=== PATIENT | male | born 1985 | race Caucasian/White ===

== ENCOUNTER 2022-05-04 21:35 | Emergency (ER) | payer OTHER, MEDICAID, SELFPAY ==
--- NOTE | ~2022-05-04 | CT_ITS ---
EXAMINATION: CT FACIAL BONES WITHOUT CONTRAST CLINICAL INFORMATION: Evaluate for blowout fracture COMPARISON: None TECHNIQUE: Axial imaging with coronal and sagittal reformatted images. This CT examination was performed using dose optimization techniques as appropriate, variously including the following: *Automated exposure control *Adjustment of mA and/or kV according to patient size (this includes techniques or standardized protocols for targeted exams where dose is matched to indication/reason for exam; i.e. extremities or head) *Use of iterative reconstruction technique DLP: 265 mGy-cm FINDINGS: Note is made of sinus disease. No fracture is seen. CT/CT facial bones wo IV con IMPRESSION: No fracture is seen.
[2022-05-04 21:43] VITALS: BP 112/81; PULSE 74; RESP 16; TEMP 37.2; O2SAT 96; BMI 25.7
[2022-05-04 22:35] LABS: MANUAL DIFF FLAG NO
[2022-05-04 22:38] LABS: Basophils Absolute Auto 0.1 X10*3/uL (0.0-0.2); Basophils Percent Auto 0.5 % (0-2); Eosinophils Absolute Auto 0.1 X10*3/uL (0.0-0.4); Eosinophils Percent Auto 0.7 % (0-4); Hematocrit 37.3 % (42.0-52.0); Hemoglobin 12.4 g/dl (14.0-18.0); Imm Gran Abs Auto 0.03 X10*3/uL (0.00-0.03); Imm Gran Pct Auto 0.3 % (0.0-0.4); Lymphocytes Absolute Auto 1.5 X10*3/uL (1.2-4.9); Lymphocytes Percent Auto 14.6 % (20-40); Mean Corpuscular HGB Conc 33.2 g/dl (31.0-36.0); Mean Corpuscular Hemoglobin 29.7 pg (27.0-33.0); Mean Corpuscular Volume 89.4 fL (80.0-98.0); Mean Platelet Volume 9.7 fL (9.4-12.4); Monocytes Absolute Auto 0.6 X10*3/uL (0.1-1.2); Monocytes Percent Auto 6.2 % (2-11); Neutrophils Absolute Auto 7.8 x10*3/uL (2.0-8.3); Neutrophils Percent Auto 77.7 % (45-73); Platelet Count 260 X10*3/uL (160-400); Red Blood Count 4.17 X10*6/uL (4.60-5.80); Red Cell Distribution Width 12.4 % (11.0-16.0); White Blood Count 10.1 X10*3/uL (4.8-10.8)
[2022-05-04 22:44] LABS: COVID-19 Test Negative (Negative); IDNOW Serial# BCCEAD1C
[2022-05-04 22:55] LABS: Alanine Aminotransferase 17 U/L (0-40); Albumin Level 3.8 g/dL (3.5-5.0); Alkaline Phosphatase 60 U/L (39-117); Anion Gap 8 (12-20); Aspartate Amino Transferase 17 U/L (5-37); Bilirubin Total 0.3 mg/dL (0.0-1.0); Blood Urea Nitrogen 15 mg/dL (9-16); Calcium 8.9 mg/dL (8.4-10.2); Carbon Dioxide 34 mmol/L (22-29); Chloride 102 mmol/L (96-108); Creatinine Clr Calc Pharmacy 95.4; Estimated Glomerular Filt Rate > 60; Glucose Random 97 mg/dL (60-115); Potassium 4.1 mmol/L (3.3-5.1); Sodium 140 mmol/L (135-145); Total Protein 5.8 g/dL (6.5-8.0)
[2022-05-04 22:58] LABS: Ethanol < 10 mg/dL
[2022-05-04 23:11] LABS: Amphetamine Screen Urine Not Detected (Not Detect); Barbiturates, Urine Not Detected (Not Detect); Benzodiazepines Screen Urine Not Detected (Not Detect); Cannabinoid Screen Urine Not Detected (Not Detect); Cocaine Screen Urine Not Detected (Not Detect); Fentanyl, urine POSITIVE (Not Detect); Opiate Screen Urine Not Detected (Not Detect); Phencyclidine Screen Urine Not Detected (Not Detect)
[2022-05-04 23:46] VITALS: BP 118/68; PULSE 67; RESP 16; TEMP 37.2; O2SAT 97
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
[2022-05-05] MEDS: LORazepam 1 MG TABLET 2 MG PO (01:39)
[2022-05-05] MEDS: rOPINIRole HCL 0.25 MG TABLET PO ×2 (01:39→20:38)
--- NOTE | 2022-05-05 07:16 | PC.NURSE ---
Patient slept intermittently, no distress observed/reported, VSS, behavior non concerning at this time but unpredictable, patient engaged well with care team, disposition is section 12 inpatient bed search, will continue to monitor.
--- NOTE | 2022-05-05 10:31 | PC.NURSE ---
Addendum entered by Shereen Hussein 05/05/22 14:37: [facility] WAS CALLED, NOT [facility] Original Note: [facility] CALLED RE:PT'S METHADONE DOSE. PHARMACY CALLED X 2 REGARDING MEDS REMAIN UNVERIFIED. PT REQUESTING SOMETHING FOR BOWELS. MD AWARE
[2022-05-05] MEDS: methADONE HCl 20 MG/2 ML ORAL.CONC 40 MG PO (11:40)
[2022-05-05] MEDS: Divalproex Sodium 500 MG TABLET.DR PO ×2 (11:42→20:37)
[2022-05-05] MEDS: Sertraline HCL 50 MG TABLET PO (11:43)
[2022-05-05] MEDS: Levothyroxine Sodium 100 MCG TABLET PO (11:43)
[2022-05-05] MEDS: Ziprasidone 60 MG CAPSULE PO ×2 (11:44→20:41)
--- NOTE | 2022-05-05 14:36 | PC.NURSE ---
MEDS GIVEN LATE S MED REC NOT VERIFIED UNTIL 1100. GIVEN AT 1140
[2022-05-05] MEDS: Venlafaxine HCl ER 75 MG CAP.ER.24H PO (14:38)
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
[2022-05-05] MEDS: LORazepam 0.5 MG TABLET PO (17:58)
[2022-05-05] MEDS: Baclofen 10 MG TABLET PO (17:58)
[2022-05-05] MEDS: Prazosin HCL 1 MG CAPSULE 7 MG PO (20:37)
[2022-05-05] MEDS: traZODone HCL 50 MG TABLET PO (20:38)
[2022-05-05 20:47] VITALS: BP 120/86; PULSE 69; RESP 18; TEMP 36.1; O2SAT 95
--- NOTE | 2022-05-06 06:13 | PC.NURSE ---
Patient slept through the night, no distress observed/reported, behavior non concerning, medication compliant, disposition per care team is section 12 inpatient bed search, VSS, will continue to monitor.
[2022-05-06 06:40] VITALS: BP 102/68; PULSE 68; RESP 16; TEMP 36.9; O2SAT 94
[2022-05-06 08:17] VITALS: BP 104/71; PULSE 66; RESP 16; TEMP 36.7; O2SAT 98
[2022-05-06] MEDS: methADONE HCl 20 MG/2 ML ORAL.CONC 40 MG PO (08:17)
[2022-05-06] MEDS: Levothyroxine Sodium 100 MCG TABLET PO (08:17)
[2022-05-06] MEDS: Sertraline HCL 50 MG TABLET PO (08:17)
[2022-05-06] MEDS: Divalproex Sodium 500 MG TABLET.DR PO ×2 (08:17→21:16)
[2022-05-06] MEDS: LORazepam 0.5 MG TABLET PO (08:17)
[2022-05-06] MEDS: Cholecalciferol (Vitamin D3) 25 MCG TABLET PO (08:17)
[2022-05-06] MEDS: Ziprasidone 60 MG CAPSULE PO ×2 (08:46→21:16)
[2022-05-06] MEDS: Venlafaxine HCl ER 75 MG CAP.ER.24H PO (08:47)
--- NOTE | 2022-05-06 13:06 | PC.NURSE ---
Pt visible in milieu, occasional odd behavior noted, speaking clearly in full sentences. Has spent a good portion of the morning coloring. Meeting with CARE team at this time.
[2022-05-06] MEDS: hydrOXYzine HCL 50 MG TABLET 100 MG PO (14:40)
--- NOTE | 2022-05-06 14:41 | PC.NURSE ---
Pt requesting PRN at this time, hydroxyzine given per mar
--- NOTE | 2022-05-06 15:16 | PC.NURSE ---
Pt seen this date for individual OT tx. Upon entering pts room pt found to seated on bed and rocking. Pt reports feeling upset and hurt as pictures given to staff, as a present , could not be hung up in POD milieu. Pt provided with reassurance and positive reinforcement with positive result. Pt encouraged to continue to practice coloring as a useful and effective coping skill as a positive distraction from intrusive negative thoughts. Pt is in agreement and receptive to sensory item provided.
--- NOTE | 2022-05-06 15:16 | MHC.CARE ---
Care Team exhausted bedsearch.
[2022-05-06] MEDS: Prazosin HCL 1 MG CAPSULE 7 MG PO (21:17)
[2022-05-06] MEDS: rOPINIRole HCL 0.25 MG TABLET PO (21:19)
[2022-05-06] MEDS: traZODone HCL 50 MG TABLET PO (21:22)
[2022-05-06 21:26] VITALS: BP 133/77; PULSE 64; RESP 18; TEMP 36.6; O2SAT 98
[2022-05-07 03:01] VITALS: BP 112/72; PULSE 76; RESP 16; TEMP 36.7; O2SAT 95
--- NOTE | 2022-05-07 06:59 | PC.NURSE ---
patient appears to remain asleep at present respirations are even and unlabored patient appears to be in distress
[2022-05-07 09:39] VITALS: BP 101/64; PULSE 55; RESP 16; TEMP 36.8; O2SAT 97
[2022-05-07] MEDS: Divalproex Sodium 500 MG TABLET.DR PO (09:58)
[2022-05-07] MEDS: Ziprasidone 60 MG CAPSULE PO (09:58)
[2022-05-07] MEDS: Nicotine 21 MG PATCH.TD24 TRANSDERMA (09:58)
[2022-05-07] MEDS: methADONE HCl 20 MG/2 ML ORAL.CONC 40 MG PO (09:59)
[2022-05-07] MEDS: Sertraline HCL 50 MG TABLET PO (09:59)
[2022-05-07] MEDS: Cholecalciferol (Vitamin D3) 25 MCG TABLET PO (09:59)
[2022-05-07] MEDS: Levothyroxine Sodium 100 MCG TABLET PO (09:59)
[2022-05-07] MEDS: Venlafaxine HCl ER 75 MG CAP.ER.24H PO (09:59)
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
[2022-05-07] MEDS: hydrOXYzine HCL 50 MG TABLET 100 MG PO (14:49)
== END 2022-05-07 15:24 | disposition home or self-care (01) ==
PROVIDERS: Emergency Provider Emergency Medicine
DX: R45.851 Suicidal ideations (principal); F41.9 Anxiety disorder, unspecified; F91.8 Other conduct disorders; F19.10 Other psychoactive substance abuse, uncomplicated; F43.10 Post-traumatic stress disorder, unspecified; F60.3 Borderline personality disorder; F60.2 Antisocial personality disorder; Z20.822 Contact with and (suspected) exposure to COVID-19; S00.11XA Contusion of right eyelid and periocular area, initial encounter; X83.8XXA Intentional self-harm by other specified means, initial encounter; Y93.89 Activity, other specified; Y92.238 Other place in hospital as the place of occurrence of the external cause; Y99.9 Unspecified external cause status
CPT/HCPCS: 36415; 70486; 80053; 80307; 82077; 85025; 87635; 99284; 99285; S9485

== ENCOUNTER 2022-12-08 20:28 | Emergency (ER) | payer MEDICAID, SELFPAY ==
--- NOTE | ~2022-12-08 | XR_ITS ---
EXAMINATION: XR ABDOMEN KUB CLINICAL INDICATION: Fecal impaction COMPARISON: None available. TECHNIQUE: AP view of the abdomen. FINDINGS: There is prominent gaseous distention of colon in the central abdomen, suspected to represent transverse colon, with a large amount of stool in this region. Moderate stool is also noted in the descending colon. No significant stool in the rectum. No gaseous dilation of small bowel. No appreciable intra-abdominal free air, though assessment for this is limited with supine positioning. Small calcification in the lower left pelvis is statistically favored to represent a phlebolith. No acute osseous findings are seen. XR/XR KUB IMPRESSION: Large volume of stool in the central abdomen with gaseous distention of the transverse colon. Moderate volume of stool in the descending colon. No significant stool in the rectum.
[2022-12-08 20:34] VITALS: BP 115/71; PULSE 83; RESP 17; TEMP 36.8; O2SAT 95
[2022-12-08 20:59] VITALS: BMI 30.8
--- NOTE | 2022-12-08 21:45 | ED_ITS ---
HPI - Abdominal Pain General Chief Complaint: Abdominal Pain Stated Complaint: constipation x3days,abd pain Time Seen by Provider: 12/08/22 21:09 Source: patient Mode of arrival: ambulatory Limitations: no limitations History of Present Illness HPI narrative: Patient transgender female to male been constipated for last 4 days was given bowel medication at program today without any relief no nausea no vomiting no fever no chills not take any narcotics for pain Related Data Home Medications Medication Instructions Recorded Confirmed albuterol sulfate 90 mcg/actuation 2 puff inhalation Q6H PRN 05/05/22 05/05/22 aerosol inhaler (ProAir HFA) Respiratory Distress baclofen 10 mg tablet 10 mg PO TID PRN Spasms 05/05/22 05/05/22 cholecalciferol (vitamin D3) 25 25 mcg PO DAILY 05/05/22 05/05/22 mcg (1,000 unit) tablet divalproex 500 mg tablet,delayed 1 tab PO BID 05/05/22 05/05/22 release hydroxyzine HCl 50 mg tablet 100 mg PO Q4H PRN Anxiety 05/05/22 05/05/22 levothyroxine 100 mcg tablet 1 tab PO DAILY@0600 05/05/22 05/05/22 lorazepam 0.5 mg tablet 0.5 mg PO Q6H PRN Anxiety 05/05/22 05/05/22 methadone 40 mg PO DAILY 05/05/22 05/05/22 mineral oil-hydrophil petrolat 1 appl topical DAILY PRN Dry Skin 05/05/22 05/05/22 topical ointment (Aquaphor topical ointment) nicotine (polacrilex) 2 mg gum 2 mg buccal Q2H PRN Nicotine 05/05/22 05/05/22 Cravings nicotine 21 mg/24 hr daily 1 patch transdermal DAILY 05/05/22 05/05/22 transdermal patch prazosin 1 mg capsule 7 mg PO BEDTIME 05/05/22 05/05/22 ropinirole 0.25 mg tablet 1 tab PO BEDTIME 05/05/22 05/05/22 sertraline 50 mg tablet 50 mg PO DAILY 05/05/22 05/05/22 trazodone 50 mg tablet 50 mg PO BEDTIME 05/05/22 05/05/22 venlafaxine 37.5 mg 37.5 mg PO DAILY 05/05/22 05/05/22 tablet,extended release 24 hr venlafaxine 75 mg capsule,extended 75 mg PO DAILY 05/05/22 05/05/22 release 24 hr ziprasidone HCl 60 mg capsule 1 cap PO BID 05/05/22 05/05/22 Previous Rx's Medication Instructions Recorded bisacodyl 5 mg tablet,delayed 10 mg PO BEDTIME 2 days #4 tabs 12/08/22 release (Dulcolax (bisacodyl)) polyethylene glycol 3350 17 17 g PO DAILY #510 grams 12/08/22 gram/dose oral powder (Miralax) Allergies Allergy/AdvReac Type Severity Reaction Status Date / Time Penicillins AdvReac Severe Shortness Verified 05/04/22 21:56 of Breath Review of Systems Review of Systems Yes all other systems are reviewed and are negative [facility] Past Medical History Medical History Aggressive behavior Antisocial personality disorder Borderline personality disorder PTSD (post-traumatic stress disorder) Suicidal ideation Social History Social History Alcohol intake: never Smoked in Last 30 Days: No Use of substances other than those prescribed or required for medical reasons: No Advance Directives: No Advance Directives Information Provided: No Physical Exam ED Vital Signs: Vital Signs - 24 hr 12/08/22 20:34 Temperature 98.2 F Pulse Rate 83 Respiratory Rate 17 Blood Pressure 115/71 Pulse Oximetry 95 Oxygen Delivery Method Room Air BMI result Body Mass Index 30.8 Appearance: Alert. Oriented X3. No acute distress. Eyes: PERRLA, No Nystagmus ENT: Pharynx normal. Oral Mucosa moist Neck: Normal inspection. Neck supple. CVS: Normal heart rate and rhythm. Pulses normal. Respiratory: No respiratory distress. Equal air entry bilateral, no wheezing/rales/rhonchi Abdomen: Soft and nontender. Bowel sounds are present, no mass palpable, no CVA tenderness rectal: Empty rectum no stool palpable Skin: Skin warm and dry. Normal skin color. Normal skin turgor. Extremities: No lower extremity edema. No calf tenderness Neuro: Oriented X 3. No motor deficit. Medical Decision Making Medical Decision Making MDM Narrative: KUB showed moderate amount of stool no SBO will give milk of magnesium and Dulcolax Differential Diagnosis Differential Diagnoses: The differential diagnosis associated with the presentation includes Fecal impaction/SBO Medications Administered Discontinued Medications Generic Name Dose Route Start Last Admin Trade Name Freq PRN Reason Stop Dose Admin Bisacodyl 10 mg 12/08/22 21:45 12/08/22 21:58 Bisacodyl 5 Mg Tablet.Dr PO 12/08/22 21:46 10 mg ONCE ONE Administration Magnesium Hydroxide 30 ml 12/08/22 21:45 12/08/22 21:58 Milk Of Magnesia 30 Ml Oral.Susp PO 12/08/22 21:46 30 ml ONCE ONE Administration Discharge Plan Discharge Clinical Impression: Constipation Patient Disposition: Home, Self-Care Instructions: Constipation (ED) Additional Instructions: Take stool softener as prescribed Follow with PCP Prescriptions: New polyethylene glycol 3350 [Miralax] 17 gram/dose powder 17 g PO DAILY Qty: 510 0RF bisacodyl [Dulcolax (bisacodyl)] 5 mg tablet,delayed release (DR/EC) 10 mg PO BEDTIME 2 Days Qty: 4 0RF No Action divalproex 500 mg tablet,delayed release (DR/EC) 1 tab PO BID levothyroxine 100 mcg tablet 1 tab PO DAILY@0600 ropinirole 0.25 mg tablet 1 tab PO BEDTIME albuterol sulfate [ProAir HFA] 90 mcg/actuation HFA aerosol inhaler 2 puff inhalation Q6H PRN (Reason: Respiratory Distress) ziprasidone HCl 60 mg capsule 1 cap PO BID trazodone 50 mg Tablet 50 mg PO BEDTIME prazosin 1 mg Capsule 7 mg PO BEDTIME sertraline 50 mg Tablet 50 mg PO DAILY methadone 40 mg PO DAILY baclofen 10 mg Tablet 10 mg PO TID PRN (Reason: Spasms) cholecalciferol (vitamin D3) 25 mcg (1,000 unit) Tablet 25 mcg PO DAILY hydroxyzine HCl 50 mg Tablet 100 mg PO Q4H PRN (Reason: Anxiety) lorazepam 0.5 mg Tablet 0.5 mg PO Q6H PRN (Reason: Anxiety) nicotine 21 mg/24 hr Patch 24 Hour 1 patch TRANSDERMAL DAILY nicotine (polacrilex) 2 mg Gum 2 mg BUCCAL Q2H PRN (Reason: Nicotine Cravings) Aquaphor Ointment 1 appl TOPICAL DAILY PRN (Reason: Dry Skin) venlafaxine 75 mg Capsule,Extended Release 24hr 75 mg PO DAILY Rx Instructions: DOSE FROM 05/05 TO 05/07 venlafaxine 37.5 mg Tablet Extended Release 24hr 37.5 mg PO DAILY Rx Instructions: DOSE FROM 05/06 TO 05/09 Interventions: ED Discharge Assessment Last Done: 12/08/22 23:31 Discharge Date/Time: 12/08/22 23:32
[2022-12-08] MEDS: bisacodyL 5 MG TABLET.DR 10 MG PO (21:58)
[2022-12-08] MEDS: Milk of Magnesia 30 ML ORAL.SUSP PO (21:58)
== END 2022-12-08 23:32 | disposition home or self-care (01) ==
PROVIDERS: Emergency Provider Internal Medicine
DX: K59.00 Constipation, unspecified (principal); R10.13 Epigastric pain; Z79.899 Other long term (current) drug therapy
CPT/HCPCS: 74018; 99283; 99284

== ENCOUNTER 2022-12-09 21:36 | Emergency (ER) | payer MEDICAID, SELFPAY ==
--- NOTE | ~2022-12-09 | XR_ITS ---
EXAMINATION: XR ABDOMEN KUB CLINICAL INDICATION: Foreign body ingestion. COMPARISON: None available. TECHNIQUE: AP view of the abdomen. FINDINGS: The bowel gas pattern is normal with no evidence of ileus or obstruction. No unusual soft tissue calcifications are noted. The bones are unremarkable. XR/XR KUB IMPRESSION: Nonspecific bowel gas pattern. No radiopaque foreign body seen.
--- NOTE | ~2022-12-09 | XR_ITS ---
EXAMINATION: XR CHEST CLINICAL INFORMATION: Foreign body ingestion. COMPARISON: None available. TECHNIQUE: Frontal view of the chest was obtained. FINDINGS: The cardiomediastinal silhouette is normal. There is no focal lung consolidation or pleural effusion. The bony structures and soft tissues are unremarkable. XR/XR chest 1V IMPRESSION: No active cardiopulmonary disease. No radiopaque foreign body seen.
[2022-12-09 21:41] VITALS: BP 132/86; PULSE 74; O2SAT 99
[2022-12-09 21:55] VITALS: BP 120/67; PULSE 92; RESP 16; TEMP 35.9; O2SAT 97; BMI 30.5
--- NOTE | 2022-12-09 22:26 | ED.ABDPAIN ---
HPI - Abdominal Pain General Chief Complaint: Abdominal Pain Stated Complaint: ABD PAIN DUE TO CONSTIPATION, WANTS ENEMA Time Seen by Provider: 12/09/22 22:18 Source: patient and EMS Mode of arrival: EMS Limitations: no limitations History of Present Illness HPI narrative: 37-year-old transgender male to female who is currently residing in inpatient locked psych unit came in for constipation and no bowel movement for the past 5 days, patient was seen and evaluated yesterday for similar presentation and patient was prescribed Polyethylene glycol, and dulcolax. Patient claimed that the nursing staff at the psych facility did not want to give him his medication patient stated that he claimed that he swallowed something (safety pin) but he did not in order to come to the hospital patient in the emergency department confirmed that he did not swallow anything he just said that to come to the hospital. Related Data Home Medications Medication Instructions Recorded Confirmed albuterol sulfate 90 mcg/actuation 2 puff inhalation Q6H PRN 05/05/22 05/05/22 aerosol inhaler (ProAir HFA) Respiratory Distress baclofen 10 mg tablet 10 mg PO TID PRN Spasms 05/05/22 05/05/22 cholecalciferol (vitamin D3) 25 25 mcg PO DAILY 05/05/22 05/05/22 mcg (1,000 unit) tablet divalproex 500 mg tablet,delayed 1 tab PO BID 05/05/22 05/05/22 release hydroxyzine HCl 50 mg tablet 100 mg PO Q4H PRN Anxiety 05/05/22 05/05/22 levothyroxine 100 mcg tablet 1 tab PO DAILY@0600 05/05/22 05/05/22 lorazepam 0.5 mg tablet 0.5 mg PO Q6H PRN Anxiety 05/05/22 05/05/22 methadone 40 mg PO DAILY 05/05/22 05/05/22 mineral oil-hydrophil petrolat 1 appl topical DAILY PRN Dry Skin 05/05/22 05/05/22 topical ointment (Aquaphor topical ointment) nicotine (polacrilex) 2 mg gum 2 mg buccal Q2H PRN Nicotine 05/05/22 05/05/22 Cravings nicotine 21 mg/24 hr daily 1 patch transdermal DAILY 05/05/22 05/05/22 transdermal patch prazosin 1 mg capsule 7 mg PO BEDTIME 05/05/22 05/05/22 ropinirole 0.25 mg tablet 1 tab PO BEDTIME 05/05/22 05/05/22 sertraline 50 mg tablet 50 mg PO DAILY 05/05/22 05/05/22 trazodone 50 mg tablet 50 mg PO BEDTIME 05/05/22 05/05/22 venlafaxine 37.5 mg 37.5 mg PO DAILY 05/05/22 05/05/22 tablet,extended release 24 hr venlafaxine 75 mg capsule,extended 75 mg PO DAILY 05/05/22 05/05/22 release 24 hr ziprasidone HCl 60 mg capsule 1 cap PO BID 05/05/22 05/05/22 Previous Rx's Medication Instructions Recorded bisacodyl 5 mg tablet,delayed 10 mg PO BEDTIME 2 days #4 tabs 12/08/22 release (Dulcolax (bisacodyl)) polyethylene glycol 3350 17 17 g PO DAILY #510 grams 12/08/22 gram/dose oral powder (Miralax) Allergies Allergy/AdvReac Type Severity Reaction Status Date / Time Penicillins AdvReac Severe Shortness Verified 05/04/22 21:56 of Breath Review of Systems Review of Systems All other systems are reviewed and are negative Constitutional: Reports as per HPI and Reports no additional constitutional complaints Eyes: Reports as per HPI and Reports no additional eye complaints Reports system reviewed and no additional complaints, except as documented Cardiovascular: Reports as per HPI and Reports no additional cardiovascular complaints Respiratory: Reports as per HPI and Reports no additional respiratory complaints Gastrointestinal: Reports as per HPI and Reports no additional gastrointestinal complaints Genitourinary: Reports no additional female genitourinary complaints Musculoskeletal: Reports no additional musculoskeletal complaints Skin/Breast: Reports system reviewed and no additional complaints, except as docu Psychiatric: Reports no additional psychiatric complaints Endocrine: Reports no additional endocrine complaints Hematologic/Lymphatic: Reports no additional hematologic/lymphatic complaints Allergic/Immunologic: Reports no additional allergic/immunologic complaints Reports system reviewed and no additional complaints, except as documented and Reports Abnormal speech present [facility] Past Medical History Medical History Aggressive behavior Antisocial personality disorder Borderline personality disorder PTSD (post-traumatic stress disorder) Suicidal ideation Social History Social History Alcohol intake: never Advance Directives: No Advance Directives Information Provided: No Physical Exam ED Vital Signs: Vital Signs - 24 hr 12/09/22 21:55 12/09/22 23:57 Temperature 96.7 F L 97.9 F Pulse Rate 92 71 Respiratory Rate 16 16 Blood Pressure 120/67 121/55 L Pulse Oximetry 97 95 Oxygen Delivery Method Room Air Room Air BMI result Body Mass Index 30.5 Vital signs have been reviewed as appeared to be correct. Blood pressure normal. Heart rate normal. Respiration rate normal. Temperature normal. Oxygen saturation normal. Appearance: Alert. Oriented X3. No acute distress. Head: Normal external exam. Normocephalic. Atraumatic. No Clements signs noted. No raccoon eyes noted Eyes: PERRLA. EOMI. Conjunctiva and sclera normal. Eyelids normal. ENT: TM's Normal. Pharynx normal. Uvula midline. Moist mucous membranes. No trismus noted. No drooling noted. No muffled voice noted. Neck: Normal inspection. Neck supple. FROM. No adenopathy. Thyroid Normal. No meningeal signs. No neck mass noted. CVS: Normal heart rate and rhythm. Heart sound normal. No murmurs noted. Pulses normal throughout. Respiratory: No respiratory distress. Painless inspiration. Breath sounds normal. No wheezes/rales/rhonchi noted. Chest nontender. No accessory muscle usage noted or decreased air movement noted. Abdomen: Soft and nontender. Bowel sounds normal in all 4 quadrants. No distention noted. No organomegaly noted. No visible injury noted. Back: No CVA tenderness. Full range of motion noted. Skin: Skin warm and dry. Normal skin color. Normal skin turgor. No rashes/lesions/lacerations noted. Extremities: No lower extremity edema. Extremities exhibit normal range of motion. Extremities nontender. Neuro: Oriented X 3. Cranial nerve exam: II-XII are grossly intact No motor deficit. No sensory deficit. Reflexes normal. Course Course Course Narrative: 37-year-old male came in from [facility] for abdominal pain and constipation the patient was evaluated yesterday in the emergency department for similar symptoms, labs revealed elevated LFTs that can be worked up by PCP, patient received rectal enema and milk of magnesia had bowel movement in the emergency department and feels better, patient tolerated p.o. intake with no problem, will arrange for transportation back to the [facility] for further depression management. No evidence of foreign body in the GI track as patient claimed in order to be transported to the hospital. The above plan was discussed with the patient. Medical Decision Making Differential Diagnosis Differential Diagnoses: The differential diagnosis associated with the presentation includes (Constipation, swallowing foreign body, electrolyte abnormality, severe anemia.) Admission/Observation Consideration of admission/observation: Escalation of care including admission/observation considered Lab Data MDM Lab Attestation statement: I reviewed the patient's lab results. 12/09/22 22:48 12/09/22 22:48 Labs: Lab Results 12/09/22 12/09/22 Range/Units 22:48 22:48 WBC 4.9 (4.8-10.8) X10*3/uL RBC 4.16 L (4.60-5.80) X10*6/uL Hgb 12.2 L (14.0-18.0) g/dl Hct 37.1 L (42.0-52.0) % MCV 89.2 (80.0-98.0) fL MCH 29.3 (27.0-33.0) pg MCHC 32.9 (31.0-36.0) g/dl RDW 12.6 (11.0-16.0) % Plt Count 211 (160-400) X10*3/uL MPV 9.1 L (9.4-12.4) fL Immature Gran % (Auto) 0.4 (0.0-0.4) % Neut % (Auto) 55.3 (45-73) % Lymph % (Auto) 27.4 (20-40) % [place] % (Auto) 11.2 H (2-11) % Eos % (Auto) 5.1 H (0-4) % Baso % (Auto) 0.6 (0-2) % Lymph # (Auto) 1.3 (1.2-4.9) X10*3/uL [place] # (Auto) 0.6 (0.1-1.2) X10*3/uL Eos # (Auto) 0.3 (0.0-0.4) X10*3/uL Baso # (Auto) 0.0 (0.0-0.2) X10*3/uL Abs Immat Gran (auto) 0.02 (0.00-0.03) X10*3/uL Absolute Neuts (auto) 2.7 (2.0-8.3) x10*3/uL Absolute Nucleated RBC 0.000 (0.0-0.012) X10*3/uL Nucleated RBC % (auto) 0.0 (0.0-0.2) /100WBC Sodium 141 (135-145) mmol/L Potassium 4.9 (3.3-5.1) mmol/L Chloride 102 (96-108) mmol/L Carbon Dioxide 31 H (22-29) mmol/L Anion Gap 13 (12-20) BUN 18 H (9-16) mg/dL Creatinine 0.90 (0.5-1.4) mg/dL Estim Creat Clear Calc 113.7 Estimated GFR > 60 Random Glucose 113 (60-115) mg/dL Calcium 8.7 (8.4-10.2) mg/dL Total Bilirubin 0.3 (0.0-1.0) mg/dL Direct Bilirubin 0.1 (0.0-0.5) mg/dL AST 99 H (5-37) U/L ALT 95 H (0-40) U/L Alkaline Phosphatase 77 (39-117) U/L Total Protein 6.2 L (6.5-8.0) g/dL Albumin 3.7 (3.5-5.0) g/dL Lipase 38 (8-78) U/L Independent Interpretation I performed an independent interpretation of an: Plain X-Ray (KUB: No foreign body, no obstruction.) Radiology Impression Discussion of test interpretation with radiology: I have reviewed the radiologist's reading. (Nonspecific bowel gas pattern. No radiopaque foreign body seen. ) Medications Administered Discontinued Medications Generic Name Dose Route Start Last Admin Trade Name Freq PRN Reason Stop Dose Admin Bisacodyl 10 mg 12/09/22 22:29 12/10/22 00:07 Bisacodyl 10 Mg Supp.Rect MA 12/09/22 22:30 10 mg ONCE ONE Administration Mineral Oil 133 ml 12/09/22 22:29 12/10/22 00:07 Mineral Oil Enema 133 Ml Enema MA 12/09/22 22:30 133 ml ONCE ONE Administration Discharge Plan Discharge Clinical Impression: Constipation, Elevated LFTs Patient Disposition: Xfer SNF Transfer Details: [facility] back to [facility] Instructions: Constipation (ED) Additional Instructions: Drink plenty of fluids and eat high-fiber diet. Prescriptions: No Action divalproex 500 mg tablet,delayed release (DR/EC) 1 tab PO BID levothyroxine 100 mcg tablet 1 tab PO DAILY@0600 ropinirole 0.25 mg tablet 1 tab PO BEDTIME albuterol sulfate [ProAir HFA] 90 mcg/actuation HFA aerosol inhaler 2 puff inhalation Q6H PRN (Reason: Respiratory Distress) ziprasidone HCl 60 mg capsule 1 cap PO BID trazodone 50 mg Tablet 50 mg PO BEDTIME prazosin 1 mg Capsule 7 mg PO BEDTIME sertraline 50 mg Tablet 50 mg PO DAILY methadone 40 mg PO DAILY baclofen 10 mg Tablet 10 mg PO TID PRN (Reason: Spasms) cholecalciferol (vitamin D3) 25 mcg (1,000 unit) Tablet 25 mcg PO DAILY hydroxyzine HCl 50 mg Tablet 100 mg PO Q4H PRN (Reason: Anxiety) lorazepam 0.5 mg Tablet 0.5 mg PO Q6H PRN (Reason: Anxiety) nicotine 21 mg/24 hr Patch 24 Hour 1 patch TRANSDERMAL DAILY nicotine (polacrilex) 2 mg Gum 2 mg BUCCAL Q2H PRN (Reason: Nicotine Cravings) Aquaphor Ointment 1 appl TOPICAL DAILY PRN (Reason: Dry Skin) venlafaxine 75 mg Capsule,Extended Release 24hr 75 mg PO DAILY Rx Instructions: DOSE FROM 05/05 TO 05/07 venlafaxine 37.5 mg Tablet Extended Release 24hr 37.5 mg PO DAILY Rx Instructions: DOSE FROM 05/06 TO 05/09 polyethylene glycol 3350 [Miralax] 17 gram/dose powder 17 g PO DAILY Qty: 510 0RF bisacodyl [Dulcolax (bisacodyl)] 5 mg tablet,delayed release (DR/EC) 10 mg PO BEDTIME 2 Days Qty: 4 0RF
[2022-12-09 22:54] LABS: MANUAL DIFF FLAG NO
[2022-12-09 22:55] LABS: Basophils Percent Auto 0.6 % (0-2); Eosinophils Absolute Auto 0.3 X10*3/uL (0.0-0.4); Eosinophils Percent Auto 5.1 % (0-4); Hematocrit 37.1 % (42.0-52.0); Hemoglobin 12.2 g/dl (14.0-18.0); Imm Gran Abs Auto 0.02 X10*3/uL (0.00-0.03); Imm Gran Pct Auto 0.4 % (0.0-0.4); Lymphocytes Absolute Auto 1.3 X10*3/uL (1.2-4.9); Lymphocytes Percent Auto 27.4 % (20-40); Mean Corpuscular HGB Conc 32.9 g/dl (31.0-36.0); Mean Corpuscular Hemoglobin 29.3 pg (27.0-33.0); Mean Corpuscular Volume 89.2 fL (80.0-98.0); Mean Platelet Volume 9.1 fL (9.4-12.4); Monocytes Absolute Auto 0.6 X10*3/uL (0.1-1.2); Monocytes Percent Auto 11.2 % (2-11); Neutrophils Absolute Auto 2.7 x10*3/uL (2.0-8.3); Neutrophils Percent Auto 55.3 % (45-73); Platelet Count 211 X10*3/uL (160-400); Red Blood Count 4.16 X10*6/uL (4.60-5.80); Red Cell Distribution Width 12.6 % (11.0-16.0); White Blood Count 4.9 X10*3/uL (4.8-10.8)
[2022-12-09 23:09] LABS: Alanine Aminotransferase 95 U/L (0-40); Albumin Level 3.7 g/dL (3.5-5.0); Alkaline Phosphatase 77 U/L (39-117); Anion Gap 13 (12-20); Aspartate Amino Transferase 99 U/L (5-37); Bilirubin Direct 0.1 mg/dL (0.0-0.5); Bilirubin Total 0.3 mg/dL (0.0-1.0); Blood Urea Nitrogen 18 mg/dL (9-16); Calcium 8.7 mg/dL (8.4-10.2); Carbon Dioxide 31 mmol/L (22-29); Chloride 102 mmol/L (96-108); Creatinine Clr Calc Pharmacy 113.7; Estimated Glomerular Filt Rate > 60; Glucose Random 113 mg/dL (60-115); Lipase 38 U/L (8-78); Potassium 4.9 mmol/L (3.3-5.1); Sodium 141 mmol/L (135-145); Total Protein 6.2 g/dL (6.5-8.0)
[2022-12-09 23:57] VITALS: BP 121/55; PULSE 71; RESP 16; TEMP 36.6; O2SAT 95
[2022-12-10] MEDS: Mineral OiL enema 133 ML ENEMA PR (00:07)
[2022-12-10] MEDS: bisacodyL 10 MG SUPP.RECT PR (00:07)
--- NOTE | 2022-12-10 02:41 | MHC.EDTECH ---
call out to clara at [phone] to book transport back to [facility], estimated eta given was 1 hr due to [facility]bianna being at ground 0
== END 2022-12-10 04:30 | disposition skilled nursing facility (03) ==
PROVIDERS: Emergency Provider Emergency Medicine
DX: K59.00 Constipation, unspecified (principal); R79.89 Other specified abnormal findings of blood chemistry; R10.13 Epigastric pain; R07.89 Other chest pain; Z79.899 Other long term (current) drug therapy
CPT/HCPCS: 36415; 71045; 74018; 80048; 80076; 83690; 85025; 99284

== ENCOUNTER 2022-12-18 01:09 | Emergency (ER) | payer OTHER, MEDICAID, SELFPAY ==
[2022-12-18 01:15] VITALS: BP 116/72; PULSE 93; RESP 16; TEMP 36.6; O2SAT 94; BMI 25.6
--- NOTE | 2022-12-18 01:32 | ED.PSYCH ---
HPI - Psych General Chief Complaint: Psychiatric Symptoms Stated Complaint: SI Time Seen by Provider: 12/18/22 01:16 Source: patient Mode of arrival: EMS Limitations: no limitations History of Present Illness HPI Narrative: Patient comes to the emergency room via ambulance from the [facility] bus stop. Patient was just discharged today, patient is to be released because patient felt that they were not treating him right, specifically it, he did not get water immediately when it was requested. Patient was at the bus station, expressed suicidal ideation, call 911 and osteotome to the emergency room. Patient expressed suicidal ideation, patient has superficial cuts to the left wrist. Related Data Home Medications Medication Instructions Recorded Confirmed albuterol sulfate 90 mcg/actuation 2 puff inhalation Q6H PRN 05/05/22 12/18/22 aerosol inhaler (ProAir HFA) Respiratory Distress nicotine (polacrilex) 2 mg gum 2 mg buccal Q2H PRN Nicotine 05/05/22 12/18/22 Cravings atomoxetine 18 mg capsule 18 mg PO QAM 12/18/22 12/18/22 cholecalciferol (vitamin D3) 25 25 mcg PO DAILY 12/18/22 12/18/22 mcg (1,000 unit) tablet (Vitamin D3) divalproex 250 mg tablet,extended 250 mg PO QAM 12/18/22 12/18/22 release 24 hr (Depakote ER) estradiol 0.1 mg/24 hr semiweekly 1 patch transdermal 2XW 12/18/22 12/18/22 transdermal patch ropinirole 0.25 mg tablet 0.25 mg PO BEDTIME 12/18/22 12/18/22 Allergies Allergy/AdvReac Type Severity Reaction Status Date / Time Penicillins AdvReac Severe Shortness Verified 05/04/22 21:56 of Breath Review of Systems Review of Systems: Constitutional : No Weight loss, No Fever, No Chills, No Night Sweats, No Fatigue, No Malaise ENT/Mouth : No Hearing loss, No Ear Pain, No Nasal Congestion, No Sinus Pain, No Hoarseness, No sore throat, No Rhinorrhea, No Swallowing Difficulty Eyes: No Eye Pain, No Swelling, No Redness, No Foreign Body, No Discharge, No Vision Changes Cardiovascular : No Chest Pain, No SOB, No Dyspnea on Exertion, No Orthopnea, No Edema, No Palpitations Respiratory : No Cough, No Sputum, No Wheezing, No Smoke Exposure, No Dyspnea Gastrointestinal : No Nausea, No Vomiting, No Diarrhea, No Constipation, No abdominal Pain, No Hematochezia, No Melena Genitourinary : no irregular bleeding, No Dysuria, No Urinary Frequency, No Hematuria, No Urinary Incontinence, No Urgency, No Flank Pain, No Urinary Flow Changes, No Hesitancy Musculoskeletal : No joint pain, No Myalgias, No Joint Swelling Skin : No Skin Lesions, No rash Neuro : No Weakness, No Numbness, No Paresthesias, No Loss of Consciousness, No Dizziness, No Headache Psych : Complaining of suicidal ideation, homicidal ideation Heme/Lymph: No Bruising, No Bleeding,No Lymphadenopathy Endocrine : No Polyuria, No Polydipsia, No Temperature Intolerance PMFSH Past Medical History Medical History Aggressive behavior Antisocial personality disorder Borderline personality disorder PTSD (post-traumatic stress disorder) Suicidal ideation Social History Social History Alcohol intake: never Advance Directives: No Advance Directives Information Provided: No Healthcare Proxy: No Guardian: No Physical Exam Vital Signs: Vital Signs: Last Vital Signs Temp 97.8 F 12/18/22 01:15 Pulse 93 12/18/22 01:15 Resp 16 12/18/22 01:15 BP 116/72 12/18/22 01:15 Pulse Ox 94 12/18/22 01:15 O2 Del Method Room Air 12/18/22 01:15 BMI result Body Mass Index 25.6 Const: Other: Appearance: Alert. Oriented X3. No acute distress. Eyes: Pupils equal, round and reactive to light. ENT: Pharynx normal. Neck: Normal inspection. Neck supple. No lymph nodes noted. No crepitus CVS: Normal heart rate and rhythm. Pulses normal. Normal S1 and S2 Respiratory: No respiratory distress. Breath sounds normal. No Wheezing. No rales Abdomen: Soft and nontender. No rigidity. No distention. Skin: Skin warm and dry. Normal skin color. Normal skin turgor. Superficial lacerations to the left wrist Extremities: No lower extremity edema. No Lacerations. No Rash Neuro: Oriented X 3. No motor deficit. No sensory deficit. Moving all extremities. No slurred speech. CN 2 through 12 grossly intact Psych: calm, cooperative, normal affect Course Course Course Narrative: -all of patient's labs pending -patient is here voluntarily -care team consult pending -physician observation started at 01:35 Medical Decision Making Medical Decision Making [facility] Narrative: -04:00, care, evaluated the patient, they will evaluate the patient in the morning. Patient did not want to participate in the assessment at this time Differential Diagnosis Differential Diagnoses: The differential diagnosis associated with the presentation includes (Anxiety, depression, substance abuse) Admission/Observation Consideration of admission/observation: Escalation of care including admission/observation considered (Patient will remain under observation until evaluated by the care team) Lab Data 12/18/22 01:30 12/18/22 01:30 Labs: Lab Results 12/18/22 12/18/22 12/18/22 Range/Units 01:30 01:30 01:30 WBC 7.7 (4.8-10.8) X10*3/uL RBC 4.85 (4.60-5.80) X10*6/uL Hgb 14.4 (14.0-18.0) g/dl Hct 43.5 (42.0-52.0) % MCV 89.7 (80.0-98.0) fL MCH 29.7 (27.0-33.0) pg MCHC 33.1 (31.0-36.0) g/dl RDW 12.7 (11.0-16.0) % Plt Count 228 (160-400) X10*3/uL MPV 9.6 (9.4-12.4) fL Immature Gran % (Auto) 0.4 (0.0-0.4) % Neut % (Auto) 72.8 (45-73) % Lymph % (Auto) 14.5 L (20-40) % [place] % (Auto) 9.2 (2-11) % Eos % (Auto) 2.5 (0-4) % Baso % (Auto) 0.6 (0-2) % Lymph # (Auto) 1.1 L (1.2-4.9) X10*3/uL [place] # (Auto) 0.7 (0.1-1.2) X10*3/uL Eos # (Auto) 0.2 (0.0-0.4) X10*3/uL Baso # (Auto) 0.1 (0.0-0.2) X10*3/uL Abs Immat Gran (auto) 0.03 (0.00-0.03) X10*3/uL Absolute Neuts (auto) 5.6 (2.0-8.3) x10*3/uL Absolute Nucleated RBC 0.000 (0.0-0.012) X10*3/uL Nucleated RBC % (auto) 0.0 (0.0-0.2) /100WBC Sodium 140 (135-145) mmol/L Potassium 4.4 (3.3-5.1) mmol/L Chloride 106 (96-108) mmol/L Carbon Dioxide 26 (22-29) mmol/L Anion Gap 12 (12-20) BUN 23 H (9-16) mg/dL Creatinine 0.90 (0.5-1.4) mg/dL Estim Creat Clear Calc 99.6 Estimated GFR > 60 Random Glucose 115 (60-115) mg/dL Calcium 9.6 D (8.4-10.2) mg/dL Total Bilirubin 0.5 (0.0-1.0) mg/dL AST 94 H (5-37) U/L ALT 123 H (0-40) U/L Alkaline Phosphatase 77 (39-117) U/L Total Protein 6.9 (6.5-8.0) g/dL Albumin 4.3 (3.5-5.0) g/dL Urine Color Urine Appearance Urine pH (5.0-9.0) Ur Specific [place] (1.005-1.025) Urine Protein (Neg-Trace) mg/dL Urine Glucose (UA) (Negative) mg/dL Urine Ketones (Negative) mg/dL Urine Blood (Negative) Urine Nitrite (Negative) Ur Leukocyte Esterase (Negative) Salicylates < 5.0 L (15-30) mg/dL Urine Opiates Screen (Not Detect) Urine Fentanyl Screen (Not Detect) Acetaminophen < 17 (<30) mcg/mL Ur Barbiturates Screen (Not Detect) Ur Phencyclidine Scrn (Not Detect) Ur Amphetamines Screen (Not Detect) U Benzodiazepines Scrn (Not Detect) Urine Cocaine Screen (Not Detect) U Marijuana (THC) Screen (Not Detect) Ethyl Alcohol < 10 mg/dL 12/18/22 12/18/22 Range/Units 01:30 01:30 WBC (4.8-10.8) X10*3/uL RBC (4.60-5.80) X10*6/uL Hgb (14.0-18.0) g/dl Hct (42.0-52.0) % MCV (80.0-98.0) fL MCH (27.0-33.0) pg MCHC (31.0-36.0) g/dl RDW (11.0-16.0) % Plt Count (160-400) X10*3/uL MPV (9.4-12.4) fL Immature Gran % (Auto) (0.0-0.4) % Neut % (Auto) (45-73) % Lymph % (Auto) (20-40) % [place] % (Auto) (2-11) % Eos % (Auto) (0-4) % Baso % (Auto) (0-2) % Lymph # (Auto) (1.2-4.9) X10*3/uL [place] # (Auto) (0.1-1.2) X10*3/uL Eos # (Auto) (0.0-0.4) X10*3/uL Baso # (Auto) (0.0-0.2) X10*3/uL Abs Immat Gran (auto) (0.00-0.03) X10*3/uL Absolute Neuts (auto) (2.0-8.3) x10*3/uL Absolute Nucleated RBC (0.0-0.012) X10*3/uL Nucleated RBC % (auto) (0.0-0.2) /100WBC Sodium (135-145) mmol/L Potassium (3.3-5.1) mmol/L Chloride (96-108) mmol/L Carbon Dioxide (22-29) mmol/L Anion Gap (12-20) BUN (9-16) mg/dL Creatinine (0.5-1.4) mg/dL Estim Creat Clear Calc Estimated GFR Random Glucose (60-115) mg/dL Calcium (8.4-10.2) mg/dL Total Bilirubin (0.0-1.0) mg/dL AST (5-37) U/L ALT (0-40) U/L Alkaline Phosphatase (39-117) U/L Total Protein (6.5-8.0) g/dL Albumin (3.5-5.0) g/dL Urine Color Yellow Urine Appearance Clear Urine pH 7.0 (5.0-9.0) Ur Specific [place] 1.020 (1.005-1.025) Urine Protein Negative (Neg-Trace) mg/dL Urine Glucose (UA) Negative (Negative) mg/dL Urine Ketones Negative (Negative) mg/dL Urine Blood Negative (Negative) Urine Nitrite Negative (Negative) Ur Leukocyte Esterase Negative (Negative) Salicylates (15-30) mg/dL Urine Opiates Screen Not Detected (Not Detect) Urine Fentanyl Screen POSITIVE H (Not Detect) Acetaminophen (<30) mcg/mL Ur Barbiturates Screen Not Detected (Not Detect) Ur Phencyclidine Scrn Not Detected (Not Detect) Ur Amphetamines Screen Not Detected (Not Detect) U Benzodiazepines Scrn Not Detected (Not Detect) Urine Cocaine Screen Not Detected (Not Detect) U Marijuana (THC) Screen POSITIVE H (Not Detect) Ethyl Alcohol mg/dL Discharge Plan Discharge Clinical Impression: Suicidal ideation Patient Disposition: Still a Patient Prescriptions: No Action albuterol sulfate [ProAir HFA] 90 mcg/actuation HFA aerosol inhaler 2 puff inhalation Q6H PRN (Reason: Respiratory Distress) nicotine (polacrilex) 2 mg Gum 2 mg BUCCAL Q2H PRN (Reason: Nicotine Cravings) ropinirole 0.25 mg tablet 0.25 mg PO BEDTIME divalproex [Depakote ER] 250 mg Tablet Extended Release 24 Hr 250 mg PO QAM cholecalciferol (vitamin D3) [Vitamin D3] 25 mcg (1,000 unit) Tablet 25 mcg PO DAILY estradiol 0.1 mg/24 hr Patch Semiweekly 1 patch TRANSDERMAL 2XW Rx Instructions: apply 1 patch for 3 days alternating with 1 patch for 4 days each week for 3 wks per 4-wk cycle atomoxetine 18 mg Capsule 18 mg PO QAM
[2022-12-18 01:36] LABS: MANUAL DIFF FLAG NO
--- NOTE | 2022-12-18 01:37 | MHC.EDTECH ---
Addendum entered by Tanna Dodd 12/18/22 01:45: medications placed in bag 3 of 7. Original Note: pt has SEVEN total bags of belongings. All are labeled in closet.
[2022-12-18 01:39] LABS: Basophils Absolute Auto 0.1 X10*3/uL (0.0-0.2); Basophils Percent Auto 0.6 % (0-2); Eosinophils Absolute Auto 0.2 X10*3/uL (0.0-0.4); Eosinophils Percent Auto 2.5 % (0-4); Hematocrit 43.5 % (42.0-52.0); Hemoglobin 14.4 g/dl (14.0-18.0); Imm Gran Abs Auto 0.03 X10*3/uL (0.00-0.03); Imm Gran Pct Auto 0.4 % (0.0-0.4); Lymphocytes Absolute Auto 1.1 X10*3/uL (1.2-4.9); Lymphocytes Percent Auto 14.5 % (20-40); Mean Corpuscular HGB Conc 33.1 g/dl (31.0-36.0); Mean Corpuscular Hemoglobin 29.7 pg (27.0-33.0); Mean Corpuscular Volume 89.7 fL (80.0-98.0); Mean Platelet Volume 9.6 fL (9.4-12.4); Monocytes Absolute Auto 0.7 X10*3/uL (0.1-1.2); Monocytes Percent Auto 9.2 % (2-11); Neutrophils Absolute Auto 5.6 x10*3/uL (2.0-8.3); Neutrophils Percent Auto 72.8 % (45-73); Platelet Count 228 X10*3/uL (160-400); Red Blood Count 4.85 X10*6/uL (4.60-5.80); Red Cell Distribution Width 12.7 % (11.0-16.0); White Blood Count 7.7 X10*3/uL (4.8-10.8)
[2022-12-18 01:40] LABS: Appearance Urine Clear; Color Urine Yellow; Glucose Urine UA Negative (Negative); Leukocyte Esterase Urine Negative (Negative); Nitrite Urine Negative (Negative); Urine Blood Negative (Negative); Urine Ketones Negative (Negative); Urine Protein Negative (Neg-Trace)
[2022-12-18 01:50] LABS: Amphetamine Screen Urine Not Detected (Not Detect); Barbiturates, Urine Not Detected (Not Detect); Benzodiazepines Screen Urine Not Detected (Not Detect); Cannabinoid Screen Urine POSITIVE (Not Detect); Cocaine Screen Urine Not Detected (Not Detect); Fentanyl, urine POSITIVE (Not Detect); Opiate Screen Urine Not Detected (Not Detect); Phencyclidine Screen Urine Not Detected (Not Detect)
[2022-12-18 02:20] LABS: Acetaminophen LAB < 17 mcg/mL (<30); Alanine Aminotransferase 123 U/L (0-40); Albumin Level 4.3 g/dL (3.5-5.0); Alkaline Phosphatase 77 U/L (39-117); Anion Gap 12 (12-20); Aspartate Amino Transferase 94 U/L (5-37); Bilirubin Total 0.5 mg/dL (0.0-1.0); Blood Urea Nitrogen 23 mg/dL (9-16); Calcium 9.6 mg/dL (8.4-10.2); Carbon Dioxide 26 mmol/L (22-29); Chloride 106 mmol/L (96-108); Creatinine Clr Calc Pharmacy 99.6; Estimated Glomerular Filt Rate > 60; Ethanol < 10 mg/dL; Glucose Random 115 mg/dL (60-115); Potassium 4.4 mmol/L (3.3-5.1); Salicylate < 5.0 mg/dL (15-30); Sodium 140 mmol/L (135-145); Total Protein 6.9 g/dL (6.5-8.0)
--- NOTE | 2022-12-18 07:13 | PC.NURSE ---
Patient slept through the night, no distress observed/reported, behavior non concerning, med rec completed/pending provider's approval, care consult ordered/pending evaluation, will continue to monitor.
--- NOTE | 2022-12-18 10:22 | PHA.MEDREC ---
Pharmacy Consult ? Medication Reconciliation Pharmacy has completed the medication reconciliation. Patient had a list on their phone. [facility] has a list of medications they sent to [facility]. I used a combination of both lists to determine what patient is on. Of Note: patients sertraline, levothyroxine, ziprasidone and trazodone have not been picked up since 09/19, all of which were a 30 day supply, however patient did claim to be on them. Patient also stated they are on suboxone, however, [facility] and [facility] show last filled 08/19 for 30 films of suboxone 8mg. This is more than 90 days out of range, will not include unless provider requests.
[2022-12-18 11:01] LABS: Valproate 53.7 mcg/mL (50.0-100.0)
--- NOTE | 2022-12-18 11:55 | MHC.RECOVRN ---
This engineering writer met with patient, patient requesting MAT. Pt presented to ED for thoughts of self harm, self injurious behavior. Pt was in pod room, sitting on bed, easy to engage. Pt reports first use of heroin 2 years ago. Pt reports had been in recovery for 5 months in 2022, stable on BUP under the care of Danial. Pt reports felt stable on 8mg BUp film in the a.m, 4mg BUP film in the p.m. Pt reports estimated 2 months ago, recurrence, daily use heroin, smoking, 1-1.5 bundles daily. Pt reports recurrence lasted for several weeks. Pt reports had been getting films up until a few days ago when in care at [facility]. Pt requesting start back on BUP here at [facility], wishes to continue with Danial when back in the community. Pt reports last fentanyl use 1 month ago, reviewed UDS positive for fentanyl and possibility for false positive, pt adamant no fentanyl use in 4 weeks. Reviewed risks of precipitated withdrawal, pt verbalized understanding. Pt currently reports bodyaches. Pt does report increased cravings, reports prior to arrival had contacted peers to use heroin. ED Provider aware of findings and patients request for BUP dose. CM aware.
[2022-12-18] MEDS: Levothyroxine Sodium 100 MCG TABLET PO (12:05)
[2022-12-18] MEDS: Sertraline HCL 100 MG TABLET PO (12:05)
[2022-12-18] MEDS: Cholecalciferol (Vitamin D3) 25 MCG TABLET PO (12:05)
[2022-12-18] MEDS: Divalproex Sodium ER 250 MG TAB.ER.24H PO (12:06)
[2022-12-18] MEDS: Ziprasidone 60 MG CAPSULE PO (12:06)
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
== END 2022-12-18 13:32 | disposition home or self-care (01) ==
PROVIDERS: Emergency Provider Emergency Medicine
DX: R45.851 Suicidal ideations (principal); F43.10 Post-traumatic stress disorder, unspecified; F60.3 Borderline personality disorder; Z79.899 Other long term (current) drug therapy
CPT/HCPCS: 36415; 80053; 80143; 80164; 80179; 80307; 81003; 85025; 99284; S9485

== ENCOUNTER → 2022-12-18 03:39 | Outpatient (BNV) | payer OTHER, SELFPAY | PROVIDERS: Emergency Provider Emergency Medicine; Visit Provider Social Worker | DX: F60.3 Borderline personality disorder (principal); F43.10 Post-traumatic stress disorder, unspecified | CPT/HCPCS: 99284 ==

== ENCOUNTER 2023-06-14 16:28 | Emergency (ER) | payer MEDICAID, SELFPAY ==
--- NOTE | 2023-06-14 16:37 | ED.GENADULT ---
HPI - General Adult General Stated complaint: OD, NARCAN 20MG BY BYSTANDER PER EMS Time Seen by Provider: 06/14/23 16:40 Source: patient, EMS and RN notes reviewed Mode of arrival: EMS Limitations: no limitations History of Present Illness HPI narrative: 38-year-old male presents for evaluation of an opiate overdose. Patient reports he used 1 bag of heroin He reports that he ?accidentally overdosed. ? Per EMS the patient received 20 mg of Narcan Immediately on arrival to the ER, the patient is not cooperative with nursing staff and requested leave against medical advice The patient states he has no complaints. He denies any intent to overdose and states this was completely accidental as he was trying to get high He still wishes to leave against medical advice Related Data Home Medications Medication Instructions Recorded Confirmed albuterol sulfate 90 mcg/actuation 2 puff inhalation Q6H PRN 05/05/22 12/18/22 aerosol inhaler (ProAir HFA) Respiratory Distress nicotine (polacrilex) 2 mg gum 2 mg buccal Q2H PRN Nicotine 05/05/22 12/18/22 Cravings atomoxetine 18 mg capsule 18 mg PO QAM 12/18/22 12/18/22 betamethasone dipropionate 0.05 % 1 appl topical BID 12/18/22 12/18/22 topical cream calcipotriene 0.005 % topical cream 1 appl topical BID 12/18/22 12/18/22 cholecalciferol (vitamin D3) 25 25 mcg PO DAILY 12/18/22 12/18/22 mcg (1,000 unit) tablet (Vitamin D3) divalproex 250 mg tablet,extended 250 mg PO QAM 12/18/22 12/18/22 release 24 hr (Depakote ER) estradiol 0.1 mg/24 hr semiweekly 1 patch transdermal 2XW 12/18/22 12/18/22 transdermal patch fluticasone propionate 50 1 spray intranasal DAILY 12/18/22 12/18/22 mcg/actuation nasal spray,suspension levothyroxine 100 mcg tablet 100 mcg PO DAILY 12/18/22 12/18/22 nicotine 7 mg/24 hr daily 1 patch transdermal Q24H 12/18/22 12/18/22 transdermal patch olanzapine 5 mg tablet 5 mg PO BID PRN Agitation 12/18/22 12/18/22 prazosin 2 mg capsule 2 mg PO BEDTIME 12/18/22 12/18/22 prazosin 5 mg capsule 5 mg PO BEDTIME 12/18/22 12/18/22 ropinirole 0.25 mg tablet 0.25 mg PO BEDTIME 12/18/22 12/18/22 sertraline 100 mg tablet 100 mg PO DAILY 12/18/22 12/18/22 trazodone 50 mg tablet 50 mg PO BEDTIME 12/18/22 12/18/22 ziprasidone HCl 60 mg capsule 60 mg PO BID 12/18/22 12/18/22 Allergies Allergy/AdvReac Type Severity Reaction Status Date / Time Penicillins AdvReac Severe Shortness Verified 06/14/23 16:41 of Breath Review of Systems Constitutional: Constitutional: Denies chills and Denies fever(s) Eyes: Eyes: Denies blurry vision Cardiovascular: Cardiovascular: Denies chest pain and Denies dyspnea Respiratory: Respiratory: Denies cough and Denies dyspnea Gastrointestinal: Gastrointestinal: Denies abdominal pain Integumentary/Breasts: Skin/Breast: Denies rash PMFSH Past Medical History Medical History Aggressive behavior Antisocial personality disorder Borderline personality disorder PTSD (post-traumatic stress disorder) Suicidal ideation Social History Social History Alcohol intake: never Physical Exam ED Const General: healthy appearing, comfortable, no acute distress, alert and awake Nutritional Appearance: well nourished Orientation/consciousness: patient oriented x3 HENMT Head: Yes normocephalic and Yes atraumatic Resp Effort & Inspection: normal respiratory effort, able to speak in complete sentences and not labored Skin General skin exam: elasticity normal Neuro General: patient oriented x3 Cranial nerves: Yes Bilaterally intact EOM present Cognition (Neuro): normal cognition Extrem Other: Moving all extremities well without any obvious deformities Medical Decision Making Medical Decision Making MDM Narrative: 38-year-old male presents for evaluation opioid overdose. He immediately requested leaving against medical advice. During my evaluation the patient is awake, oriented x3. He is cooperative with my questioning but continues to state that he wishes to leave against medical advice. I explained the severe risks of leaving immediately upon arriving after received a significant amount of Narcan to revive him. The patient states that ?I will be fine. I advised him that he could potentially go into an overdose state again and requested that he not be alone. He states that his brother is here the will be able to keep an eye on him. The patient will leave against medical advice but will be given take-home Narcan prior to leaving Differential Diagnosis Differential Diagnoses: The differential diagnosis associated with the presentation includes Opiate overdose Narcotic abuse Syncope Accidental overdose Discharge Plan Discharge Clinical Impression: Opiate overdose Patient Disposition: Left Against Medical Advice Instructions: Narcotic Safety (ED) Additional Instructions: You are leaving against medical advice. Typically after an overdose we will watch you for about 2 hours to make sure that you do not go back into an overdose state You received 20 mg of Narcan to revive you It is possible that if you leave without waiting for appropriate discharge you could overdose again leading to disability and You acknowledge that you understand these risks and still wished to leave against medical advice Prescriptions: No Action albuterol sulfate [ProAir HFA] 90 mcg/actuation HFA aerosol inhaler 2 puff inhalation Q6H PRN (Reason: Respiratory Distress) nicotine (polacrilex) 2 mg Gum 2 mg BUCCAL Q2H PRN (Reason: Nicotine Cravings) ropinirole 0.25 mg tablet 0.25 mg PO BEDTIME divalproex [Depakote ER] 250 mg Tablet Extended Release 24 Hr 250 mg PO QAM cholecalciferol (vitamin D3) [Vitamin D3] 25 mcg (1,000 unit) Tablet 25 mcg PO DAILY estradiol 0.1 mg/24 hr Patch Semiweekly 1 patch TRANSDERMAL 2XW Rx Instructions: CHANGE EVERY 3 AND A HALF DAYS atomoxetine 18 mg Capsule 18 mg PO QAM trazodone 50 mg Tablet 50 mg PO BEDTIME sertraline 100 mg Tablet 100 mg PO DAILY olanzapine 5 mg Tablet 5 mg PO BID PRN (Reason: Agitation) levothyroxine 100 mcg Tablet 100 mcg PO DAILY prazosin 5 mg Capsule 5 mg PO BEDTIME Rx Instructions: 2 MG WITH THE 5 MG TO MAKE 7 MG AT BEDTIME calcipotriene 0.005 % Cream 1 appl TOPICAL BID Rx Instructions: rub in gently and completely betamethasone dipropionate 0.05 % Cream 1 appl TOPICAL BID ziprasidone HCl 60 mg Capsule 60 mg PO BID Rx Instructions: give with food (meal/snack) fluticasone propionate [Flonase] 50 mcg/actuation [place],Suspension 1 spray INTRANASAL DAILY Rx Instructions: administer into each nostril prazosin 2 mg Capsule 2 mg PO BEDTIME nicotine 7 mg/24 hr Patch 24 Hour 1 patch TRANSDERMAL Q24H Stand Alone Forms: Against Medical Advice
[2023-06-14 16:41] VITALS: BP 119/75; BP 142/94; PULSE 79; PULSE 80; RESP 20; TEMP 36.9; O2SAT 94; O2SAT 95; BMI 25.0
[2023-06-14] MEDS: Naloxone HCl Nasal TAKE HOME 4 MG SPRAY 8 MG NOSTRILALT (16:45)
--- NOTE | 2023-06-14 16:47 | PC.NURSE ---
pt requesting to leave AMA, provider notified, at bedside, AMA paperwork signed by pt. ambulated out of ED w a steady gait.
== END 2023-06-14 18:12 | disposition left against medical advice (07) ==
LOC: HO.ED 16:55
PROVIDERS: Emergency Provider Emergency Medicine
DX: T40.604A Poisoning by unspecified narcotics, undetermined, initial encounter (principal); Y92.9 Unspecified place or not applicable
CPT/HCPCS: 99282; 99283

== ENCOUNTER 2023-07-04 03:06 | Emergency (ER) | payer MEDICAID, SELFPAY ==
[2023-07-04 03:12] VITALS: BP 111/71; PULSE 82; RESP 16; TEMP 36.6; O2SAT 96; BMI 27.0
--- NOTE | 2023-07-04 03:21 | ECG_ITS ---
Test Reason : OVERDOSE Blood Pressure : / mmHG Vent. Rate : 064 BPM Atrial Rate : 064 BPM P-R Int : 146 ms QRS Dur : 088 ms QT Int : 440 ms P-R-T Axes : 055 035 021 degrees QTc Int : 453 ms Normal sinus rhythm Nonspecific T wave abnormality Abnormal ECG No previous ECGs available Referred By: Kina Salguero Electronically Signed By:VERONIKA ORDOÑEZ MD
--- NOTE | 2023-07-04 03:27 | PC.NURSE ---
security called for slubber frame changer. sitter present.
--- NOTE | 2023-07-04 03:29 | ED.PSYCH ---
HPI - Psych General Chief Complaint: Psychiatric Symptoms Stated Complaint: took pills, attempted suicide Time Seen by Provider: 07/04/23 03:21 Source: patient Mode of arrival: ambulatory Limitations: other (uncooperative) History of Present Illness HPI Narrative: 38 yo patient PMH of borderline, antisocial, PTSD here with c/o depression and SI attempt with medication ingestion 30 to 40 min prior to arrival of seroquel 100mg unknown amount. Patient is not very forthcoming and not very pleasant during the interview, easily agitated. MD complaint: suicidal ideation and feels depressed Onset (ago): week(s) Duration: getting worse History of same: Yes Relieving factors: none Exacerbating factors: other Context: significant life stressor Associated psychiatric symptoms: depression and suicidal ideation Associated symptoms: denies other symptoms If self harm: admits thoughts of self harm, has plan and has acted on plan Related Data Home Medications Medication Instructions Recorded Confirmed albuterol sulfate 90 mcg/actuation 2 puff inhalation Q6H PRN 05/05/22 12/18/22 aerosol inhaler (ProAir HFA) Respiratory Distress nicotine (polacrilex) 2 mg gum 2 mg buccal Q2H PRN Nicotine 05/05/22 12/18/22 Cravings atomoxetine 18 mg capsule 18 mg PO QAM 12/18/22 12/18/22 betamethasone dipropionate 0.05 % 1 appl topical BID 12/18/22 12/18/22 topical cream calcipotriene 0.005 % topical cream 1 appl topical BID 12/18/22 12/18/22 cholecalciferol (vitamin D3) 25 25 mcg PO DAILY 12/18/22 12/18/22 mcg (1,000 unit) tablet (Vitamin D3) divalproex 250 mg tablet,extended 250 mg PO QAM 12/18/22 12/18/22 release 24 hr (Depakote ER) estradiol 0.1 mg/24 hr semiweekly 1 patch transdermal 2XW 12/18/22 12/18/22 transdermal patch fluticasone propionate 50 1 spray intranasal DAILY 12/18/22 12/18/22 mcg/actuation nasal spray,suspension levothyroxine 100 mcg tablet 100 mcg PO DAILY 12/18/22 12/18/22 nicotine 7 mg/24 hr daily 1 patch transdermal Q24H 12/18/22 12/18/22 transdermal patch olanzapine 5 mg tablet 5 mg PO BID PRN Agitation 12/18/22 12/18/22 prazosin 2 mg capsule 2 mg PO BEDTIME 12/18/22 12/18/22 prazosin 5 mg capsule 5 mg PO BEDTIME 12/18/22 12/18/22 ropinirole 0.25 mg tablet 0.25 mg PO BEDTIME 12/18/22 12/18/22 sertraline 100 mg tablet 100 mg PO DAILY 12/18/22 12/18/22 trazodone 50 mg tablet 50 mg PO BEDTIME 12/18/22 12/18/22 ziprasidone HCl 60 mg capsule 60 mg PO BID 12/18/22 12/18/22 Allergies Allergy/AdvReac Type Severity Reaction Status Date / Time Penicillins AdvReac Severe Shortness Verified 07/04/23 03:11 of Breath Review of Systems Review of Systems: ROS unable to be obtained due to patient being uncooperative [facility] Past Medical History Attestation statement: The following information was validated with the patient. Source: old records reviewed Medical History Antisocial personality disorder Borderline personality disorder PTSD (post-traumatic stress disorder) Aggressive behavior Suicidal ideation Social History Social History (Updated 07/04/23 @ 03:30 by Kina Salguero DO) Alcohol intake: never Patient Tobacco Use Status: Tobacco use Unknown Advance Directives: No Advance Directives Information Provided: No Physical Exam Vital Signs: Vital Signs: Last Vital Signs Temp 98.2 F 07/04/23 03:57 Pulse 58 07/04/23 03:57 Resp 18 07/04/23 05:58 BP 103/64 07/04/23 03:57 Pulse Ox 99 07/04/23 03:57 O2 Del Method Room Air 07/04/23 03:57 BMI result Body Mass Index 27.0 Appearance: Alert. Oriented X3. No acute distress. Poor eye contact, seems on edge, will not fully answer questions, agitated Eyes: Pupils equal, round and reactive to light. ENT: Pharynx normal. Neck: Normal inspection. Neck supple. CVS: Normal heart rate and rhythm. Pulses normal. Respiratory: No respiratory distress. Breath sounds normal. Abdomen: Soft and nontender. Skin: Skin warm and dry. Normal skin color. Normal skin turgor. Extremities: No lower extremity edema. No calf ttp Neuro: Oriented X 3. No motor deficit. No sensory deficit. CN2-12 intact Course Course Course Narrative: patient refusing all labs and further workup Medications Administered Discontinued Medications Generic Name Dose Route Start Last Admin Trade Name Kenji PRN Reason Stop Dose Admin Acetaminophen 650 mg 07/04/23 05:25 07/04/23 06:35 Acetaminophen 325 Mg Tablet PO 07/04/23 05:26 Not Given ONCE ONE Charcoal 50 gm 07/04/23 03:20 07/04/23 05:03 Activated Charcoal 50 Gm/240 Ml Oral.Susp PO 07/04/23 03:21 50 gm ONCE ONE Administration Magnesium Oxide 400 mg 07/04/23 05:25 07/04/23 06:35 Magnesium Oxide 400 Mg Tablet PO 07/04/23 05:26 Not Given ONCE ONE Potassium Chloride 40 meq 07/04/23 05:25 07/04/23 06:35 Potassium Chloride Packet 20 Meq Packet PO 07/04/23 05:26 Not Given ONCE ONE Medical Decision Making Medical Decision Making MDM Narrative: 38 yo patient PMH of borderline, antisocial, PTSD here with c/o SI attempt but will not divulge how much seroquel they actually took. The patient is agitated and not helpful. S 12 signed Differential Diagnosis Differential Diagnoses: The differential diagnosis associated with the presentation includes borderline, substance abuse, depression Admission/Observation Consideration of admission/observation: Escalation of care including admission/observation considered observe until seen by CARE team physician observation started at 345am. Consult Healthcare Provider Management of the patient was discussed with: Behavioral Health Provider Lab Data MDM Lab Attestation statement: I reviewed the patient's lab results. 07/04/23 03:47 07/04/23 03:47 Labs: Lab Results 07/04/23 Range/Units 03:47 WBC 7.3 (4.8-10.8) X10*3/uL RBC 4.27 L (4.60-5.80) X10*6/uL Hgb 12.7 L (14.0-18.0) g/dl Hct 37.2 L (42.0-52.0) % MCV 87.1 (80.0-98.0) fL MCH 29.7 (27.0-33.0) pg MCHC 34.1 (31.0-36.0) g/dl RDW 13.1 (11.0-16.0) % Plt Count 300 D (160-400) X10*3/uL MPV 9.4 (9.4-12.4) fL Immature Gran % (Auto) 0.3 (0.0-0.4) % Neut % (Auto) 64.2 (45-73) % Lymph % (Auto) 26.5 (20-40) % [place] % (Auto) 6.5 (2-11) % Eos % (Auto) 2.2 (0-4) % Baso % (Auto) 0.3 (0-2) % Lymph # (Auto) 1.9 (1.2-4.9) X10*3/uL [place] # (Auto) 0.5 (0.1-1.2) X10*3/uL Eos # (Auto) 0.2 (0.0-0.4) X10*3/uL Baso # (Auto) 0.0 (0.0-0.2) X10*3/uL Abs Immat Gran (auto) 0.02 (0.00-0.03) X10*3/uL Absolute Neuts (auto) 4.7 (2.0-8.3) x10*3/uL Absolute Nucleated RBC 0.000 (0.0-0.012) X10*3/uL Nucleated RBC % (auto) 0.0 (0.0-0.2) /100WBC Sodium 143 (135-145) mmol/L Potassium 3.5 (3.3-5.1) mmol/L Chloride 109 H (96-108) mmol/L Carbon Dioxide 24 (22-29) mmol/L Anion Gap 14 (12-20) BUN 17 H (9-16) mg/dL Creatinine 0.82 (0.5-1.4) mg/dL Estim Creat Clear Calc 108.3 Estimated GFR > 60 Random Glucose 167 H (60-115) mg/dL Calcium 8.4 D (8.4-10.2) mg/dL Magnesium 1.8 (1.6-2.6) mg/dL Total Bilirubin 0.6 (0.0-1.0) mg/dL Direct Bilirubin 0.3 (0.0-0.5) mg/dL AST 44 H (5-37) U/L ALT 57 H (0-40) U/L Alkaline Phosphatase 87 (39-117) U/L Total Protein 6.4 L (6.5-8.0) g/dL Albumin 4.1 (3.5-5.0) g/dL Lipase 16 (8-78) U/L Salicylates < 5.0 L (15-30) mg/dL Acetaminophen < 3 (<30) mcg/mL Ethyl Alcohol < 10 mg/dL Influenza Type A (PCR) NEGATIVE (Negative) Influenza Type B (PCR) NEGATIVE (Negative) RSV RNA Qual (PCR) NEGATIVE (Negative) SARS-CoV-2 RNA (RT-PCR) NEGATIVE (Negative) Independent Interpretation I performed an independent interpretation of an: EKG Interpretation: Rate: 64 Rhythm: NSR [place]: normal Normal P waves. Normal CHANDA. Normal QRS complex. ST T wave : normal no MELI qTC: 453 prior studies: no acute ischemia The study has been interpreted contemporaneously by me. EKG #2 Rate: 48 Rhythm: sinus bradycardia [place]: normal Normal P waves. Normal CHANDA. Normal QRS complex. ST T wave : nonspecific ST T wave changes in anterior leads no MELI qTC: 402 prior studies: no acute ischemia The study has been interpreted contemporaneously by me. . External Record Review External record reviewed: Inpatient record Social Determinants Patient?s care significantly limited by Social Determinants of Health including: Problems related to primary support group Discharge Plan Discharge Clinical Impression: Suicidal ideation Patient Disposition: Still a Patient Prescriptions: No Action albuterol sulfate [ProAir HFA] 90 mcg/actuation HFA aerosol inhaler 2 puff inhalation Q6H PRN (Reason: Respiratory Distress) nicotine (polacrilex) 2 mg Gum 2 mg BUCCAL Q2H PRN (Reason: Nicotine Cravings) ropinirole 0.25 mg tablet 0.25 mg PO BEDTIME divalproex [Depakote ER] 250 mg Tablet Extended Release 24 Hr 250 mg PO QAM cholecalciferol (vitamin D3) [Vitamin D3] 25 mcg (1,000 unit) Tablet 25 mcg PO DAILY estradiol 0.1 mg/24 hr Patch Semiweekly 1 patch TRANSDERMAL 2XW Rx Instructions: CHANGE EVERY 3 AND A HALF DAYS atomoxetine 18 mg Capsule 18 mg PO QAM trazodone 50 mg Tablet 50 mg PO BEDTIME sertraline 100 mg Tablet 100 mg PO DAILY olanzapine 5 mg Tablet 5 mg PO BID PRN (Reason: Agitation) levothyroxine 100 mcg Tablet 100 mcg PO DAILY prazosin 5 mg Capsule 5 mg PO BEDTIME Rx Instructions: 2 MG WITH THE 5 MG TO MAKE 7 MG AT BEDTIME calcipotriene 0.005 % Cream 1 appl TOPICAL BID Rx Instructions: rub in gently and completely betamethasone dipropionate 0.05 % Cream 1 appl TOPICAL BID ziprasidone HCl 60 mg Capsule 60 mg PO BID Rx Instructions: give with food (meal/snack) fluticasone propionate [Flonase] 50 mcg/actuation [place],Suspension 1 spray INTRANASAL DAILY Rx Instructions: administer into each nostril prazosin 2 mg Capsule 2 mg PO BEDTIME nicotine 7 mg/24 hr Patch 24 Hour 1 patch TRANSDERMAL Q24H
--- NOTE | 2023-07-04 03:30 | PC.NURSE ---
Pt brought back to room 22 via wheelchair due to unsteady gait. She identified that she perfers she/her pronouns and prefers to go by the name Isaac. Once back to room 22 she was able to independently get herself into bed. RN spoke with the charge gang weigher about this patient, provided a patient observer with documentation sheet and provided a brief report, and then asked assistance of another tech to assist with patient global director air and climate change into proper attire.
[2023-07-04 03:53] LABS: MANUAL DIFF FLAG NO
[2023-07-04 03:57] VITALS: BP 103/64; PULSE 58; RESP 19; TEMP 36.8; O2SAT 99
[2023-07-04 04:00] LABS: Basophils Percent Auto 0.3 % (0-2); Eosinophils Absolute Auto 0.2 X10*3/uL (0.0-0.4); Eosinophils Percent Auto 2.2 % (0-4); Hematocrit 37.2 % (42.0-52.0); Hemoglobin 12.7 g/dl (14.0-18.0); Imm Gran Abs Auto 0.02 X10*3/uL (0.00-0.03); Imm Gran Pct Auto 0.3 % (0.0-0.4); Lymphocytes Absolute Auto 1.9 X10*3/uL (1.2-4.9); Lymphocytes Percent Auto 26.5 % (20-40); Mean Corpuscular HGB Conc 34.1 g/dl (31.0-36.0); Mean Corpuscular Hemoglobin 29.7 pg (27.0-33.0); Mean Corpuscular Volume 87.1 fL (80.0-98.0); Mean Platelet Volume 9.4 fL (9.4-12.4); Monocytes Absolute Auto 0.5 X10*3/uL (0.1-1.2); Monocytes Percent Auto 6.5 % (2-11); Neutrophils Absolute Auto 4.7 x10*3/uL (2.0-8.3); Neutrophils Percent Auto 64.2 % (45-73); Platelet Count 300 X10*3/uL (160-400); Red Blood Count 4.27 X10*6/uL (4.60-5.80); Red Cell Distribution Width 13.1 % (11.0-16.0); White Blood Count 7.3 X10*3/uL (4.8-10.8)
[2023-07-04 04:09] LABS: Ethanol < 10 mg/dL
[2023-07-04 04:10] LABS: Alanine Aminotransferase 57 U/L (0-40); Albumin Level 4.1 g/dL (3.5-5.0); Alkaline Phosphatase 87 U/L (39-117); Anion Gap 14 (12-20); Aspartate Amino Transferase 44 U/L (5-37); Bilirubin Direct 0.3 mg/dL (0.0-0.5); Bilirubin Total 0.6 mg/dL (0.0-1.0); Blood Urea Nitrogen 17 mg/dL (9-16); Calcium 8.4 mg/dL (8.4-10.2); Carbon Dioxide 24 mmol/L (22-29); Chloride 109 mmol/L (96-108); Creatinine Clr Calc Pharmacy 108.3; Estimated Glomerular Filt Rate > 60; Glucose Random 167 mg/dL (60-115); Lipase 16 U/L (8-78); Magnesium 1.8 mg/dL (1.6-2.6); Potassium 3.5 mmol/L (3.3-5.1); Sodium 143 mmol/L (135-145); Total Protein 6.4 g/dL (6.5-8.0)
[2023-07-04 04:23] LABS: Acetaminophen LAB < 3 mcg/mL (<30); Salicylate < 5.0 mg/dL (15-30)
[2023-07-04 04:38] LABS: Influenza A PCR NEGATIVE (Negative); Influenza B PCR NEGATIVE (Negative); Resp Syncy Virus RNA Qual PCR NEGATIVE (Negative); SARS COV2 PCR INHOUSE NEGATIVE (Negative)
--- NOTE | 2023-07-04 05:00 | PC.NURSE ---
T/w spoke with Steph at poison control. Steph recommended the following plan- Po potassium and mag (steph wanted potassium at 4 and mag at 2) Repeat EKG now, Repeat labs now- LFTs, Tylenol and salicylates. Steph wants pt to be monitored for the next 6 hours to watch for [employer] depression, hypotension, tachycardia, QT prolongation, agitation, Seizures or Torsades. Dr. Pro aware of plan.
[2023-07-04] MEDS: Activated charcoaL 50 GM/240 ML ORAL.SUSP PO (05:03)
--- NOTE | 2023-07-04 05:05 | PC.NURSE ---
pt drank the charcol in one gulp. pt stated he doesnt want to be saved. sitter present pt in green gown. pt was refusing the medication at first and was difficult at first, with teaching pt did drink it.
--- NOTE | 2023-07-04 05:25 | ECG_ITS ---
Test Reason : QTC Blood Pressure : / mmHG Vent. Rate : 048 BPM Atrial Rate : 048 BPM P-R Int : 144 ms QRS Dur : 082 ms QT Int : 450 ms P-R-T Axes : 040 035 021 degrees QTc Int : 402 ms Sinus bradycardia with sinus arrhythmia Nonspecific T wave abnormality Abnormal ECG When compared with ECG of 04-JUL-2023 04:01, QT has shortened Referred By: Kina Salguero Electronically Signed By:VERONIKA ORDOÑEZ MD
--- NOTE | 2023-07-04 05:39 | MHC.EDTECH ---
PATIENT REFUSED EKG MD AND RN NOTIFY PLAN OF CARE IS ONGOING
[2023-07-04 05:58] VITALS: RESP 18
--- NOTE | 2023-07-04 06:22 | MHC.EDTECH ---
SECOND ATTEMPT PATIENT REFUSED EKG, LABS AND VITAL SIGNS RN WAS NOTIFY PLAN OF CARE IS ONGOING
--- NOTE | 2023-07-04 06:39 | PC.NURSE ---
Pt refusing all meds, labs and repreat EKG. Education given on risk factors with overdose and poision control plan.
--- NOTE | 2023-07-04 07:16 | PC.NURSE ---
Report taken from Ally RN assumed care of pt at this time. Pt A&Ox3 skin pwd respirations even unlabored.This RN and MD Salguero to bedside to discuss importance of repeat labs and EKG, pt now agreeable to interventions. States I don't care do whatever I told them that before When pt notified breakfast will be coming shortly pt states I don't care I'd rather starve myself Sinus hany on monitor, other VSS. Pt observer at bedside for safety. Awaiting medical clearance for Care Team aide, aware of plan of care.
[2023-07-04 07:22] VITALS: BP 106/56; PULSE 57; RESP 20; O2SAT 98
[2023-07-04 07:45] LABS: Alanine Aminotransferase 52 U/L (0-40); Albumin Level 3.7 g/dL (3.5-5.0); Alkaline Phosphatase 86 U/L (39-117); Aspartate Amino Transferase 40 U/L (5-37); Bilirubin Direct 0.2 mg/dL (0.0-0.5); Bilirubin Total 0.4 mg/dL (0.0-1.0); Salicylate < 5.0 mg/dL (15-30); Total Protein 5.9 g/dL (6.5-8.0)
--- NOTE | 2023-07-04 09:57 | PC.NURSE ---
Pt medically cleared, awaiting Care Team eval. Resting on stretcher eyes closed skin pwd respirations even unlabored. No change in physical assessment. Pt observer remains at bedside for safety. Safety maintained.
--- NOTE | 2023-07-04 12:30 | PC.NURSE ---
Pt moved to pod, report given to Lorena LORA, pt exits my care at this time.
--- NOTE | 2023-07-04 15:55 | PC.NURSE ---
This RN attempted to meet with patient multiple times. Pt dismissive of this RN, unwilling to engage in conversation, patient refusing to give urine sample stating I don't care if I anyways, just let me go home so I can re-attempt . This RN attempted to re-direct patient verbally however, patient requested this RN to leave room. This RN respected that later OBDULIO Marsh attempted to request a urine sample from patient, patient once again declined. Patient declined signing CV
--- NOTE | 2023-07-04 17:06 | PC.NURSE ---
Pt ambulated to bathroom, this RN attempted to request a urine sample from patient, pt briskly walked away stating no . This RN attempted to engage in conversation with patient on her way back from the bathroom, patient ignored this RN and walked back to room
--- NOTE | 2023-07-04 19:11 | PC.NURSE ---
This RN assumed pt care @ 1900. Pt resting quietly in bed. Plan of care ongoing.
--- NOTE | 2023-07-04 19:58 | PC.NURSE ---
Pt ambulated to the restroom.
--- NOTE | 2023-07-04 20:41 | MHC.EDTECH ---
t/w attempted to speak to pt and obtain urine sample, pt did not respond or listen, unable to obtain urine sample at this time. rn made aware.
--- NOTE | 2023-07-04 22:05 | PC.NURSE ---
Tech attempted to get vital and pt refused. Plan of care ongoing.
--- NOTE | 2023-07-05 05:39 | MHC.EDTECH ---
t/w attempted several times throughout the night to collect ua and obtain vitals. pt refusing to give ua along with refusing all VS. rn made aware.
[2023-07-05 06:30] VITALS: RESP 16
--- NOTE | 2023-07-05 08:16 | PC.NURSE ---
patient appears to be asleep in BH6, respirations equal and unlabored, skin dry and intact
--- NOTE | 2023-07-05 09:06 | PC.NURSE ---
patient offered morning medications, refused to take medications
[2023-07-05] MEDS: busPIRone HCl 10 MG TABLET PO (10:12)
[2023-07-05] MEDS: guanFACINE HCl ER 1 MG TAB.ER.24H 3 MG PO (10:12)
[2023-07-05] MEDS: QUEtiapine Fumarate 50 MG TABLET PO (10:12)
[2023-07-05] MEDS: OXcarbazepine 300 MG TABLET PO (10:13)
[2023-07-05] MEDS: Loratadine 10 MG TABLET PO (10:13)
[2023-07-05] MEDS: Spironolactone 25 MG TABLET PO (10:17)
[2023-07-05] MEDS: Baclofen 10 MG TABLET 5 MG PO (10:17)
--- NOTE | 2023-07-05 10:25 | PC.NURSE ---
patient began to hit head on wall in bedroom, staff and security intervention to explain to patient that they can not exhibit these behaviors, patient started to then begin hitting head again on wall, yelling that he now wanted the medications he previously refused. patient medicated per MAR, now laying in bed, rocking back and forth. patient states they are hearing voices, would not elaborate what the voices are telling them.
[2023-07-05] MEDS: estradioL 0.5 MG TABLET 2 MG PO (11:09)
[2023-07-05 12:30] VITALS: BP 120/78; PULSE 91; RESP 18; TEMP 36.4; O2SAT 99
== END 2023-07-05 12:33 | disposition home or self-care (01) ==
PROVIDERS: Emergency Provider Emergency Medicine
DX: R45.851 Suicidal ideations (principal); F32.A Depression, unspecified; F43.10 Post-traumatic stress disorder, unspecified; Z11.52 Encounter for screening for COVID-19; Z20.828 Contact with and (suspected) exposure to other viral communicable diseases
CPT/HCPCS: 0241U; 36415; 80048; 80076; 80143; 80179; 80307; 83690; 83735; 85025; 93005; 99285; S9485

== ENCOUNTER → 2023-07-04 03:21 | Outpatient (BNV) | payer MEDICAID, SELFPAY | PROVIDERS: Emergency Provider Emergency Medicine; Visit Provider Internal Medicine Cardiovascular Disease | DX: R94.31 Abnormal electrocardiogram [ECG] [EKG] (principal) | CPT/HCPCS: 93010 ==

== ENCOUNTER 2023-09-14 10:29 | Emergency (ER) | payer MEDICAID, SELFPAY ==
[2023-09-14 11:09] VITALS: BP 117/72; PULSE 72; RESP 16; TEMP 36.8; O2SAT 95; BMI 28.5
--- NOTE | 2023-09-14 11:11 | ED.GENADULT ---
HPI - General Adult General Chief complaint: Skin/Abscess/Foreign Body Stated complaint: Infection L arm Time Seen by Provider: 09/14/23 15:28 Source: patient and RN notes reviewed Mode of arrival: ambulatory Limitations: no limitations History of Present Illness ED Provider: Rosalina Rayo PA-C HPI narrative: This is a 38-year-old male assigned at patient, with a past medical history of MRSA, antisocial personality disorder, borderline personality disorder and PTSD, who presents emergency department with complaints of left arm redness swelling x2 days. Patient states they noticed 2 areas of ingrown hairs to their left forearm after shaving and attempted to pick at these regions. They have noticed increased redness and swelling. No fevers, chills, body aches. History of IV drug abuse however has not used in over 4 months. They deny any other complaints or concerns at this time. MD complaint: Left arm redness Onset (ago): day(s) Location: left Radiation: non-radiation Severity: mild Relieving factors: none Exacerbating factors: none Associated symptoms: denies other symptoms Treatments prior to arrival: none Related Data Home Medications ?Medication ?Instructions ?Recorded ?Confirmed albuterol sulfate 90 mcg/actuation 2 puff inhalation Q6H PRN 05/05/22 07/04/23 aerosol inhaler (ProAir HFA) Respiratory Distress levothyroxine 100 mcg tablet 100 mcg PO DAILY 12/18/22 07/04/23 nicotine 7 mg/24 hr daily 1 patch transdermal Q24H 12/18/22 07/04/23 transdermal patch baclofen 5 mg tablet 5 mg PO TID 07/04/23 07/04/23 buspirone 10 mg tablet 10 mg PO TID 07/04/23 07/04/23 guanfacine 3 mg tablet,extended 3 mg PO BEDTIME 07/04/23 07/04/23 release 24 hr hydroxyzine pamoate 50 mg capsule 50 mg PO Q6H PRN anxiety 07/04/23 07/04/23 loratadine 10 mg tablet 10 mg PO DAILY 07/04/23 07/04/23 oxcarbazepine 300 mg tablet 300 mg PO BID 07/04/23 07/04/23 pantoprazole 40 mg tablet,delayed 40 mg PO BID 07/04/23 07/04/23 release quetiapine 50 mg tablet 50 mg PO BEDTIME 07/04/23 07/04/23 sennosides 8.6 mg tablet (senna) 8.6 mg PO BEDTIME 07/04/23 07/04/23 spironolactone 25 mg tablet 25 mg PO DAILY 07/04/23 07/04/23 tacrolimus 0.03 % topical ointment topical BID PRN Dry Skin 07/04/23 07/04/23 trazodone 150 mg tablet 150 mg PO BEDTIME 07/04/23 07/04/23 estradiol 2 mg tablet 2 mg PO DAILY 07/05/23 07/05/23 Previous Rx's ?Medication ?Instructions ?Recorded cephalexin 500 mg capsule 500 mg PO QID 7 days #28 caps 09/14/23 doxycycline hyclate 100 mg tablet 100 mg PO BID 7 days #14 tabs 09/14/23 Allergies Allergy/AdvReac Type Severity Reaction Status Date / Time Penicillins AdvReac Severe Shortness Verified 09/14/23 11:11 of Breath Review of Systems Review of Systems: Yes all other systems are reviewed and are negative [facility] Past Medical History Medical History Antisocial personality disorder Borderline personality disorder PTSD (post-traumatic stress disorder) Aggressive behavior Suicidal ideation Social History Social History (Updated 07/04/23 @ 03:30 by Kina Salguero DO) Unable to assess alcohol history related to: Refusing to respond Alcohol intake: never Patient Tobacco Use Status: Tobacco use Unknown Advance Directives: No Advance Directives Information Provided: No Physical Exam ED Vital Signs: Vital Signs - 24 hr 09/14/23 11:09 09/14/23 15:25 Temperature 98.2 F 98.5 F Pulse Rate 72 74 Respiratory Rate 16 18 Blood Pressure 117/72 118/74 Pulse Oximetry 95 97 Oxygen Delivery Method Room Air Room Air BMI result Body Mass Index 28.5 Skin Other: Left arm posterior aspect there is a 1 mm punctate lesion with induration and warmth, mild surrounding erythema noted. There is a lesion just superior to this with slight erythema noted. No drainage. No fluctuance. Course Course Course Narrative: RME- 38 year old male to female patient presents for evaluation of left arm cellulitis/abscess for the last few days. Plan for labs Medical Decision Making Medical Decision Making MDM Narrative: This is a 38-year-old patient who presents to the emergency department with complaints of left arm redness, and swelling x2 days. They had tried to remove a ingrown hair and noticed increased warmth and swelling. On arrival, vital signs within normal limits. There afebrile nontoxic-appearing. Area with mild tenderness and induration however no fluctuance or drainage. Will treat as cellulitis and start of an abscess. Advised patient that we are covering with double coverage with doxycycline and Keflex. Encouraged warm compresses 5-6 times per day. Advised that they may need to return for incision and drainage however we will not be able to do this at this time as it is not ready. They understand and agree with plan. Given strict return precautions. Area of erythema was outlined with skin marker. Labs reassuring. Patient stable for discharge. Differential Diagnosis Differential Diagnoses: The differential diagnosis associated with the presentation includes Cellulitis, abscess, insect bite, cyst, folliculitis, ingrown hair Admission/Observation Consideration of admission/observation: Escalation of care including admission/observation considered Lab Data MDM Lab Attestation statement: I reviewed the patient's lab results. No leukocytosis, normocytic anemia noted with a H&H of 13.8/40.9, chemistry nondiagnostic. Serology pending 09/14/23 12:16 09/14/23 12:16 Labs: Lab Results 09/14/23 Range/Units 12:16 WBC 9.7 (4.8-10.8) X10*3/uL RBC 4.61 (4.60-5.80) X10*6/uL Hgb 13.8 L (14.0-18.0) g/dl Hct 40.9 L (42.0-52.0) % MCV 88.7 (80.0-98.0) fL MCH 29.9 (27.0-33.0) pg MCHC 33.7 (31.0-36.0) g/dl RDW 12.5 (11.0-16.0) % Plt Count 240 (160-400) X10*3/uL MPV 9.9 (9.4-12.4) fL Immature Gran % (Auto) 0.4 (0.0-0.4) % Neut % (Auto) 83.3 H (45-73) % Lymph % (Auto) 10.5 L (20-40) % [place] % (Auto) 4.9 (2-11) % Eos % (Auto) 0.6 (0-4) % Baso % (Auto) 0.3 (0-2) % Lymph # (Auto) 1.0 L (1.2-4.9) X10*3/uL [place] # (Auto) 0.5 (0.1-1.2) X10*3/uL Eos # (Auto) 0.1 (0.0-0.4) X10*3/uL Baso # (Auto) 0.0 (0.0-0.2) X10*3/uL Abs Immat Gran (auto) 0.04 H (0.00-0.03) X10*3/uL Absolute Neuts (auto) 8.1 (2.0-8.3) x10*3/uL Absolute Nucleated RBC 0.000 (0.0-0.012) X10*3/uL Nucleated RBC % (auto) 0.0 (0.0-0.2) /100WBC Sodium 141 (135-145) mmol/L Potassium 4.1 (3.3-5.1) mmol/L Chloride 103 (96-108) mmol/L Carbon Dioxide 28 (22-29) mmol/L Anion Gap 14 (12-20) BUN 18 H (9-16) mg/dL Creatinine 0.96 (0.5-1.4) mg/dL Estim Creat Clear Calc 105.7 Estimated GFR > 60 Random Glucose 103 (60-115) mg/dL Lactic Acid 0.8 (0.5-2.0) mmol/L Calcium 9.6 D (8.4-10.2) mg/dL Prescription Management I considered prescription management with: Antibiotic Discharge Plan Discharge Clinical Impression: Cellulitis Patient Disposition: Home, Self-Care Instructions: Cellulitis (ED), Warm Compress or Soak (ED) Additional Instructions: Your seen in the emergency department for wound infection. You have an abscess on your arm. I am placing you on antibiotics, please take both antibiotics as prescribed. Warm compresses 6 times per day. Continue taking ibuprofen and or Tylenol as needed for pain and fevers. I outlined the region of redness, if this extends beyond this outlined region, please return for re-evaluation. If any new or worsening symptoms occur including but not limited to worsening redness, swelling, fevers, chills, please return for re-evaluation. Prescriptions: New cephalexin 500 mg capsule 500 mg PO QID 7 Days Qty: 28 0RF doxycycline hyclate 100 mg tablet 100 mg PO BID 7 Days Qty: 14 0RF No Action albuterol sulfate [ProAir HFA] 90 mcg/actuation HFA aerosol inhaler 2 puff inhalation Q6H PRN (Reason: Respiratory Distress) sennosides [senna] 8.6 mg tablet 8.6 mg PO BEDTIME hydroxyzine pamoate 50 mg capsule 50 mg PO Q6H PRN (Reason: anxiety) oxcarbazepine 300 mg tablet 300 mg PO BID spironolactone 25 mg tablet 25 mg PO DAILY pantoprazole 40 mg tablet,delayed release (DR/EC) 40 mg PO BID trazodone 150 mg tablet 150 mg PO BEDTIME buspirone 10 mg tablet 10 mg PO TID tacrolimus 0.03 % ointment topical BID PRN (Reason: Dry Skin) loratadine 10 mg tablet 10 mg PO DAILY quetiapine 50 mg tablet 50 mg PO BEDTIME guanfacine 3 mg tablet extended release 24 hr 3 mg PO BEDTIME baclofen 5 mg tablet 5 mg PO TID estradiol 2 mg tablet 2 mg PO DAILY levothyroxine 100 mcg Tablet 100 mcg PO DAILY nicotine 7 mg/24 hr Patch 24 Hour 1 patch TRANSDERMAL Q24H Print Language: Turkish
--- OUTSIDE RECORDS SUMMARY | 2023-09-14 12:22 | XMS_ITS | Continuity of Care Document ---
Author Organization [facility] ter Address [address] [place] [address]- Care Team Providers Care Data Operations Director Name Role Phone Not on Staff, PCP Primary Care Physician Unavail able Encounter [facility] Date(s): 09/17/22 - 09/18/[address] [address]- Encounter Diagnosis Suicidal ideation(Final) - 09/17/22 Discharge Disposition: A-D/C Home Attending Physician: Suri Walker MD Admitting Physician: Suri Walker MD Referring Physician: Not on Staff, Referring MD Allergies, Adverse Reactions, Alerts Substance Reaction Severity Status penicillin Active Immunizations Given and Recorded Vaccine Date Status Refusal Reason SARS-CoV-2 (COVID-19) mRNA-1273 vaccine 09/04/21 R ecorded hepatitis B adult vaccine 07/24/21 Recorded hepatitis B adult vaccine 03/09/20 Recorded SARS-CoV-2 (COVID-19) Ad26 vaccine 10/02/20 Record ed influenza virus vaccine, inactivated 03/09/20 Pierre rded influenza virus vaccine, inactivated 02/04/20 Pierre rded influenza virus vaccine, inactivated 04/19/19 Pierre rded influenza virus vaccine, inactivated 05/07/16 Pierre rded influenza virus vaccine, inactivated 12/15/14 Pierre rded tetanus-diphtheria toxoids (Td) 01/02/19 Recorded tetanus/diphtheria/pertussis, acel(Tdap) 02/27/15 Recorded Medications albuterol CFC free 90 mcg/inh inhalation aerosol 2, puffs, Inhalation, 4 times a day, PRN, # 75 Gm, Refills 0, Tot. Refills 0, Maintenance, 06/11/2309:30:00 EST, Aerosol, Route to Pharmacy Electronically, NCPDP_[id number], [facility]-, 165, cm, 12/25/21 4:34:00 EDT, Height,... Start Date: 06/11/22 Status: Ordered atomoxetine 18 mg oral capsule 1 capsule = 18 mg, By Mouth, Daily in AM, # 30 capsule, 0 Refills, Maintenance, 08/24/22 10:35:00 EDT, Capsule, Partial fill upon patient request if the prescription is for a schedule II opioid drug. Start Date: 08/24/22 Status: Ordered baclofen 10 mg oral tablet 10 mg, 1, tablet, By Mouth, 3 times a day, PRN, # 90 tablet, Refills 0, Tot. Refills 0, Maintenance, Spasm, 06/11/22 10:26:00 EST, Route to Pharmacy Electronically, [facility]-, Partial fill upon patient request if the prescrip... Start Date: 06/11/22 Status: Ordered Depakote 250 mg oral enteric coated tablet See Instructions, 250 mg daily in the morning and 1000 mg daily qHS, # 30 tablet, 5 Refills, Maintenance, 06/11/22 10:27:00 EST, [facility]-, Partial fill upon patient requestif the prescription is for a schedule II opioid yossi... Start Date: 06/11/22 Status: Ordered estradiol 2 mg oral tablet 1 tablet = 2 mg, By Mouth, Daily, # 30 tablet, 0 Refills, Maintenance, 08/24/22 10:37:00 EDT, Tablet, Partial fill upon patient request if the prescription is for a schedule II opioid drug. Start Date: 08/24/22 Status: Ordered hydrOXYzine pamoate 100 mg oral capsule 1 capsule = 100 mg, By Mouth, Every 6 hours, PRN as needed for anxiety, 0 Refills, Maintenance, 08/24/22 10:34:00 EDT, Partial fill upon patient request if the prescription is for a schedule II opioid drug. Start Date: 08/24/22 Status: Ordered levothyroxine 0.1 mg oral tablet 1 tablet = 0.1 mg, By Mouth, Daily, # 30 tablet, 0 Refills, Maintenance, 06/11/22 10:26:00 EST, Tablet, [facility], Partial fill upon patient request if the prescription is for a schedule II opioid drug., 165, cm, 12/25/21 4:3... Start Date: 06/11/22 Status: Ordered olanzapine 5 mg oral tablet 5 mg, 1, tablet, By Mouth, Every 6 hours, PRN, # 10 tablet, Refills 0, Tot. Refills 0, Maintenance,Agitation, 06/11/22 10:26:00 EST, Route to Pharmacy Electronically, [facility], Partial fill upon patient request if the presc... Start Date: 06/11/22 Status: Ordered prazosin 5 mg oral capsule TAKE ONE CAPSULE BY MOUTH EVERY NIGHT AT BEDTIME Start Date: 11/24/21 Status: Ordered ProAir HFA 90 mcg/inh inhalation aerosol with adapter INHALE 2 PUFFS BY MOUTH INTO THE lungs EVERY 6 HOURS Start Date: 11/24/21 Status: Ordered rOPINIRole 0.25 mg oral tablet 1 tablet = 0.25 mg, By Mouth, Daily at bedtime, # 30 tablet, 0 Refills, Maintenance, 06/11/22 10:25:00 EST, Tablet, [facility], Partial fill upon patient request if the prescription is for a schedule II opioid drug., 165, cm,... Start Date: 06/11/22 Status: Ordered sertraline 50 mg oral tablet 2 tablet = 100 mg, By Mouth, Daily, # 60 tablet, 0 Refills, Maintenance, 06/11/22 10:25:00 EST, Tablet, [facility], Partial fill upon patient request if the prescription is for a schedule II opioid drug., 165, cm, 12/25/21 4:3... Start Date: 06/11/22 Status: Ordered Suboxone 4 mg-1 mg sublingual film 1 film, Sublingual, Daily, dissolve under the tongue, 0 Refills, Maintenance, 08/24/22 10:35:00 EDT, Film, Partial fill upon patient request if the prescription is for a schedule II opioid drug. Start Date: 08/24/22 Status: Ordered traZODone 50 mg oral tablet 100 mg, 2, tablet, By Mouth, Daily at bedtime, PRN, # 10 tablet, Refills 0, Tot. Refills 0, Maintenance, Insomnia, 06/11/22 10:25:00 EST, Route to Pharmacy Electronically, [facility], Partial fill upon patient request if the p... Start Date: 06/11/22 Status: Ordered ziprasidone 60 mg oral capsule 1 capsule = 60 mg, By Mouth, 2 times a day, # 60 capsule, 0 Refills, Maintenance, 06/11/22 10:25:00EST, Capsule, [facility]-, Partial fill upon patient request if the prescription is for a schedule II opioid drug., 165, cm, 09... Start Date: 06/11/22 Status: Ordered Problem List Condition Confirmation Course Effective Dates Status Health St atus Informant COVID-19 1 Confirmed 11/28/21 Active 1Problem added by Discern Expert Vital Signs Most recent to oldest [Reference Range]: 1 Oxygen Saturation [94-100 %] 100 % (09/17/22 10:48 PM) Pulse Rate [55-90 bpm] 62 bpm (09/17/22 10:48 PM) Blood Pressure [90-138/55-84 mm Hg] 143/ 82mm Hg *H* (09/17/22 10:48 PM) Respiratory Rate [16-30 br/min] 16 br/mi n (09/17/22 10:48 PM) Temperature [96.8-100.4 DegF] 98.9 DegF (09/17/22 10:48 PM) Mode of Delivery (Oxygen) Room air (09/17/22 10:48 PM) Blood pressure sites Arm, left (09/17/22 10:48 PM) Temperature Route Oral (09/17/22 10:48 PM) Social History Social History Type Response Tobacco Use: 4 or less cigar ettes(less than 1/4 pack)/day in last 30 days. Sex Note * Denise GUAJARDO, Suri Seo: PERFORM Event Display: Patient Education Leaflets Authored Date: [id number] Recognizing Suicide Warning Signs in Yourself ?? [address] Recognizing Suicide Warning Signs in Yourself People who are thinking about suicide may not know they are depressed. Certain thoughts, feelings, and actions can be signals that let you know you may need help. The best thing you can do is watch for signs that you may be at risk. Then, ask for help. You can talk with your regular healthcare provider or get help from a mental health provider. Depression Depression is a treatable illness, just like diabetes or heart disease. And like those illnesses, depression is not something that you can just snap out of. To feel better, treatment is needed before depression gets to a point that it can endanger your life. To know if depression is causing you to feel like ending your life, ask yourself: ??? Do I feel worthless, guilty, helpless, or hopeless? Have I been feeling sad, down, or blue on most days? Have I lost interest in my work or people I used to enjoy? Do I have trouble sleeping or do I sleep too much? Do I eat more or lessthan normal? Do I feel tired, weak, and low on energy? Do I feel restless and unable to sitstill? Do I have trouble thinking or making choices? Do I cry more than normal? Do I feel life isn't worth living? ?? Warning signs for suicide Call your healthcare provider or get help right away if you have any of the warning signs below. You can also call a mental health clinic or the suicide prevention lifeline for help and support. Warning signs for suicide include: ??? Thinking often about taking your life ??? Planning how you may attempt it ??? Talking or writing about suicide ??? Feeling that is the only solution to your problems ??? Feeling a pressing need to make out your will or arrange your ??? Giving away things you own ??? Taking part in risky behaviors, such as having sex with someone you don't know, or drinking and driving ??? Buying a lethal weapon, such as a gun, or hoarding medicines that could be used in an overdose ?? Call or text 988 If you are in immediate risk of harming yourself or others, call 988. When you call or text 988, you will be connected to trained crisis counselors. An online chat option is also available. Lifeline is free and available 11/11. ?? To learn more For more information about depression and suicide prevention: ??? National Suicide Prevention Lifeline at www.suicidepreventionlifeline.org or 401-171-LIGW (383-416-6586) ??? National [place] on Mental Illness at www.adele.org or 482-409-3611 ??? Mental Health [place] at www.nmha.org or 511-505-5510 ??? National [place] of Mental Health at www.nimh.nih.gov or 341-103-1767 ?? Last Reviewed Date: 2021 ?? The [employer]. All rights reserved. This information is not intended as a substitute for professional medical care. Always follow your healthcare professional's instructions. ?? Patient Care team information Care Team Personnel Name: Nargis Carlos Position: [facility] RN Member Role: Primary Care Nurse Name: Geri Holder RN Position: [facility] RN Member Role: Primary Care Nurse Name: Not on Staff, PCP Position: [facility] Physician (General Medicine) Member Role: PCP Name: Meeta Kaminski RN Position: [facility] RN Member Role: Primary Care Nurse Name: *[facility], ED Attending Position: [facility] ED Attendings Patient Name: Trev Garcia RN Position: [facility] ED RN W/OE and Tasks Member Role: Patient Care Provider Name: Denise GUAJARDO, Suri Seo Position: [facility] ED Medicine MD Member Role: Admitting Physician Address: Address: [address] [place] [address] [place] [address]- Name: Pratibha Banda Position: [facility] ED TA [facility] Member Role: Foreign Student Adviser Care Team Related Persons Name: JASPAL CONSTANTINO Name: MATT ARMIJO Address: [place] [address]
--- OUTSIDE RECORDS SUMMARY | 2023-09-14 12:22 | XMS_ITS | Continuity of Care Document ---
Author Organization [facility] Address Unknown Care Team Providers Care Ruby Engineer Name Role Phone Not on Staff, PCP Primary Care Physician Unavail able [place] [facility] [place]21 [facility] Allergies, Adverse Reactions, Alerts Substance Reaction Severity Status penicillin Active Medications Depakote 500 mg oral enteric coated tablet 1 tablet = 500 mg, By Mouth, 2 times a day, # 30 tablet, 0 Refills, Maintenance, 03/27/21 20:09:00 EST, EC Tablet, [facility]/pharmacy #[id number], Partial fill upon patient request if the prescription is for a schedule II opioid drug. Start Date: 03/27/21 Status: Ordered
--- OUTSIDE RECORDS SUMMARY | 2023-09-14 12:22 | XMS_ITS | Continuity of Care Document ---
Author Organization [facility] ter Address [address] [place] [address]- Care Team Providers Care Office Aide Name Role Phone Not on Staff, PCP Primary Care Physician Unavail able Encounter [facility] Date(s): 03/25/23 - 03/27/[address] [address]- Discharge Disposition: A-D/C Home Attending Physician: Almas Flores MD Admitting Physician: Almas Flores MD Referring Physician: Not on Staff, Referring MD Allergies, Adverse Reactions, Alerts Substance Reaction Severity Status penicillin Active Immunizations Given and Recorded Vaccine Date Status Refusal Reason [id number] bivalent booster vax 11/15/22 Recorded hepatitis B adult vaccine 09/18/22 Recorded hepatitis B adult vaccine 12/07/21 Recorded hepatitis B adult vaccine 07/24/21 Recorded hepatitis B adult vaccine 03/09/20 Recorded SARS-CoV-2 (COVID-19) mRNA-1273 vaccine 09/04/21 R ecorded SARS-CoV-2 (COVID-19) Ad26 vaccine 10/02/20 Record ed influenza virus vaccine, inactivated 03/09/20 Pierre rded influenza virus vaccine, inactivated 02/04/20 Pierre rded influenza virus vaccine, inactivated 04/19/19 Pierre rded influenza virus vaccine, inactivated 05/07/16 Pierre rded influenza virus vaccine, inactivated 12/15/14 Pierre rded tetanus-diphtheria toxoids (Td) 01/02/19 Recorded tetanus/diphtheria/pertussis, acel(Tdap) 02/27/15 Recorded Medications Abilify 2 mg oral tablet 2 mg, By Mouth, Daily, # 30 tablet, Refills 1, Tot. Refills 1, Maintenance, 01/17/23 15:02:00 EDT, Route to Pharmacy Electronically, [facility], Partial fill upon patient request if theprescription is for a schedule II opioid drug., 165... Start Date: 01/17/23 Stop Date: 03/18/23 Status: Ordered albuterol CFC free 90 mcg/inh inhalation aerosol 2, puffs, Inhalation, 4 times a day, PRN, # 75 Gm, Refills 0, Tot. Refills 0, Maintenance, 06/11/2309:30:00 EST, Aerosol, [id number] 165, cm, 12/25/21 4:34:00 EDT, Height,... Start Date: 06/11/22 Status: Ordered baclofen 10 mg oral tablet 10 mg, Tablet, By Mouth, 3 times a day, PRN for Spasm, Routine, 03/25/23 15:32:00 EST Start Date: 03/25/23 Stop Date: 03/28/23 Status: Discontinued baclofen 10 mg oral tablet 10 mg, 1, tablet, By Mouth, 3 times a day, PRN, # 90 tablet, Refills 0, Tot. Refills 0, Maintenance, Spasm, 06/11/22 10:26:00 EST, Route to Pharmacy Electronically, [facility]-, Partial fill upon patient request if the prescrip... Start Date: 06/11/22 Status: Ordered clindamycin 150 mg oral capsule 2 capsule = 300 mg, By Mouth, Every 8 hours, for 5 days, # 30 capsule, 0 Refills, Acute 04/01/23 14:04:00 EST, 03/27/23 14:04:00 EST, Capsule, [facility], Partial fill upon patient request if the prescription is for a schedule II opioid... Start Date: 03/27/23 Stop Date: 04/01/23 Status: Ordered divalproex sodium 500 mg oral enteric coated tablet See Instructions, 1,000 mg By Mouth Daily at bedtime 30 days, # 60 tablet, 0 Refills, Maintenance, 01/17/23 15:00:00 EDT, Tablet, [facility], Partial fill upon patient request if the prescription is for a schedule II opioid drug., 165, c... Start Date: 01/17/23 Status: Ordered estradiol 2 mg oral tablet [...] 0.1 mg oral tablet 1 tablet = 100 mcg, By Mouth, Daily, # 30 tablet, 0 Refills, Maintenance, 11/26/22 8:29:00 EDT, Tablet, Partial fill upon patient request if the prescription is for a schedule II opioid drug. Start Date: 11/26/22 Status: Ordered prazosin 1 mg oral capsule 2 mg, By Mouth, Daily at bedtime, hold for bp systolic less than90, # 60 capsule, Refills 0, Tot. Refills 0, Maintenance, 01/17/23 15:01:00 EDT, Route to Pharmacy Electronically, [facility], Partial fill upon patient request if the pres... Start Date: 01/17/23 Stop Date: 02/16/23 Status: Ordered prazosin 1 mg oral capsule 2 mg, Capsule, By Mouth, 03/26/23 21:00:00 EST Start Date: 03/26/23 Stop Date: 03/26/23 Status: Completed prazosin 5 mg oral capsule TAKE ONE [...] 0 Refills, Maintenance, 06/11/22 10:25:00 EST, Tablet, [facility]-, Partial fill upon patient request if the prescription is for a schedule II opioid drug., 165, cm,... Start Date: 06/11/22 Status: Ordered sertraline 50 mg oral tablet 2 tablet = 100 mg, By Mouth, Daily, # 60 tablet, 0 Refills, Maintenance, 06/11/22 10:25:00 EST, Tablet, [facility]-, Partial fill upon patient request if the prescription is for a schedule II opioid drug., 165, cm, 12/25/21 4:3... Start Date: 06/11/22 Status: Ordered traZODone 50 mg oral tablet 100 mg, 2, tablet, By Mouth, Daily at bedtime, PRN, # 10 tablet, Refills 0, Tot. Refills 0, Maintenance, Insomnia, 06/11/22 10:25:00 EST, Route to Pharmacy Electronically, [facility]-, Partial fill upon patient request if the p... Start Date: 06/11/22 Status: Ordered Problem List Condition Confirmation Course Effective Dates Status Health St atus Informant COVID-19 1 Confirmed 11/28/21 Active 1Problem added by Discern Expert Results Radiology Reports * Exam Date Time Procedure Performing Provider Status 03/26/23 7:[address] Maxilloface W/ Contrast Col carla Roper; Auth (Verified) Notes: (CT Maxilloface W/ Contrast) Reason For Exam: Dental Abscess RESULT: CT Maxilloface W/ Contrast CT Maxillofacial W/ Contrast INDICATION: Right-sided tooth pain. Right-sided facial swelling. There is fracture of the right upper lateral incisor on physical exam. 0 underlying infection. TECHNIQUE: Maxillofacial CT was performed with intravenous contrast. 100 cc of Omnipaque 300 was administered intravenously. Reformats were performed in 3 planes. Automatic tube modulation and/or iterative dose reconstruction were used optimize scan parameters. CTDIvol Head: 25.80 mGy, DLP Head: 573 mGy*cm. COMPARISON: No prior examination. FINDINGS: Skull base: No fracture. No focal bony lesion. Mastoid air cells and middle ear cavities clear. Mandible: No fracture. Temporomandibular joints are normal. Other facial bones: No fracture. Upper dentition: There is dental caries involving several teeth. The right lateral incisor is broken as noted on physical exam. There is a small amount of lucency about the root of the lateral incisor on both sides, representing periapical abscess with no adjacent soft tissue abscess. Lower dentition: Dental caries involves multiple disease. The most posterior tooth left mandible is broken. It is probably the second bicuspid. There is lucency about its root indicating periapical abscess without adjacent soft tissue abscess. Paranasal sinuses: Moderate mucosal thickening of the frontal clinical thickening in the maxillary sinuses, right greater than left. Orbital soft tissues: Normal. Sinuses. Ethmoid and sphenoid sinuses clear. Moderate mucosal Lymph nodes: Mild enlargement of right jugulodigastric node. Otherwise no adenopathy. Internal jugular veins: Patent. Superficial soft tissues: The menisci inflammatory change in the superficial fat right base, including areas of lip, cheek, regions. No gastric or localized fluid collection. Deep Soft tissues: No abscess. IMPRESSION: 1. Dental caries involving multiple teeth. 2. Right upper lateral incisor is broken. There is also absence of the crown of the left lower second bicuspid. 3. Periapical lucencies suggesting periapical abscess present adjacent to root of lateral and is upper in size around both sides and the broken left lower second bicuspid. 4. No soft tissue abscess. 5. Superficial soft tissue swelling of the face the right side without underlying soft tissue abscess. WSN: [id number] Ordering Physician: Erlinda Marques Dictated By: Leonardo Joseph MD Dictated Date/Time: 03/26/23 10:42 a Reviewed By: Leonardo Joseph MD Signed By: Leonardo Joseph MD Signed Date/Time: 03/26/23 10:42 am Transcribed By: HARPER Transcribed Date/Time: 03/26/23 10:21 am Vital Signs Most recent to oldest [Reference Range]: 1 2 3 Height 165 cm (03/27/23 8:57 AM) 165 cm (03/26/23 9:12 AM) 165 cm (03/26/23 6:43 AM) Weight 73.6 kg (03/27/23 8:57 AM) 73.6 kg (03/26/23 9:12 AM) 73.6 kg (03/26/23 6:43 AM) Oxygen Saturation [94-100 %] 100 % (03/27/23 8:57 AM) 100 % (03/26/23 11:32 PM) 100 % (03/26/23 5:41 PM) Pulse Rate [55-90 bpm] 56 bpm (03/27/23 8:57 AM) 64 bpm (03/26/23 11:32 PM) 60 bpm (03/26/23 5:41 PM) Body Mass Index [18.5-24.99 kg/m2] 27.03 kg/m2 *H* (03/27/23 8:57 AM) 27.03 kg/m2 *H* (03/26/23 9:12 AM) 27.03 kg/m2 *H* (03/26/23 6:43 AM) Blood Pressure [90-138/55-84 mm Hg] 117/63mm Hg (03/27/23 8:57 AM) 124/65mm Hg (03/26/23 11:32 PM) 124/65mm Hg (03/26/23 5:41 PM) Respiratory Rate [16-30 br/min] 16 br/min (03/27/23 8:57 AM) 16 br/min (03/26/23 11:32 PM) 16 br/min (03/26/23 5:41 PM) Temperature [96.8-100.4 DegF] 99.4 DegF (03/27/23 8:57 AM) 98.0 DegF (03/26/23 11:32 PM) 97.6 DegF (03/26/23 5:41 PM) Mode of Delivery (Oxygen) Room air (03/27/23 8:57 AM) Room air (03/26/23 11:32 PM) Room air (03/26/23 5:41 PM) Blood pressure sites Arm, right (03/27/23 8:57 AM) Arm, right (03/26/23 11:32 PM) Arm, right (03/26/23 5:41 PM) Temperature Route Oral (03/27/23 8:57 AM) Oral (03/26/23 11:32 PM) Oral (03/26/23 5:41 PM) Dry Weight 73.6 kg (03/27/23 8:57 AM) 73.6 kg (03/26/23 9:12 AM) 73.6 kg (03/26/23 6:43 AM) Weight Obtained Via Patient/family state d (03/25/23 11:37 AM) Dry Weight Obtained Via Patient/family s tated (03/25/23 11:37 AM) Social History Social History Type Response Tobacco Use: 4 or less cigar ettes(less than 1/4 pack)/day in last 30 days. Sex Note * Almas Flores MD: PERFORM Event Display: Patient Education Leaflets Authored Date: Depression Relapse ?? 262 Depression Relapse ?? You should contact your physician if you experience any of the following: thoughts of suicide, thoughts of hurting yourself or someone else, feelings of hopelessness or despair, disturbances in unusual sleep patterns, change in appetite, thoughts of suicide, difficulty concentrating. ?? You should contact your physician if you experience any of the following: isolating or withdrawing from friends and/or family, losing interest in unusual activities, loss of energy, unmanageable anxiety. ?? * Almas Flores MD: PERFORM Event Display: Patient Education Leaflets Authored Date: [facility] - If You Need A Dentist ?? 33 If You Need a Dentist ?? For additional clinics and resources, see:? https://freeclinicdirectory.org ?? Additional information:? [facility]-Dentistry for ALL ?[facility] 9:00-5:00? ext [phone] ? [address] Jed Salmon, [place]? [address] [facility], [place]? [phone] [facility] [place]? [address], [place]? [phone] [facility]? [address] [place]? [phone] [facility]? [address], [place]? [phone] [facility]? [address] [place]? [phone] [facility]? [address], [place]? [phone] [facility]? [address],[place]? [phone] [facility]? [address], [place]? [phone] [facility]? [address], [place]? [phone] ? [address]? [facility] [place]? [address], [place], [place]?[phone] [facility]? [address] [facility], [place], [place]?[phone] ? Patient Care team information Care Team Personnel Name: Nargis Carlos Position: [facility] RN Member Role: Primary Care Nurse Name: Geri Holder RN Position: [facility] RN Member Role: Primary Care Nurse Name: Not on Staff, PCP Position: [facility] Physician (General Medicine) Member Role: PCP Name: Meeta Kaminski RN Position: [facility] RN Member Role: Primary Care Nurse Name: *[facility], ED Attending Position: [facility] ED Attendings Patient Name: Almas Flores MD Position: [facility] ED Medicine MD Member Role: ED Attending Physician Address: Address: [address] [place] [id number]- Name: Jesi Jama RN Position: [facility] ED RN W/OE and Tasks Member Role: Patient Care Provider Name: Fanta Lopes Position: [facility] ED TA [facility] Member Role: Drafter Castings Care Team Related Persons Name: JASPAL CONSTANTINO Name: ZOFIAMATT Address: [place] [address]
--- OUTSIDE RECORDS SUMMARY | 2023-09-14 12:22 | XMS_ITS | Continuity of Care Document ---
Author Organization [facility] Address Unknown Care Team Providers Care Water Use Inspector Name Role Phone Not on Staff, PCP Primary Care Physician Unavail able Encounter [facility] Date(s): 07/10/21 - 08/09/21 [facility] Allergies, Adverse Reactions, Alerts Substance Reaction Severity Status penicillin Active Medications Depakote 500 mg oral enteric coated tablet 1 tablet = 500 mg, By Mouth, 2 times a day, # 30 tablet, 0 Refills, Maintenance, 03/27/21 20:09:00 EST, EC Tablet, [id number], Partial fill upon patient request if the prescription is for a schedule II opioid drug. Start Date: 03/27/21 Status: Ordered
--- OUTSIDE RECORDS SUMMARY | 2023-09-14 12:22 | XMS_ITS | Continuity of Care Document ---
Author Organization [facility] ter Address [address] [place] [address]- Care Team Providers Care Reception Interviewer Name Role Phone Not on Staff, PCP Primary Care Physician Unavail able [place] [facility] Date(s): 02/05/23 - 02/06/[address] [address]- Discharge Disposition: A-D/C Walkout Attending Physician: Not on Staff, Attending MD Admitting Physician: Not on Staff, Admitting MD Referring Physician: Not on Staff, Referring MD Allergies, Adverse Reactions, Alerts Substance Reaction Severity Status penicillin Active Immunizations Given and Recorded Vaccine Date Status Refusal Reason [id number] bivalent booster vax 11/15/22 Recorded hepatitis B [...] 01/17/23 15:02:00 EDT, Route to Pharmacy Electronically, [facility], Partial fill upon patient request if theprescription is for a schedule II opioid drug., 165... Start Date: 01/17/23 Stop Date: 03/18/23 Status: Ordered albuterol CFC free 90 mcg/inh inhalation aerosol 2, puffs, Inhalation, 4 times a day, PRN, # 75 Gm, Refills 0, Tot. Refills 0, Maintenance, 06/11/2309:30:00 EST, Aerosol, Route to Pharmacy Electronically, [id number], [facility]-, 165, cm, 12/25/21 4:34:00 EDT, Height,... Start Date: 06/11/22 Status: Ordered baclofen 10 mg oral tablet 10 mg, 1, tablet, By Mouth, 3 times a day, PRN, # 90 tablet, Refills 0, Tot. Refills 0, Maintenance, Spasm, 06/11/22 10:26:00 EST, Route to Pharmacy Electronically, [facility]-, Partial fill upon patient request if the prescrip... Start Date: 06/11/22 Status: Ordered divalproex sodium 500 mg oral enteric coated tablet See Instructions, 1,000 mg By Mouth Daily at bedtime 30 days, # 60 tablet, 0 Refills, Maintenance, 01/17/23 15:00:00 EDT, Tablet, [facility], Partial fill upon patient request if [...] 01/17/23 15:01:00 EDT, Route to Pharmacy Electronically, [facility], Partial fill upon patient request if the pres... Start Date: 01/17/23 Stop Date: 02/16/23 Status: Ordered prazosin 5 mg oral capsule [...] 0 Refills, Maintenance, 06/11/22 10:25:00 EST, Tablet, [facility]-, Partial fill upon patient request if the prescription is for a schedule II opioid drug., 165, cm,... Start Date: 06/11/22 Status: Ordered sertraline 50 mg oral tablet 2 tablet = 100 mg, By Mouth, Daily, # 60 tablet, 0 Refills, Maintenance, 06/11/22 10:25:00 EST, Tablet, [facility]-, Partial fill upon patient request if the prescription is for a schedule II opioid drug., 165, cm, 12/25/21 4:3... Start Date: 06/11/22 Status: Ordered traZODone 50 mg oral tablet 100 mg, 2, tablet, By Mouth, Daily at bedtime, PRN, # 10 tablet, Refills 0, Tot. Refills 0, Maintenance, Insomnia, 06/11/22 10:25:00 EST, Route to Pharmacy Electronically, [facility]-, Partial fill upon patient request if the p... Start Date: 06/11/22 Status: Ordered Problem List Condition Confirmation Course Effective Dates Status Health romelia Informant COVID-19 1 Confirmed 11/28/21 Active 1Problem added by Discern Expert Vital Signs Most recent to oldest [Reference Range]: 1 2 3 Height 165 cm (02/05/23 10:08 PM) Oxygen Saturation [94-100 %] 100 % (02/06/23 2:08 AM) 98 % (02/05/23 10:08 PM) 97 % (02/05/23 9:59 PM) Pulse Rate [55-90 bpm] 62 bpm (02/06/23 2:08 AM) 66 bpm (02/05/23 10:08 PM) 86 bpm (02/05/23 9:59 PM) Blood Pressure [90-138/55-84 mm Hg] 125/81mm Hg (02/06/23 2:08 AM) 130/83mm Hg (02/05/23 10:08 PM) Respiratory Rate [16-30 br/min] 18 br/min (02/05/23 10:08 PM) Temperature [96.8-100.4 DegF] 97.9 DegF (02/06/23 2:08 AM) 98.6 DegF (02/05/23 10:08 PM) Mode of Delivery (Oxygen) Room air (02/06/23 2:08 AM) Room air (02/05/23 10:08 PM) Blood pressure sites Arm, left (02/06/23 2:08 AM) Arm, left (02/05/23 10:08 PM) Temperature Route Oral (02/06/23 2:08 AM) Oral (02/05/23 10:08 PM) Dry Weight 74 kg (02/05/23 10:08 PM) Dry Weight Obtained Via Patient/family s tated (02/05/23 10:08 PM) Social History Social History Type Response Tobacco Use: 4 or less cigar ettes(less than 1/4 pack)/day in last 30 days. Sex Patient Care team information Care Team Personnel Name: Nargis Carlos Position: S RN Member Role: Primary Care Nurse Name: Geri Holder RN Position: S RN Member Role: Primary Care Nurse Name: Not on Staff, PCP Position: S Physician (General Medicine) Member Role: PCP Name: Meeta Kaminski RN Position: S RN Member Role: Primary Care Nurse Care Team Related Persons Name: JASPAL CONSTANTINO Name: MATT ARMIJO Address: [place] [address]
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
--- OUTSIDE RECORDS SUMMARY | 2023-09-14 12:22 | XMS_ITS | Continuity of Care Document ---
Author Organization [facility] Address [address] [place] [address]- Care Team Providers Care Cylinder Honer Name Role Phone Not on Staff, PCP Primary Care Physician Unavail able Encounter [facility] Date(s): 12/25/21 - 12/25/[address] [address]- Discharge Disposition: A-D/C Home Attending Physician: Artemio GUAJARDO, Guillermina Mittal Admitting Physician: Guillermina Ulloa MD Referring Physician: Not on Staff, Referring [...] Maintenance, 03/27/21 20:09:00 EST, EC Tablet, [id number], Partial fill upon patient request if the [...] capsule, 0 Refills, Maintenance, 11/28/2219:58:00 EDT, Capsule, [facility], Partial fill upon patient request if the prescription is for a schedule II opioid drug., 16... Start Date: 11/27/21 Status: Ordered Problem List Condition Effective Dates Status Health Status Inform ant COVID-19(Confirmed) 1 11/28/21 Active 1Problem added by Discern Expert Vital Signs Most recent to oldest [Reference Range]: 1 2 3 Height 165 cm (12/25/21 4:34 AM) Weight 77.3 kg (12/25/21 4:34 AM) Oxygen Saturation [94-100 %] 99 % (12/25/21 4:57 PM) 97 % (12/25/21 3:11 PM) 99 % (12/25/21 10:08 AM) Pulse Rate [55-90 bpm] 78 bpm (12/25/21 4:57 PM) 70 bpm (12/25/21 3:11 PM) 72 bpm (12/25/21 10:08 AM) Blood Pressure [90-138/55-84 mm Hg] 105/84mm Hg (12/25/21 4:57 PM) 115/78mm Hg (12/25/21 3:11 PM) 123/78mm Hg (12/25/21 10:08 AM) Respiratory Rate [16-30 br/min] 18 br/min (12/25/21 4:57 PM) 18 br/min (12/25/21 3:11 PM) 16 br/min (12/25/21 4:34 AM) Temperature [96.8-100.4 DegF] 98.4 DegF (12/25/21 3:11 PM) 98.4 DegF (12/25/21 10:08 AM) 97.9 DegF (12/25/21 4:34 AM) Mode of Delivery (Oxygen) Room air (12/25/21 4:57 PM) Nasal cannula (12/25/21 3:11 PM) Room air (12/25/21 10:08 AM) Blood pressure sites Arm, right (12/25/21 4:57 PM) Arm, right (12/25/21 3:11 PM) Arm, right (12/25/21 10:08 AM) Temperature Route Oral (12/25/21 3:11 PM) Oral (12/25/21 10:08 AM) Oral (12/25/21 4:34 AM) Dry Weight 77.3 kg (12/25/21 4:34 AM) Weight Obtained Via Patient/family stated (12/25/21 4:34 AM) Dry Weight Obtained Via Patient/family stated (12/25/21 4:34 AM) Social History Social History Type Response Tobacco Use: 4 or less cigar ettes(less than 1/4 pack)/day in last 30 days. Sex Care Team Personnel Name: Not on Staff, PCP
--- OUTSIDE RECORDS SUMMARY | 2023-09-14 12:22 | XMS_ITS | Continuity of Care Document ---
Author Organization [facility] ter Address [address] [place] [address]- Care Team Providers Care Classification Officer Name Role Phone Not on Staff, PCP Primary Care Physician Unavail able Encounter [facility] Date(s): 07/25/22 - 07/26/[address] [address]- Encounter Diagnosis Anxiety(Final) - 07/25/22 Depression(Final) - 07/25/22 Homeless(Final) - 07/25/22 Discharge Disposition: A-D/C Home Attending Physician: Artemio [...] 06/11/2309:30:00 EST, Aerosol, Route to Pharmacy Electronically, NCPDP_[id number], [facility]-, 165, cm, 12/25/21 4:34:00 EDT, Height,... Start Date: 06/11/22 Status: Ordered baclofen 10 mg oral tablet 10 mg, 1, tablet, By Mouth, 3 times a day, PRN, # 90 tablet, Refills 0, Tot. Refills 0, Maintenance, Spasm, 06/11/22 10:26:00 EST, Route to Pharmacy Electronically, [facility], Partial fill upon patient request if the prescrip... Start Date: 06/11/22 Status: Ordered Depakote 250 mg oral enteric coated tablet See Instructions, 250 mg daily in the morning and 1000 mg daily qHS, # 30 tablet, 5 Refills, Maintenance, 06/11/22 10:27:00 EST, [facility], Partial fill upon patient requestif the prescription is for a schedule II opioid yossi... Start Date: 06/11/22 Status: Ordered Depakote 500 mg oral enteric coated tablet 1 tablet = 500 mg, By Mouth, 2 times a day, # 30 tablet, 0 Refills, Maintenance, 03/27/21 20:09:00 EST, EC Tablet, [id number], Partial fill upon patient request if the prescription is for a schedule II opioid drug. Start Date: 03/27/21 Status: Ordered levothyroxine 0.1 mg oral tablet 1 tablet = 0.1 mg, By Mouth, Daily, # 30 tablet, 0 Refills, Maintenance, 06/11/22 10:26:00 EST, Tablet, [facility], Partial fill upon patient request if the prescription is for a schedule II opioid drug., 165, cm, 12/25/21 4:3... Start Date: 06/11/22 Status: Ordered levothyroxine 0.1 mg oral tablet TAKE ONE TABLET BY MOUTH EVERY DAY Start Date: 11/24/21 Status: Ordered olanzapine 5 mg oral tablet 5 mg, 1, tablet, By Mouth, Every 6 hours, PRN, # 10 tablet, Refills 0, Tot. Refills 0, Maintenance,Agitation, 06/11/22 10:26:00 EST, Route to Pharmacy Electronically, [facility], Partial fill upon patient request if the presc... Start Date: 06/11/22 Status: Ordered prazosin 5 mg oral capsule 7 mg, Capsule, By Mouth, ROS, 07/25/22 21:32:00 EDT Start Date: 07/25/22 Stop Date: 07/25/22 Status: Completed prazosin 5 mg oral capsule [...] 0 Refills, Maintenance, 06/11/22 10:25:00 EST, Tablet, [facility], Partial fill upon patient request if the prescription is for a schedule II opioid drug., 165, cm,... Start Date: 06/11/22 Status: Ordered rOPINIRole 0.25 mg oral tablet TAKE ONE TABLET BY MOUTH EVERY NIGHT AT BEDTIME Start Date: 11/24/21 Status: Ordered sertraline 50 mg oral tablet 2 tablet = 100 mg, By Mouth, Daily, # 60 tablet, 0 Refills, Maintenance, 06/11/22 10:25:00 EST, Tablet, [facility], Partial fill upon patient request if the prescription is for a schedule II opioid drug., 165, cm, 12/25/21 4:3... Start Date: 06/11/22 Status: Ordered traZODone 50 mg oral tablet 100 mg, 2, tablet, By Mouth, Daily at bedtime, PRN, # 10 tablet, Refills 0, Tot. Refills 0, Maintenance, Insomnia, 06/11/22 10:25:00 EST, Route to Pharmacy Electronically, [facility], Partial fill upon patient request if the p... Start Date: 06/11/22 Status: Ordered traZODone 50 [...] capsule, 0 Refills, Maintenance, 11/28/2219:58:00 EDT, Capsule, [facility]-, Partial fill upon patient request if the prescription is for a schedule II opioid drug., 16... Start Date: 11/27/21 Status: Ordered ziprasidone 60 mg oral capsule 1 capsule = 60 mg, By Mouth, 2 times a day, # 60 capsule, 0 Refills, Maintenance, 06/11/22 10:25:00EST, Capsule, [facility]-, Partial fill upon patient request if the prescription is for a schedule II opioid drug., 165, cm, 09... Start Date: 06/11/22 Status: Ordered Problem List Condition Confirmation Course Effective Dates Status Health St [facility]us Informant COVID-19 1 Confirmed 11/28/21 Active 1Problem added by Discern Expert Vital Signs Most recent to oldest [Reference Range]: 1 2 3 Oxygen Saturation [94-100 %] 99 % (07/26/22 8:59 AM) 99 % (07/25/22 11:00 PM) 99 % (07/25/22 8:41 PM) Pulse Rate [55-90 bpm] 70 bpm (07/26/22 8:59 AM) 86 bpm (07/25/22 11:00 PM) 85 bpm (07/25/22 8:41 PM) Blood Pressure [90-138/55-84 mm Hg] 113/60mm Hg (07/26/22 8:59 AM) 130/76mm Hg (07/25/22 11:00 PM) 118/72mm Hg (07/25/22 9:46 PM) Respiratory Rate [16-30 br/min] 18 br/min (07/26/22 8:59 AM) 20 br/min (07/25/22 11:00 PM) 19 br/min (07/25/22 8:41 PM) Temperature [96.8-100.4 DegF] 97.4 DegF (07/26/22 8:59 AM) 98.7 DegF (07/25/22 11:00 PM) 98.5 DegF (07/25/22 8:41 PM) Mode of Delivery (Oxygen) Room air (07/26/22 8:59 AM) Room air (07/25/22 11:00 PM) Room air (07/25/22 8:41 PM) Blood pressure sites Arm, right (07/25/22 11:00 PM) Arm, right (07/25/22 8:41 PM) Arm, right (07/25/22 4:30 PM) Temperature Route Oral (07/26/22 8:59 AM) Oral (07/25/22 11:00 PM) Oral (07/25/22 8:41 PM) Social History Social History Type Response Tobacco Use: 4 or less cigar ettes(less than 1/4 pack)/day in last 30 days. Sex Note * Evangeilst GUAJARDO, Selina Squires: PERFORM, SIGN, VERIFY Event Display: Patient Education Handout Authored Date: Patient Care team information Care Team Personnel Name: Not on Staff, PCP Position: [facility] Physician (General Medicine) Member Role: PCP Name: *[facility], ED Attending Position: [facility] ED Attendings Patient Name: Martin RN, Klaudia Seo Position: [facility] ED RN W/OE and Tasks Member Role: Patient Care Provider Name: Artemio GUAJARDO, Guillermina Mittal Position: [facility] ED Medicine MD Member Role: Admitting Physician Address: Address: [address] [place] [address] [place] [address]- Care Team Related Persons Name: JASPAL CONSTANTINO Name: MATT ARMIJO Address: [place] [address]
--- OUTSIDE RECORDS SUMMARY | 2023-09-14 12:22 | XMS_ITS | Continuity of Care Document ---
Author Organization [facility] ter Address [address] [place] [address]- Care Team Providers Care Actuary Clerk Name Role Phone Not on Staff, PCP Primary Care Physician Unavail able Encounter [facility] Date(s): 11/24/21 - 11/28/[address] [address]- Encounter Diagnosis COVID-19(Final) - 11/24/21 Suicidal ideation(Final) - 11/25/21 Discharge Disposition: A-D/C Home Attending Physician: [place] [...] Maintenance, 03/27/21 20:09:00 EST, EC Tablet, [id number], Partial fill upon patient request if the prescription is for a schedule II opioid drug. Start Date: 03/27/21 Status: Ordered levothyroxine 0.1 mg oral tablet TAKE ONE TABLET BY MOUTH EVERY DAY Start Date: 11/24/21 Status: Ordered prazosin 1 mg oral capsule 6 mg, Capsule, By Mouth, 11/27/21 21:00:00 EDT Start Date: 11/27/21 Stop Date: 11/27/21 Status: Completed prazosin 5 mg oral capsule [...] capsule, 0 Refills, Maintenance, 11/28/2219:58:00 EDT, Capsule, [facility], Partial fill upon patient request if the prescription is for a schedule II opioid drug., 16... Start Date: 11/27/21 Status: Ordered Problem List Condition Effective Dates Status Health Status Inform ant COVID-19(Confirmed) 1 11/28/21 Active 1Problem added by Discern Expert Vital Signs Most recent to oldest [Reference Range]: 1 2 3 Height 165 cm (11/27/21 2:10 PM) 165 cm (11/27/21 6:05 AM) 165 cm (11/25/21 5:19 AM) Weight 78.2 kg (11/27/21 2:10 PM) 78.2 kg (11/27/21 6:05 AM) 78.2 kg (11/25/21 5:19 AM) Oxygen Saturation [94-100 %] 100 % (11/28/21 8:57 AM) 98 % (11/27/21 9:44 PM) 100 % (11/27/21 2:10 PM) Pulse Rate [55-90 bpm] 64 bpm (11/28/21 8:57 AM) 78 bpm (11/27/21 9:44 PM) 75 bpm (11/27/21 2:10 PM) Body Mass Index [18.5-24.99] 28.72 *H* (11/27/21 2:10 PM) 28.72 *H* (11/27/21 6:05 AM) 28.72 *H* (11/25/21 5:19 AM) Blood Pressure [90-138/55-84 mm Hg] 141/81mm Hg *H* (11/28/21 8:57 AM) 118/68mm Hg (11/27/21 9:44 PM) 118/71mm Hg (11/27/21 2:10 PM) Respiratory Rate [16-30 br/min] 20 br/min (11/28/21 8:57 AM) 20 br/min (11/27/21 9:44 PM) 18 br/min (11/27/21 2:10 PM) Temperature [96.8-100.4 DegF] 98.1 DegF (11/28/21 8:57 AM) 97.1 DegF (11/27/21 2:10 PM) 98.5 DegF (11/26/21 9:33 PM) Mode of Delivery (Oxygen) Room air (11/28/21 8:57 AM) Room air (11/27/21 9:44 PM) Room air (11/27/21 2:10 PM) Blood pressure sites Arm, right (11/27/21 2:10 PM) Arm, right (11/26/21 9:33 PM) Arm, right (11/26/21 6:02 AM) Temperature Route Oral (11/28/21 8:57 AM) Oral (11/27/21 2:10 PM) Oral (11/26/21 9:33 PM) Dry Weight 78.2 kg (11/27/21 2:10 PM) 78.2 kg (11/27/21 6:05 AM) 78.2 kg (11/25/21 5:19 AM)
--- OUTSIDE RECORDS SUMMARY | 2023-09-14 12:22 | XMS_ITS | Continuity of Care Document ---
Author Organization [facility] ter Address [address] [place] [address]- Care Team Providers Care Systems Technician Name Role Phone Not on Staff, PCP Primary Care Physician Unavail able [place] [facility] [place] - 03/20/[address] [address]- Encounter Diagnosis Abdominal pain(Final) - 03/20/23 Discharge Disposition: A-D/C Home Attending Physician: Leia Walsh MD Admitting Physician: Leia Walsh MD Referring Physician: Not on Staff, Referring MD Allergies, Adverse Reactions, Alerts Substance Reaction Severity Status penicillin Active Immunizations Given and Recorded Vaccine Date Status Refusal Reason [id number] bivalent booster vax 11/15/22 Recorded hepatitis B [...] 01/17/23 15:02:00 EDT, Route to Pharmacy Electronically, [facility], Partial fill upon patient request if theprescription is for a schedule II opioid drug., 165... Start Date: 01/17/23 Stop Date: 03/18/23 Status: Ordered albuterol CFC free 90 mcg/inh inhalation aerosol 2, puffs, Inhalation, 4 times a day, PRN, # 75 Gm, Refills 0, Tot. Refills 0, Maintenance, 06/11/2309:30:00 EST, Aerosol, Route to Pharmacy Electronically, [id number], [facility] 165, cm, 12/25/21 4:34:00 EDT, Height,... Start Date: 06/11/22 Status: Ordered baclofen 10 mg oral tablet 10 mg, 1, tablet, By Mouth, 3 times a day, PRN, # 90 tablet, Refills 0, Tot. Refills 0, Maintenance, Spasm, 06/11/22 10:26:00 EST, Route to Pharmacy Electronically, [facility] Partial fill upon patient request if the prescrip... Start Date: 06/11/22 Status: Ordered divalproex sodium 500 mg oral enteric coated tablet See Instructions, 1,000 mg By Mouth Daily at bedtime 30 days, # 60 tablet, 0 Refills, Maintenance, 01/17/23 15:00:00 EDT, Tablet, [facility], Partial fill upon patient request [...] 01/17/23 15:01:00 EDT, Route to Pharmacy Electronically, [facility], Partial fill upon patient request [...] 0 Refills, Maintenance, 06/11/22 10:25:00 EST, Tablet, [facility] Partial fill upon patient request if the prescription is for a schedule II opioid drug., 165, cm,... Start Date: 06/11/22 Status: Ordered sertraline 50 mg oral tablet 2 tablet = 100 mg, By Mouth, Daily, # 60 tablet, 0 Refills, Maintenance, 06/11/22 10:25:00 EST, Tablet, [facility] Partial fill upon patient request if the prescription is for a schedule II opioid drug., 165, cm, 12/25/21 4:3... Start Date: 06/11/22 Status: Ordered traZODone 50 mg oral tablet 100 mg, 2, tablet, By Mouth, Daily at bedtime, PRN, # 10 tablet, Refills 0, Tot. Refills 0, Maintenance, Insomnia, 06/11/22 10:25:00 EST, Route to Pharmacy Electronically, [facility] Partial fill upon patient request if the p... Start Date: 06/11/22 Status: Ordered Problem List Condition Confirmation Course Effective Dates Status Health [facility] Informant COVID-19 1 Confirmed 11/28/21 Active 1Problem added by Discern Expert Results Radiology Reports * Exam Date Time Procedure Performing Provider Status 03/19/23 11:19 PM US Pelvic Doppler Comp Ami Woodard y; Auth (Verified) Notes: (US Pelvic Doppler Comp) Reason For Exam: Scrotal Pain;Other: RESULT: US Pelvic Doppler Comp US Scrotum and Contents, US Pelvic Doppler Comp Hx of Present Illness: pt with RUQ abd pain. recent diagnosis of hep c. not on treatement.; Reason:Other:; Scrotal Pain; Clinical Question(s): Torsion COMPARISON: None TECHNIQUE: High-resolution sonography with grayscale, color and spectral Doppler analysis. FINDINGS: RIGHT: Right testicle size: 3.8 x 1.6 x 2.4 cm (7.5 cc). Normal right testicle size, contour and echotexture without focal lesions. Normal arterial and venous waveforms. The epididymis is unremarkable. No significant hydrocele or varicocele. LEFT: Left testicle size: 3.6 x 1.8 x 2.5 cm (8.3 cc). Normal left testicle size, contour and echotexture without focal lesions. Normal arterial and venous waveforms. The epididymis is unremarkable. No significant hydrocele or varicocele. IMPRESSION: No evidence for torsion. Normal scrotal ultrasound. I have personally reviewed the images and I agree with this report. WSN: [id number] Ordering Physician: Fabio Cordero Dictated By: Alex Smith MD Dictated Date/Time: 03/19/23 11:28 p Reviewed By: Gordy Khoury MD Signed By: Gordy Khoury MD Signed Date/Time: 03/19/23 11:33 pm Transcribed By: HARPER Transcribed Date/Time: 03/19/23 11:23 pm * Exam Date Time Procedure Performing Provider Status 03/19/23 11:19 PM US Scrotum and Contents Kiarra Woodard ey; Auth (Verified) Notes: (US Scrotum and Contents) Reason For Exam: Scrotal Pain;Other: RESULT: US Scrotum and Contents US Scrotum and Contents, US Pelvic Doppler Comp Hx of Present Illness: pt with RUQ abd pain. recent diagnosis of hep c. not on treatement.; Reason:Other:; Scrotal Pain; Clinical Question(s): Torsion COMPARISON: None TECHNIQUE: High-resolution sonography with grayscale, color and spectral Doppler analysis. FINDINGS: RIGHT: Right testicle size: 3.8 x 1.6 x 2.4 cm (7.5 cc). Normal right testicle size, contour and echotexture without focal lesions. Normal arterial and venous waveforms. The epididymis is unremarkable. No significant hydrocele or varicocele. LEFT: Left testicle size: 3.6 x 1.8 x 2.5 cm (8.3 cc). Normal left testicle size, contour and echotexture without focal lesions. Normal arterial and venous waveforms. The epididymis is unremarkable. No significant hydrocele or varicocele. IMPRESSION: No evidence for torsion. Normal scrotal ultrasound. I have personally reviewed the images and I agree with this report. WSN: [id number] Ordering Physician: Fabio Cordero Dictated By: Alex Smith MD Dictated Date/Time: 03/19/23 11:28 p Reviewed By: Gordy Khoury MD Signed By: Gordy Khoury MD Signed Date/Time: 03/19/23 11:33 pm Transcribed By: HARPER Transcribed Date/Time: 03/19/23 11:23 pm * Exam Date Time Procedure Performing Provider Status 03/19/23 11:19 PM US RUQ Abram Woodard; Baltazar (V erified) Notes: (US RUQ) Reason For Exam: Abdominal Pain;Other: RESULT: US RUQ US RUQ Hx of Present Illness: pt with RUQ abd pain. recent diagnosis of hep c. not on treatement.; Reason:Other:; Abdominal Pain; Clinical Question(s): Cholecystitis COMPARISON: 01/16/2023 FINDINGS: Liver: Diffusely echogenic parenchyma. No suspicious lesion. Smooth hepatic contour. Empty Gallbladder: No gallstones. Normal wall thickness. No pericholecystic fluid. Negative Mullen sign. Biliary Tree: No intrahepatic or extrahepatic bile duct dilation is identified. Common duct measures: 0.5 cm. Pancreas: No abnormality in the visualized portions of the pancreas. Right kidney: 11.5 cm in length. Normal parenchymal echotexture and thickness. No hydronephrosis, stone or mass. IMPRESSION: No abnormalities are identified. WSN: [id number] Ordering Physician: Fabio Cordero Dictated By: Gordy Khoury MD Dictated Date/Time: 03/19/23 11:22 p Reviewed By: Gordy Khoury MD Signed By: Gordy Khoury MD Signed Date/Time: 03/19/23 11:22 pm Transcribed By: HARPER Transcribed Date/Time: 03/19/23 11:21 pm Vital Signs Most recent to oldest [Reference Range]: 1 2 3 Height 165 cm (03/19/23 4:09 PM) Oxygen Saturation [94-100 %] 96 % (03/20/23 12:20 AM) 96 % (03/19/23 10:32 PM) 100 % (03/19/23 4:09 PM) Pulse Rate [55-90 bpm] 83 bpm (03/20/23 12:20 AM) 82 bpm (03/19/23 10:32 PM) 83 bpm (03/19/23 4:09 PM) Blood Pressure [90-138/55-84 mm Hg] 120/85mm Hg (03/20/23 12:20 AM) 121/85mm Hg (03/19/23 10:32 PM) 124/78mm Hg (03/19/23 4:09 PM) Respiratory Rate [16-30 br/min] 18 br/min (03/20/23 12:20 AM) 18 br/min (03/19/23 10:32 PM) 18 br/min (03/19/23 4:09 PM) Temperature [96.8-100.4 DegF] 99 DegF (03/19/23 10:32 PM) 97.6 DegF (03/19/23 4:09 PM) Mode of Delivery (Oxygen) Room air (03/20/23 12:20 AM) Room air (03/19/23 10:32 PM) Room air (03/19/23 4:09 PM) Blood pressure sites Arm, left (03/20/23 12:20 AM) Arm, left (03/19/23 10:32 PM) Arm, left (03/19/23 4:09 PM) Temperature Route Oral (03/19/23 10:32 PM) Oral (03/19/23 4:09 PM) Dry Weight 75 kg (03/19/23 4:09 PM) Dry Weight Obtained Via Patient/family s tated (03/19/23 4:09 PM) Social History Social History Type Response Tobacco Use: 4 or less cigar ettes(less than 1/4 pack)/day in last 30 days. Sex Note * Fabio Cordero DO W: PERFORM Event Display: Patient Education Leaflets Authored Date: [facility] [place] need a Doctor or Clinic ?? 34 If You Need a Doctor or Clinic ?? Call [facility] PCP Assignment Line to help you find a doctor:?? [phone] ?? Clinics in [place], [place] For a full list of clinics:? [email or web address] ?? [facility]? [address] [phone] [facility]?[address]?[phone] [place] [address]?[address][phone] [facility]?[address][phone] [facility]?[address] [phone] [facility]?[address][phone] [facility]?[address][phone] [facility]?[address] [phone] [facility]? [address][phone] [facility]?[address][phone] [facility]?[address][phone] [facility]?[address][phone] [facility]?[address][phone] [facility]? [address][phone] [facility]?[address][phone] ? * Fabio Cordero DO: PERFORM Event Display: Patient Education Leaflets Authored Date: [facility] [place] Substance [place] Resources ?? 151 If you need Substance Abuse Resources: ?? [facility] [phone] ?? [facility] [phone] ?? [facility] [phone] ?? [facility] [phone] ?? [facility] [phone] ?? [facility] [place] [phone] ?? [facility] [phone] ?? [facility] [phone] ?? [facility] [place] [phone] ?? [facility] [phone] ?? [facility] [phone] ?? [facility] [phone] ?? [facility] [phone] ?? [facility] [phone] ?? [facility] [phone] ?? [facility] (13-17 yo) [place] [phone] ?? [facility]Ad[facility] [place] [phone] ? Partial Hospitalization ??? Outpatient therapy for adults and families with substance abuse problems [address] [place] [address] ? Support Services ? [facility] - Outpatient therapy /support for recovery / transitional housing & shelters? [facility] [phone] ? [facility] - women's AA group/street outreach program/health access assistance? [address] [place] [address] ? [facility] - AA program to maintain sobriety/ [facility]-support for families of alcoholics/Alate[facility]-support for children of same [phone] ? [facility] - recovery support services/sober social Opportunities [address] [place] [address] ? * Fabio Cordero DO: PERFORM Event Display: Patient Education Leaflets Authored Date: [id number] Hepatitis C Virus ?? [id number] Hepatitis C Virus You have been diagnosed with hepatitis C, also called HCV. Hepatitis is an inflammation of the liver. In your case, it's from an infection with the hepatitis C virus. Causes The most common causes of hepatitis are viruses. Alcohol and drug abuse, chemical toxins, and immune system problems can also cause hepatitis. So can diabetes, obesity, and the metabolic syndrome. When a virus causes hepatitis, it's called viral hepatitis. The hepatitis viruses A, B, and C commonly cause viral hepatitis. Other viral infections can also cause hepatitis, such as the viruses thatcause mononucleosis and chickenpox. What all the liver (hepatic) viruses have in common is that once they are spread to you, they infect the liver and then cause inflammation (hepatitis). The different viruses are spread in different ways. But many of them can affect your health over a long time. Possible complications include cirrhosis, liver cancer, and liver failure. Hepatitis A does not cause long-term (chronic) liver disease. HCV is commonly spread through injection of contaminated body fluids or blood products, transfusions, or IV (intravenous) drug use. It can also be spread through tattoos or piercing with nonsterile tools, or certain medical procedures. The risk of getting hepatitis C from someone you are close to and from sexual contact is very low. There is currently no vaccine for HCV. Staying away from the common causes is the best way to stay away from infection. ?? Symptoms Many people with hepatitis B and C have no symptoms or only mild ones when they are first infected.Often this is also the case for many years later. But HCV can damage your liver. And it can become long-term in some people. Symptoms in the early stages can include: ??? Tiredness, fatigue, or weakness ??? Low-grade fever ??? Loss of appetite ??? Upset stomach, diarrhea, nausea, or vomiting ??? Belly (abdominal) pain ??? Dark yellow-colored urine ??? Light-colored or pale stool (osullivan or ella color) ??? Yellow color of the skin or eyes (jaundice) ??? Joint pain These symptoms can be caused by many different conditions. Because these symptoms are not specific to HCV, many people are not diagnosed for a long time. HCV can become chronic in more than 50% of people who are infected. Chronic HCV infection means that you carry the virus and can spread the disease to others. Most people with chronic infection (about 70%) will develop some degree of chronic liver disease. For many, this may cause no symptoms or long-term effects. But over time there is a 20% chance of having healthy liver tissue replaced by scar tissue (cirrhosis). Heavy alcohol drinkers and people with chronic hepatitis B infection are at greatest risk for long-term problems. So are people whose livers are also inflamed from fatty liver disease (a condition called nonalcoholic steatohepatitis or [place]). Anyone who has hepatitis C needs to be checked by their healthcare provider at least once a year oras advised. This is to be sure the liver inflammation is not getting worse. There is currently no vaccine for hepatitis C. But there is an effective treatment. You can discuss this treatment with your healthcare provider. Most people can be treated successfully with a medicine taken by mouth. Hepatitis C is now considered curable in most people who complete the treatment. ?? Home care ??? A diet low in saturated fats and high in fruits and vegetables is best for you and your liver. Have small, frequent meals if you experience nausea. ??? If you are having symptoms of hepatitis, you may fatigue easily. Get lots of rest. Don't exert yourself too much. ??? Acetaminophen and nonsteroidal anti-inflammatory drugs (NSAIDs), such as ibuprofen and naproxen, can be toxic to the liver in high doses with prolonged use, or if there is existing liver damage. o If you have hepatitis, don't take these medicines until you talk about them with your healthcare provider. o If you have only mild or no liver damage from chronic hepatitis, you may take acetaminophen in low doses (2 grams per 24 hours) if approved by your healthcare provider. Don't take anti-inflammatory medicines. Never take acetaminophen with alcohol since this increases the risk of liver damage. ??? Alcohol stresses the liver. People with hepatitis shouldn't drink alcohol. It can make the disease worse. ?? Preventing the spread of hepatitis ??? HCV is most often spread by blood contact. Never share needles, syringes, tattoo equipment, or snorting straws. ??? Don't try to donate blood, organs, tissues, or semen. ??? Don't share razors or toothbrushes, although it's very rare to pass along hepatitis C this way. ??? If you need medical or dental care, tell the staff that you have hepatitis. ??? If you're or plan to be , tell your healthcare provider. There is a small chance that hepatitis C can be passed along to the unborn baby. HCV isn't passed in breastmilk. ??? The risk of spreading the virus through sex is low, especially if you only have sex with 1 partner. Standard safer-sex practices, including using latex condoms, are advised if you have sex with more than 1 partner. There is no need to change your sexual practices if you are in a long-term relationship with 1 partner. ??? The risk of household spread is low. There is no need to stay away from close contact or notshare meals or utensils. ??? HCV does not involve any restrictions on work. ?? Follow-up care Follow up with your healthcare provider, or as advised. Ask about hepatitis A and B vaccines. You are at greater risk of getting these types of the disease, and they could cause more damage to your liver. Your sexual partner should contact their healthcare provider and have a test to see if they have been infected with HCV. If X-rays, a CT scan, an MRI, or an ultrasound was done, they will be reviewed by a specialist. Youwill be given the results, especially if they affect your treatment. ?? Call 911 Call 911 if any of the following occur: ??? Trouble breathing or swallowing, wheezing ??? Confusion??? Extreme drowsiness or trouble waking up ??? Fainting or loss of consciousness ??? Fast heart rate ??? Vomiting blood or significant rectal bleeding (red blood or black, tarry stool) ?? When to get medical advice Call your healthcare provider right away if any of the following occur: ??? Frequent vomiting ??? Weight loss from poor appetite ??? Increase in belly pain or swelling ??? Increasing drowsiness or confusion ??? Weakness or dizziness ??? New or increasing yellow color of skin or eyes (jaundice) ??? Bleeding from the gums or nose, or easy bruising ?? Last Reviewed Date: 2022 ?? 7722-4124 The [employer]. All rights reserved. This information is not intended as a substitute for professional medical care. Always follow your healthcare professional's instructions. ?? Patient Care team information Care Team Personnel Name: Nargis Carlos Position: [facility] RN Member Role: Primary Care Nurse Name: Geri Holder RN Position: S RN Member Role: Primary Care Nurse Name: Not on Staff, PCP Position: [facility] Physician (General Medicine) Member Role: PCP Name: Meeta Kaminski RN Position: [facility] RN Member Role: Primary Care Nurse Name: Mary Lou Calhoun RN Position: [facility] ED RN W/OE and Tasks Member Role: Patient Care Provider Name: Leia Walsh MD Position: [facility] ED Medicine MD Member Role: ED Attending Physician Address: Address: [address] [place] [address] Name: Fabio Cordero DO Position: [facility] Resident Member Role: ED Resident Address: Address: [address] [place] [address] Name: Edy Laboy Position: [facility] ED TA [facility] Care Team Related Persons Name: JASPAL CONSTANTINO Name: MATT ARMIJO Address: [place] [address]
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
--- OUTSIDE RECORDS SUMMARY | 2023-09-14 12:22 | XMS_ITS | Continuity of Care Document ---
Author Organization [facility] ter Address [address] [place] [address]- Care Team Providers Care Shingle Sawyer Name Role Phone Not on Staff, PCP Primary Care Physician Unavail able Encounter [facility] Date(s): 01/12/23 - 01/17/[address] [address]- Encounter Diagnosis Elevated LFTs(Final) - 01/15/23 Discharge Disposition: A-D/C Home Attending Physician: Jordon GUAJARDO, Ion Admitting Physician: Eze GUAJARDO, Noor Referring Physician: Not on Staff, Referring MD Allergies, Adverse Reactions, Alerts Substance Reaction Severity Status penicillin Active Immunizations Given and Recorded Vaccine Date Status Refusal Reason [id number] bivalent booster vax 11/15/22 Recorded hepatitis B [...] 01/17/23 15:02:00 EDT, Route to Pharmacy Electronically, [facility], Partial fill upon patient request if theprescription is for a schedule II opioid drug., 165... Start Date: 01/17/23 Stop Date: 03/18/23 Status: Ordered albuterol CFC free 90 mcg/inh inhalation aerosol 2, puffs, Inhalation, 4 times a day, PRN, # 75 Gm, Refills 0, Tot. Refills 0, Maintenance, 06/11/2309:30:00 EST, Aerosol, [id number] 165, cm, 12/25/21 4:34:00 EDT, Height,... Start Date: 06/11/22 Status: Ordered baclofen 10 mg oral tablet 10 mg, 1, tablet, By Mouth, 3 times a day, PRN, # 90 tablet, Refills 0, Tot. Refills 0, Maintenance, Spasm, 06/11/22 10:26:00 EST, Route to Pharmacy Electronically, [facility]-, Partial fill upon patient request if the prescrip... Start Date: 06/11/22 Status: Ordered divalproex sodium 500 mg oral enteric coated tablet See Instructions, 1,000 mg By Mouth Daily at bedtime 30 days, # 60 tablet, 0 Refills, Maintenance, 01/17/23 15:00:00 EDT, Tablet, [facility], Partial fill upon patient request if [...] opioid drug. Start Date: 11/26/22 Status: Ordered Methadone Tablet 20 mg, Tablet, By Mouth, Once, STAT, 01/17/23 14:58:00 EDT, Stop date 01/17/23 14:58:00 EDT Start Date: 01/17/23 Stop Date: 01/17/23 Status: Completed Nicotine 2 mg gum = 2 mg, Chew, Every hour, PRN Other, for 2 week(s), Nicotine Cravings, # 160 each, 0 Refills, Acute01/31/23 15:03:00 EDT, 01/17/23 15:03:00 EDT, Gum, [facility], Partial fill upon patient request if the prescription is for a schedule II... Start Date: 01/17/23 Stop Date: 01/31/23 Status: Ordered prazosin 1 mg oral capsule 2 mg, By Mouth, Daily at bedtime, hold for bp systolic less than90, # 60 capsule, Refills 0, Tot. Refills 0, Maintenance, 01/17/23 15:01:00 EDT, Route to Pharmacy Electronically, [facility], Partial fill upon patient request if the pres... Start Date: 01/17/23 Stop Date: 02/16/23 Status: Ordered prazosin 5 mg oral capsule TAKE ONE CAPSULE BY MOUTH EVERY NIGHT AT BEDTIME Start Date: 11/24/21 Status: Ordered prazosin 5 mg oral capsule 5 mg, Capsule, By Mouth, Take with prazosin 2 mg for a total of 7 mg, Hold for: SBP<90, DBP<60, 01/16/23 21:00:00 EDT Start Date: 01/16/23 Stop Date: 01/16/23 Status: Completed ProAir HFA 90 mcg/inh inhalation aerosol with adapter INHALE 2 PUFFS BY MOUTH INTO THE lungs EVERY 6 HOURS Start Date: 11/24/21 Status: Ordered rOPINIRole 0.25 mg oral tablet 1 tablet = 0.25 mg, By Mouth, Daily at bedtime, # 30 tablet, 0 Refills, Maintenance, 06/11/22 10:25:00 EST, Tablet, [facility]-, Partial fill upon patient request if the prescription is for a schedule II opioid drug., 165, cm,... Start Date: 06/11/22 Status: Ordered sertraline 50 mg oral tablet 2 tablet = 100 mg, By Mouth, Daily, # 60 tablet, 0 Refills, Maintenance, 06/11/22 10:25:00 EST, Tablet, [facility], Partial fill upon patient request if the prescription is for a schedule II opioid drug., 165, cm, 12/25/21 4:3... Start Date: 06/11/22 Status: Ordered traZODone 50 mg oral tablet 100 mg, 2, tablet, By Mouth, Daily at bedtime, PRN, # 10 tablet, Refills 0, Tot. Refills 0, Maintenance, Insomnia, 06/11/22 10:25:00 EST, Route to Pharmacy Electronically, [facility], Partial fill upon patient request if the p... Start Date: 06/11/22 Status: Ordered Problem List Condition Confirmation Course Effective Dates Status Health [facility] Informant COVID-19 1 Confirmed 11/28/21 Active 1Problem added by Discern Expert Results Radiology Reports * Exam Date Time Procedure Performing Provider Status 01/16/23 11:16 AM US RUQ Jackie Garnica; Auth (Verified) Notes: (US RUQ) Reason For Exam: transaminitis;Other: RESULT: US RUQ US Abdominal Doppler Comp, US RUQ Reason: Other:; transaminitis; Clinical Question(s): Thrombosis; look at portal hepatic veins, splenic vein and hepatic artery to show patency and waveform TECHNIQUE: Color flow and duplex Doppler analysis of abdominal vasculature. Right upper quadrant ultrasound also performed. COMPARISON: None FINDINGS: Vascular Findings: Arteries: Hepatic arteries: Arterial waveforms in the visualized hepatic arteries are normal. Hepatic artery angle-corrected velocity: 67.2 cm/sec. Hepatic artery resistive index: 0.6 (Normal range: 0.55-0.7). Veins: Portal veins: The main, right and left portal veins are patent with appropriate hepatopetal direction of flow. Portal vein angle-corrected velocity: 34.2 cm/sec (Normal range: 16-40 cm/sec). Hepatic veins: The right, middle and left hepatic veins are patent with appropriate hepatofugal flow and phasic form. Inferior vena cava: IVC is patent with appropriate direction of flow. Splenic vein: Splenic vein is patent with appropriate hepatopetal direction of flow. Spleen length: 14.5 cm. Additional Findings: Liver: Normal in size and echotexture. No focal lesion. Smooth hepatic contour. Gallbladder: No gallstones. Normal wall thickness. No pericholecystic fluid. Negative Mullen sign. Biliary Tree: No intrahepatic or extrahepatic bile duct dilation is identified. Common duct: 0.4 cm. Pancreas: No abnormality in the visualized portions of the pancreas. Right kidney: Normal parenchymal echotexture and thickness. No hydronephrosis, stone or mass. IMPRESSION: Normal liver with patent hepatic and portosplenic veins. Mild splenomegaly measuring 14.5 cm. WSN: [id number] Ordering Physician: Joseph Ortiz Dictated By: Freddie Huerta MD Dictated Date/Time: 01/16/23 1:05 pm Reviewed By: Freddie Huerta MD Signed By: Freddie Huerta MD Signed Date/Time: 01/16/23 1:05 pm Transcribed By: HARPER Transcribed Date/Time: 01/16/23 1:01 pm * Exam Date Time Procedure Performing Provider Status 01/16/23 11:16 AM US Abdominal Doppler Comp Jackie Garnica; Auth (Verified) Notes: (US Abdominal Doppler Comp) Reason For Exam: transaminitis;Other: RESULT: US Abdominal Doppler Comp US Abdominal Doppler Comp, US RUQ Reason: Other:; transaminitis; Clinical Question(s): Thrombosis; look at portal hepatic veins, splenic vein and hepatic artery to show patency and waveform TECHNIQUE: Color flow and duplex Doppler analysis of abdominal vasculature. Right upper quadrant ultrasound also performed. COMPARISON: None FINDINGS: Vascular Findings: Arteries: Hepatic arteries: Arterial waveforms in the visualized hepatic arteries are normal. Hepatic artery angle-corrected velocity: 67.2 cm/sec. Hepatic artery resistive index: 0.6 (Normal range: 0.55-0.7). Veins: Portal veins: The main, right and left portal veins are patent with appropriate hepatopetal direction of flow. Portal vein angle-corrected velocity: 34.2 cm/sec (Normal range: 16-40 cm/sec). Hepatic veins: The right, middle and left hepatic veins are patent with appropriate hepatofugal flow and phasic form. Inferior vena cava: IVC is patent with appropriate direction of flow. Splenic vein: Splenic vein is patent with appropriate hepatopetal direction of flow. Spleen length: 14.5 cm. Additional Findings: Liver: Normal in size and echotexture. No focal lesion. Smooth hepatic contour. Gallbladder: No gallstones. Normal wall thickness. No pericholecystic fluid. Negative Mullen sign. Biliary Tree: No intrahepatic or extrahepatic bile duct dilation is identified. Common duct: 0.4 cm. Pancreas: No abnormality in the visualized portions of the pancreas. Right kidney: Normal parenchymal echotexture and thickness. No hydronephrosis, stone or mass. IMPRESSION: Normal liver with patent hepatic and portosplenic veins. Mild splenomegaly measuring 14.5 cm. WSN: [id number] Ordering Physician: Joseph Ortiz Dictated By: Freddie Huerta MD Dictated Date/Time: 01/16/23 1:05 pm Reviewed By: Freddie Huerta MD Signed By: Freddie Huerta MD Signed Date/Time: 01/16/23 1:05 pm Transcribed By: HARPER Transcribed Date/Time: 01/16/23 1:01 pm Vital Signs Most recent to oldest [Reference Range]: 1 2 3 Height 165 cm (01/17/23 7:51 AM) 165 cm (01/16/23 4:31 PM) 165 cm (01/16/23 7:27 AM) Weight 73.75 kg (01/15/23 9:22 PM) 73.75 kg (01/15/23 9:19 PM) 74 kg (01/15/23 10:40 AM) Oxygen Saturation [94-100 %] 99 % (01/17/23 7:51 AM) 96 % (01/16/23 11:00 PM) 96 % (01/16/23 8:00 PM) Pulse Rate [55-90 bpm] 65 bpm (01/17/23 7:51 AM) 81 bpm (01/16/23 11:00 PM) 91 bpm *H* (01/16/23 8:00 PM) Body Mass Index [18.5-24.99 kg/m2] 27.09 kg/m2 *H* (01/15/23 9:22 PM) 27.09 kg/m2 *H* (01/15/23 9:19 PM) 27.18 kg/m2 *H* (01/15/23 10:40 AM) Blood Pressure [90-138/55-84 mm Hg] 118/69mm Hg (01/17/23 7:51 AM) 138/81mm Hg (01/16/23 11:00 PM) 134/92mm Hg (01/16/23 10:32 PM) Respiratory Rate [16-30 br/min] 20 br/min (01/17/23 3:11 PM) 18 br/min (01/17/23 7:51 AM) 18 br/min (01/16/23 11:00 PM) Temperature [96.8-100.4 DegF] 97.8 DegF (01/17/23 7:51 AM) 98 DegF (01/16/23 11:00 PM) 98.2 DegF (01/16/23 8:00 PM) Mode of Delivery (Oxygen) Room air (01/17/23 7:51 AM) Room air (01/16/23 11:00 PM) Room air (01/16/23 8:00 PM) Blood pressure sites Arm, right (01/17/23 7:51 AM) Arm, right (01/16/23 11:00 PM) Arm, right (01/16/23 8:00 PM) Temperature Route Oral (01/17/23 7:51 AM) Oral (01/16/23 11:00 PM) Oral (01/16/23 8:00 PM) Dry Weight 73.75 kg (01/15/23 9:19 PM) 74 kg (01/15/23 10:40 AM) 74 kg (01/13/23 5:57 AM) Weight Obtained Via Standing scale (01/15/23 9:22 PM) Social History Social History Type Response Tobacco Use: 4 or less cigar ettes(less than 1/4 pack)/day in last 30 days. Sex Admission evaluation note * Diana GUAJARDO, Joseph: PERFORM Event Display: Admission Note Authored Date: [id number] Patient: ??ARMIN MURRY ? Age:??37 Years?Sex:??Male?:??1985?? Chief Complaint/Reason for Consultation Pt BIBA to ED from [facility]. pt recently kicked out of hotel. pt reports depression, agitation, anxiety. Hx heroine use. Many needles noted in belongings. Endorses passive SI History of Present Illness 37-year-old transgender female (likes to be called yoel Rasmussen she/her) with a past medical history of asthma,??psoriasis, bipolar, depression, anxiety, hypothyroidism, PTSD, seizure disorder, history of prior IV drug use and cocaine use was brought to the ED after reporting SI/HI when she wasevicted from a hotel room.?? Patient was initially qualified for inpatient psychiatric admission but ??later on was found to have elevated LFT??and??was requested for medicine admission.?? During my evaluation??patient??denied any abdominal pain, chest pain, fever or chills. ??Admitted little nauseafor last couple of days but denied any vomiting. ??His appetite is good actually he is very hungry.??Only took new medication??biotin??as??recommended??for 4 days and??started Abilify about 2 weeks ago.?? Otherwise??patient has been taking Depakote for about 4 years. ??Denied any??new herbal supplement. ??Denied??any new food intake.?? Denied any history of family??liver disease.?? Takes IV drug??and takes street drug.?? His fianc??e got positive for HIV about 2 months ago.?? After that he uses his own needle and clean needle.?? Takes cocaine??and??cannabis??and IV fentanyl.?? Denied any GI bleeding or??any rash.?? Has chronic psoriatic rash Review of Systems A full review of systems was completed and is otherwise negative except as mentioned in history of present illness. Objective Vital Signs?? Temperature: 98 DegF (01/15/23 21:22:00) Temperature Route: Oral (01/15/23 21:22:00) Pulse Rate: 75 bpm (01/15/23 21:22:00) Respiratory Rate: 20 br/min (01/15/23 21:22:00) Systolic Blood Pressure: 108 mm Hg (01/15/23 21:22:00) Diastolic Blood Pressure: 63 mm Hg (01/15/23 21:22:00) Blood pressure sites: Arm, left (01/15/23 21:22:00) Mean Arterial Pressure: 78 mm Hg (01/15/23 21:22:00) Pulse Pressure: 45 mm Hg (01/15/23 21:22:00) Oxygen Saturation: 99 % (01/15/23 21:22:00) Mode of Delivery (Oxygen): Room air (01/15/23 21:22:00) Early Warning Score: 0 (01/15/23:23:21) ? Physical Exam General:??alert, awake and orientedx3, no acute distress noted Psych:??Normal mood, cooperative Head:??Normocephalic, atraumatic neck:??supple, no JVD, no neck swelling, Eye:??PERRLA, EOMI, no pallor/icterus noted, vision grossly intact ENT:??No ear discharge/redness, no nasal discharge, moist oral mucosa Cardiovascular:??normal S1S2, no Murmur/Rub/Gallop noted Respiratory:??Clear to auscultation bilaterally Gastrointestinal:??Soft, mild RUQ tenderness but mullen's sign negative., nontender nondistended, no hepatosplenomegaly, ??tympanic on percussion, Bowel sound normoactive FISH STRAIGHTENER:?CN2-12 grossly intact, no FND noted, Extremities:??no pedal edema noted, peripheral pulse 2+ b/l Assessment/Plan ??37-year-old transgender female (likes to be called Grady neelamoun she/her) with a past medical history of asthma,??psoriasis, bipolar, depression, anxiety, hypothyroidism, PTSD, seizure disorder,history of prior IV drug use and cocaine use was brought to the ED after reporting SI/HI when she was evicted from a hotel room.?? Patient was initially qualified for inpatient psychiatric admission but??later on was found to have elevated LFT??and??was requested for medicine admission.?? During myevaluation??patient??denied any abdominal pain, chest pain, fever or chills. ??Admitted little nausea for last couple of days but denied any vomiting. ??His appetite is good actually he is very hungry. ??Only took new medication??biotin??as??recommended??for 4 days and??started Abilify about 2 weeks ago.?? Otherwise??patient has been taking Depakote for about 4 years. ??Denied any??new herbal supplement. ??Denied??any new food intake.?? Denied any history of family??liver disease.?? Takes IV drug??and takes street drug.?? His fianc??e got positive for HIV about 2 months ago.?? After that he uses his own needle and clean needle.?? Takes cocaine??and??cannabis??and IV fentanyl.?? Denied any GI bleeding or??any rash.?? Has chronic psoriatic rash ? Transaminitis Hepatitis AST and ALT??respectively??1300 Alk phos not significantly elevated, bilirubin 0.6 INR 1.3, albumin 3.8 Toxicology screen only positive for cannabinoid and fentanyl Hepatitis serology positive for antihepatitis A IgG, ordered further hepatitis panel GI recommended ultrasound right upper quadrant with ultrasound Doppler to rule out any thrombosis and cholestasis as patient takes steroid Ordered HIV as per patient's permission as per GI: Defer plan for??Aripiprazole and Depakote to psych team- (these drugs are not very??likely to cause LFT elevation however are??metabolized by??the liver??and we will defer resumption of these to the psych team based on clinical need and LFT levels. Source: [facility]??) Monitor LFT??daily along with PT/INR Avoid hepatotoxic meds ?? Psychiatric disorder As per psychiatric team??who is holding Abilify and Depakote??for now Continue trazodone sertraline??Zyprexa prazosin denied SI/HI, psychiatry team also didn't mention any constant comprehensive advisor need in chart ?? Asthma continue??Ventolin as needed Hypothyroidism continue??levothyroxine ?? dvt ppx: ambulatory code status: full, confirmed with patient on admission medication reconciliation : confirmed with patient on admission ?? (This document has been dictated using [employer] website dictation software. Please do not hesitate to contact the author for clarification of any unintentional errors should it be needed.) Histories Allergies Allergies ?(Active and Proposed Allergies Only) penicillin? (Severity: Unknown severity, Onset: Unknown) ? Past Medical History/Problem List Active Problems??(1) COVID-19 ? Past Surgical History No surgery history documented. ? Social History Alcohol Details:??Use: Never. Substance Abuse Details:??Type: Marijuana. Tobacco Details:??Use: 4 or less cigarettes(less than 1/4 pack)/day in last 30 days. Electronic Cigarette/Vaping Details:??Electronic Cigarette Use: Never. ? Family History Denied any liver issues with his family but grandmother used to drink alcohol??heavily ? Travel History Travel Outside [facility]: No ?? Medications Home Medications Albuterol (ProAir HFA 90 mcg/inh inhalation aerosol with adapter)?INHALE 2 PUFFS BY MOUTH INTO THE lungs EVERY 6 HOURS Albuterol (albuterol CFC free 90 mcg/inh inhalation aerosol)?2?puff(s)?Inhalation?4 times a day?as needed?for wheezing Atomoxetine (atomoxetine 18 mg oral capsule)?1?capsule?18?Milligram?By Mouth?Daily in AM Baclofen (baclofen 10 mg oral tablet)?10?Milligram?1?tablet?By Mouth?3 times a day?as needed?Spasm Buprenorphine-Naloxone (Suboxone 4 mg-1 mg sublingual film)?1?Film?Sublingual?Daily?dissolve under the tongue Divalproex Sodium (Depakote 250 mg oral enteric coated tablet)?See Instructions?250 mg daily in the morning and 1000 mg daily qHS Estradiol (estradiol 2 mg oral tablet)?1?tab(s)?2?Milligram?By Mouth?Daily HydrOXYzine (hydrOXYzine pamoate 100 mg oral capsule)?1?capsule?100?Milligram?By Mouth?Every 6 hours?as needed?as needed for anxiety Levothyroxine (levothyroxine 0.1 mg oral tablet)?1?tab(s)?100?Microgram?By Mouth?Daily Olanzapine (olanzapine 5 mg oral tablet)?5?Milligram?1?tablet?By Mouth?Every 6 hours?as needed?Agitation Prazosin (prazosin 5 mg oral capsule)?TAKE ONE CAPSULE BY MOUTH EVERY NIGHT AT BEDTIME Ropinirole (rOPINIRole 0.25 mg oral tablet)?1?tab(s)?0.25?Milligram?By Mouth?Daily at bedtime Sertraline (sertraline 50 mg oral tablet)?2?tab(s)?100?Milligram?By Mouth?Daily Trazodone (traZODone 50 mg oral tablet)?100?Milligram?2?tablet?By Mouth?Daily at bedtime?as needed?Insomnia Ziprasidone (ziprasidone 60 mg oral capsule)?1?capsule?60?Milligram?By Mouth?2 times a day ? Hospital Progress note * Ion Ruvalcaba MD: PERFORM, SIGN, VERIFY Event Display: Progress Note Hospital Authored Date: [id number] Patient: ARMIN MURRY Age: 37 years Sex: Male : 1985 Associated Diagnoses: None Author: Ion Ruvalcaba MD To who it may concern Armin murry admitted at [facility] and discharged with last dose of methadone 20 mg was given at 3.30 pm 01/17/[address]Hema Ruvalcaba [facility] [phone] * Stacy So RN: PERFORM, SIGN, VERIFY, SIGN, MODIFY Event Display: Progress Note Hospital Authored Date: [id number] Patient: ARMIN MURRY Age: 37 years Sex: Male : 1985 Associated Diagnoses: None Author: Stacy So RN Findings Problem Related to Knowledge Deficit : Knowledge Deficit/new 01/17/2023 9:00 EDT Knowledge Deficit related to: Disease process Goals & Outcomes, Knowledge Deficit Pt/caregiver describes med purpose, side effects, how to debra, Pt/caregiver states/demonstrates self care, Pt/caregiver will state understanding of plan/goals of care, Pt/caregiver will state understanding of treatments, Pt/caregiver will verbalize understanding of the D/C plan Interventions, Knowledge Deficit Collaborate with other disciplines for continuity of care, Encourage questions, concerns, and opportunity for self care, Teach Pt/caregiver in disease, injury process, Teach Pt/caregiver medications Goals/Interventions,Knowledge deficit Yes Knowledge Deficit, Problem Start 01/17/2023 9:18 Reviewed Plan with, Knowledge Deficit Patient Patient Progression, Knowledge Deficit Pt progressing according to plan . Alteration in Psychosocial : Alteration in Psychosocial Function/new 01/17/2023 9:00 EDT Alteration in Psychosocial Related to Anxiety Goals & Outcomes, Psychosocial Psychosocial support will be provided to Pt/S.O. as needed, Pt will identify stressors leading up to event, Pt will state importance of adhering to medication regime Interventions, Psychosocial Assess psychosocial needs, Evaluate resources & support system available to pt, Offer support; discuss coping strategies, Provide a calm, supportive environment, Provide information about illness and recovery, Assess for anxiety Goals/Interventions, Psychosocial Yes Psychosocial, Problem Start 01/17/2023 9:15 Reviewed Plan with, Psychosocial Patient Patient Progression, Psychosocial Pt progressing according to plan . Evaluation A+Ox3, VSS, lung sounds clear on RA, respirations even and steady. Pt states absence of pain. Pt tolerating diet, +BS all four quadrants, last BM 9/28 . pt OOB independently. Pt verbalizes no furtherneeds at this time, call nick within reach, fall precautions taken. . * Judah LORA, Stacy: PERFORM Event Display: Progress Note Hospital Authored Date: discharge instructions printed and reviewed with pt. no peripheral IV to be removed. * Jordon GUAJARDO, Ion: PERFORM Event Display: Progress Note Hospital Authored Date: Patient: ??ARMIN MURRY ? Age:??37 Years?Sex:??Male?:??1985?? Subjective patient seen and examined appreciate psych?? recs will?? order Depakote and Abilify will?? get?? ekg Review of Systems A full review of systems was completed and is otherwise negative except as mentioned in history of present illness. Objective Vital Signs?? Temperature: 97.5 DegF (01/16/23 07:27:00) Temperature Route: Oral (01/16/23 07:27:00) Pulse Rate: 66 bpm (01/16/23 07:27:00) Respiratory Rate: 18 br/min (01/16/23 07:27:00) Systolic Blood Pressure: 115 mm Hg (01/16/23 07:27:00) Diastolic Blood Pressure: 67 mm Hg (01/16/23 07:27:00) Blood pressure sites: Arm, left (01/16/23 07:27:00) Mean Arterial Pressure: 83 mm Hg (01/16/23 07:27:00) Pulse Pressure: 48 mm Hg (01/16/23 07:27:00) Oxygen Saturation: 98 % (01/16/23 07:27:00) Mode of Delivery (Oxygen): Room air (01/16/23 07:27:00) Early Warning Score: 2 (01/16/23 07:28:05) ? Intake/Output? No Data Available ? Physical Exam ?? General Appearance: The patient is a _ and in NAD. Cardiovascular: RRR S1 and S2 heard with no M/R/G. No JVD. Respiratory: ??Breath sounds clear to auscultation bilaterally. No wheezing. Good air movement throughout both lungs. GI: Soft. Nontender and nondistended. Normal bowel sounds present throughout abdomen.?? MS: ??No edema or erythema in the lower extremities. No wounds seen on the feet. Peripheral sensation intact.?? Neuro: ??No slurred speech. ??Patient seen moving their upper and lower extremities independently. Psych: Alert and oriented x3. anxious _ Home Medications Albuterol (ProAir HFA 90 mcg/inh inhalation aerosol with adapter)?INHALE 2 PUFFS BY MOUTH INTO THE lungs EVERY 6 HOURS Albuterol (albuterol CFC free 90 mcg/inh inhalation aerosol)?2?puff(s)?Inhalation?4 times a day?as needed?for wheezing Atomoxetine (atomoxetine 18 mg oral capsule)?1?capsule?18?Milligram?By Mouth?Daily in AM Baclofen (baclofen 10 mg oral tablet)?10?Milligram?1?tablet?By Mouth?3 times a day?as needed?Spasm Buprenorphine-Naloxone (Suboxone 4 mg-1 mg sublingual film)?1?Film?Sublingual?Daily?dissolve under the tongue Divalproex Sodium (Depakote 250 mg oral enteric coated tablet)?See Instructions?250 mg daily in the morning and 1000 mg daily qHS Estradiol (estradiol 2 mg oral tablet)?1?tab(s)?2?Milligram?By Mouth?Daily HydrOXYzine (hydrOXYzine pamoate 100 mg oral capsule)?1?capsule?100?Milligram?By Mouth?Every 6 hours?as needed?as needed for anxiety Levothyroxine (levothyroxine 0.1 mg oral tablet)?1?tab(s)?100?Microgram?By Mouth?Daily Olanzapine (olanzapine 5 mg oral tablet)?5?Milligram?1?tablet?By Mouth?Every 6 hours?as needed?Agitation Prazosin (prazosin 5 mg oral capsule)?TAKE ONE CAPSULE BY MOUTH EVERY NIGHT AT BEDTIME Ropinirole (rOPINIRole 0.25 mg oral tablet)?1?tab(s)?0.25?Milligram?By Mouth?Daily at bedtime Sertraline (sertraline 50 mg oral tablet)?2?tab(s)?100?Milligram?By Mouth?Daily Trazodone (traZODone 50 mg oral tablet)?100?Milligram?2?tablet?By Mouth?Daily at bedtime?as needed?Insomnia Ziprasidone (ziprasidone 60 mg oral capsule)?1?capsule?60?Milligram?By Mouth?2 times a day ? Inpatient Medications Medications (28) Active SCHEDULED: (11) Aripiprazole 2 mg Tablet (Abilify 2 mg oral tablet) ??2 mg, By Mouth, Daily Divalproex 500 mg Tablet (Depakote Tablet) ??1,000 mg, By Mouth, Daily at bedtime Estradiol ??0.1 mg ??Patch (Estradiol 0.1 mg Patch) ??0.1 mg, Topically, Every 72 hours Levothyroxine 100 mcg Tablet (levothyroxine 0.1 mg oral tablet) ??100 mcg, By Mouth, Daily NaCl 0.9% Flush 3ml (NaCL 0.9% Flush) ??3 mL, IV Push, Every 8 hours Prazosin 1 mg Capsule (prazosin 1 mg oral capsule) ??2 mg, By Mouth, Daily at bedtime Prazosin 5 mg Capsule (prazosin 5 mg oral capsule) ??5 mg, By Mouth, Daily at bedtime Remove Patch (Remove ??Patch) ??1 each, Topically, Every 72 hours Ropinirole 0.25 mg Tablet (rOPINIRole 0.25 mg oral tablet) ??0.25 mg, By Mouth, Daily at bedtime Sertraline 50 mg Tablet (Zoloft 50 mg oral tablet) ??100 mg, By Mouth, Daily Trazodone 50 mg Tablet (traZODone 50 mg oral tablet) ??50 mg, By Mouth, Daily at bedtime CONTINUOUS: (0) PRN: (17) Acetaminophen 325 mg Tablet (Acetaminophen Tablet) ??650 mg, By Mouth, Every 8 hours Al hydroxide/Mg hydroxide/simethicone 200 mg-200 mg-20 mg/5 mL Susp UD (Maalox Plus Liquid) ??30 mL, By Mouth, Every 8 hours Albuterol 90mcg/Inhalation Inhaler HFA (albuterol CFC free 90 mcg/inh inhalation aerosol) ??180 mcg2 puffs, Inhalation, 4 times a day Baclofen 10 mg Tablet (baclofen 10 mg oral tablet) ??10 mg, By Mouth, 3 times a day Dextromethorphan-Guaifenesin 20 mg-200 mg/10 mL Liqu UD (Robitussin DM Liquid) ??10 mL, By Mouth, Every 4 hours diphenhydrAMINE 25 mg Tablet (Benadryl Tablet) ??50 mg, By Mouth, Every 6 hours Docusate Sodium 100 mg Capsule (Docusate Sodium Capsule) ??100 mg 1 capsule, By Mouth, 2 times a day HydrOXYzine Pamoate 25mg Capsule (Vistaril Capsule) ??50 mg, By Mouth, Every 6 hours Ibuprofen 400 mg Tablet (Ibuprofen Tablet) ??400 mg, By Mouth, Every 8 hours Lorazepam 1 mg Tablet (LORazepam Tablet) ??1 mg, By Mouth, Every 8 hours Melatonin 3 mg Tablet (Melatonin Tablet) ??9 mg, By Mouth, Daily at bedtime NaCl 0.9% Flush 3ml (NaCL 0.9% Flush) ??3 mL, IV Push, Every 8 hours Nicotine 2 mg Gum (Nicotine Gum) ??2 mg, Chew, Every hour Olanzapine 5 mg Tablet (olanzapine 5 mg oral tablet) ??5 mg, By Mouth, Every 6 hours Polyethylene Glycol 17 Gm Powder (MiraLax Powder) ??17 Gm 1 pack/packet, By Mouth, Daily Senna Tablet ??8.6 mg 1 tablet, By Mouth, 2 times a day Simethicone 80 mg Chewable Tablet (Simethicone Tablet) ??80 mg, Chew, 3 times a day ? Results Recent Labs BLOOD COUNT & DIFF WBC 9.1 k/mm3 ()?? 01/16/2023 01:17 RBC 5.08 m/mm3 ()?? 01/16/2023 01:17 Hgb 14.5 Gm/dL ()?? 01/16/2023 01:17 Hct 45.4 % ()?? 01/16/2023 01:17 MCV 89.4 femtoliters ()?? 01/16/2023 01:17 MCH 28.5 pg ()?? 01/16/2023 01:17 MCHC 31.9 g/dL (Low)?? 01/16/2023 01:17 Platelet Count 252 k/mm3 ()?? 01/16/2023 01:17 RDW-SD 42.7 femtoliters ()?? 01/16/2023 01:17 MPV 10.4 femtoliters ()?? 01/16/2023 01:17 Nucleated RBC (Automated) 0.0 #/100 WBC'S ()?? 01/16/2023 01:17 Abs. NRBC 0.0 k/mm3 ()?? 01/16/2023 01:17 ?? CHEM GENERAL Sodium 137 mmol/L ()?? 01/16/2023 01:17 Potassium 4.9 mmol/L ()?? 01/16/2023 01:17 Chloride 99 mmol/L ()?? 01/16/2023 01:17 Bicarbonate Level 28 mmol/L ()?? 01/16/2023 01:17 Anion Gap 10 ()?? 01/16/2023 01:17 Glucose Level 109 mg/dL (High)?? 01/16/2023 01:17 Hemoglobin A1C (Monitoring) 5.1 % ()?? 01/16/2023 01:17 BUN 27 mg/dL (High)?? 01/16/2023 01:17 Creatinine-Blood 1.2 mg/dL ()?? 01/16/2023 01:17 Estimated GFR Creatinine 83 ML/MIN/1.73 M2 ()?? 01/16/2023 01:17 Calcium 8.9 mg/dL ()?? 01/16/2023 01:17 Protein, Total 5.9 Gm/dL (Low)?? 01/16/2023 01:17 Albumin 4.2 Gm/dL ()?? 01/16/2023 01:17 AG Ratio 2.5 ()?? 01/16/2023 01:17 Alkaline Phosphatase 173 units/L (High)?? 01/16/2023 01:17 AST (SGOT) 819 units/L (High)?? 01/16/2023 01:17 ALT (SGPT) 1041 units/L (High)?? 01/16/2023 01:17 Bilirubin, Total 0.8 mg/dL ()?? 01/16/2023 01:17 Bilirubin, Direct 0.5 mg/dL (High)?? 01/16/2023 01:17 Bilirubin, Indirect 0.3 mg/dL ()?? 01/16/2023 01:17 ?? COAG INR 1.3 (High)?? 01/16/2023 01:17 Protime (PT) 13.7 seconds (High)?? 01/16/2023 01:17 ?? LIPID STUDIES Cholesterol 174 mg/dL ()?? 01/16/2023 01:17 Triglycerides 75 mg/dL ()?? 01/16/2023 01:17 HDL Cholesterol 47 mg/dL ()?? 01/16/2023 01:17 LDL Cholesterol 112 mg/dL ()?? 01/16/2023 01:17 Non HDL Cholesterol 127 mg/dL ()?? 01/16/2023 01:17 ?? SEROLOGY INF DISEASE Anti Hepatitis A IgM NEGATIVE (N)?? 01/15/2023 07:52 Hepatitis B Surface Antigen NEGATIVE (N)?? 01/15/2023 07:52 Hepatitis B Core Ab, Total NEGATIVE (N)?? 01/15/2023 07:52 HIV 4th Generation Ab-Ag Result NEGATIVE (N)?? 01/16/2023 01:17 Anti-HBS Quant .37 mIU/mL ()?? 01/15/2023 07:52 Anti-HAV IgG POSITIVE ()?? 01/15/2023 07:52 ?? TOXICOLOGY/TDM Acetaminophen Level <5 mg/L (Low)?? 01/15/2023 07:52 ?? URINE OTHER Est Creatinine Clearance 74.63 mL/min ()?? 01/16/2023 02:56 ? Assessment/Plan ??37-year-old transgender female (likes to be called yoel Rasmussen she/her) with a past medical history of asthma,??psoriasis, bipolar, depression, anxiety, hypothyroidism, PTSD, seizure disorder,history of prior IV drug use and cocaine use was brought to the ED after reporting SI/HI when she was evicted from a hotel room.?? Patient was initially qualified for inpatient psychiatric admission but??later on was found to have elevated LFT??and??was requested for medicine admission.?? During myevaluation??patient??denied any abdominal pain, chest pain, fever or chills. ??Admitted little nausea for last couple of days but denied any vomiting. ??His appetite is good actually he is very hungry. ??Only took new medication??biotin??as??recommended??for 4 days and??started Abilify about 2 weeks ago.?? Otherwise??patient has been taking Depakote for about 4 years. ??Denied any??new herbal supplement. ??Denied??any new food intake.?? Denied any history of family??liver disease.?? Takes IV drug??and takes street drug.?? His fianc??e got positive for HIV about 2 months ago.?? After that he uses his own needle and clean needle.?? Takes cocaine??and??cannabis??and IV fentanyl.?? Denied any GI bleeding or??any rash.?? Has chronic psoriatic rash ? Transaminitis Hepatitis AST and ALT??respectively??1300 Alk phos not significantly elevated, bilirubin 0.6 INR 1.3, albumin 3.8 Toxicology screen only positive for cannabinoid and fentanyl Hepatitis serology positive for antihepatitis A IgG, ordered further hepatitis panel GI recommended ultrasound right upper quadrant with ultrasound Doppler - no thrombosis Monitor LFT??daily along with PT/INR Avoid hepatotoxic meds ?? Psychiatric disorder restarted Abilify and Depakote?? Continue trazodone sertraline??Zyprexa prazosin denied SI/HI appreciate GI?? RECS ?? Asthma continue??Ventolin as needed Hypothyroidism continue??levothyroxine ?? dvt ppx: ambulatory code status: full, ?? OMN :?? follow with final?? recs from psych? Consult note * Tish Robertson: PERFORM Event Display: Consultation Note Authored Date: Patient: ??ARMIN MURRY ? Age:??37 Years?Sex:??Male?:??1985?? Reason for Consultation Addiction Med Consult - fentanyl use Requested by??Dr Ruvalcaba History of Present Illness Armin Murry (Isaac, she/her, they/them) is a 37 yo transgender female with a PMHx of asthma, psoriasis, bipolar/depression/anxiety/PTSD, hypothyroidism, substance use. She was admitted 01/16 after presenting s/p eviction from a hotel room. IVDU with cocaine and fentanyl. Did report some SI and wasevaluated by psychiatry here, cleared and does not require inpatient psychiatric stay. LFTs here??elevated, last results with both AST/ALT over 500. Tox screen positive for marijuana and fentanyl. ?? Met with pt this afternoon. She endorses use of cocaine and heroin/fentanyl once a month or so. She will usually buy a bundle of heroin, and use it over the course of a few days until its gone. After that point she will go a few weeks without it. Does use IV, and will sometimes use fentanyl testing strips so she is aware of what is in the substance she is using. Pt has had overdoses before, but has not gone to the hospital for care afterwards. Began use of heroin around 20yo, began misusing tramadol pills prior to this. Pt has been on many of the options for OUD MAT in the past, including suboxone, methadone, and naltrexone. Ideally she would like to resume on suboxone, but after discussion about how her current liver issues could impact this, she is agreeable to do methadone for now. Pt reporting that her fiance is coming home from a hospital stay x2 mos soon, which she is excited about. They are planning to stay at a senior care after d/c from the hospital, which she says is close to [facility]. She has received methadone from [facility] in the past and would be fine with returning there. She is already connected with a therapist through [facility] in [place], and they meet once a week. Wasn't interested in any other referrals currently. Pt does also use marijuana on a daily basis, which she acknowledges is likely 'a crutch' for her - when she is sober, she starts to think of and recall things that aren't so pleasant for her to have to work through, so she uses that to try to avoid it. She knows this is not a good coping mechanism and will continue to work on it. She also reports some history of gabapentin misuse - was prescribed it but wasn't taking it appropriately. She has not used this in a few months now. She otherwise does not endorse any use of ETOH, benzos, other stimulants such as meth or PCP. Review of Systems Reporting anxiety Physical Exam Vitals & Measurements T:??97.8?F?? TMIN:??97.8?F?? TMAX:??98.4?F?? HR:??65??(Peripheral)?? RR:??18?? BP:??118/69?? SpO2:??99%?? General:??well developed, well nourished,??appears to be stated age.??Breathing is??even and unlabored.??In no acute distress,??no diaphoresis. Mental Status Exam: Appearance:??disheveled?? Attitude:??cooperative? Eye contact:??avoidant Motor activity:??calm, no aberrant movements? Mood:??euthymic? Affect:??congruent? Speech:??fluent, unimpaired? Judgment:??appears intact? Insight:??appears intact? Thought process:??linear? Reliability:??likely reliable source? Fund of knowledge:??intact Assessment/Plan Opioid use disorder (F11.90):??. Pt using 1 bundle of heroin of the course of a few days on a monthly basis. Has been on multiple MAT options in the past. Currently LFTs are elevated and unfortunately limit pts options, methadone would likely be the safest for now. Pt agreeable to start. ?? Would obtain an EKG to ensure QTc is <500ms. If this looks OK, can st pt on 20mg of methadone today (starting lower due to impaired hepatic function currently). Patient will need a last dose letter on discharge. This is typically a free text note printed with date of discharge and methadone dose received here. ?? *Pt can go to [facility] at [address] [place] [address] tomorrow morning between 7AM and NOON as a walk in for methadone dosing. [facility] accepts walk-ins for this, including on weekends. She reportedly has been established there before anyways, so not a totally new pt. *Pt will need to bring a last dose letter, d/c summary from [facility], and photo ID or hospital wristband. ?? Cocaine use disorder (F14.10):??. Patient counseled on risks of cocaine use, including seizures, psychosis, vascular complications such as heart attack and stroke. Also discussed risk of contamination in the cocaine supply with othersubstances such as fentanyl or heroin, which can lead to overdose. At this time, there are no viable medication options specific to cocaine use disorder. Other options may include motivational interviewing, cognitive behavioral therapy, as well as contingency management plans. ?? Substance use disorder (F19.90):??. Counseled pt against misuse of gabapentin. If she obtains this from the street, she is at risk for??ingesting counterfeit pills, which can mean ingesting unknown chemicals or other substances. This can lead to overdose, seizures, coma, etc.??Even with gabapentin from a pharmacy, misuse can lead to dizziness, somnolence, N/V. Withdrawal can lead to seizures, agitation, disorientation. ?? Tetrahydrocannabinol (THC) use disorder, moderate, dependence (F12.20):??. For harm reduction, advised patient to purchase from a dispensary to eliminate risk of potential for lacing/contamination.??Also discussed that use of edibles is preferable??to smoking,??as this prevents damage to the lungs. Discussed possibility that heavy use can prevent sobriety from other substances, and can ultimately lead to worsening of depression/anxiety. Pt receptive.? Sent update via??[employer] to Dr Ruvalcaba Addiction??Service will sign off at this time as pt is to d/c. Thank you for allowing us to participate in the care of this patient. Please contact me with any questions or concerns. Problem List/Past Medical History Ongoing COVID-19 Medications Inpatient Abilify 2 mg oral tablet, 2 mg, By Mouth, Daily Acetaminophen Tablet, 650 mg, By Mouth, Every 8 hours, PRN albuterol CFC free 90 mcg/inh inhalation aerosol, 180 mcg= 2 puffs, Inhalation, 4 times a day, PRN baclofen 10 mg oral tablet, 10 mg, By Mouth, 3 times a day, PRN Benadryl Tablet, 50 mg, By Mouth, Every 6 hours, PRN Depakote Tablet, 1000 mg, By Mouth, Daily at bedtime Docusate Sodium Capsule, 100 mg= 1 capsule, By Mouth, 2 times a day, PRN Estradiol 0.1 mg Patch, 0.1 mg, Topically, Every 72 hours Ibuprofen Tablet, 400 mg, By Mouth, Every 8 hours, PRN levothyroxine 0.1 mg oral tablet, 100 mcg, By Mouth, Daily LORazepam Tablet, 1 mg, By Mouth, Every 8 hours, PRN Maalox Plus Liquid, 30 mL, By Mouth, Every 8 hours, PRN Melatonin Tablet, 9 mg, By Mouth, Daily at bedtime, PRN MiraLax Powder, 17 Gm= 1 pack/packet, By Mouth, Daily, PRN NaCL 0.9% Flush, 3 mL, IV Push, Every 8 hours NaCL 0.9% Flush, 3 mL, IV Push, Every 8 hours, PRN Nicotine Gum, 2 mg, Chew, Every hour, PRN olanzapine 5 mg oral tablet, 5 mg, By Mouth, Every 6 hours, PRN prazosin 1 mg oral capsule, 2 mg, By Mouth, Daily at bedtime prazosin 5 mg oral capsule, 5 mg, By Mouth, Daily at bedtime Remove Patch, 1 each, Topically, Every 72 hours Robitussin DM Liquid, 10 mL, By Mouth, Every 4 hours, PRN rOPINIRole 0.25 mg oral tablet, 0.25 mg, By Mouth, Daily at bedtime Senna Tablet, 8.6 mg= 1 tablet, By Mouth, 2 times a day, PRN Simethicone Tablet, 80 mg, Chew, 3 times a day, PRN traZODone 50 mg oral tablet, 50 mg, By Mouth, Daily at bedtime Vistaril Capsule, 50 mg, By Mouth, Every 6 hours, PRN Zoloft 50 mg oral tablet, 100 mg, By Mouth, Daily Home albuterol CFC free 90 mcg/inh inhalation [...] 100 mcg= 1 tablet, By Mouth, Daily olanzapine 5 [...] last 30 days. Immunizations Vaccine Date Status influenza virus vaccine, inactivated - Not Given Comments : Patient Refuses [id number] bivalent booster vax 11/15/2022 Recorded hepatitis B adult vaccine 09/18/2022 Recorded hepatitis B adult vaccine 12/07/2021 Recorded SARS-CoV-2 (COVID-19) mRNA-1273 vaccine 09/04/2021 Recorded hepatitis [...] influenza virus vaccine, inactivated 12/15/2014 Recorded * Christophe GUAJARDO, Shiv H: PERFORM, MODIFY Event Display: Consultation Note Authored Date: [id number] Patient: ??ARMIN MURRY ? Age:??37 Years?Sex:??Male?:??1985?? Referrring Provider Edi Costa DO Chief Complaint Pt BIBA to ED from [place]. pt recently kicked out of hotel. pt reports depression, agitation, anxiety. Hx heroine use. Many needles noted in belongings. Endorses passive SI History of Present Illness ?? 37-year-old transgender female with a past medical history of asthma, bipolar, depression, anxiety,hypothyroidism, PTSD, seizure disorder, history of prior IV drug use and cocaine use was brought tothe ED after reporting SI/HI when she was evicted from a hotel room.?? GI was consulted for LFT elevation. ?? Patient was recently evicted from a hotel room when she expressed some SI/HI was brought to the ED.?? Patient was evaluated by crisis team and was cleared for inpatient psychiatric hospitalizationpatient made some concerning comments about hurting herself and possibly causing harm to others while in the ED.?? She also broke her eyeglasses and cut her wrists superficially.?? Patient was found to be uncooperative, with flat affect unable to provide many details.?? Her blood test showed an unremarkable CBC however her LFTs were found to be elevated.?? She had normal LFTs on 11/01 however on 01/13 her AST/ALT was 941/858.?? Today her LFTs are significantly elevated with AST/ALT of 1387/1314.?? Her alkaline phosphatase was 164.?? With a total bilirubin of 1.1.?? Patient had a U tox which waspositive for cannabinoid and fentanyl.?? Her U tox from November was positive for cannabinoid and cocaine and opiates.?? Histamine for level was negative.?? Patient has negative for hep B surface antigen, hep B core antibody and hep A IgG was positive.?? GI was consulted for LFT elevation.?? Patient's aripiprazole and Depakote were held for now.?? Patient was not very cooperative with my evaluationhowever was able to answer some questions.?? She reported that she recently started using biotin almost 4 days ago.?? She tells me that she has not used cocaine for the last 7 months and that she hasnot used IV drugs.?? Patient denies alcohol use, smoking for the last 3 months.?? Patient denies any family history of liver disease.?? She tells me she does not want to get treated.?? She states that we should not fix what is not broken.?? She denies any abdominal discomfort, nausea, vomiting, GI b leeding. ?? Review of Systems Full review of systems completed and was negative except as mentioned above in HPI Physical Exam Vitals & Measurements T:??98.5?F?? HR:??110??(Peripheral)?? BP:??108/60?? SpO2:??100%?? WT:??74??kg?? Constitutional: Alert, in no distress. Mental Status: Oriented to person, place and time. Respiratory: Clear to auscultation. No wheezing, rales or rhonchi. Cardiovascular: S1 S2 regular. No murmurs, rubs or gallops. Gastrointestinal: Abdomen soft, non-tender, non-distended. Normal bowel sounds. No pulsatile mass. No hepatosplenomegaly. Genitourinary: No costovertebral angle tenderness. Neurologic: Cranial nerves II-XII grossly intact. No focal neurological deficits. Moves all extremities spontaneously. Skin: No rashes or lesions. No petechiae or purpura.??No jaundice Musculoskeletal: No cyanosis or clubbing. No gross deformities. Normal range of motion. Psychiatric: Appropriate mood and affect Assessment/Plan ?? LFT elevation ?? 37-year-old transgender female with a past medical history of asthma, bipolar, depression, anxiety,hypothyroidism, PTSD, seizure disorder, history of prior IV drug use and cocaine use was brought tothe ED after reporting SI/HI when she was evicted from a hotel room.?? Patient medically stable.?? LFTs were found to be elevated for which GI was consulted.?? Patient has significantly elevated AST a nd ALT in what seems to be a hepatocellular pattern with normal bilirubin.?? Patient has a history of IV drug use, cocaine use, smokes marijuana.?? Recent U tox results positive for cannabinoid, cocaine, opiates, fentanyl.?? Patient on multiple psych medications.?? Differential with her is very broad at this time and includes drug-induced liver injury, cocaine use, viral hepatitis.?? Of note hepatitis A IgG does not mean an active hepatitis C infection but rather a prior infection. Will hold off on further work up at this time. ?? Plan: Please order hepatitis A IgM, hepatitis B surface antibody Please obtain ultrasound RUQ with Doppler to rule out thrombosis in setting of estradiol use Continue trending LFTs including bilirubin Please reach out to GI with any concerning results.?? We will also continue to follow along peripherally. Defer plan for??Aripiprazole and Depakote to psych team- (these drugs are not very??likely to causeLFT elevation however are??metabolized by??the liver??and we will defer resumption of these to the psych team based on clinical need and LFT levels. Source: [facility]??) ? Thank you for referring this patient to the Division of Gastroenterology, [facility].?Please feel free to reach out with any questions or concerns. ?? The patient's case and management was discussed with Dr. Cassandra Saeed MD Gastroenterology Fellow PGY4?? Division of Gastroenterology, [facility] - [facility] [email or web address] (The above document was created using [employer] website voice recognition software. As such, pastry chef errors may occur. Please contact the provider for additional questions and if clarification is needed.)?? Problem List/Past Medical History Ongoing COVID-19 Medications Inpatient Acetaminophen Tablet, 650 mg, By Mouth, Every 8 hours, PRN Benadryl Tablet, 50 mg, By Mouth, Every 6 hours, PRN Docusate Sodium Capsule, 100 mg= 1 capsule, By Mouth, 2 times a day, PRN Estradiol 0.1 mg Patch, 0.1 mg, Topically, Every 72 hours Ibuprofen Tablet, 400 mg, By Mouth, Every 8 hours, PRN LORazepam Tablet, 1 mg, By Mouth, Every 8 hours, PRN Maalox Plus Liquid, 30 mL, By Mouth, Every 8 hours, PRN Melatonin Tablet, 9 mg, By Mouth, Daily at bedtime, PRN MiraLax Powder, 17 Gm= 1 pack/packet, By Mouth, Daily, PRN NaCL 0.9% Flush, 3 mL, IV Push, Every 8 hours NaCL 0.9% Flush, 3 mL, IV Push, Every 8 hours, PRN Nicotine Gum, 2 mg, Chew, Every hour, PRN olanzapine 5 mg oral tablet, 5 mg, By Mouth, Every 6 hours, PRN prazosin 1 mg oral capsule, 2 mg, By Mouth, Daily at bedtime prazosin 5 mg oral capsule, 5 mg, By Mouth, Daily at bedtime Remove Patch, 1 each, Topically, Every 72 hours Robitussin DM Liquid, 10 mL, By Mouth, Every 4 hours, PRN rOPINIRole 0.25 mg oral tablet, 0.25 mg, By Mouth, Daily at bedtime Senna Tablet, 8.6 mg= 1 tablet, By Mouth, 2 times a day, PRN Simethicone Tablet, 80 mg, Chew, 3 times a day, PRN traZODone 50 mg oral tablet, 50 mg, By Mouth, Daily at bedtime Vistaril Capsule, 50 mg, By Mouth, Every 6 hours, PRN Zoloft 50 mg oral tablet, 100 mg, By Mouth, Daily Home albuterol CFC free 90 mcg/inh inhalation [...] than 1/4 pack)/day in last 30 days. * Cassandra GUAJARDO, Daniella: PERFORM Event Display: Consultation Note Authored Date: [id number] ?I saw and evaluated the patient. Discussed with the fellow and agree with the findings and plan as documented in the fellow's note.? * Sindy Perkins NP: MODIFY, PERFORM Event Display: Consultation Note Authored Date: Patient: ??ARMIN MURRY ? Age:??37 Years?Sex:??Male?:??1985?? Chief Complaint Pt BIBA to ED from [facility]. pt recently kicked out of hotel. pt reports depression, agitation, anxiety. Hx heroine use. Many needles noted in belongings. Endorses passive SI Reason for Consultation: Medication evaluation ?? Referring Physician: Linh Mane, DO ?? Source of information:?? Per patient,??[facility] records, crisis evaluations ?? Identifying information: Armin Murry (she/her) is a 37-year-old transgender female with past medical history significant for??asthma, depression, hypothyroidism, PTSD, seizures??who initially presented to [facility] via EMS after reporting SI/HI when she was evicted from her hotel room. History of Present Illness Grady??is known to the [facility] psychiatry service from prior consultations, most recently on 11/26/22. She has been seen six times by crisis in 2022. Per ED??documentation,?? 37 years old Male with aPMH of Asthma, Bipolar, Depression/Anxiety, Hypothyroidism, Post Traumatic Stress Disorder, Psychiatric disorders, Seizures presenting with behavioral concern. ??Patient was kicked out of the hotel that he was saying. ??States that he was tired of the way he is being treated. ??He called EMS. ??Denies any SI, HI. ??Has an outpatient therapist. ??States that on going into stable housing, in a few weeks. ??Admits to previous IV drug use. ??Denies wanting Suboxone or methadone here. ??Denies withdrawal symptoms. ?? Initial vital signs in the ED were??notable for??heart rate 120 and blood pressure 145/75.??Labs were reviewed and notable for low RBCs/Hgb. BMP unremarkable. TSH normal. No ethanoldetected. Urine toxicology positive for cannabis.??COVID-19??negative by PCR.??Most recent ECG (08/26/22) recorded QTc(Bazett) of 419. ?? Grady??was subsequently medically cleared and referred to the crisis team for evaluation and assistance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 07:51:00) Pulse Pressure: 49 mm Hg (01/17/23 07:51:00) Oxygen Saturation: 99 % (01/17/23 07:51:00) Mode of Delivery (Oxygen): Room air (01/17/23 07:51:00) Early Warning Score: 2 (01/17/23 09:44:21) ? . Physical Exam ? General Appearance: The patient is a _ and in NAD. Cardiovascular: RRR S1 and S2 heard with no M/R/G. No JVD. Respiratory: ??Breath sounds clear to auscultation bilaterally. No wheezing. Good air movement throughout both lungs. GI: Soft. Nontender and nondistended. Normal bowel sounds present throughout abdomen.?? MS: ??No edema or erythema in the lower extremities. No wounds seen on the feet. Peripheral sensation intact.?? Neuro: ??No slurred speech. ??Patient seen moving their upper and lower extremities independently. Psych: Alert and oriented x3. Appropriate and pleasant. _. .?? Consultants addiction medicine Patient Instructions *Pt can go to [facility] at [address] [place] [address] tomorrow morning between 7AM and NOON as a walk in for methadone dosing. [facility] accepts walk-ins for this, including on weekends. She reportedly has been established there before anyways, so not a totally new pt. *Pt will need to bring a last dose letter, d/c summary from [facility], and photo ID or hospital wristband. ?? need to follow up with repeat?? lfts with pcp Post Discharge Care *Pt can go to [facility] at [address] [place] [address] tomorrow morning between 7AM and NOON as a walk in for methadone dosing. [facility] accepts walk-ins for this, including on weekends. She reportedly has been established there before anyways, so not a totally new pt. *Pt will need to bring a last dose letter, d/c summary from [facility], and photo ID or hospital wristband. ?? need to follow up with repeat?? lfts with pcp Home Health Face to Face ^HomeHealthFTF Results Discharge Labs BLOOD COUNT & DIFF WBC 6.1 k/mm3 ()?? 01/17/2023 04:07 RBC 4.69 m/mm3 (Low)?? 01/17/2023 04:07 Hgb 13.6 Gm/dL (Low)?? 01/17/2023 04:07 Hct 42.9 % ()?? 01/17/2023 04:07 MCV 91.5 femtoliters ()?? 01/17/2023 04:07 MCH 29.0 pg ()?? 01/17/2023 04:07 MCHC 31.7 g/dL (Low)?? 01/17/2023 04:07 Platelet Count 222 k/mm3 ()?? 01/17/2023 04:07 RDW-SD 44.3 femtoliters ()?? 01/17/2023 04:07 MPV 10.5 femtoliters ()?? 01/17/2023 04:07 Nucleated RBC (Automated) 0.0 #/100 WBC'S ()?? 01/17/2023 04:07 Abs. NRBC 0.0 k/mm3 ()?? 01/17/2023 04:07 Abs. Neut 3.0 k/mm3 ()?? 01/17/2023 04:07 Abs. Lymph 2.0 k/mm3 ()?? 01/17/2023 04:07 Abs. [place] 0.9 k/mm3 ()?? 01/17/2023 04:07 Abs. Eo 0.2 k/mm3 ()?? 01/17/2023 04:07 Abs. Baso 0.0 k/mm3 ()?? 01/17/2023 04:07 Neut % 49.1 % ()?? 01/17/2023 04:07 Lymph % 32.3 % ()?? 01/17/2023 04:07 [place] % 14.4 % (High)?? 01/17/2023 04:07 Eos % 3.4 % ()?? 01/17/2023 04:07 Baso % 0.3 % ()?? 01/17/2023 04:07 Imm Gran 0.5 % ()?? 01/17/2023 04:07 Abs. Imm Gran 0.0 k/mm3 ()?? 01/17/2023 04:07 ?? CHEM GENERAL Sodium 139 mmol/L ()?? 01/17/2023 04:07 Potassium 4.5 mmol/L ()?? 01/17/2023 04:07 Chloride 99 mmol/L ()?? 01/17/2023 04:07 Bicarbonate Level 31 mmol/L (High)?? 01/17/2023 04:07 Anion Gap 9 ()?? 01/17/2023 04:07 Glucose Level 124 mg/dL (High)?? 01/17/2023 04:07 Hemoglobin A1C (Monitoring) 5.1 % ()?? 01/16/2023 01:17 BUN 24 mg/dL (High)?? 01/17/2023 04:07 Creatinine-Blood 1.1 mg/dL ()?? 01/17/2023 04:07 Estimated GFR Creatinine 92 ML/MIN/1.73 M2 ()?? 01/17/2023 04:07 Calcium 8.3 mg/dL (Low)?? 01/17/2023 04:07 Protein, Total 5.6 Gm/dL (Low)?? 01/17/2023 04:07 Albumin 3.9 Gm/dL ()?? 01/17/2023 04:07 AG Ratio 2.3 ()?? 01/17/2023 04:07 Alkaline Phosphatase 166 units/L (High)?? 01/17/2023 04:07 AST (SGOT) 672 units/L (High)?? 01/17/2023 04:07 ALT (SGPT) 838 units/L (High)?? 01/17/2023 04:07 Bilirubin, Total 1.2 mg/dL ()?? 01/17/2023 04:07 Bilirubin, Direct 0.8 mg/dL (High)?? 01/17/2023 04:07 Bilirubin, Indirect 0.4 mg/dL ()?? 01/17/2023 04:07 ?? COAG INR 1.3 (High)?? 01/17/2023 04:07 Protime (PT) 13.0 seconds (High)?? 01/17/2023 04:07 ?? ENDOCRINE/TUMOR MARKER TSH 1.81 uIU/mL ()?? 01/13/2023 14:29 ? HEME OTHER Hold Blue Top SPECIMEN DISCARDED AFTER 4 HOURS. ()?? 01/13/2023 14:29 ? LIPID STUDIES Cholesterol 174 mg/dL ()?? 01/16/2023 01:17 Triglycerides 75 mg/dL ()?? 01/16/2023 01:17 HDL Cholesterol 47 mg/dL ()?? 01/16/2023 01:17 LDL Cholesterol 112 mg/dL ()?? 01/16/2023 01:17 Non HDL Cholesterol 127 mg/dL ()?? 01/16/2023 01:17 ? MISC. CHEMISTRY Hold Green Top SPECIMEN DISCARDED AFTER 1 WEEK ()?? 01/13/2023 14:29 ? SEROLOGY INF DISEASE Anti Hepatitis A IgM NEGATIVE (N)?? 01/15/2023 07:52 Hepatitis B Surface Antigen NEGATIVE (N)?? 01/15/2023 07:52 Hepatitis B Core Ab, Total NEGATIVE (N)?? 01/15/2023 07:52 Hepatitis B e Ab NEGATIVE ()?? 01/15/2023 21:08 HIV 4th Generation Ab-Ag Result NEGATIVE (N)?? 01/16/2023 01:17 Anti-HBS Quant .37 mIU/mL ()?? 01/15/2023 07:52 Anti-HAV IgG POSITIVE ()?? 01/15/2023 07:52 ? TOXICOLOGY/TDM Ethanol, Serum or Plasma NONE DETECTED mg/dL ()?? 01/13/2023 14:29 Valproic Level 68.9 mg/L ()?? 01/13/2023 14:29 Barbiturate Screen, Urine NONE DETECTED ()?? 01/13/2023 15:16 Cannabinoid Screen, Urine POSITIVE (Abnormal)?? 01/13/2023 15:16 Cocaine Metabolite Screen, Urine NONE DETECTED ()?? 01/13/2023 15:16 Methadone Screen, Urine NONE DETECTED ()?? 01/13/2023 15:16 Benzodiazepine Screen, Urine NONE DETECTED ()?? 01/13/2023 15:16 Amphetamine Screen, Urine NONE DETECTED ()?? 01/13/2023 15:16 Opiate Screen, Urine NONE DETECTED ()?? 01/13/2023 15:16 Acetaminophen Level <5 mg/L (Low)?? 01/15/2023 07:52 Buprenorphine Screen with Reflex, Urine NONE DETECTED ()?? 01/13/2023 15:16 Fentanyl Screen, Urine Result POSITIVE (Abnormal)?? 01/13/2023 15:16 ?? URINE OTHER Est Creatinine Clearance 81.41 mL/min ()?? 01/17/2023 06:40 ? VIROLOGY COVID-19 by RT-PCR NEGATIVE ()?? 01/13/2023 14:42 ? Microbiology ?? COVID-19 (Novel Coronavirus), Rapid PCR?? Completed?? Source: Nasal Body Site: Nose Collected Dt/Tm: 01/13/2023 09:29 Last Updated Dt/Tm: 01/13/2023 15:41 ? 35_ minutes spent on discharge * Stacy So RN: PERFORM Event Display: Patient Education/Instruction Authored Date: [id number] Inpatient Adult Discharge Instructions [address] [address] Name: ARMIN MURRY : 1985 Visit: 01/12/2023 17:23:00 Current Date: 01/17/2023 15:18 Account: [id number] Inpatient Adult Discharge Instructions We would like to thank you for allowing us to assist you with your healthcare needs. The following includes patient education materials and information regarding your injury/illness. Our entire staffstrives to provide an excellent experience for our patients and their families. PLEASE ENSURE YOU FOLLOW-UP PER THE INSTRUCTIONS BELOW! ?? YOUR OPINION IS IMPORTANT TO US! Please complete the survey you may receive by mail or email. Your feedback will be used to make improvements to the healthcare experiences of our patients and their families. Surveys are administered by [employer] ?? If further treatment with your primary care physician or another doctor is recommended, it is important for you to keep the appointment. Call your primary care physician or return to the Emergency Department immediately if your condition worsens, fails to improve, or new symptoms develop. If you need to find a doctor, you can call [facility] [employer] for a referral at [phone] or toll free at [phone] or log in to [email or web address].. ?? [facility], in keeping with [facility] guidance, no longer requires face masks for staff, patientsor visitors in most situations. Similiar to time spent indoors at other locations, there is the chance that you were exposed to repiratory viruses during your time with us (such as flu or COVID-19). If you develop symptoms concerning for a viral respiratory infection, please seek testing (and treatment if indicated) from your medical provider or home test kit. ?? You can view and manage your care through the patient portal or by using a health care jalil of your choosing. [employer] is a website that allows you to securely view your medical information including your hospital discharge summary, office visit summaries, medications and follow-up visits. You can also request appointments, renew medications, and request access to your medical information using a health care jalil of your choosing, or just ask a question. You can enroll at [email or web address] or register during your next office visit. You have been discharged from [facility], Patient Care Unit: W3. If you have any questions regarding these instructions after you leave, please call us and we will be happy to assist you. [facility] Your Care Team Attending Physician Jordon GUAJARDO, Ion Consulting Providers Nanette GUAJARDO, Korina Trujillo MD, Daniella Discharging Providers Jordon GUAJARDO, Ion Reason for Admission Pt BIBA to ED from [facility]. pt recently kicked out of hotel. pt reports depression, agitation, anxiety. Hx heroine use. Many needles noted in belongings. Endorses passive SI Your Diagnosis Elevated LFTs Opioid use disorder Cocaine use disorder Tetrahydrocannabinol (THC) use disorder, moderate, dependence Substance use disorder Tests Performed Below is a partial list of the tests performed during your hospitalization. You may have had other tests and procedures not included in this list. Please discuss all test results with your provider. Acetaminophen Level ALBUMIN ALT Amphetamine Urine Screen ANTI HEP. A IGM Anti-HAV IgG Anti-HBS Quant AST Barbiturate Urine Screen Basic Metabolic Panel Benzodiazepine Urine Screen Bilirubin Total + Direct BUPRENORPHINE SCREEN W/CONFIRMATION,URINE Cannabinoid Urine Screen CBC CBC w/ Differential Cocaine Urine Screen Comprehensive Metabolic Panel COVID-19 (Novel Coronavirus), Rapid PCR Ethanol Level FENTANYL SCREEN, URINE Hemoglobin A1C (Monitoring) Hepatitis B Core Ab Hepatitis B Surface Antigen Hepatitis Be Ab HIV Ab-Ag 4th Generation HOLD BLUE TUBE HOLD GREEN TUBE INR LFT's Lipid Panel METHADONE SCREEN, URINE Opiate Screen Urine PT (INR) TOTAL PROTEIN TSH with T4 Reflex (Adults Only) VALPROIC US Abdominal Doppler Comp US RUQ Primary Care Provider Not on Staff, PCP Advance Directive Health Care Proxy on File No Patient refuses to discuss Discharge Vitals Temperature: 97.8 DegF Height: 165 cm Pulse Rate: 65 bpm Weight: 73.75 kg Respiratory Rate: 20 br/min Body Mass Index:??27.09 kg/m2??High Systolic Blood Pressure: 118 mm Hg Body surface area: 1.84 Diastolic Blood Pressure: 69 mm Hg ?? Oxygen Saturation: 99 % ?? Studies Pending All tests and labs ordered during this hospital stay have been completed unless listed below. Please discuss all pending results with your provider listed above in these instructions. ?? Add On Lab Order Anti Liver Kidney Ab Antimitochondrial Ab Hepatitis A Ab IgM Hepatitis Be Ab (HEP.B E AB) Hepatitis C Ab Hepatitis E IgM Smooth Muscle Ab Screen What to do next Instructions From Your Doctor Discharge Orders Discharge Medications ARMIN MURRY :1985 Visit Date:01/12/2023 Medications: Please continue your medications until treatment is completed or stopped by your provider. Medications not listed below should be discontinued. Discuss any questions related to medications with your provider. What How Much When Instructions Next Dose New Aripiprazole (Abilify 2 mg oral tablet) 2 Milligram Oral Daily Duration: 30 Days Refills: 1 Pickup at [place] [address] tomorrow 9am New Nicotine (Nicotine 2 mg gum) 2 Milligram Chew Every hour as needed for Other Duration: 2 week(s) Nicotine Cravings ?? Pickup at [place] [address] not given, take as prescribed Changed Divalproex Sodium (divalproex sodium 500 mg oral enteric coated tablet) See instructions 1,000 mg By Mouth Daily at bedtime 30 days ?? Pickup at [place] [address] tonight 9pm Changed Levothyroxine (levothyroxine 0.1 mg oral tablet) 1 tab(s) Oral Daily tomorrow morning??before eating Changed Prazosin (prazosin 1 mg oral capsule) 2 Milligram Oral Daily at Bedtime Duration: 30 Days hold for bp ??systolic less than90 ?? Pickup at [place] [address] tonight 9pm Changed Prazosin (prazosin 5 mg oral capsule) TAKE ONE CAPSULE BY MOUTH EVERY NIGHT AT BEDTIME ?? tonight 9pm Unchanged Albuterol (albuterol CFC free 90 mcg/ inh inhalation aerosol) 2 puff(s) Inhalation 4 times a day as needed for for wheezing not given, take as prescribed Unchanged Albuterol (ProAir HFA 90 mcg/ inh inhalation aerosol with adapter) INHALE 2 PUFFS BY MOUTH INTO THE lungs EVERY 6 HOURS ?? not give, take as prescribed Unchanged Baclofen (baclofen 10 mg oral tablet) 1 tab(s) Oral 3 times a day as needed for Spasm not given, take as prescribed Unchanged Estradiol (estradiol 2 mg oral tablet) 1 tab(s) Oral Daily tomorrow 8am Unchanged HydrOXYzine (hydrOXYzine pamoate 100 mg oral capsule) 1 capsule Oral Every 6 hours as needed for as needed for anxiety as prescribed Unchanged Ropinirole (rOPINIRole 0.25 mg oral tablet) 1 tab(s) Oral Daily at Bedtime tonight 9pm Unchanged Sertraline (sertraline 50 mg oral tablet) 2 tab(s) Oral Daily tomorrow 9am Unchanged Trazodone (traZODone 50 mg oral tablet) 2 tab(s) Oral Daily at Bedtime as needed for Insomnia tonight 9pm [facility]acy Information [facility]: [address], [place] [id number] [phone] ?? What How Much When Comments Stop Taking Atomoxetine (atomoxetine 18 mg oral capsule) 1 capsule Oral Daily in the morning Stop Taking Buprenorphine-Naloxone (Suboxone 4 mg-1 mg sublingual film) 1 Film Sublingual Daily dissolve under the tongue ?? Stop Taking Olanzapine (olanzapine 5 mg oral tablet) 1 tab(s) Oral Every 6 hours as needed for Agitation Stop Taking Ziprasidone (ziprasidone 60 mg oral capsule) 1 capsule Oral Twice a day Test Results Below is a partial list of the most recent Laboratory test results done prior to this discharge. You may have had other tests and procedures not included in this list. Please discuss all test resultswith your provider. Est Creatinine Clearance - 81.41 mL/min (01/17/2023) Acetaminophen Level (01/15/2023) ? ?Acetaminophen Level - <5 mg/L ALBUMIN (01/13/2023) ???Albumin - 3.8 Gm/dL ALT (01/13/2023) ???ALT (SGPT) - 858 units/L Amphetamine Urine Screen (01/13/2023) ???Amphetamine Screen, Urine - NONE DETECTED ANTI HEP. A IGM (01/15/2023) ???Anti Hepatitis A IgM - NEGATIVE Anti-HAV IgG (01/15/2023) ???Anti-HAV IgG - POSITIVE Anti-HBS Quant (01/15/2023) ???Anti-HBS Quant - 0.37 mIU/mL AST (01/13/2023) ???AST (SGOT) - 941 units/L Barbiturate Urine Screen (01/13/2023) ???Barbiturate Screen, Urine - NONE DETECTED Basic Metabolic Panel (01/13/2023) ???Sodium - 140 mmol/L???Potassium - 5.0 mmol/L???Chloride - 103 mmol/L???Bicarbonate Level - 28 mmol/L???Anion Gap - 9???Glucose Level - 96 mg/dL???BUN - 13 mg/dL???Creatinine-Blood - 1.0 mg/dL???Estimated GFR Creatinine - 101 ML/MIN/1.73 M2???Calcium - 9.1 mg/dL Benzodiazepine Urine Screen (01/13/2023) ???Benzodiazepine Screen, Urine - NONE DETECTED Bilirubin Total + Direct (01/17/2023) ???Bilirubin, Total - 1.2 mg/dL???Bilirubin, Direct - 0.8 mg/dL???Bilirubin, Indirect - 0.4 mg/dL BUPRENORPHINE SCREEN W/CONFIRMATION,URINE (01/13/2023) ???Buprenorphine Screen with Reflex, Urine - NONE DETECTED Cannabinoid Urine Screen (01/13/2023) ???Cannabinoid Screen, Urine - POSITIVE CBC (01/16/2023) ???WBC - 9.1 k/mm3???RBC - 5.08 m/mm3???Hgb - 14.5 Gm/dL???Hct - 45.4 %???MCV - 89.4 femtoliters???MCH - 28.5 pg???MCHC - 31.9 g/dL???Platelet Count - 252 k/mm3???RDW-SD - 42.7 femtoliters???MPV - 10.4 femtoliters???Nucleated RBC (Automated) - 0.0 #/100 WBC'S???Abs. NRBC - 0.0 k/mm3 CBC w/ Differential (01/17/2023) ???WBC - 6.1 k/mm3???RBC - 4.69 m/mm3???Hgb - 13.6 Gm/dL???Hct - 42.9 %???MCV - 91.5 femtoliters???MCH - 29.0 pg???MCHC - 31.7 g/dL???Platelet Count - 222 k/mm3???RDW-SD - 44.3 femtoliters???MPV - 10.5 femtoliters???Nucleated RBC (Automated) - 0.0 #/100 WBC'S???Abs. NRBC - 0.0 k/mm3???Abs. Neut - 3.0 k/mm3???Abs. Lymph - 2.0 k/mm3???Abs. [place] - 0.9 k/mm3???Abs. Eo - 0.2 k/mm3???Abs. Baso - 0.0 k/mm3???Neut % - 49.1 %???Lymph % - 32.3 %???[place]port % - 14.4 %???Eos % - 3.4 %???Baso % - 0.3 %???Imm Gran - 0.5 %???Abs. Imm Gran - 0.0 k/mm3 Cocaine Urine Screen (01/13/2023) ???Cocaine Metabolite Screen, Urine - NONE DETECTED Comprehensive Metabolic Panel (01/17/2023) ???Sodium - 139 mmol/L???Potassium - 4.5 mmol/L???Chloride - 99 mmol/L???Bicarbonate Level - 31 mmol/L???Anion Gap - 9???Glucose Level - 124 mg/dL???BUN - 24 mg/dL???Creatinine-Blood - 1.1 mg/dL???Estimated GFR Creatinine - 92 ML/MIN/1.73 M2???Calcium - 8.3 mg/dL???Protein, Total - 5.6 Gm/dL???Albumin - 3.9 Gm/dL???AG Ratio - 2.3???Alkaline Phosphatase - 166 units/L???AST (SGOT) - 672 units/L???ALT (SGPT) - 838 units/L???Bilirubin, Total - 1.2 mg/dL COVID-19 (Novel Coronavirus), Rapid PCR (01/13/2023) ???COVID-19 by RT-PCR - NEGATIVE Ethanol Level (01/13/2023) ???Ethanol, Serum or Plasma - NONE DETECTED FENTANYL SCREEN, URINE (01/13/2023) ???Fentanyl Screen, Urine Result - POSITIVE Hemoglobin A1C (Monitoring) (01/16/2023) ???Hemoglobin A1C (Monitoring) - 5.1 % Hepatitis B Core Ab (01/15/2023) ???Hepatitis B Core Ab, Total - NEGATIVE Hepatitis B Surface Antigen (01/15/2023) ???Hepatitis B Surface Antigen - NEGATIVE Hepatitis Be Ab (01/15/2023) ???Hepatitis B e Ab - NEGATIVE HIV Ab-Ag 4th Generation (01/16/2023) ???HIV 4th Generation Ab-Ag Result - NEGATIVE HOLD BLUE TUBE (01/13/2023) ???Hold Blue Top - SPECIMEN DISCARDED AFTER 4 HOURS. HOLD GREEN TUBE (01/13/2023) ???Hold Green Top - SPECIMEN DISCARDED AFTER 1 WEEK INR (01/17/2023) ???INR - 1.3???Protime (PT) - 13.0 seconds LFT's (01/15/2023) ???Protein, Total - 6.2 Gm/dL???Albumin - 4.2 Gm/dL???Alkaline Phosphatase - 164 units/L???AST (SGOT) - 1387 units/L???ALT (SGPT) - 1314 units/L???Bilirubin, Total - 1.1 mg/dL???Bilirubin, Direct - 0.6 mg/dL???Bilirubin, Indirect - 0.5 mg/dL Lipid Panel (01/16/2023) ???Cholesterol - 174 mg/dL???Triglycerides - 75 mg/dL???HDL Cholesterol - 47 mg/dL???LDL Cholesterol - 112 mg/dL???Non HDL Cholesterol - 127 mg/dL METHADONE SCREEN, URINE (01/13/2023) ???Methadone Screen, Urine - NONE DETECTED Opiate Screen Urine (01/13/2023) ???Opiate Screen, Urine - NONE DETECTED PT (INR) (01/16/2023) ???INR - 1.3???Protime (PT) - 13.7 seconds TOTAL PROTEIN (01/13/2023) ???Protein, Total - 5.6 Gm/dL TSH with T4 Reflex (Adults Only) (01/13/2023) ???TSH - 1.81 uIU/mL VALPROIC (01/13/2023) ???Valproic Level - 68.9 mg/L Immunizations This Visit Not Given Vaccine Commentsinfluenza virus vaccine, inactivated Patient Refuses Allergies (NKA means No Known Allergies) penicillin Problems Active Problems??(1) COVID-19?? Education Materials Below is the list of Educational Leaflet Providered with your Discharge Instructions. Valuables and Belongings I fully understand and agree that [facility] accepts no responsibility for all my personal property including clothing, toilet articles, radios, jewelry, dentures, hearing aids, rings, money, or any other property that is in my possession or is brought to me after admission. I understand certain valuables may be placed in a hospital safe for a short period of time. I understand that the hospital is not liable for loss or damage due to accident, fire, or other natural occurrence while said property is in the safe. I accept full responsibility for any personal property that I keep with me, and will not hold the hospital responsible in case of loss or disappearance. I acknowledge that i have been encouraged to send valuables and belongings home. ?? Review of Valuable and Belonging List: With patient, With witness Date for Pt to Sign Valuables/Belongings: 01/16/23 10:19:00 ?? Other Discharge Information ? Pulmonary Rehab Status?? Pulmonary Rehab Discharge Status?? Respiratory Rate: 20 br/min ? Common Emergency Awareness Tips IS IT A STROKE? Act FAST and Check for these signs: FACE Does the face look uneven? ARM Does one arm drift down? SPEECH Does their speech sound strange? TIME Call at any sign of stroke ?? Heart Attack Signs Chest discomfort: Most heart attacks involve discomfort in the center of the chest and lasts more than a few minutes, or goes away and comes back. It can feel like uncomfortable pressure, squeezing, fullness or pain. Discomfort in upper body: Symptoms can include pain or discomfort in one or both arms, back, neck, jaw or stomach. Shortness of breath: With or without discomfort. Other signs: Breaking out in a cold sweat, nausea, or lightheaded. Remember, MINUTES DO MATTER. If you experience any of these heart attack warning signs, call to get immediate medical attention! ?? Smoking can increase your chances of developing chronic health problems and can cause harmful effects to other family members in your house. If you smoke, you are strongly encouraged to quit. Please call [facility] [employer] at [phone] or [phone] or log in to [email or web address] for referrals to smoking cessation programs. ?? 462 Suicide & Crisis Lifeline is available 11/11 if you or someone you know needs to find a reason to keep living. By calling 835 you'll be connected to a skilled, trained counselor at a crisis center in your area. INPATIENT DISCHARGE INSTRUCTIONS SIGNATURE PAGE ARMIN MURRY Location:[facility] Registration Date and Time:01/12/2023 17:23 EDT Primary Care Physician: Not on Staff, PCP Attending Physician: Jordon GUAJARDO, [facility], I ARMIN MURRY, have received the above patient education materials/instructions and have verbalized understanding. If ambulance or transport services are being used I further acknowledge being given a choice of service. ?? If you need to contact me, please call me at this number: . Patient/Carpenter Mate Name: Patient/Carpenter Mate Signature: Relationship to Patient: Witness Name/Signature: Date: * Stacy So RN: PERFORM Event Display: Patient Education Leaflets Authored Date: [id number] Methadone Oral Tablet ?? [id number] Methadone Oral Tablet Brands: [employer] Uses This medicine is used for the following purposes: ??? drug addiction ??? pain ?? Instructions You may take with food to prevent stomach upset. Store at room temperature away from heat, light, and moisture. Do not keep in the bathroom. Please ask your doctor, nurse, or pharmacist how to discard unused medicines safely. To reduce constipation, eat high fiber foods, drink plenty of water and exercise. Tell your doctor if you have severe or persistent sweating, diarrhea or vomiting. These can increase your risk of a serious side effect. If you forget to take a dose on time, take it as soon as you remember. If it is almost time for thenext dose, do not take the missed dose. Return to your normal schedule. Do not take 2 doses at one time. Drug interactions can change how medicines work or increase risk for side effects. Tell your healthcare providers about all medicines taken. Include prescription and hdyw-yik-qziacey medicines, vitamins, and herbal medicines. Speak with your doctor or pharmacist before starting or stopping any medicine. Tell your doctor if symptoms do not get better or if they get worse. ?? Cautions This medicine has an opioid. Opioids help many people but may cause addiction, especially if used for a long time. The addiction risk is higher if you have a substance use disorder (overuse of or addiction to drugs or alcohol). Ask your doctor about the benefits and risks. Ask your doctor or pharmacist if you should have naloxone on hand to treat opioid overdose. Teach your family or household members about the signs of an opioid overdose and how to treat it. If you stop this medicine suddenly after using it for a long time, you may have withdrawal. Your doctor may slowly lower your dose before stopping it. Tell your doctor right away if you have symptoms, such as unusual sweating, watering eyes, runny nose, chills, diarrhea, yawning, muscle aches, restlessness, anxiety, trouble sleeping, or thoughts of suicide. Tell your doctor and pharmacist if you ever had an allergic reaction to a medicine. Do not use the medication any more than instructed. If possible, avoid using with alcohol, marijuana, or other medicines that can cause dizziness or drowsiness. These include allergy/cold products, muscle relaxers, sleep aids, and pain relievers. Your ability to stay alert or to react quickly may be impaired by this medicine. Do not drive or operate machinery until you know how this medicine will affect you. This medicine passes into breast milk. Ask your doctor before . This medicine can hurt a new baby in the womb. If you become while on this medicine, tell your doctor immediately. Your doctor may switch you to a different medicine. This medicine should be used with caution in patients with breathing difficulties. Call your doctor right away if you notice slow or shallow breathing. Do not share this medicine with anyone who has not been prescribed this medicine. Some patients have serious side effects from this medicine. Ask your pharmacist to show you the information from the Food and Drug Administration (FDA) and discuss it with you. ?? Side Effects The following is a list of some common side effects from this medicine. Please speak with your doctor about what you should do if you experience these or other side effects. ??? decreased appetite ??? constipation ??? dizziness or drowsiness ??? dry mouth ??? lightheadedness ??? nausea and vomiting ??? sweating Call your doctor or get medical help right away if you notice any of these more serious side effects: ??? decreased awareness or responsiveness ??? breathing interruption during sleep ??? shallow, irregular breathing ??? changes in memory, mood, or thinking ??? confusion ??? fainting ??? hallucinations (unusual thoughts, seeing or hearing things that are not real) ??? fast or irregular heart beats ??? seizures ??? severe stomach or bowel pain ??? unusual or unexplained tiredness or weakness ??? difficulty or discomfort urinating ??? weight loss A few people may have an allergic reaction to this medicine. Symptoms can include difficulty breathing, skin rash, itching, swelling, or severe dizziness. If you notice any of these symptoms, seek medical help quickly. ?? Extra Please speak with your doctor, nurse, or pharmacist if you have any questions about this medicine. ?? [email or web address] IMPORTANT NOTE: This document tells you briefly how to take your medicine, but it does not tell youall there is to know about it. Your doctor or pharmacist may give you other documents about your medicine. Please talk to them if you have any questions. Always follow their advice. There is a more complete description of this medicine available in [place]. Scan this code on your smartphone or tablet or use the web address below. You can also ask your pharmacist for a printout. If you have any questions, please ask your pharmacist. The display and use of this drug information is subject to Terms of Use. Copyright(c) 2022 [employer]. ?? The [employer]. All rights reserved. This information is not intended as a substitute for professional medical care. Always follow your healthcare professional's instructions. ?? Patient Care team information Care Team Personnel Name: Nargis Carlos Position: [facility] RN Member Role: Primary Care Nurse Name: Geri Holder RN Position: [facility] RN Member Role: Primary Care Nurse Name: Not on Staff, PCP Position: [facility] Physician (General Medicine) Member Role: PCP Name: Meeta Kaminski RN Position: [facility] RN Member Role: Primary Care Nurse Name: *Jailene, ED Attending Position: [facility] ED Attendings Patient Name: *ANABELLE, Inpt Attending Position: [facility] ED Medicine Name: Deedee Loomis Position: [facility] ED RN W/OE and Tasks Member Role: Patient Care Provider Care Team Related Persons Name: JASPAL CONSTANTINO Name: MATT ARMIJO Address: [place] [address]
--- OUTSIDE RECORDS SUMMARY | 2023-09-14 12:22 | XMS_ITS | Continuity of Care Document ---
Author Organization [facility] Address [address] [place] [id number]- Care Team Providers Care Student Records Coordinator Name Role Phone Not on Staff, PCP Primary Care Physician Unavail able Encounter [facility] Date(s): 05/08/22 - 05/17/[address] [address]- Encounter Diagnosis Suicidal risk(Final) - 05/08/22 Suicidal intent(Final) - 05/08/22 Asthma(Final) - 05/08/22 Hypothyroid(Final) - 05/08/22 Depression(Final) - 05/08/22 Homeless(Final) - 05/08/22 Discharge Disposition: Transfer to Psych Facility Attending Physician: Estephania Lee MD Admitting Physician: Estephania Lee MD Referring Physician: Not on Staff, Referring [...] Refills, Maintenance, 03/27/21 20:09:00 EST, EC Tablet, [facility]/pharmacy #[id number], Partial fill upon patient request if the prescription is for a schedule II opioid drug. Start Date: 03/27/21 Status: Ordered levothyroxine 0.1 mg oral tablet TAKE ONE TABLET BY MOUTH EVERY DAY Start Date: 11/24/21 Status: Ordered Methadone Tablet 40 mg, Tablet, By Mouth, 05/17/22 7:00:00 EST Start Date: 05/17/22 Stop Date: 05/17/22 Status: Completed Minipress 1 mg oral capsule 6 mg, Capsule, By Mouth, 05/16/22 21:00:00 EST Start Date: 05/16/22 Stop Date: 05/16/22 Status: Completed prazosin 5 mg oral capsule [...] capsule, 0 Refills, Maintenance, 11/28/2219:58:00 EDT, Capsule, [facility], Partial fill upon patient request if the prescription is for a schedule II opioid drug., 16... Start Date: 11/27/21 Status: Ordered Problem List Condition Confirmation Course Effective Dates Status Health [facility] Informant COVID-19 1 Confirmed 11/28/21 Active 1Problem added by Discern Expert Vital Signs Most recent to oldest [Reference Range]: 1 2 3 Oxygen Saturation [94-100 %] 95 % (05/17/22 6:40 AM) 99 % (05/16/22 10:17 PM) 98 % (05/16/22 6:16 AM) Pulse Rate [55-90 bpm] 60 bpm (05/17/22 6:40 AM) 73 bpm (05/16/22 10:17 PM) 57 bpm (05/16/22 6:16 AM) Blood Pressure [90-138/55-84 mm Hg] 107/62mm Hg (05/17/22 6:40 AM) 116/61mm Hg (05/16/22 10:17 PM) 116/61mm Hg (05/16/22 8:59 PM) Respiratory Rate [16-30 br/min] 18 br/min (05/17/22 6:54 AM) 18 br/min (05/17/22 6:40 AM) 18 br/min (05/16/22 10:17 PM) Temperature [96.8-100.4 DegF] 99.0 DegF (05/17/22 6:40 AM) 97.9 DegF (05/16/22 10:17 PM) 97.5 DegF (05/16/22 6:16 AM) Mode of Delivery (Oxygen) Room air (05/17/22 6:40 AM) Room air (05/16/22 10:17 PM) Room air (05/16/22 6:16 AM) Blood pressure sites Arm, right (05/17/22 6:40 AM) Arm, right (05/16/22 10:17 PM) Arm, left (05/16/22 6:16 AM) Temperature Route Oral (05/17/22 6:40 AM) Oral (05/16/22 10:17 PM) Oral (05/16/22 6:16 AM) Social History Social History Type Response Tobacco Use: 4 or less cigar ettes(less than 1/4 pack)/day in last 30 days. Sex EKG study * Event Display: ECG 12-Lead Authored Date: Please click on pdf link to open report * Event Display: ECG 12-Lead Authored Date: Ventricular Rate: 50 BPM Atrial Rate: 50 BPM P-R Interval: 152 ms QRS Duration: 84 ms Q-T Interval: 456 ms QTC Calculation(Bazett): 415 ms P [place]: 43 degrees R [place]: 55 degrees T [place]: 13 degrees Sinus bradycardia Otherwise normal ECG No previous ECGs available Confirmed by OLGA GUTIERREZ ([id number]) on 05/16/2022 8:34:27 AM [place]: OLGA GUTIERREZ [facility] Progress note * Prior Gerald YATES S: MODIFY, PERFORM, MODIFY, MODIFY, MODIFY, MODIFY, MODIFY, MODIFY, MODIFY, MODIFY Event Display: Progress Note Hospital Authored Date: [id number] Patient: ??ARMIN TRAN ? Age:??37 Years?Sex:??Male?:??1985?? Subjective Chief complaint:? do I have to pretend I'm good so you'll let me go? I wanna know, 'why am I still here?' ?? Patient seen, chart reviewed, and discussed with treatment team.? Interval History: No acute overnight events. Per RN lo05/16/22 13:22 Florencio asked to speak with Janessa , the [employer] worker, but was told she left for the day - Florencio became angry yelling at this science writer and demanding to talk to HR - I see how it is you give me food and meds and expect me to jus be quiet ?? 05/16/22 15:15 patient is awake in their room - affge ct is angry and patient appears to want to argue during every interaction with staff? Patient clarifies they do not wish to be discharged,??instead had meant to express frustration with??length of stay??awaiting placement for [facility]. Relieved to learn of plan for transfer to [facility] tomorrow 05/17/22 @8AM. Reports partial improvement in sleep quality with prazosin dose decrease from 5 mg to 6 mg QHS and melatonin decreased from 9 mg??to 3 mg. Persistently feels??frequently emotionally dysregulated during the day. Advocates for further med optimization for mood stabilization.??Shares??fear that their personal effects have been misplaced, specifically a blue bag, a black backpack,??UGG boots, and a large white mesh laundry bag [employer] [place]. States they will refuse??transfer tomorrow if??they cannot be reassured that these have not been misplaced. Endorses??persistent depressed mood with suicidal ideation.??Patient complains of??constipation and itchy rashes??on both arms,??asks this science writer to relay request for evaluation to ED medical provider. Denies any adverse effects on current medication regimen. Reports good appetite and eating meals regularly.?Sleep partially improved, remains frequently interrupted, partial improvement in intensity of night terrors. Reporting no daytime sedation, or fatigue. ??ADLs??appear attentive without incident.??Able to make needs known.??Patient denies any additional??symptoms concerning for anxiety, depression, delgado, psychosis or PTSD. Patient denies any homicidal ideation. ?? Review of Systems Pertinent positives as listed above in HPI.??Otherwise, remainder of review of systems negative. Objective ? Vital Signs?? Temperature: 97.5 DegF (05/16/22 06:16:00) Temperature Route: Oral (05/16/22 06:16:00) Pulse Rate: 57 bpm (05/16/22 06:16:00) Respiratory Rate: 16 br/min (05/16/22 07:55:00) Systolic Blood Pressure: 97 mm Hg (05/16/22 06:16:00) Diastolic Blood Pressure: 55 mm Hg (05/16/22 06:16:00) Blood pressure sites: Arm, left (05/16/22 06:16:00) Mean Arterial Pressure: 69 mm Hg (05/16/22 06:16:00) Pulse Pressure: 42 mm Hg (05/16/22 06:16:00) Oxygen Saturation: 98 % (05/16/22 06:16:00) Mode of Delivery (Oxygen): Room air (05/16/22 06:16:00) ? Physical Exam Mental Status Exam Appearance: Casual, disheveled, lying in bed under covers Eye contact: Limited Attitude: Cooperative Motor Activity: Restless Mood: Depressed Affect: Congruent, restricted Speech: Nonspontaneous, normal rate, low tone and??normal prosody Perception: No reported AVH;??no internal preoccupation or responding to internal stimuli Orientation: Intact to person, place, situation Memory: Grossly intact Thought Process: Coherent, goal-directed Thought Content:??Themes??of hopelessness and??helplessness. Now focused on fear??of losing??personal effects. Reliability: Limited historian Insight: Limited Judgment: Limited Impulse control: Limited Suicidality/Self-destructive Behavior: Ongoing suicidal ideation with plan. Homicidality/Violence: None Muscle strength/tone: Antigravity. No rigidity noted. Moving all four extremities spontaneously. Ambulating without gait disturbance. _ Inpatient Medications Medications (28) Active SCHEDULED: (11) Divalproex Sodium (Depakote Tablet) ??750 mg, By Mouth, 2 times a day Haloperidol Lactate 5 mg/mL Inj (1 mL) (Haloperidol LACTATE Inj) ??5 mg 1 mL, Intramuscular, Once Levothyroxine 100 mcg Tablet (levothyroxine 0.1 mg oral tablet) ??100 mcg, By Mouth, Daily Methadone 10 mg Tablet (Methadone Tablet) ??40 mg, By Mouth, Daily Prazosin 1 mg Capsule (Minipress 1 mg oral capsule) ??6 mg, By Mouth, Daily at bedtime Psyllium Powder (Metamucil Powder) ??5.85 Gm 1 pack/packet, By Mouth, Daily at bedtime Ropinirole 0.25 mg Tablet (rOPINIRole 0.25 mg oral tablet) ??0.25 mg, By Mouth, Daily at bedtime Sertraline 25 mg Tablet (sertraline 25 mg oral tablet) ??75 mg, By Mouth, Daily Trazodone 50 mg Tablet (traZODone 50 mg oral tablet) ??100 mg, By Mouth, Daily at bedtime Venlafaxine 150 mg XR Capsule (venlafaxine 150 mg oral capsule, extended release) ??150 mg, By Mouth, Daily Ziprasidone 60 mg Capsule (ziprasidone 60 mg oral capsule) ??60 mg, By Mouth, 2 times a day with meals CONTINUOUS: (0) PRN: (17) Acetaminophen 325 mg Tablet (Acetaminophen Tablet) ??650 mg, By Mouth, Every 8 hours Al hydroxide/Mg hydroxide/simethicone 200 mg-200 mg-20 mg/5 mL Susp UD (Maalox Plus Liquid) ??30 mL, By Mouth, Every 8 hours Albuterol 90mcg/Inhalation Inhaler HFA (albuterol CFC free 90 mcg/inh inhalation aerosol) ??180 mcg2 puffs, By Mouth, Every 4 hours Baclofen 10 mg Tablet (baclofen 10 mg oral tablet) ??10 mg, By Mouth, 3 times a day Dicyclomine 10 mg Capsule (dicyclomine 10 mg oral capsule) ??10 mg 1 capsule, By Mouth, 4 times a day diphenhydrAMINE 25 mg Tablet (Benadryl Tablet) ??50 mg, By Mouth, Every 6 hours Haloperidol 5 mg Tablet (haloperidol 5 mg oral tablet) ??5 mg, By Mouth, Every 6 hours HydrOXYzine Pamoate 25mg Capsule (Vistaril Capsule) ??50 mg, By Mouth, Every 6 hours Ibuprofen 400 mg Tablet (Ibuprofen Tablet) ??400 mg, By Mouth, Every 8 hours Loperamide 2 mg Capsule (loperamide 2 mg oral capsule) ??2 mg, By Mouth, Every 3 hours Lorazepam 1 mg Tablet (LORazepam Tablet) ??1 mg, By Mouth, Every 8 hours Lorazepam 2 mg Inj Syringe (Ativan Inj) ??2 mg, Intramuscular, Once Lorazepam 2 mg Inj Syringe (LORazepam Inj) ??2 mg, Intramuscular, Once Lorazepam 2 mg Tablet (Ativan 2 mg oral tablet) ??2 mg, By Mouth, Every 6 hours Melatonin 3 mg Tablet (Melatonin Tablet) ??3 mg, By Mouth, Daily at bedtime nalOXONE ??400mcg/mL Inj (nalOXONE Inj) ??0.2 mg 0.5 mL, IV Push, Every 5 minutes Nicotine 2 mg Gum (Nicotine Gum) ??2 mg, Chew, Every hour ? Results Recent Labs TOXICOLOGY/TDM Valproic Level 41.7 mg/L (Low)?? 05/16/2022 02:07 ? [id number] Ventricular Rate: 50 ??BPM Atrial Rate: 50 ??BPM P-R Interval: 152 ??ms QRS Duration: 84 ??ms Q-T Interval: 456 ??ms QTC Calculation(Bazett): 415 ??ms P [place]: 43 ??degrees R [place]: 55 ??degrees T [place]: 13 ??degrees Sinus bradycardia Otherwise normal ECG No previous ECGs available Confirmed by BRIDGET, OLGA ([id number]) on 05/16/2022 8:34:27 AM [1] Assessment/Plan Assessment:? 05/09/22: In brief, this is a 37-year-old transgendered patient (they/them pronouns) with past medical history of hypothyroidism, asthma, cannabis and opioid??use disorder on methadone maintenance as well as past psychiatric history significant for depression, suicidality, and multiple inpatient psyc hiatric hospitalizations for treatment of the same, previously connected with [facility] services, who initially presented to [facility] on a section 12 signed by BAETRICE from??the [facility] on 05/09/22 for evaluation of worsening depression and suicidality with a plan for toxic ingestion of home medications. ??Of note, the patient had been seen at [facility] followed by [facility] for??similar concerns, most recently discharged??from [facility] ED on 05/07/22. At this point in time, the patient has been medically cleared and referred to Crisis Services??for evaluationand assistance with disposition for potential inpatient psychiatric hospitalization given ongoing suicidality. The emergency psychiatry service was consulted for assistance with medication management.?? Initial psychiatric evaluation was quite limited secondary to??patient struggling??with??opioid withdrawal symptoms and advocating for??methadone. ??Last dose letter was found in the patient's belongings from [facility] indicating??40 mg??daily, last received on 05/07/22 at 0959. ??Florencio did continue to endorse worsening depression, suicidal ideation with plans for toxic ingestion with this science writer. ??He advocated for reinitiation of home psychotropic medications??as noted in above HPI.?? In the interim,??as we await to receive records from??[facility], it seems reasonable to continue the Zoloft,??Effexor, Geodon, Depakote and prazosin. Explained to the patient thedifferential diagnoses, treatment options, risks of untreated illness, and??risks/benefits??of treatment. See below for additional details??on treatment recommendations. ?? 05/15/22:??Psychiatric re-evaluation notable for persistent active suicidal ideation with plan and patient's concern for possible under-dosing of??prazosin for night terrors, i.e. 5 mg PO QHS as opposed to 6 mg they say had been prescribed previously. Night terrors creeping up toward previous baseline of x5 nights weekly. Paradoxical response to melatonin is also worth considering. Patient raises concerns for appetite/weight changes on current dual SSRI/SNRI regimen, understands that this and other concerns about psychotropic regimen are best deferred to next/longitudinal level of care.??Please see below??for recommendations??(new/modified in bold). ?? 05/16/22: Partial improvement in sleep maintenance and diminished night terror intensity with prazosin titration to 6 mg PO QHS and melatonin decrease to 3 mg PO QHS PRN. Persistent affective instability during the day. Patient advocating for??further optimization of mood stabilizing regimen. Givensubtherapeutic valproate serum level, seems??reasonable to titrate.??Anticipating transfer to [facility] for [facility] tomorrow, E pod clinical and disposition team confirmed??presence of all??personal effects and reassured patient thereof, established plan for last dose methadone letter to be signed by EDprovider tomorrow 7AM. See bold/strikethrough below for new/modified recommendations. ?? Diagnoses: Depressive disorder unspecified Suicidal ideation Agitation Opioid use disorder, severe, on methadone maintenance Cannabis use, rule out cannabis use disorder Hypothyroidism Unsheltered homelessness Cluster B characterological defenses by history, rule out personality disorder Night terrors Constipation Rash ? Recommendations: -Disposition as per Crisis Services, albeit currently a bed search for inpatient psychiatric hospitalization. -Potential barriers to placement: History of agitation -Continue constant shove up. Patient may NOT leave [facility] without psychiatry clearance. -Continue methadone 40 mg PO daily. Last dose prior to [facility] ED presentation??was confirmed??from 05/07/2022 at 0959 from [facility]. Last-dose methadone letter for transfer to [facility] needed tomorrow at 7AM. -Continue??venlafaxine ER 150 mg PO daily -Continue sertraline 75 mg PO daily. Reinitiated 05/09/22??by patient request and??in prior corroboration with??[facility]??records, with further optimization as indicated??for anxiety/depression. -Continue ziprasidone 60 mg PO BID with meals. -Continue trazodone 100 mg PO QHS. Would??hold at current dose and avoid increasing to minimize recurrence of gender-dysphorically distressing erections. -Increase divalproex DR from 500 mg PO twice daily to 750 mg PO BID for mood stabilization and persistent sleep disturbance. Serum level 41.7 as of 05/16/22 at 02:07 was obtained??3 hrs 13 min after patient received??500 mg on 05/15/22 at 20:54.??Targeting targeting therapeutic??range 50-125 with further optimization if indication for impulsivity/agitation/mood stabilization. New total daily dose of 1500 mg approximates weight-based dosing at 20 mg/kg/day (1546 mg).??Repeat serum trough level, platelets, and liver function within 2-3 days. -Continue hydroxyzine 50 PO Q6H PRN anxiety, adding indication for itching to match patient-reported customary regimen. -Continue 6??mg PO daily at bedtime for nightmares. Increase from 5mg??according??to patient's preference and confidence that??6 mg PO QHS is the correct/previous dose,??to be held for SBP<90, DBP<60. -Continue melatonin from 9 mg to 3-6 mg PO QHS PRN insomnia. Decreased??targeting minimum effectivedose and in case of paradoxical sleep disturbance (worsening night terrors). - Discontinued 05/10/22 -Can utilize haloperidol 5 mg, lorazepam 2 mg, and diphenhydramine 50 mg PO/IM Q6H PRN agitation/psychosis.??The preference is for PO medications, but if the patient refuses the oral medications and there is sufficient acute safety concern, can judiciously utilize IM equivalents for severe agitation.?? -Would note that these medications are only being utilized in the ER while the patient awaits placement. Long-term need for these medications will need to be assessed by the patient's future treatingpsychiatrist. -ECG 05/16/22 showins reassuring QTc 415. -Please evaluate patient for??complaints of constipation and itchy rashes on??bilateral upper extremities. ?? Case discussed with supervising psychiatrist Dr. Beckman Recommendations cortexted to .??Alfreda Villeda and Dr. Almas Aden ?? Gerald Betancourt PASheryl (he/him) Emergency Psychiatry Services Division of Consultation-Liaison Psychiatry Department of Psychiatry [facility] [1]??12 Lead ECG; Olga Gutierrez MD 05/16/2022 02:13 EST * Harvey Beckman DO: PERFORM Event Display: Progress Note Hospital Authored Date: [id number] Supervising Physician: Chart reviewed and discussed the case and its management??with??Gerald Betancourt PA-C as documented. ??I agree with the assessment and plan as documented above based upon his evaluation.? Patient was transferred to [facility] this morning on 05/17/22 for further psychiatric stabilization. ?? Ranjeet Rosenberg.Judson.?? Sweatband Shaper, Emergency Psychiatry Services Division of Consultation-Liaison Psychiatry Department of Psychiatry [facility]? * Gerald Walden: MODIFY, MODIFY, MODIFY, MODIFY, MODIFY, MODIFY, MODIFY, MODIFY, MODIFY, MODIFY, MODIFY, MODIFY, PERFORM, MODIFY Event Display: Progress Note Hospital Authored Date: [id number] Patient: ??ARMIN TRAN ? Age:??37 Years?Sex:??Male?:??1985?? Subjective Chief complaint:? night terrors...my meds are all fucked up ?? Patient seen, chart reviewed, and discussed with treatment team.? Interval History:??Crisis follow-up notes 05/15/22 reveal??recent episode of psychomotor agitation??requiring de-escalation by?? clinician to??obviate need for involuntary chemical restraint, as well as??ongoing suicidal??ideation with plan for toxic ingestion, conditional on??non-receipt??of higher level of psychiatric care. Last documented receipt of IM chemical restraint??was 05/10/22 for agitation and aggression??toward RN.??Consulting ED psychiatrist Dr. Beckman discontinued clonidine 0.1 mg PO BID PRN opiate withdrawal symptoms on 05/10/22. Most recent voluntary (PO)??receipt of chemical??restraint for agitation??with haloperidol 5 mg, diphenhydramine 50 mg, and lorazepam 2 mg PO for agitation was??on 05/11/22, with multiple interim receipts of lorazepam??2 mg??and hydroxyzine 50 mg??formixed indications of anxiety and agitation. ?? On??follow-up interview, patient (Isaac, they/them)??is alert and oriented to all spheres.??Sharesfeelings of frustration??by not receiving??their medications??as they thought they should, specifically noting that they had been using prazosin??5 mg??+ 1 mg??pills (TDD 6 mg)??PO QHS??for night terrors before this presentation, whereas they are currently receiving only??5 mg PO QHS in the ED. Patient??finds the frequency of his night terrors??rising toward their previous baseline of 5 nights / weekly.??Currently also receiving melatonin 9 mg PO QHS PRN insomnia but they give to me every night even though I don't ask for it, denies having used it previously.??Patient clarifies he??normallytakes hydroxyzine for itching as opposed to anxiety, and that the only??anxiolytic PRN he uses regularly is lorazepam.??Shares concern about increased appetite and recurrent weight gain as he had experienced during a previous quetiapine trial, worrying that sertraline might cause similar symptoms. Notes??during??recent hospitalization at [facility] that?? Dr. Tong Dent had planned cross-taper from escitalopram to sertraline, currently receiving both as??would be consistent therewith. Also??states Dr. Tong Dent had??discussed prospect of further??increasing prazosin dose for night terrors. On doses of trazodone higher than current dose of 100 mg PO QHS??patient experienced gender- dysphorically distressing erections. ?? Reports good appetite and eating meals regularly. ??Sleeping well overnight, reporting no sleep disturbances, daytime sedation, or fatigue. ??ADLs??appear attentive without incident. ??Able to make needs known.??Patient denies any additional??symptoms concerning for anxiety, depression, delgado, psychosis or PTSD. Patient denies any suicidal ideation, homicidal ideation or desires for self-injurious behaviors.?? Review of Systems Pertinent positives as listed above in HPI.??Otherwise, remainder of review of systems negative. Objective ? Vital Signs?? Temperature: 98.2 DegF (05/15/22 14:34:00) Temperature Route: Oral (05/15/22 14:34:00) Pulse Rate: 70 bpm (05/15/22 14:34:00) Respiratory Rate: 18 br/min (05/15/22 14:34:00) Systolic Blood Pressure: 110 mm Hg (05/15/22 14:34:00) Diastolic Blood Pressure: 61 mm Hg (05/15/22 14:34:00) Blood pressure sites: Arm, right (05/15/22 14:34:00) Mean Arterial Pressure: 77 mm Hg (05/15/22 14:34:00) Pulse Pressure: 49 mm Hg (05/15/22 14:34:00) Oxygen Saturation: 97 % (05/15/22 14:34:00) Mode of Delivery (Oxygen): Room air (05/15/22 14:34:00) ? Physical Exam Mental Status Exam Appearance: Casual, disheveled, seated in bed under covers Eye contact: Limited Attitude: Guarded, irritable Motor Activity: Restless Mood: Depressed Affect: Congruent, restricted Speech: Nonspontaneous, normal rate, low tone and??normal prosody Perception: No reported AVH;??no internal preoccupation or responding to internal stimuli Orientation: Intact to person, place, situation Memory: Grossly intact Thought Process: Coherent, goal-directed Thought Content: Themes of hopelessness and??helplessness. Now focused on psychotropic medications. Reliability: Limited historian Insight: Limited Judgment: Limited Impulse control: Limited Suicidality/Self-destructive Behavior: Ongoing suicidal ideation with plan. Homicidality/Violence: None Muscle strength/tone: Antigravity. No rigidity noted. Moving all four extremities spontaneously. Not observed ambulating.?? _ ?? Inpatient Medications Medications (28) Active SCHEDULED: (11) Divalproex 500 mg Tablet (Depakote Tablet) ??500 mg, By Mouth, 2 times a day Haloperidol Lactate 5 mg/mL Inj (1 mL) (Haloperidol LACTATE Inj) ??5 mg 1 mL, Intramuscular, Once Levothyroxine 100 mcg Tablet (levothyroxine 0.1 mg oral tablet) ??100 mcg, By Mouth, Daily Methadone 10 mg Tablet (Methadone Tablet) ??40 mg, By Mouth, Daily Prazosin 1 mg Capsule (Minipress 1 mg oral capsule) ??6 mg, By Mouth, Daily at bedtime Psyllium Powder (Metamucil Powder) ??5.85 Gm 1 pack/packet, By Mouth, Daily at bedtime Ropinirole 0.25 mg Tablet (rOPINIRole 0.25 mg oral tablet) ??0.25 mg, By Mouth, Daily at bedtime Sertraline 25 mg Tablet (sertraline 25 mg oral tablet) ??75 mg, By Mouth, Daily Trazodone 50 mg Tablet (traZODone 50 mg oral tablet) ??100 mg, By Mouth, Daily at bedtime Venlafaxine 150 mg XR Capsule (venlafaxine 150 mg oral capsule, extended release) ??150 mg, By Mouth, Daily Ziprasidone 60 mg Capsule (ziprasidone 60 mg oral capsule) ??60 mg, By Mouth, 2 times a day with meals CONTINUOUS: (0) PRN: (17) Acetaminophen 325 mg Tablet (Acetaminophen Tablet) ??650 mg, By Mouth, Every 8 hours Al hydroxide/Mg hydroxide/simethicone 200 mg-200 mg-20 mg/5 mL Susp UD (Maalox Plus Liquid) ??30 mL, By Mouth, Every 8 hours Albuterol 90mcg/Inhalation Inhaler HFA (albuterol CFC free 90 mcg/inh inhalation aerosol) ??180 mcg2 puffs, By Mouth, Every 4 hours Baclofen 10 mg Tablet (baclofen 10 mg oral tablet) ??10 mg, By Mouth, 3 times a day Dicyclomine 10 mg Capsule (dicyclomine 10 mg oral capsule) ??10 mg 1 capsule, By Mouth, 4 times a day diphenhydrAMINE 25 mg Tablet (Benadryl Tablet) ??50 mg, By Mouth, Every 6 hours Haloperidol 5 mg Tablet (haloperidol 5 mg oral tablet) ??5 mg, By Mouth, Every 6 hours HydrOXYzine Pamoate 25mg Capsule (Vistaril Capsule) ??50 mg, By Mouth, Every 6 hours Ibuprofen 400 mg Tablet (Ibuprofen Tablet) ??400 mg, By Mouth, Every 8 hours Loperamide 2 mg Capsule (loperamide 2 mg oral capsule) ??2 mg, By Mouth, Every 3 hours Lorazepam 1 mg Tablet (LORazepam Tablet) ??1 mg, By Mouth, Every 8 hours Lorazepam 2 mg Inj Syringe (Ativan Inj) ??2 mg, Intramuscular, Once Lorazepam 2 mg Inj Syringe (LORazepam Inj) ??2 mg, Intramuscular, Once Lorazepam 2 mg Tablet (Ativan 2 mg oral tablet) ??2 mg, By Mouth, Every 6 hours Melatonin 3 mg Tablet (Melatonin Tablet) ??3 mg, By Mouth, Daily at bedtime nalOXONE ??400mcg/mL Inj (nalOXONE Inj) ??0.2 mg 0.5 mL, IV Push, Every 5 minutes Nicotine 2 mg Gum (Nicotine Gum) ??2 mg, Chew, Every hour ? Results Recent Labs VIROLOGY COVID-19 by RT-PCR NEGATIVE ()?? 05/14/2022 16:13 ? Test Name Test Result Date/TimeAST (SGOT) 22 units/L 05/08/2022 16:40 EST ALT (SGPT) 12 units/L 05/08/2022 16:40 EST Valproic Level 49.5 mg/L (Low) 05/08/2022 16:40 EST Assessment/Plan Assessment:? 05/09/22: In brief, this is a 37-year-old transgendered patient (they/them pronouns) with past medical history of hypothyroidism, asthma, cannabis and opioid??use disorder on methadone maintenance as well as past psychiatric history significant for depression, suicidality, and multiple inpatient psyc hiatric hospitalizations for treatment of the same, previously connected with [facility] services, who initially presented to [facility] on a section 12 signed by Marquis from??the [facility] on 05/09/22 for evaluation of worsening depression and suicidality with a plan for toxic ingestion of home medications. ??Of note, the patient had been seen at [facility] followed by [facility] for??similar concerns, most recently discharged??from [facility] on 05/07/22. At this point in time, the patient has been medically cleared and referred to Crisis Services??for evaluationand assistance with disposition for potential inpatient psychiatric hospitalization given ongoing suicidality. The emergency psychiatry service was consulted for assistance with medication management.?? Initial psychiatric evaluation was quite limited secondary to??patient struggling??with??opioid withdrawal symptoms and advocating for??methadone. ??Last dose letter was found in the patient's belongings from [facility] indicating??40 mg??daily, last received on 05/07/22 at 0959. ??Florencio did continue to endorse worsening depression, suicidal ideation with plans for toxic ingestion with this science writer. ??He advocated for reinitiation of home psychotropic medications??as noted in above HPI.?? In the interim,??as we await to receive records from??[facility], it seems reasonable to continue the Zoloft,??Effexor, Geodon, Depakote and prazosin. Explained to the patient thedifferential diagnoses, treatment options, risks of untreated illness, and??risks/benefits??of treatment. See below for additional details??on treatment recommendations. ?? 05/15/22:??Psychiatric re-evaluation notable for persistent active suicidal ideation with plan and patient's concern for possible under-dosing of??prazosin for night terrors, i.e. 5 mg PO QHS as opposed to 6 mg they say had been prescribed previously. Night terrors creeping up toward previous baseline of x5 nights weekly. Paradoxical response to melatonin is also worth considering. Patient raises concerns for appetite/weight changes on current dual SSRI/SNRI regimen, understands that this and other concerns about psychotropic regimen are best deferred to next/longitudinal level of care.??Please see below??for recommendations??(new/modified in bold). ? Diagnoses: Depressive disorder unspecified Suicidal ideation Agitation Opioid use disorder, severe, on methadone maintenance Cannabis use, rule out cannabis use disorder Hypothyroidism Unsheltered homelessness Cluster B characterological defenses by history, rule out personality disorder Night terrors ? Recommendations: -Disposition as per Crisis Services, albeit currently a bed search for inpatient psychiatric hospitalization. -Potential barriers to placement: History of agitation -Continue constant shove up. Patient may NOT leave AMA without psychiatry clearance. -Continue methadone 40 mg PO daily. Last dose prior to [facility] presentation??was confirmed??from 05/07/2022 at 0959 from [facility]. Can also utilize Clonidine/Bentyl/Imodium PRN opioid withdrawal. -Continue??venlafaxine ER 150 mg PO daily -Continue sertraline 75 mg PO daily. Reinitiated 05/09/22??by patient request and??in prior corroboration with??[facility]??records, with further optimization as indicated??for anxiety/depression. -Continue ziprasidone 60 mg PO BID with meals. -Continue trazodone 100 mg PO QHS. Would??hold at current dose and avoid increasing to minimize recurrence of gender-dysphorically distressing erections. -Continue divalproex DR 500 mg PO twice daily. Serum level 49.5 as of 05/08/22 16:40 (unknown interval since most recent dose). Repeat valproic serum level, ideally??trough, targeting therapeutic??range 50-125 with further optimization if indication for impulsivity/agitation/mood stabilization. -Continue hydroxyzine 50 PO Q6H PRN anxiety, adding indication for itching to match patient-reported customary regimen. -Increase prazosin from 5 to 6??mg PO daily at bedtime for nightmares,??according??to patient's preference and confidence that??6 mg PO QHS is the correct/previous dose,??to be held for SBP<90, DBP<60. -Decrease melatonin from 9 mg to 3-6 mg PO QHS PRN insomnia targeting minimum effective dose and incase of paradoxical sleep disturbance (worsening night terrors). -Discontinued 05/10/22 -Can utilize haloperidol 5 mg, lorazepam 2 mg, and diphenhydramine 50 mg PO/IM Q6H PRN agitation/psychosis.??The preference is for PO medications, but if the patient refuses the oral medications and there is sufficient acute safety concern, can judiciously utilize IM equivalents for severe agitation.?? -Would note that these medications are only being utilized in the ER while the patient awaits placement. Long-term need for these medications will need to be assessed by the patient's future treatingpsychiatrist. -Reviewed previous add-on lab orders: for AST, ALT within normal limits, valproic serum subtherapeutic (see above). -Follow up ECG ordered for baseline QT/QTc as the patient is on multiple potential QT-prolonging agents. ?? Case discussed with supervising psychiatrist Dr. Beckman Recommendations cortexted to Dr. Stacy Armijo ?? Gerald Betancourt PA-C (he/him) Emergency Psychiatry Services Division of Consultation-Liaison Psychiatry Department of Psychiatry [facility] * Harvey Beckman DO: PERFORM Event Display: Progress Note Hospital Authored Date: [id number] Supervising Physician: Chart reviewed and discussed the case and its management??with??Gerald Betancourt PA-C as documented. ??I agree with the assessment and plan as documented above based upon his evaluation.? Harvey Beckman, D.O.?? [employer], Emergency Psychiatry Services Division of Consultation-Liaison Psychiatry Department of Psychiatry [facility]? Patient Care team information Care Team Personnel Name: Not on Staff, PCP Position: [facility] Physician (General Medicine) Member Role: PCP Name: *[facility], ED Attending Position: [facility] ED Attendings Patient Name: Keiko GUAJARDO, Almas Gifford Position: [facility] ED Medicine MD Member Role: ED Attending Physician Address: Address: [address] [place] [address]- Name: Clare Tavarez RN Position: [facility] ED RN W/OE and Tasks Member Role: Patient Care Provider Name: Artemio GUAJARDO, Guillermina Mittal Position: [facility] ED Medicine MD Member Role: ED Attending Physician Address: Address: [address] [place] [address]- Care Team Related Persons Name: JASPAL CONSTANTINO Name: MATT ARMIJO Address: [place] [address]
--- OUTSIDE RECORDS SUMMARY | 2023-09-14 12:22 | XMS_ITS | Continuity of Care Document ---
Author Organization [facility] ter Address [address] [place] [address]- Care Team Providers Care Office Services Clerk Name Role Phone Not on Staff, PCP Primary Care Physician Unavail able Encounter [facility] [place](s): 04/07/23 - 04/09/[address] [address]- Discharge Disposition: A-D/C Home Attending Physician: Gabino Phoenix DO Admitting Physician: Gabino Phoenix DO Referring Physician: Not on Staff, Referring MD Allergies, Adverse Reactions, Alerts Substance Reaction Severity Status penicillin Active Immunizations Given and Recorded Vaccine Date Status Refusal Reason [id number] bivalent booster vax 11/15/22 Recorded hepatitis B [...] 01/17/23 15:02:00 EDT, Route to Pharmacy Electronically, [facility], Partial fill upon patient request if theprescription is for a schedule II opioid drug., 165... Start Date: 01/17/23 Stop Date: 03/18/23 Status: Ordered albuterol CFC free 90 mcg/inh inhalation aerosol 2, puffs, Inhalation, 4 times a day, PRN, # 75 Gm, Refills 0, Tot. Refills 0, Maintenance, 06/11/2309:30:00 EST, Aerosol, Route to Pharmacy Electronically, [id number], [facility]-, 165, cm, 12/25/21 4:34:00 EDT, Height,... Start Date: 06/11/22 Status: Ordered baclofen 10 mg oral tablet 10 mg, 1, tablet, By Mouth, 3 times a day, PRN, # 90 tablet, Refills 0, Tot. Refills 0, Maintenance, Spasm, 06/11/22 10:26:00 EST, Route to Pharmacy Electronically, [facility]-, Partial fill upon patient request if the prescrip... Start Date: 06/11/22 Status: Ordered divalproex sodium 500 mg oral enteric coated tablet See Instructions, 1,000 mg By Mouth Daily at bedtime 30 days, # 60 tablet, 0 Refills, Maintenance, 01/17/23 15:00:00 EDT, Tablet, [facility], Partial fill upon patient request [...] 01/17/23 15:01:00 EDT, Route to Pharmacy Electronically, [facility], Partial fill upon patient request [...] 0 Refills, Maintenance, 06/11/22 10:25:00 EST, Tablet, [facility], Partial fill upon patient request if the prescription is for a schedule II opioid drug., 165, cm,... Start Date: 06/11/22 Status: Ordered sertraline 50 mg oral tablet 2 tablet = 100 mg, By Mouth, Daily, # 60 tablet, 0 Refills, Maintenance, 06/11/22 10:25:00 EST, Tablet, [facility], Partial fill upon patient request if the prescription is for a schedule II opioid drug., 165, cm, 12/25/21 4:3... Start Date: 06/11/22 Status: Ordered traZODone 50 mg oral tablet 100 mg, 2, tablet, By Mouth, Daily at bedtime, PRN, # 10 tablet, Refills 0, Tot. Refills 0, Maintenance, Insomnia, 06/11/22 10:25:00 EST, Route to Pharmacy Electronically, [facility], Partial fill upon patient request if the p... Start Date: 06/11/22 Status: Ordered Problem List Condition Confirmation Course Effective Dates Status Health [facility] Informant COVID-19 1 Confirmed 11/28/21 Active 1Problem added by Discern Expert Vital Signs Most recent to oldest [Reference Range]: 1 2 3 Height 165 cm (04/09/23 9:01 AM) 165 cm (04/09/23 6:00 AM) 165 cm (04/08/23 5:47 AM) Weight 74 kg (04/09/23 9:01 AM) 74 kg (04/09/23 6:00 AM) 74 kg (04/08/23 5:47 AM) Oxygen Saturation [94-100 %] 100 % (04/09/23 9:01 AM) 100 % (04/09/23 6:00 AM) 98 % (04/08/23 1:40 PM) Pulse Rate [55-90 bpm] 103 bpm *H* (04/09/23 9:01 AM) 85 bpm (04/09/23 6:00 AM) 88 bpm (04/08/23 1:40 PM) Body Mass Index [18.5-24.99 kg/m2] 27.18 kg/m2 *H* (04/09/23 9:01 AM) 27.18 kg/m2 *H* (04/09/23 6:00 AM) 27.18 kg/m2 *H* (04/08/23 5:47 AM) Blood Pressure [90-138/55-84 mm Hg] 130/97mm Hg (04/09/23 9:01 AM) 127/88mm Hg (04/09/23 6:00 AM) 118/66mm Hg (04/08/23 1:40 PM) Respiratory Rate [16-30 br/min] 18 br/min (04/09/23 9:01 AM) 18 br/min (04/09/23 6:00 AM) 18 br/min (04/09/23 4:52 AM) Temperature [96.8-100.4 DegF] 97.5 DegF (04/09/23 9:01 AM) 98.4 DegF (04/08/23 9:45 AM) 98.0 DegF (04/07/23 5:35 PM) Mode of Delivery (Oxygen) Room air (04/09/23 9:01 AM) Room air (04/09/23 6:00 AM) Room air (04/08/23 1:40 PM) Blood pressure sites Arm, left (04/09/23 9:01 AM) Arm, right (04/09/23 6:00 AM) Arm, right (04/08/23 1:40 PM) Temperature Route Oral (04/09/23 9:01 AM) Oral (04/08/23 9:45 AM) Oral (04/07/23 5:35 PM) Dry Weight 74 kg (04/09/23 9:01 AM) 74 kg (04/09/23 6:00 AM) 74 kg (04/08/23 5:47 AM) Social History Social History Type Response Tobacco Use: 4 or less cigar ettes(less than 1/4 pack)/day in last 30 days. Sex Consult note * Harvey Beckman DO: PERFORM, MODIFY Event Display: Consultation Note Authored Date: [id number] Patient: ??ARMIN TRAN ? Age:??38 Years?Sex:??Male?:??1985? Extensive chart review was performed, and case discussed with treatment team.? In brief, this is a??37-year-old transgender male to female patient with past psychiatric history significant for unspecified depressive disorder, posttraumatic stress disorder, cluster B personalitydisorder, gender dysphoria, suicidality, and multiple prior inpatient psychiatric hospitalizations for treatment of the same as well as medical history notable for hypothyroidism, seizure disorder, asthma, psoriasis, and polysubstance misuse (cocaine use disorder, THC use disorder, IVDU), who initially presented to [facility] on 04/07/2023 for evaluation of worsening depression, suicidal ideation with plans to jump off a bridge.?? Initial vital signs were hemodynamically stable.?? Labs demonstrated no leukocytosis, normocytic anemia with hemoglobin of 12.8, no electrolyte derangements, mild prerenal dehydration with BUN 23, but creatinine 1.1.?? Elevated TSH 19.00, but free T4 was within normal limits.?? Serum ethanol is not detected.?? Depakote level was subtherapeutic at 20.9.?? Urine toxicology was positive for cannabinoids and cocaine, but otherwise negative for barbiturates, benzodiazepines, vitamins, and opiates.?? Virology testing was positive for RSV, but otherwise negative for influenza A, B, and COVID???19.??At this point in time, the patient has been medically cleared and referred to [facility] for evaluation and assistance with disposition for potential inpatient psychiatric hospitalization. The initial crisis evaluation had in fact been concerned for depression, multiple neurovegetative symptoms, and suicidality concerning for major depressive disorder, recurrent episode, of moderate severity.?? An adjustment disorder versus substance-withdrawal depressive mood disorder is potentially also on the differential, albeit less likely. The emergency psychiatry service was subsequently consulted for evaluation of medication management. Based on chart review and in discussion with the crisis team, there is concern for medication nonadherence overthe last several weeks and this seems to be corroborated by the subtherapeutic Depakote levels on lab testing today.?? In the interim, it seems reasonable to initiate Depakote ER 500 mg PO daily at bedtime with additional titration as clinically indicated for mood stabilization??as well as home prazosin??2 mg PO??daily at bedtime.?? In addition, will also start Vistaril 50 mg PO Q6H PRN anxiety and Trazodone 50 mg PO daily at bedtime PRN insomnia. Can also utilize Zyprexa 5 mg and Benadryl 50 mg PO/IM Q6H PRN agitation/psychosis. The preference is for PO medications, but if the patient refuses the oral medications and there is sufficient acute safety concern, can judiciously utilize IM equivalents for severe agitation. No additional changes were made to scheduled psychotropic medications at this time. Would note that these medications are only being utilized in the ER and/or medical floors while the patient awaits placement. Long-term need for these medications will need to be assessed by the patient's future treating psychiatrist. Disposition is ultimately deferred to [facility] services.?Would note that??RSV positive infection is going to be a potential barrier to placement??moving forward??if symptomatic. ?Vitals:?? 04/07/2023 07:55?Height ?165 cm 04/07/2023 07:55?Weight ?74 kg ? 04/07/2023 07:55?Dry Weight ?74 kg ? 04/07/2023 07:55?Body Mass Index ?27.18 kg/m2 ? 04/07/2023 07:55?Body surface area ?1.84 ? 04/07/2023 07:55?BSA Rocco ?1.81 ? 04/07/2023 07:55?Temperature ?97.4 DegF 04/07/2023 07:55?Temperature route: ?Oral ? 04/07/2023 07:55?Pulse Rate ?54 bpm ? 04/07/2023 07:55?Respiratory Rate ?16 br/min ? 04/07/2023 07:55?Systolic Blood Pressure ?114 mm Hg ? 04/07/2023 07:55?Diastolic Blood Pressure ?81 mm Hg ? 04/07/2023 07:55?Blood pressure sites ?Arm, left ? 04/07/2023 07:55?Mean Arterial Pressure ?92 mm Hg ? 04/07/2023 07:55?Pulse Pressure ?33 mm Hg ? 04/07/2023 07:55?Oxygen Saturation ?100 % ? 04/07/2023 07:55?Mode of delivery (oxygen) ?Room air ?Active Problems??(1) COVID-19 ?Medications (10) Active SCHEDULED: (3) Divalproex Sodium 500mg ER Tablet (Depakote ER Tablet) ??500 mg, By Mouth, Daily at bedtime Levothyroxine 100 mcg Tablet (levothyroxine 0.1 mg oral tablet) ??100 mcg, By Mouth, Daily Prazosin 1 mg Capsule (prazosin 1 mg oral capsule) ??2 mg, By Mouth, Daily at bedtime CONTINUOUS: (0) PRN: (7) Acetaminophen 325 mg Tablet (Acetaminophen Tablet) ??650 mg, By Mouth, Every 8 hours diphenhydrAMINE 25 mg Tablet (Benadryl Tablet) ??50 mg, By Mouth, Every 6 hours HydrOXYzine Pamoate 25mg Capsule (Vistaril Capsule) ??50 mg, By Mouth, Every 6 hours Lorazepam 1 mg Tablet (LORazepam Tablet) ??1 mg, By Mouth, Every 8 hours Melatonin 3 mg Tablet (Melatonin Tablet) ??9 mg, By Mouth, Daily at bedtime Olanzapine 5 mg Tablet (olanzapine 5 mg oral tablet) ??5 mg, By Mouth, Every 6 hours Trazodone 50 mg Tablet (traZODone 50 mg oral tablet) ??50 mg, By Mouth, Daily at bedtime? Hematology Event Name?? Event Result?? Date/Time?? WBC 8 k/mm3 04/07/23 02:22:00 RBC 4.14 m/mm3??Low 04/07/23 02:22:00 Hgb 12.8 Gm/dL??Low 04/07/23 02:22:00 Hct 37.9 %??Low 04/07/23 02:22:00 MCV 91.5 femtoliters 04/07/23 02:22:00 MCH 30.9 pg 04/07/23 02:22:00 MCHC 33.8 g/dL 04/07/23 02:22:00 Platelet Count 283 k/mm3 04/07/23 02:22:00 RDW-SD 45.4 femtoliters 04/07/23 02:22:00 MPV 9.5 femtoliters 04/07/23 02:22:00 Nucleated RBC (Automated) 0 #/100 WBC'S 04/07/23 02:22:00 Abs. NRBC 0 k/mm3 04/07/23 02:22:00 Abs. Neut 4.2 k/mm3 04/07/23 02:22:00 Abs. Lymph 2.7 k/mm3 04/07/23 02:22:00 Abs. [place] 0.7 k/mm3 04/07/23 02:22:00 Abs. Eo 0.4 k/mm3 04/07/23 02:22:00 Abs. Baso 0.1 k/mm3 04/07/23 02:22:00 Neut % 53 % 04/07/23 02:22:00 Lymph % 33.6 % 04/07/23 02:22:00 [place] % 8.2 % 04/07/23 02:22:00 Eos % 4.4 % 04/07/23 02:22:00 Baso % 0.6 % 04/07/23 02:22:00 Imm Gran 0.2 % 04/07/23 02:22:00 Abs. Imm Gran 0 k/mm3 04/07/23 02:22:00 ? Chemistry Event Name?? Event Result?? Date/Time?? Sodium 141 mmol/L 04/07/23 02:22:00 Potassium 4.1 mmol/L 04/07/23 02:22:00 Chloride 105 mmol/L 04/07/23 02:22:00 Bicarbonate Level 27 mmol/L 04/07/23 02:22:00 Anion Gap 9 04/07/23 02:22:00 Glucose Level 119 mg/dL??High 04/07/23 02:22:00 BUN 23 mg/dL??High 04/07/23 02:22:00 Creatinine-Blood 1.1 mg/dL 04/07/23 02:22:00 Estimated GFR Creatinine 93 ML/MIN/1.73 M2 04/07/23 02:22:00 Calcium 8.9 mg/dL 04/07/23 02:22:00 Protein, Total 6.2 Gm/dL 04/07/23 02:22:00 Albumin 4.2 Gm/dL 04/07/23 02:22:00 AST (SGOT) 80 units/L??High 04/07/23 02:22:00 ALT (SGPT) 132 units/L??High 04/07/23 02:22:00 TSH 19 uIU/mL??High 04/07/23 02:22:00 Free T4 0.8 ng/dL 04/07/23 02:22:00 Ethanol, Serum or Plasma NONE DETECTED 04/07/23 02:22:00 Valproic Level 20.9 mg/L??Low 04/07/23 02:22:00 Barbiturate Screen, Urine NONE DETECTED 04/07/23 02:27:00 Cannabinoid Screen, Urine POSITIVE Abnormal 04/07/23 02:27:00 Cocaine Metabolite Screen, Urine POSITIVE Abnormal 04/07/23 02:27:00 Benzodiazepine Screen, Urine NONE DETECTED 04/07/23 02:27:00 Amphetamine Screen, Urine NONE DETECTED 04/07/23 02:27:00 Opiate Screen, Urine NONE DETECTED 04/07/23 02:27:00 ? Microbiology Event Name?? Event Result?? Date/Time?? Influenza A PCR NEGATIVE 04/07/23 02:27:00 Influenza B PCR NEGATIVE 04/07/23 02:27:00 RSV PCR POSITIVE Abnormal 04/07/23 02:27:00 COVID-19 PCR Specimen Source NASAL 04/07/23 02:27:00 COVID-19 PCR Result NEGATIVE 04/07/23 02:27:00 ? Urine Stuudies Event Name?? Event Result?? Date/Time?? Est Creatinine Clearance 80.64 mL/min 04/07/23 03:08:48 ?ECG 12-Lead ?? 13:18:13 Please click on pdf link to open report ?? Signed By: Semaj Price MD ?? ECG 12-Lead ?? 13:18:13 Ventricular Rate: 86 BPM Atrial Rate: 86 BPM P-R Interval: 140 ms QRS Duration: 84 ms Q-T Interval: 376 ms QTC Calculation(Bazett): 449 ms P [place]: 44 degrees R [place]: 30 degrees T [place]: 25 degrees Normal sinus rhythm Normal ECG When compared with ECG of 26-AUG-2022 11:12, Vent. rate has increased BY 39 BPM Confirmed by SEMAJ PRICE ([id number]) on 01/19/2023 1:28:30 PM ?? Lehr: SEMAJ PRICE ?? Signed By: Semaj Price MD? Assessment:?? Depressive disorder unspecified Rule out MDD/R/S Suicidal ideation Traumatic stress disorder by history Cluster B personality disorder by history Gender dysphoria by history Nonadherence to medications Cocaine use disorder??by history Cannabis use disorder by history RSV??infection ? 25 minutes time spent on this consult included review of the patient's medical records, lab and/or imaging studies, medication profiles, writing chart notes, communicating with healthcare professionals, with 15 minutes of the service devoted to medical consultative discussion with the treating/requesting provider, Dr. Semaj Cardona and crisis team. ?? Harvey Beckman D.O.?? Body Trimmer Upholsterer, Emergency Psychiatry Services Division of Consultation-Liaison Psychiatry Department of Psychiatry [facility]?? Note * Gabino Phoenix DO: PERFORM, SIGN, VERIFY Event Display: Patient Education Handout Authored Date: * Gabino Phoenix DO: PERFORM Event Display: Patient Education Leaflets Authored Date: [id number] Depression ?? [id number] Depression Depression is a very common mental health problem. It's not just a state of being unhappy or sad. It's a true disease. The cause seems to be linked to a change in chemicals that send signals in the brain. These things increase a person???s risk of depression: ??? A family history of depression, alcoholism, or suicide ??? Chronic illness ??? Chronic pain ???Migraine headaches ??? High emotional stress Depression may be easier to see in others. You may have a hard time seeing it in yourself. It can show in many physical and emotional ways. These include: ??? Loss of appetite ??? Overeating ??? Not being able to sleep ??? Sleeping too much ??? A lot of tiredness not linked to physical activity ??? Restlessness or irritability ??? Slowness of movement or speech ??? Feeling sad or withdrawn ??? Loss of interest in things you once enjoyed ??? Trouble??concentrating, remembering,??or making decisions ??? Thoughts of harming or killing yourself, or thoughts that life is not worth living ??? Low self-esteem The treatment for depression may include both medicine and psychotherapy. Antidepressants can ease symptoms. They can also make it easier for you to do daily tasks. Therapy can offer emotional support. It can also help you understand things that may be causing the depression. Home care ??? Ongoing care and support help people manage this disease. Find a healthcare provider and therapist who meet your needs. Get help when you feel like you may be getting ill. ??? Be kind to yourself. Make it a point to do things that you enjoy. This may be gardening, walking in nature, or going to a movie. Reward yourself for small successes. ??? Take care of your body. Eat a balanced diet. Eat foods low in saturated fat. Eat a lot of fruits and vegetables. Exercise at least 3 times a week for 30 minutes. Even mild to moderate exercise like brisk walking can make you feel better. ??? Take medicine as prescribed. Don't stop your medicine or change the dose unless you talk with your healthcare provider. ??? Once you start medicine, expect your symptoms to get better slowly. Depression will lift over time. It doesn't get better right away. Ask your healthcare provider how long it will take for a medicine to start working. ??? Don't share your medicine. Don???t use someone else's medicine. ??? Tell your healthcare providers all the medicines you take. This includes prescription and xigz-ccy-teovgcj medicines. It includes vitamins and herbal supplements. Some supplements caninteract with medicines. They can cause dangerous side effects. Ask your pharmacist about medicine interactions when you have questions. ??? Don't make major decisions until you feel better. This incl udes things such as a job change, a divorce, or a marriage. ??? Don't drink alcohol. It can make depression worse. ??? Talk with your family and??trusted friends??about your feelings and thoughts.??Ask them to help you notice behavior changes early. You can then get help and, if needed, your medicine can be changed. ??? Talk with your healthcare provider if you are not getting better. They may change your medicine or have you try another treatment. ?? Follow-up care Follow up with your healthcare provider as advised. ?? Crisis care Call 988 if you have thoughts of harming yourself or others. When you call or text [phone], you will beconnected to trained crisis counselors. An online chat option is also available. [employer] is free and available 11/11. 988 counselors will work with 911 to help you get the care you need. Call 911 if you: ??? Have trouble breathing ??? Are??very confused ??? Feel very drowsy or have??trouble awakening ??? Faint ??? Have new chest pain that becomes more severe, lasts longer, or spreadsinto your shoulder, arm, neck, jaw, or back ?? When to get medical care Call your healthcare provider right away if any of these happen: ??? Your symptoms get worse ??? You have extreme depression, fear, anxiety, or anger toward yourself or others ??? You feel out of control ??? You feel that you may try to harm yourself or another ??? You hear voices other people don't hear ??? You see things other people don't see ??? You don't sleep or eat for 3 days in a row ??? Friends or family express concern over your behavior and ask you to get help ?? Last Reviewed Date: 2021 ?? 5856-7909 [employer]. All rights reserved. This information is not intended as a substitute for professional medical care. Always follow your healthcare professional's instructions. ?? * Gabino Phoenix DO: PERFORM Event Display: Patient Education Leaflets Authored Date: [id number] Viral Syndrome (Adult) ?? [id number] Viral Syndrome (Adult) A viral illness may cause many symptoms such as fever. Other symptoms depend on the part of the body that the virus affects. If it settles in your nose, throat, and lungs, it may cause cough, sore throat, congestion, runny nose, headache, earache and other ear symptoms, or shortness of breath. If it settles in your stomach and intestinal tract, it may cause nausea, vomiting, cramping, and diarrhea. Sometimes it causes generalized symptoms like aching all over, feeling tired, loss of energy, or loss of appetite. A viral illness often lasts anywhere from a few days to a few weeks. But sometimes it lasts longer.In some cases, a more serious infection can look like a viral syndrome in the first few days of theillness. You may need another exam and additional tests to know the difference. Watch for the warning signs listed below for when to get medical advice. Home care Follow these guidelines for taking care of yourself at home: ??? If symptoms are severe, rest at home for the first 2 to 3 days. ??? Stay away from cigarette smoke - both your smoke and the smoke from others. ??? You may use ejhu-dcd-rfddwpu??acetaminophen or ibuprofen for fever, muscle aching, and headache, unless another medicine was prescribed for this. Antibiotics aren't used to treat viral infections. If you have chronic liver or kidney disease or ever had a stomach ulcer or gastrointestinal bleeding, talk with your healthcare provider before using these medicines. No one who is younger than 18 and ill with a fever should take aspirin. It may cause severe disease or . ??? Your appetite may be poor, so a light diet is fine. Prevent dehydration by drinking 8 to 12, 8-ounce glassesof fluids each day. This may include water; orange juice; lemonade; apple, grape, and cranberry juice; clear fruit drinks; electrolyte replacement and sports drinks; and decaffeinated teas and coffee. If you've been diagnosed with a kidney disease, ask your healthcare provider how much and what types of fluids you should drink to prevent dehydration. If you have kidney disease, drinking too much fluid can cause it build up in your body and be dangerous to your health. ??? Albh-acs-jueobiu remedies won't shorten the length of the illness. But they may be helpful for symptoms such as cough, sore throat, nasal and sinus congestion, or diarrhea. Don't use decongestants if you have high blood pressure. ?? Follow-up care Follow up with your healthcare provider if you don't get better over the next week. ?? Call 911 Call 911 if any of these occur: ??? Convulsion ??? Feeling weak, dizzy, or like you are going to faint ??? Chest pain, or more than mild shortness of breath ?? When to get medical advice Call your healthcare provider right away if any of these occur: ??? Cough with lots of colored sputum (mucus) or blood in your sputum ??? Chest pain, shortness of breath, wheezing, or trouble breathing ??? Severe headache; face, neck, or ear pain ??? Severe, constant pain in the lower right side ofyour belly (abdominal) ??? Continued vomiting (can???t keep liquids down) ??? Frequent diarrhea (more than 5 times a day), or blood (red or black color) or mucus in diarrhea ??? Feeling weak, dizzy, or like you are going to faint ??? Extreme thirst ??? Fever of 100.4??F (38??C) or higher, or as directed by your provider ?? Last Reviewed Date: 2021 ?? [id number] [employer]. All rights reserved. This information is not intended as a substitute for professional medical care. Always follow your healthcare professional's instructions. ?? Patient Care team information Care Team Personnel Name: Nargis Carlos Position: [facility] RN Member Role: Primary Care Nurse Name: Geri Holder RN Position: [facility] RN Member Role: Primary Care Nurse Name: Not on Staff, PCP Position: [facility] Physician (General Medicine) Member Role: PCP Name: Meeta Kaminski RN Position: [facility] RN Member Role: Primary Care Nurse Name: *[facility], ED Attending Position: [facility] ED Attendings Patient Name: Gabino Phoenix DO Position: [facility] ED Medicine MD Member Role: Admitting Physician Address: Address: [address] [place] [address]- Name: Lynn Posey RN Position: [facility] ED RN W/OE and Tasks Member Role: Patient Care Provider Name: Deedee Lopez Position: [facility] ED [facility] Care Team Related Persons Name: CONSTANTINO TAYGabbi Name: ZOFIA, MATT Address: [place] [address]
--- OUTSIDE RECORDS SUMMARY | 2023-09-14 12:22 | XMS_ITS | Continuity of Care Document ---
Author Organization [facility] ter Address [address] [place] [id number]- Care Team Providers Care Whistle Punk Name Role Phone Not on Staff, PCP Primary Care Physician Unavail able Encounter [facility] [place] Date(s): 08/22/23 - 08/25/[address] [address]- Discharge Disposition: Transfer to [facility] Facility Attending Physician: Semaj Cardona MD Admitting Physician: Semaj Cardona MD Referring Physician: Not on Staff, Referring MD Allergies, Adverse Reactions, Alerts Substance Reaction Severity Status penicillin Active Immunizations Given and Recorded Vaccine Date Status Refusal Reason tetanus/diphtheria/pertussis, acel(Tdap) 08/22/23 Given tetanus/diphtheria/pertussis, acel(Tdap) 02/27/15 Recorded influenza virus vaccine, inactivated 04/23/23 Give n influenza virus vaccine, inactivated 03/09/20 Pierre rded influenza virus vaccine, inactivated 02/04/20 Pierre rded influenza virus vaccine, inactivated 04/19/19 Pierre rded influenza virus vaccine, inactivated 05/07/16 Pierre rded influenza virus vaccine, inactivated 12/15/14 Pierre rded [id number] bivalent booster vax 11/15/22 Recorded hepatitis B adult vaccine 09/18/22 Recorded hepatitis B adult vaccine 12/07/21 Recorded hepatitis B adult vaccine 07/24/21 Recorded hepatitis B adult vaccine 03/09/20 Recorded SARS-CoV-2 (COVID-19) mRNA-1273 vaccine 09/04/21 R ecorded SARS-CoV-2 (COVID-19) Ad26 vaccine 10/02/20 Record ed tetanus-diphtheria toxoids (Td) 01/02/19 Recorded Medications albuterol CFC free 90 mcg/inh inhalation aerosol 180 mcg, 2, puffs, Inhalation, Every 4 hours, PRN, # 8 Gm, Refills 0, Tot. Refills 0, Maintenance, 06/04/23 10:32:00 EST, Inhaler, Route to Pharmacy Electronically, [id number], [facility], 163, cm, 06/04/23 8:23:... Start Date: 06/04/23 Status: Ordered baclofen 10 mg oral tablet 5 mg, Tablet, By Mouth, 08/24/23 21:00:00 EDT Start Date: 08/24/23 Stop Date: 08/24/23 Status: Completed baclofen 10 mg oral tablet 5 mg, Tablet, By Mouth, 08/25/23 9:00:00 EDT Start Date: 08/25/23 Stop Date: 08/25/23 Status: Completed baclofen 5 mg oral tablet 1 tablet = 5 mg, By Mouth, 3 times a day, # 90 tablet, 0 Refills, Maintenance, 06/04/23 10:32:00 EST, Tablet, [facility], Partial fill upon patient request if the prescription is fora schedule II opioid drug., 163, cm, 06/04/23 8:23:00 E... Start Date: 06/04/23 Status: Ordered buprenorphine-naloxone 4 mg-1 mg sublingual film 1 film, Sublingual, Daily, # 6 film, 0 Refills, Maintenance, 06/04/23 10:32:00 EST, Film, [facility], Partial fill upon patient request if the prescription is for a schedule II opioid drug., 1 film Sublingual Daily, 163, cm, 06/04/23 8:23... Start Date: 06/04/23 Status: Ordered busPIRone 10 mg oral tablet 10 mg, 1, tablet, By Mouth, 3 times a day, # 90 tablet, Refills 0, Tot. Refills 0, Maintenance, 06/04/23 10:32:00 EST, Route to Pharmacy Electronically, [facility], Partial fill uponpatient request if the prescription is for a schedule I... Start Date: 06/04/23 Status: Ordered estradiol 2 mg oral tablet 1 tablet = 2 mg, By Mouth, Daily, # 30 tablet, 0 Refills, Maintenance, 06/04/23 10:32:00 EST, Tablet, [facility], Partial fill upon patient request if the prescription is for a schedule II opioid drug., 163, cm, 06/04/23 8:23:00 EST, Heig... Start Date: 06/04/23 Status: Ordered guanFACINE 3 mg oral tablet, extended release 1 tablet = 3 mg, By Mouth, Daily at bedtime, # 30 tablet, 0 Refills, Maintenance, 06/04/23 10:32:00EST, ER Tablet, [facility], Partial fill upon patient request if the prescription is for a schedule II opioid drug., 163, cm, 06/04/23 8:2... Start Date: 06/04/23 Status: Ordered hydrOXYzine pamoate 50 mg oral capsule 1 capsule = 50 mg, By Mouth, Every 6 hours, PRN Anxiety, # 60 capsule, 0 Refills, Maintenance, 06/04/23 10:32:00 EST, Capsule, [facility], Partial fill upon patient request if the prescription is for a schedule II opioid drug., 163, cm, 0... Start Date: 06/04/23 Status: Ordered levothyroxine 0.1 mg oral tablet 1 tablet = 100 mcg, By Mouth, Daily, # 30 tablet, 0 Refills, Maintenance, 06/04/23 10:32:00 EST, Tablet, [facility], Partial fill upon patient request if the prescription is for a schedule II opioid drug., 163, cm, 06/04/23 8:23:00 EST, H... Start Date: 06/04/23 Status: Ordered loratadine 10 mg oral tablet 10 mg, 1, tablet, By Mouth, Daily, # 30 tablet, Refills 0, Tot. Refills 0, Maintenance, 06/04/23 10:32:00 EST, Route to Pharmacy Electronically, [facility], Partial fill upon patientrequest if the prescription is for a schedule II opioid... Start Date: 06/04/23 Status: Ordered melatonin 3 mg oral tablet = 3 mg, By Mouth, Daily at supper, 0 Refills, Maintenance, 06/02/23 15:51:00 EST, Tablet, Partial fill upon patient request if the prescription is for a schedule II opioid drug. Start Date: 06/02/23 Status: Ordered Metamucil Powder 1 pack/packet = 5.85 Gm, By Mouth, Daily, 0 Refills, Maintenance, 06/02/23 15:53:00 EST, Powder, Partial fill upon patient request if the prescription is for a schedule II opioid drug. Start Date: 06/02/23 Status: Ordered MiraLax Powder 1 pack/packet = 17 Gm, By Mouth, Daily, 0 Refills, Maintenance, 06/02/23 15:53:00 EST, Powder, Partial fill upon patient request if the prescription is for a schedule II opioid drug. Start Date: 06/02/23 Status: Ordered Multivit/Iron/Minerals Chew Tablet 1 tablet, Chew, Daily, 0 Refills, Maintenance, 06/02/23 15:52:00 EST, Chew Tablet, Partial fill upon patient request if the prescription is for a schedule II opioid drug. Start Date: 06/02/23 Status: Ordered Nicoderm C-Q Clear 7 mg/24 hr transdermal film, extended release 1 patch, Topically, Daily, apply to skin remove at bedtime, # 30 patch, 0 Refills, Maintenance, 06/04/23 10:32:00 EST, Patch, [facility], Partial fill upon patient request if the prescription is for a schedule II opioid drug., 163, cm, 0... Start Date: 06/04/23 Status: Ordered OXcarbazepine 300 mg oral tablet 300 mg, 1, tablet, By Mouth, 2 times a day, # 60 tablet, Refills 0, Tot. Refills 0, Maintenance, 06/04/23 10:32:00 EST, Route to Pharmacy Electronically, [facility], Partial fill upon patient request if the prescription is for a schedule... Start Date: 06/04/23 Status: Ordered pantoprazole 40 mg oral delayed release tablet 1 tablet = 40 mg, By Mouth, 2 times a day, # 60 tablet, 0 Refills, Maintenance, 06/04/23 10:32:00 EST, EC Tablet, 163, cm, 06/04/23 8:23:00 EST, Height, 73, kg, 04/22/23 16:17:00 EST, Dry Weight Start Date: 06/04/23 Status: Ordered QUEtiapine 50 mg oral tablet 1 tablet = 50 mg, By Mouth, Daily at bedtime, # 30 tablet, 0 Refills, Maintenance, 06/04/23 10:32:00 EST, Tablet, [facility], Partial fill upon patient request if the prescription isfor a schedule II opioid drug., 163, cm, 06/04/23 8:23:... Start Date: 06/04/23 Status: Ordered Senna 8.6 mg oral tablet 8.6 mg, 1, tablet, By Mouth, Daily at bedtime, # 30 tablet, Refills 0, Tot. Refills 0, Maintenance,06/04/23 10:32:00 EST, Route to Pharmacy Electronically, [facility] Tablet, Partial fill upon patient request if the prescription is for a... Start Date: 06/04/23 Status: Ordered spironolactone 25 mg oral tablet 25 mg, 1, tablet, By Mouth, Daily, # 30 tablet, Refills 0, Tot. Refills 0, Maintenance, 06/04/23 10:32:00 EST, Route to Pharmacy Electronically, [facility], Partial fill upon patientrequest if the prescription is for a schedule II opioid... Start Date: 06/04/23 Status: Ordered traZODone 150 mg oral tablet 1 tablet = 150 mg, By Mouth, Daily at bedtime, # 30 tablet, 0 Refills, Maintenance, 06/04/23 10:32:00 EST, Tablet, [facility], Partial fill upon patient request if the prescription is for a schedule II opioid drug., 163, cm, 06/04/23 8:23... Start Date: 06/04/23 Status: Ordered Problem List Condition Confirmation Course Effective Dates Status H ealth Status Informant Anemia Confirmed Active Bradycardia Confirmed Active Chronic constipation Confirmed Active Hep C w/o coma, chronic Confirmed Active COVID-19 1 Confirmed 11/28/21 Active Environmental allergies Confirmed Active Hypothyroidism Confirmed Active Seizure disorder Confirmed Active 1Problem added by Discern Expert Results Radiology Reports * Exam Date Time Procedure Performing Provider Status 08/24/23 12:16 PM Pelvis 1 or 2 Views Kati Dodson; Baltzaar (Verified) Notes: (Pelvis 1 or 2 Views) Reason For Exam: Foreign Body RESULT: Pelvis 1 or 2 Views Pelvis 1 or 2 Views Hx of Present Illness: Ambulatory to triage desk stating I'm suicidal , cut left wrist w a pair ofscissors.; Reason: Foreign Body; Clinical Question(s): Foreign Body COMPARISON: Plain film of the pelvis from yesterday FINDINGS: There is no fracture or dislocation. Normal hips and sacroiliac joints. Normal soft tissues. No radiopaque foreign body. IMPRESSION: No acute finding. WSN: [id number] Ordering Physician: Leilani Shaw Dictated By: Alexandra Worthington MD Dictated Date/Time: 08/24/23 12:30 p Reviewed By: Alexandra Worthington MD Signed By: Alexandra Worthington MD Signed Date/Time: 08/24/23 12:30 pm Transcribed By: HARPER Transcribed Date/Time: 08/24/23 12:28 pm * Exam Date Time Procedure Performing Provider Status 08/23/23 12:31 AM Pelvis 1 or 2 Views Lachelle Rodríguez; Baltazar (Verified) Notes: (Pelvis 1 or 2 Views) Reason For Exam: Foreign Body RESULT: Pelvis 1 or 2 Views Pelvis 1 or 2 Views Hx of Present Illness: Ambulatory to triage desk stating I'm suicidal , cut left wrist w a pair ofscissors.; Reason: Foreign Body; Clinical Question(s): Foreign Body COMPARISON: 08/06/2023 FINDINGS: There is no fracture or dislocation. Normal hips and sacroiliac joints. Normal soft tissues. There is a curvilinear thin metallic object in the penile urethra. IMPRESSION: Penile urethra foreign body. Correlation with physical exam is advised. An actionable message (Kimble) has been communicated via the [employer] system on 08/23/2023 6:26 AM, Message ID [id number]. WSN: [id number] Ordering Physician: Bro May Dictated By: Sameera Irving MD Dictated Date/Time: 08/23/23 6:26 am Reviewed By: Sameera Irving MD Signed By: Sameera Irving MD Signed Date/Time: 08/23/23 6:26 am Transcribed By: HARPER Transcribed Date/Time: 08/23/23 6:24 am Vital Signs Most recent to oldest [Reference Range]: 1 2 3 Height 170 cm (08/25/23 12:29 PM) 170 cm (08/22/23 6:13 PM) Weight 74 kg (08/25/23 12:29 PM) 74 kg (08/22/23 6:13 PM) Oxygen Saturation [94-100 %] 100 % (08/25/23 4:54 AM) 100 % (08/23/23 5:45 AM) 100 % (08/22/23 6:13 PM) Pulse Rate [55-90 bpm] 76 bpm (08/25/23 4:54 AM) 75 bpm (08/23/23 5:45 AM) 78 bpm (08/22/23 6:13 PM) Body Mass Index [18.5-24.99 kg/m2] 25.61 kg/m2 *H* (08/22/23 6:13 PM) Blood Pressure [90-138/55-84 mm Hg] 110/72mm Hg (08/25/23 4:54 AM) 120/68mm Hg (08/23/23 5:45 AM) 115/67mm Hg (08/22/23 6:13 PM) Respiratory Rate [16-30 br/min] 16 br/min (08/25/23 9:25 AM) 16 br/min (08/25/23 4:54 AM) 14 br/min *L* (08/24/23 9:26 PM) Temperature [96.8-100.4 DegF] 98.4 DegF (08/25/23 4:54 AM) 96.6 DegF *L* (08/22/23 6:13 PM) Mode of Delivery (Oxygen) Room air (08/25/23 4:54 AM) Room air (08/24/23 2:34 PM) Room air (08/24/23 12:40 PM) Blood pressure sites Arm, right (08/23/23 5:45 AM) Arm, right (08/22/23 6:13 PM) Temperature Route Oral (08/25/23 4:54 AM) Axillary (08/22/23 6:13 PM) Dry Weight 74 kg (08/25/23 12:29 PM) 74 kg (08/22/23 6:13 PM) Weight Obtained Via Patient/family state d (08/22/23 6:13 PM) Dry Weight Obtained Via Patient/family s tated (08/22/23 6:13 PM) Social History Social History Type Response Tobacco Use: 4 or less cigar ettes(less than 1/4 pack)/day in last 30 days. Interested in cessation: Yes. Yes, Other: patch + gum. Sex Male Patient Care team information Care Team Personnel Name: Kade Rdz RN Position: [facility] RN Member Role: Primary Care Nurse Name: Nargis Carlos Position: [facility] RN Member Role: Primary Care Nurse Name: Fouzia Pimentel RN Position: [facility] RN Member Role: Primary Care Nurse Name: Geri Holder RN Position: [facility] RN Member Role: Primary Care Nurse Name: Geon Pelletier RN Position: [facility] RN Member Role: Primary Care Nurse Name: Ally Avery RN Position: [facility] RN Member Role: Primary Care Nurse Name: Linh Cintron RN Position: [facility] RN Member Role: Primary Care Nurse Name: Courtney Luz RN Position: [facility] RN Rissav Member Role: Primary Care Nurse Name: Kelley Monson Position: [facility] RN Member Role: Primary Care Nurse Name: Not on Staff, PCP Position: [facility] Physician (General Medicine) Member Role: PCP Name: Meeta Kaminski RN Position: [facility] RN Member Role: Primary Care Nurse Name: Latha Cisneros RN Position: [facility] RN Member Role: Primary Care Nurse Name: Armin Rosales RN Position: [facility] RN Member Role: Primary Care Nurse Name: Fritz Gonzalez RN Position: [facility] RN Member Role: Primary Care Nurse Name: Kim Cabrera RN Position: [facility] RN Member Role: Primary Care Nurse Care Team Related Persons Name: NOTAVARES, NOONE Name: CHRIS ARMIJO Address: [address] [address]
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
--- OUTSIDE RECORDS SUMMARY | 2023-09-14 12:22 | XMS_ITS | Continuity of Care Document ---
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 Delivery (Oxygen): Room air (08/23/22:24:00) Early Warning Score: 8 (08/23/22 22:25:28) ? Physical Exam General:??Sweating, seems tired HEENT:??Moist mucus membranes Respiratory:??Clear to auscultation bilaterally Cardiovascular:??Normal rate, regular rhythm, no murmurs Abdomen:??Soft, non tender Musculoskeletal:??No LE edema Neurologic:??Alert Skin:??Warm and dry Psych: Seems depressed Assessment/Plan Armin (goes by Isaac) is a??37-year-old transgender female (goes by she/her) with a past medical history of hypothyroidism, asthma, cannabis and opiate use disorder as well as a psychiatrist history significant for depression, suicidality, and multiple inpatient??psychiatric hospitalizations who isadmitted for??left hand cellulitis and possible intoxication/SI. ?? Left Hand Cellulitis Concern for Sepsis Has needle freedman on left arm. Hand is also painful and swollen. Sensation intact, but ROM limited due to pain. Concerning for sepsis given leukocytosis and hypotension requiring IVF. Given history of drug abuse and positive Utox, Will need to cover for MRSA. Plan: - Vancomycin - Trend lactate - Follow up blood cultures obtained in the ED - IVF ?? Suicidal Ideation Depression History of suicidality and multiple psychiatric hospitalizations ED report patient endorsing SI, but she denied when I saw her. Plan: - Continue depakote 250 in the morning and 1000 at night, prazosin 5 mg daily at night, trazodone 100 mg daily at night, ziprasidone 60 mg twice daily, ropirinole 0.25mg daily, and zyprexa 5mg every 6 hours PRN - Psych consult in the AM - Constant [employer] ? Substance Use Disorder Opioid Use Disorder Patient denied anything except marijuana, however Utox was positive for cocaine as well. Previous note from 05/09/22 states patient is on methadone. This needs to be clarified in the AM and if yes, dose needs to be confirmed with clinic. Plan: - Add on urine fentanyl - Consult addiction medicine - Consult social work ? Chronic Stable Medical Conditions: - Asthma: Continue PRN albuterol - Hypothyroidism: Continue levothyroxine 100mcg ?? Note: Med rec was done with help of patient and external med rec. It need stop be re-confirmed withthe patient once she is more awake in the AM. ?? Quality Metrics: Diet: Regular DVT/VTE Prophylaxis: Hold for now CODE STATUS: Full, presumed ?? Patient has been??seen and discussed with Dr. Mohit Samuels??MD [facility] ?? Histories Allergies Allergies ?(Active and Proposed Allergies Only) penicillin? (Severity: Unknown severity, Onset: Unknown) ? Past Medical History/Problem List Active Problems??(1) COVID-19 ? Past Surgical History No surgery history documented. ? Social History Alcohol Details:??Use: Never. Substance Abuse Details:??Type: Marijuana. Tobacco Details:??Use: 4 or less cigarettes(less than 1/4 pack)/day in last 30 days. Electronic Cigarette/Vaping Details:??Electronic Cigarette Use: Never. ? Family History No family history recorded. ? Medications Home Medications Albuterol (ProAir HFA 90 mcg/inh inhalation aerosol with adapter)?INHALE 2 PUFFS BY MOUTH INTO THE lungs EVERY 6 HOURS Albuterol (albuterol CFC free 90 mcg/inh inhalation aerosol)?2?puff(s)?Inhalation?4 times a day?as needed?for wheezing Baclofen (baclofen 10 mg oral tablet)?10?Milligram?1?tablet?By Mouth?3 times a day?as needed?Spasm Divalproex Sodium (Depakote 500 mg oral enteric coated tablet)?1?tab(s)?500?Milligram?By Mouth?2 times a day Divalproex Sodium (Depakote 250 mg oral enteric coated tablet)?See Instructions?250 mg daily in the morning and 1000 mg daily qHS Levothyroxine (levothyroxine 0.1 mg oral tablet)?TAKE ONE TABLET BY MOUTH EVERY DAY Levothyroxine (levothyroxine 0.1 mg oral tablet)?1?tab(s)?0.1?Milligram?By Mouth?Daily Olanzapine (olanzapine 5 mg oral tablet)?5?Milligram?1?tablet?By Mouth?Every 6 hours?as needed?Agitation Prazosin (prazosin 5 mg oral capsule)?TAKE ONE CAPSULE BY MOUTH EVERY NIGHT AT BEDTIME Ropinirole (rOPINIRole 0.25 mg oral tablet)?TAKE ONE TABLET BY MOUTH EVERY NIGHT AT BEDTIME Ropinirole (rOPINIRole 0.25 mg oral tablet)?1?tab(s)?0.25?Milligram?By Mouth?Daily at bedtime Sertraline (sertraline 50 mg oral tablet)?2?tab(s)?100?Milligram?By Mouth?Daily Trazodone (traZODone 50 mg oral tablet)?100?Milligram?2?tablet?By Mouth?3 times aday Trazodone (traZODone 50 mg oral tablet)?100?Milligram?2?tablet?By Mouth?Daily at bedtime?as needed?Insomnia Venlafaxine (venlafaxine 150 mg oral capsule, extended release)?TAKE ONE CAPSULE BY MOUTH DAILY Ziprasidone (ziprasidone 20 mg oral capsule)?See Instructions?3 capsules By Mouth 2 times a day Ziprasidone (ziprasidone 60 mg oral capsule)?1?capsule?60?Milligram?By Mouth?2 times a day ? Inpatient Medications Medications (2) Active SCHEDULED: (1) NaCl 0.9% Flush 3ml (NaCL 0.9% Flush) ??3 mL, IV Push, Every 8 hours CONTINUOUS: (0) PRN: (1) NaCl 0.9% Flush 3ml (NaCL 0.9% Flush) ??3 mL, IV Push, Every 8 hours ? Results Recent Labs BLOOD COUNT & DIFF WBC 17.1 k/mm3 (High)?? 08/23/2022 18:17 RBC 4.29 m/mm3 (Low)?? 08/23/2022 18:17 Hgb 12.6 Gm/dL (Low)?? 08/23/2022 18:17 Hct 39.2 % (Low)?? 08/23/2022 18:17 MCV 91.4 femtoliters ()?? 08/23/2022 18:17 MCH 29.4 pg ()?? 08/23/2022 18:17 MCHC 32.1 g/dL (Low)?? 08/23/2022 18:17 Platelet Count 208 k/mm3 ()?? 08/23/2022 18:17 RDW-SD 41.3 femtoliters ()?? 08/23/2022 18:17 MPV 10.1 femtoliters ()?? 08/23/2022 18:17 Nucleated RBC (Automated) 0.0 #/100 WBC'S ()?? 08/23/2022 18:17 Abs. NRBC 0.0 k/mm3 ()?? 08/23/2022 18:17 Abs. Neut 16.1 k/mm3 (High)?? 08/23/2022 18:17 Abs. Lymph 0.3 k/mm3 (Low)?? 08/23/2022 18:17 Abs. [place] 0.5 k/mm3 ()?? 08/23/2022 18:17 Abs. Eo 0.0 k/mm3 ()?? 08/23/2022 18:17 Abs. Baso 0.0 k/mm3 ()?? 08/23/2022 18:17 Neut % 94.3 % (High)?? 08/23/2022 18:17 Lymph % 1.6 % (Low)?? 08/23/2022 18:17 [place] % 3.1 % (Low)?? 08/23/2022 18:17 Eos % 0.0 % ()?? 08/23/2022 18:17 Baso % 0.2 % ()?? 08/23/2022 18:17 Imm Gran 0.8 % ()?? 08/23/2022 18:17 Abs. Imm Gran 0.1 k/mm3 ()?? 08/23/2022 18:17 ?? CHEM GENERAL Sodium 139 mmol/L ()?? 08/23/2022 18:17 Potassium 4.0 mmol/L ()?? 08/23/2022 18:17 Chloride 100 mmol/L ()?? 08/23/2022 18:17 Bicarbonate Level 27 mmol/L ()?? 08/23/2022 18:17 Anion Gap 12 ()?? 08/23/2022 18:17 Glucose Level 143 mg/dL (High)?? 08/23/2022 18:17 BUN 21 mg/dL (High)?? 08/23/2022 18:17 Creatinine-Blood 1.1 mg/dL ()?? 08/23/2022 18:17 Estimated GFR Creatinine 86 ML/MIN/1.73 M2 ()?? 08/23/2022 18:17 Calcium 8.4 mg/dL (Low)?? 08/23/2022 18:17 Lactate 1.7 mmol/L ()?? 08/23/2022 19:18 ?? ENDOCRINE/TUMOR MARKER TSH 3.89 uIU/mL ()?? 08/23/2022 18:17 ?? TOXICOLOGY/TDM Ethanol, Serum or Plasma NONE DETECTED mg/dL ()?? 08/23/2022 18:17 ?? URINE OTHER Est Creatinine Clearance 85.02 mL/min ()?? 08/23/2022 22:23 ?? VIROLOGY COVID-19 by RT-PCR NEGATIVE ()?? 08/23/2022 18:33 ? * Almas Rueda MD: PERFORM Event Display: Admission Note Authored Date: ??Attending Attestation: I have seen and evaluated this patient.?? I have discussed the case and its management with the resident and agree with the findings and brigitte documented in the resident's note.?? I?? will continue to provide care to this patient till 7 AMof the admitting date.?? 37-year-old male known by her/she with a past medical history of depression, hypothyroidism, psoriasis, ADHD, PTSD, bipolar disorder, polysubstance abuse, right hand surgery who did come with a complaint of left hand swelling.?? X-ray of the left hand ruled out any fracture or dislocation.?History of IV drug abuse.?? Lab work-up showed high WBC count and high BUN.?? Concern of left hand cellulitis.?? We will continue with the vancomycin.?? We will get a addiction medicine consult.?? We willget a social service liaison consult because of homelessness.?? She was expressing suicidal thoughts to the ED physician before that she denied during my examination.?? We will have a constant lunchroom supervisor and psych evaluation.?? Family history positive for psych issues.?? Her medication need to be reconciled in the morning time because of some discrepancy.?? Blood pressure was low that got better with IV fluid.?? If there could be any decompensation then will add on Zosyn too and will move him to the [facility].?? Currently no sign or symptoms of hypoperfusion.?? Urine toxicology positive for cannabinoidand cocaine. EKG study * Event Display: ECG 12-Lead Authored Date: Please click on pdf link to open report * Event Display: ECG 12-Lead Authored Date: Ventricular Rate: 47 BPM Atrial Rate: 47 BPM P-R Interval: 132 ms QRS Duration: 80 ms Q-T Interval: 474 ms QTC Calculation(Bazett): 419 ms P Ord: 62 degrees R Ord: 57 degrees T Ord: 46 degrees Sinus bradycardia Otherwise normal ECG When compared with ECG of 09-JUN-2022 22:50, T wave inversion no longer evident in Inferior leads Confirmed by DANNY AGOSTO ([id number]) on 08/26/2022 2:56:36 PM Jackson: DANNY AGOSTO [facility] Progress note * Meeta Kaminski RN: PERFORM, SIGN, VERIFY Event Display: [facility] Authored Date: Patient: ARMIN MURRY Age: 37 years Sex: Male : 1985 Associated Diagnoses: None Author: Meeta Kaminski RN RN ran after pt in daily parking lot d/t leaving unit without going over paper work. Pt was angry and stated i dont need to sign anything, [facility] [employer] will cover it whether I sign or not . RN was able to convince pt to come back to the unit for a proper d/c. Pt A&O x3. VSS. Pt denies pain, Chest pain or SOB, or dizziness at this time. PT tolerating PO w/o problem. IV Discontinued, D/C Paperwork reviewed and hard copy given to patient. Patient verbalizes understanding of needed to pickle maker ABX script, PT walked out MRI door without any staff assistance d/t not wanting to wait for transport. Discharge Information Case Management Discharge Plan : Case Management Discharge Plan Data 08/26/2022 14:57 EDT Discharge Level of Care at Discharge Home/Snf/Foster Care * Grace Jade MD: MODIFY, MODIFY, PERFORM Event Display: [facility] Authored Date: Patient: ??ARMIN MURRY ? Age:??37 Years?Sex:??Male?:??1985?? Subjective Chart reviewed. No overnight events. ?? Florencio is approached in her room as she is playing a game on her phone. She appears distracted by the game but engages superficially with this program writer. She states that she's feeling alright currently. She confirms struggling with depression for the past 2 months because people keep stealing [her] meds. She explains that she's homeless and lives in the [facility]. She reports that [facility] mistreated her and kicked her out after she stuck up for [her]self. When this program writer bringsup other shelters, she states shelters don't want to work with me. She denies any current suicidality, homicidality, or hallucinations, and expresses desire to be discharged. She confirms she no ramakrishna michelle wants to go to inpatient psychiatry because she feels it won't be helpful. She irritably expresses concern about getting her medications after discharge since [facility] won't pay for them. Otherwise, she has no concerns about returning to her home in the [facility]. She denies any questions or concerns. ?? Review of Systems Pertinent positives as listed above in HPI. Otherwise, remainder of review of systems negative. Allergies Allergies ?(Active and Proposed Allergies Only) penicillin? (Severity: Unknown severity, Onset: Unknown) Objective Vital Signs?? Temperature: 97.6 DegF (08/26/22 11:43:00) Temperature Route: Oral (08/26/22 11:43:00) Pulse Rate:??47 bpm??Low (08/26/22 11:43:00) Respiratory Rate: 17 br/min (08/26/22 11:43:00) Systolic Blood Pressure:??148 mm Hg??High (08/26/22 11:43:00) Diastolic Blood Pressure:??86 mm Hg??High (08/26/22 11:43:00) Blood pressure sites: Arm, right (08/26/22 11:43:00) Mean Arterial Pressure: 107 mm Hg (08/26/22 11:43:00) Pulse Pressure: 62 mm Hg (08/26/22 11:43:00) Oxygen Saturation: 100 % (08/26/22 11:43:00) Mode of Delivery (Oxygen): Room air (08/26/22 11:43:00) Early Warning Score: 3 (08/26/22 11:47:04) Temperature, Opiate Withdrawal: 98.1 DegF (08/26/22 10:30:00) Temperature Route, Opiate Withdrawal: Oral (08/26/22 10:30:00) Pulse Rate, Opiate Withdrawal: 56 bpm (08/26/22 10:30:00) Respiratory Rate, Opiate Withdrawal: 19 br/min (08/26/22 10:30:00) Systolic BP, Opiate Withdrawal: 123 mm Hg (08/26/22 10:30:00) Diastolic BP, Opiate Withdrawal: 84 mm Hg (08/26/22 10:30:00) ?? Intake/Output? 08/23 21:17 05 07:00 05 07:00 05 07:00 08/23 07:00 ?? 08/26 11:50 08/26 11:50 0508 06:59 0507 06:59 05 06:59 Intake ? 1240 ?0 ?480 ?360 ?400 Output ? 2400 ?0 ? 2100 ?300 ?0 Net Total ?-1160 ?0 ?-1620 ? 60 ?400 ? Urine Count ?4 ?0 ?1 ?3 ?0 ?? Physical Exam Mental Status Exam Appearance: dressed in hospital gown,??NAD, fairly groomed, wearing eye shadow Eye contact: staring at phone throughout encounter, intermittent eye contact when irritable Attitude: guarded, irritable, dismissive Motor Activity:??no tremors, no psychomotor agitation or??slowing Mood: alright Affect: congruent, constricted Speech: brief responses, normal rate, harsh??tone Perception: No delusions, AVH, paranoia, or abnormal thought content elicited Orientation: intact ? Memory: intact Thought Process: linear, organized Thought Content: appropriate to encounter Insight: limited Judgment: limited Suicidality/Self-destructive Behavior: denies Homicidality/Violence: denies ?? MSK Exam:??able to move all 4 extremities spontaneously. No rigidity noted. _ Inpatient Medications Medications (17) Active SCHEDULED: (10) Divalproex Sodium 250mg ER Tablet (Depakote ER Tablet) ??250 mg, By Mouth, Daily in AM Divalproex Sodium 500mg ER Tablet (Depakote ER Tablet) ??1,000 mg, By Mouth, Daily at bedtime Estradiol 1 mg Tablet (estradiol 1 mg oral tablet) ??1 mg, By Mouth, 2 times a day before breakfastand dinne Levothyroxine 100 mcg Tablet (levothyroxine 0.1 mg oral tablet) ??100 mcg, By Mouth, Daily NaCl 0.9% Flush 3ml (NaCL 0.9% Flush) ??3 mL, IV Push, Every 8 hours Prazosin 1 mg Capsule (Prazosin Capsule) ??7 mg, By Mouth, Daily at bedtime Ropinirole 0.25 mg Tablet (rOPINIRole 0.25 mg oral tablet) ??0.25 mg, By Mouth, Daily at bedtime Sertraline 50 mg Tablet (sertraline 50 mg oral tablet) ??100 mg, By Mouth, Daily Vancomycin 1250 mg Inj (Vancomycin IVPB) ??1,250 mg, IVPB, Every 12 hours Ziprasidone 60 mg Capsule (ziprasidone 60 mg oral capsule) ??60 mg, By Mouth, 2 times a day CONTINUOUS: (0) PRN: (7) Albuterol 90mcg/Inhalation Inhaler HFA (albuterol CFC free 90 mcg/inh inhalation aerosol) ??180 mcg2 puffs, Inhalation, 4 times a day Baclofen 10 mg Tablet (baclofen 10 mg oral tablet) ??10 mg, By Mouth, 3 times a day HydrOXYzine Pamoate 25mg Capsule (hydrOXYzine pamoate 25 mg oral capsule) ??100 mg, By Mouth, Every6 hours NaCl 0.9% Flush 3ml (NaCL 0.9% Flush) ??3 mL, IV Push, Every 8 hours Olanzapine 5 mg Tablet (olanzapine 5 mg oral tablet) ??5 mg, By Mouth, Every 6 hours OxyCODONE 5 mg IR Tablet (oxyCODONE 5 mg oral tablet) ??5 mg, By Mouth, Every 6 hours Trazodone 50 mg Tablet (traZODone 50 mg oral tablet) ??50 mg, By Mouth, Daily at bedtime Results Recent Labs BLOOD COUNT & DIFF WBC 6.6 k/mm3 ()?? 08/26/2022 02:10 RBC 3.81 m/mm3 (Low)?? 08/26/2022 02:10 Hgb 11.3 Gm/dL (Low)?? 08/26/2022 02:10 Hct 34.4 % (Low)?? 08/26/2022 02:10 MCV 90.3 femtoliters ()?? 08/26/2022 02:10 MCH 29.7 pg ()?? 08/26/2022 02:10 MCHC 32.8 g/dL (Low)?? 08/26/2022 02:10 Platelet Count 172 k/mm3 ()?? 08/26/2022 02:10 RDW-SD 40.7 femtoliters ()?? 08/26/2022 02:10 MPV 10.4 femtoliters ()?? 08/26/2022 02:10 Nucleated RBC (Automated) 0.0 #/100 WBC'S ()?? 08/26/2022 02:10 Abs. NRBC 0.0 k/mm3 ()?? 08/26/2022 02:10 Abs. Neut 4.5 k/mm3 ()?? 08/26/2022 02:10 Abs. Lymph 1.4 k/mm3 ()?? 08/26/2022 02:10 Abs. [place] 0.6 k/mm3 ()?? 08/26/2022 02:10 Abs. Eo 0.2 k/mm3 ()?? 08/26/2022 02:10 Abs. Baso 0.0 k/mm3 ()?? 08/26/2022 02:10 Neut % 67.2 % ()?? 08/26/2022 02:10 Lymph % 20.8 % ()?? 08/26/2022 02:10 [place] % 8.7 % ()?? 08/26/2022 02:10 Eos % 2.3 % ()?? 08/26/2022 02:10 Baso % 0.5 % ()?? 08/26/2022 02:10 Imm Gran 0.5 % ()?? 08/26/2022 02:10 Abs. Imm Gran 0.0 k/mm3 ()?? 08/26/2022 02:10 ?? CHEM GENERAL Sodium 143 mmol/L ()?? 08/26/2022 02:10 Potassium 4.0 mmol/L ()?? 08/26/2022 02:10 Chloride 109 mmol/L (High)?? 08/26/2022 02:10 Bicarbonate Level 25 mmol/L ()?? 08/26/2022 02:10 Anion Gap 9 ()?? 08/26/2022 02:10 Glucose Level 100 mg/dL (High)?? 08/26/2022 02:10 BUN 9 mg/dL ()?? 08/26/2022 02:10 Creatinine-Blood 0.8 mg/dL ()?? 08/26/2022 02:10 Estimated GFR Creatinine 117 ML/MIN/1.73 M2 ()?? 08/26/2022 02:10 Calcium 8.8 mg/dL ()?? 08/26/2022 02:10 ?? URINE OTHER Est Creatinine Clearance 116.90 mL/min ()?? 08/26/2022 03:15 Assessment/Plan Florencio Murry is a 37??year-old transgender woman (she/her pronouns) with a psychiatric history of unspecified depression, cluster B personality traits, cannabis use disorder, opiate use disorder, stimulant use disorder and past medical history of hypothyroidism, asthma who presented to [facility] on 08/23 with left hand pain and swelling and inability to access medications. In the ED,??Utox positive for cannabinoids and cocaine. Left hand Xray limited study. She received IVF and one dose of??vancomycin.??She expressed SI to ED provider, although denied to medical admitting??physician. Psychiatry was consulted for SI. On initial encounter, Florencio was sleeping,??easily awoken to name being called, oriented x3.?? She was??irritable on evaluation,??guarded??and??at times dismissive. She initially did not want to??complete evaluation.??She reported??ongoing neurovegetative symptoms??of??poor sleep,??low motivation,??low appetite, irritability, mood lability, and SI??secondary to multiple psychosocial stressors??including unstable??housing, limited social support in the community, and ongoing substance use difficulties. She was advocating to be??[facility]iat[facility] hospitalized at [facility]??forongoing suicidality if discharged, no plan given, only stated I will find a way. She denied??psychosis,??delgado, or AVH. Given reported conditional suicidality,??with??patient advocating to??be psychiatrically hospitalized,??she would be a voluntary bedsearch once medically cleared. ?? 08/26: Psychiatry re-evaluated Florencio for conditional suicidality. Today, she??denied??suicidal ideation, intent or plan, and advocated for discharge home. Given that she is no longer suicidal, there isno psychiatric contraindication to discharge. She is at chronic risk due to her mental illness, history of aggression, and homelessness, however she does not currently pose an acute risk to herself and others. Her initial presentation to the ED to obtain medications indicates help-seeking behavior. ?? 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 Recommendations: -No psychiatric contraindication to discharge as no imminent safety risk. -Please discharge patient on current psychiatric medication regimen. -SW involvement due to homelessness and difficulty accessing medications, if patient agreeable. ?? Thank you for allowing us to participate in this patient's care. We will sign off. Please feel freeto contact the Psychiatry consult service ([phone]) with any questions or concerns.? Patient discussed with attending psychiatrist, Dr. Lorenzana. Recommendations relayed to primary team, Dr. Lopez. ?? Grace Jade MD PGY2 [phone] * Nargis Carlos: SIGN, VERIFY, PERFORM Event Display: Progress Note Hospital Authored Date: Patient: ARMIN MURRY Age: 37 years Sex: Male : 1985 Associated Diagnoses: None Author: Nargis Carlos Pt is alert and orientated. Independent on ambulation. Denies CP/ SOB or dizziness. Moving independently. Left hand cellulitis, subsiding. Reports pain over the left hand, scores-8/10. PRN Oxycodone given as ordered. Re-assess pain is 10. Note * Meeta Kaminski RN: PERFORM Event Display: Discharge/Transfer Note Hospital Authored Date: Nursing Discharge Note Entered On: 08/26/2022 14:59 EDT Performed On: 08/26/2022 14:57 EDT by Meeta Kaminski RN Nursing Discharge Note 2 Discharge Time : 08/26/2022 15:40 EDT Discharge Level of Care at Discharge : Home/Snf/Foster Care Patient Left Unit Via : Ambulatory Patient Accompanied Off Unit with : Other: pt did not wait for personnel. Pt left after reciving paperwork DC Instructions Provided & Signed by Pt : Yes Patient Understands D/C Instructions : Yes Patient Instructions Discharge Signed : Yes Discharge Comments : pt left unit without talking with staff. staff had to run after pt in parking lot in which pt stated [employer] will pay for my stay whether I sign or not . pt convinced to come back to unit for proper d/c. pt signed paperwork and RN notified pt of ABX Did Pt have Specialty Bed or Wound Vac : No Meeta Kaminski RN - 08/26/2022 14:57 EDT * Aleida GUAJARDO, Kim: PERFORM Event Display: Discharge/Transfer Note Hospital Authored Date: Patient: ??ARMIN MURRY ? Age:??37 Years?Sex:??Male?:??1985?? Patient Information Discharge Location: D3B Primary Care Physician: Admit Date/Time: 08/23/22 21:17 Discharge Date:??08/26/2022 14:32 Discharge Disposition Discharge Disposition: Home: No Services Discharge Diagnosis Cellulitis of hand (L03.119) ?? _ Discharge Medications Albuterol (ProAir HFA 90 [...] the morning and 1000 mg daily qHS Doxycycline (doxycycline hyclate 100 mg oral tablet)?100?Milligram?By Mouth?Every 12 hours?for 5?Days Estradiol (estradiol 2 mg oral tablet)?1?tab(s)?2?Milligram?By Mouth?Daily HydrOXYzine (hydrOXYzine pamoate 100 mg oral capsule)?1?capsule?100?Milligram?By Mouth?Every 6 hours?as needed?as needed for anxiety Levothyroxine (levothyroxine 0.1 mg oral tablet)?1?tab(s)?0.1?Milligram?By Mouth?Daily Olanzapine (olanzapine 5 mg oral tablet)?5?Milligram?1?tablet?By Mouth?Every 6 hours?as needed?Agitation Prazosin (prazosin 5 mg oral capsule)?TAKE ONE CAPSULE BY MOUTH EVERY NIGHT AT BEDTIME Ropinirole (rOPINIRole 0.25 mg oral tablet)?1?tab(s)?0.25?Milligram?By Mouth?Daily at bedtime Sertraline (sertraline 50 mg oral tablet)?2?tab(s)?100?Milligram?By Mouth?Daily Trazodone (traZODone 50 mg oral tablet)?100?Milligram?2?tablet?By Mouth?Daily at bedtime?as needed?Insomnia Ziprasidone (ziprasidone 60 mg oral capsule)?1?capsule?60?Milligram?By Mouth?2 times a day ? Medications Started Doxycycline Medications Discontinued None Doses Changed None Allergies Allergies ?(Active and Proposed Allergies Only) penicillin? (Severity: Unknown severity, Onset: Unknown) ? PCP Follow-Up/Heads-Up Follow up clinically post hospitalization Hospital Course 37-year-old transgender female (goes by she/her) with a past medical history of hypothyroidism, asthma, cannabis and opiate use disorder as well as a psychiatrist history significant for depression, suicidality, and multiple inpatient??psychiatric hospitalizations who is admitted for??left hand cell ulitis and possible intoxication/SI. ?? Left Hand Cellulitis Concern for Sepsis Has needle freedman on left arm. Hand is also painful and swollen. Sensation intact, but ROM limited due to pain. Concerning for sepsis given leukocytosis and hypotension requiring IVF. Given history of drug abuse and positive Utox, Will need to cover for MRSA. S/p??IV??Vancomycin- transitioned to oral doxycyline Follow up blood cultures - no growth in??48 hrs Hypotension responsive with IV fluids- improved. ?? Suicidal Ideation Depression History of suicidality and multiple psychiatric hospitalizations ED report patient endorsing SI, but she denied when I saw her. Continue depakote 250 in the morning and 1000 at night, prazosin 5 mg daily at night, trazodone 100mg daily at night, ziprasidone 60 mg twice daily, ropinirole 0.25mg daily, and Zyprexa 5mg every 6 hours PRN Psych consult evaluated patient??on 08/24/2022 Patient may leave AMA, constant lunchroom supervisor discontinued Continue current psychiatric medications as prescribed ?? Substance Use Disorder Opioid Use Disorder Patient denied anything except marijuana, however Utox was positive for cocaine as well. As per external medication history patient??is an active prescription for Suboxone. ??She mentionedthat she took the Suboxone 4 days ago. Urine fentanyl positive Consult addiction medicine Consult social work ?? Asthma: Continue PRN albuterol ?? Hypothyroidism: Continue levothyroxine 100mcg ?? Patient seen and examined bedside. Denies any acute complaints at this time. Left upper extremity hand??swelling and erythema improving Transitioned from IV to oral antibiotics. Eval by psychiatry and cleared for discharge. ??Evaluate social work and??resources given to the patient. ?? Gen: AAO*3; RS: CTA b/l; CVS: regular; Abd: Soft Non tender, non distended; Neuro AAO*3, ambulatory;??left arm dorsal aspect erythema and swelling improved. Objective Measurements?? Height: 168 cm (08/26/22) Weight: 76.1 kg (08/23/22) Dry Weight: 76 kg (08/23/22) Body Mass Index:??26.93 kg/m2??High (08/23/22) ? Vital Signs?? Temperature: 97.6 DegF (08/26/22 11:43:00) Temperature Route: Oral (08/26/22 11:43:00) Pulse Rate:??47 bpm??Low (08/26/22 11:43:00) Respiratory Rate: 17 br/min (08/26/22 11:43:00) Systolic Blood Pressure:??148 mm Hg??High (08/26/22 11:43:00) Diastolic Blood Pressure:??86 mm Hg??High (08/26/22 11:43:00) Blood pressure sites: Arm, right (08/26/22 11:43:00) Mean Arterial Pressure: 107 mm Hg (08/26/22 11:43:00) Pulse Pressure: 62 mm Hg (08/26/22 11:43:00) Oxygen Saturation: 100 % (08/26/22 11:43:00) Mode of Delivery (Oxygen): Room air (08/26/22 11:43:00) Early Warning Score: 3 (08/26/22 12:07:53) Temperature, Opiate Withdrawal: 98.1 DegF (08/26/22 10:30:00) Temperature Route, Opiate Withdrawal: Oral (08/26/22 10:30:00) Pulse Rate, Opiate Withdrawal: 56 bpm (08/26/22 10:30:00) Respiratory Rate, Opiate Withdrawal: 19 br/min (08/26/22 10:30:00) Systolic BP, Opiate Withdrawal: 123 mm Hg (08/26/22 10:30:00) Diastolic BP, Opiate Withdrawal: 84 mm Hg (08/26/22 10:30:00) ? Consultants Nicolle Lorenzana MD Pending Results Blood Culture ordered on 08/23/2022 Blood Culture #2 ordered on 08/23/2022 Patient Education Titles Discharge Instructions for Cellulitis?? Follow-Up Appointments Added Follow Up ?Time Frame ?Comments Follow up clinically post hospitalization Post Discharge Care Diet: Regular Diet Activity: ?? OOB as Justa Wound Care: - Code Status: ?? Full Resuscitation Condition: Fair Prognosis: Fair Discharge Prescriptions ?ePrescribed, ??08/26/22 14:13:00 EDT 38??minutes spent on discharge * Meeta Kaminski RN: PERFORM Event Display: Patient Education/Instruction Authored Date: [id number] Inpatient Adult Discharge Instructions [place] [id number] Name: ARMIN MURRY : 1985 Visit: 08/23/2022 21:17:00 Current Date: 08/26/2022 14:35 Account: [id number] Inpatient Adult Discharge Instructions We would like [...] and their families. Surveys are administered by [email or web address] ?? If further treatment with your primary care physician or another doctor is recommended, it is important for you to keep the appointment. Call your primary care physician or return to the Emergency Department immediately if your condition worsens, fails to improve, or new symptoms develop. If you need to find a doctor, you can call [facility] for a referral at [phone] or toll free at [phone] or log in to [email or web address].. ?? You can view and manage your care through the patient portal or by using a health care jalil of your choosing. [employer] is a website that allows you to securely view your medical information including your hospital discharge summary, office visit summaries, medications and follow-up visits. You can also request appointments, renew medications, and request access to your medical information using a health care jalil of your choosing, or just ask a question. You can enroll at [email or web address] or register during your next office visit. You have been discharged from [facility], Patient Care Unit: D3B. If you have any questions regarding these instructions after you leave, please call us and we will be happy to assist you. [facility] Your Care Team Attending Physician Kim Shin MD Consulting Providers Arin Lorenzana MD, MD, Sonia Discharging Providers Kim Shin MD Reason for Your Visit Crisis Your Diagnosis Cellulitis of hand Psychiatric Tests Performed Below is a partial list of the tests performed during your hospitalization. You may have had other tests and procedures not included in this list. Please discuss all test results with your provider. Alcohol Level Amphetamine Urine Screen Barbiturate Urine Screen Basic Metabolic Panel Benzodiazepine Urine Screen C-REACTIVE PROTEIN Cannabinoid Urine Screen CBC CBC w/ Differential Cocaine Urine Screen COVID-19 (Novel Coronavirus), Rapid PCR FENTANYL SCREEN, URINE Lactate Level Opiate Screen Urine SEDIMENTATION RATE,AUTOMATED TSH with T4 Reflex (Adults Only) Urinalysis w/hold for Urine Culture XR Chest Portable XR Hand Min 3 Views Left Primary Care Provider Not on Staff, PCP Advance Directive . Discharge Vitals Temperature: 97.6 DegF Height: 168 cm Pulse Rate:??47 bpm??Low Weight: 76.1 kg Respiratory Rate: 17 br/min Body Mass Index:??26.93 kg/m2??High Systolic Blood Pressure:??148 mm Hg??High Body surface area: 1.88 Diastolic Blood Pressure:??86 mm Hg??High ?? Oxygen Saturation: 100 % ?? Studies Pending All tests and labs ordered during this hospital stay have been completed unless listed below. Please discuss all pending results with your provider listed above in these instructions. ?? Add On Lab Order Blood Culture Blood Culture #2 What to do next Instructions From Your Doctor Discharge Orders Diet:??Regular Diet Activity:?? OOB as Justa Wound Care:??- Code Status:?? Full Resuscitation Condition:??Fair Prognosis:??Fair You Need to Schedule the Following Appointments Follow Up with??Follow up clinically post hospitalization When?? Discharge Medications ARMIN MURRY :1985 Visit Date:08/23/2022 Medications: Please continue your medications until treatment is completed or stopped by your provider. Medications not listed below should be discontinued. Discuss any questions related to medications with your provider. What How Much When Instructions Next Dose New Doxycycline (doxycycline hyclate 100 mg oral tablet) 100 Milligram Oral Every 12 hours Duration: [facility] Tonight 08/26/2022 Changed Divalproex Sodium (Depakote 250 mg oral enteric coated tablet) See instructions 250 mg daily in the morning and 1000 mg daily qHS ?? tomorrow 08/27/2022 Changed Levothyroxine (levothyroxine 0.1 mg oral tablet) 1 tab(s) Oral Daily Tomorrow 08/27/2022 Changed Ropinirole (rOPINIRole 0.25 mg oral tablet) 1 tab(s) Oral Daily at Bedtime 08/26/2022 Changed Trazodone (traZODone 50 mg oral tablet) 2 tab(s) Oral Daily at Bedtime as needed for Insomnia as needed Changed Ziprasidone (ziprasidone 60 mg oral capsule) 1 capsule Oral Twice a day 08/26/2022 Unchanged Albuterol (albuterol CFC free 90 mcg/ inh inhalation aerosol) 2 puff(s) Inhalation 4 times a day as needed for for wheezing as needed Unchanged Albuterol (ProAir HFA 90 mcg/ inh inhalation aerosol with adapter) INHALE 2 PUFFS BY MOUTH INTO THE lungs EVERY 6 HOURS ?? as prescribed Unchanged Atomoxetine (atomoxetine 18 mg oral capsule) 1 capsule Oral Daily in the morning Tomorrow 08/27/2022 Unchanged Baclofen (baclofen 10 mg oral tablet) 1 tab(s) Oral 3 times a day as needed for Spasm as needed Unchanged Buprenorphine-Naloxone (Suboxone 4 mg-1 mg sublingual film) 1 Film Sublingual Daily dissolve under the tongue ?? Tomorrow 08/27/2022 Unchanged Estradiol (estradiol 2 mg oral tablet) 1 tab(s) Oral Daily Tomorrow 08/27/2022 Unchanged HydrOXYzine (hydrOXYzine pamoate 100 mg oral capsule) 1 capsule Oral Every 6 hours as needed for as needed for anxiety as needed Unchanged Olanzapine (olanzapine 5 mg oral tablet) 1 tab(s) Oral Every 6 hours as needed for Agitation as prescribed Unchanged Prazosin (prazosin 5 mg oral capsule) TAKE ONE CAPSULE BY MOUTH EVERY NIGHT AT BEDTIME ?? Ton08/26/2022 Unchanged Sertraline (sertraline 50 mg oral tablet) 2 tab(s) Oral Daily Tomorrow 08/27/2022 Pharmacy Information [facility]: [address], [place] [id number] [phone] ?? What When Comments Stop Taking Venlafaxine (venlafaxine 150 mg oral capsule, extended release) TAKE ONE CAPSULE BY MOUTH DAILY ?? Test Results Below is a partial list of the most recent Laboratory test results done prior to this discharge. You may have had other tests and procedures not included in this list. Please discuss all test resultswith your provider. Est Creatinine Clearance - 116.90 mL/min (08/26/2022) Alcohol Level (08/23/2022) ???Ethanol, Serum or Plasma - NONE DETECTED Amphetamine Urine Screen (08/24/2022) ???Amphetamine Screen, Urine - NONE DETECTED Barbiturate Urine Screen (08/24/2022) ???Barbiturate Screen, Urine - NONE DETECTED Basic Metabolic Panel (08/26/2022) ???Sodium - 143 mmol/L???Potassium - 4.0 mmol/L???Chloride - 109 mmol/L???Bicarbonate Level - 25 mmol/L???Anion Gap - 9???Glucose Level - 100 mg/dL???BUN - 9 mg/dL???Creatinine-Blood - 0.8 mg/dL???Estimated GFR Creatinine - 117 ML/MIN/1.73 M2???Calcium - 8.8 mg/dL Benzodiazepine Urine Screen (08/24/2022) ???Benzodiazepine Screen, Urine - NONE DETECTED C-REACTIVE PROTEIN (08/24/2022) ???C-Reactive Protein - 11.2 mg/dL Cannabinoid Urine Screen (08/24/2022) ???Cannabinoid Screen, Urine - POSITIVE CBC (08/24/2022) ???WBC - 11.4 k/mm3???RBC - 4.05 m/mm3???Hgb - 11.8 Gm/dL???Hct - 37.2 %???MCV - 91.9 femtoliters???MCH - 29.1 pg???MCHC - 31.7 g/dL???Platelet Count - 173 k/mm3???RDW-SD - 42.4 femtoliters???MPV - 10.4 femtoliters???Nucleated RBC (Automated) - 0.0 #/100 WBC'S???Abs. NRBC - 0.0 k/mm3 CBC w/ Differential (08/26/2022) ???WBC - 6.6 k/mm3???RBC - 3.81 m/mm3???Hgb - 11.3 Gm/dL???Hct - 34.4 %???MCV - 90.3 femtoliters???MCH - 29.7 pg???MCHC - 32.8 g/dL???Platelet Count - 172 k/mm3???RDW-SD - 40.7 femtoliters???MPV - 10.4 femtoliters???Nucleated RBC (Automated) - 0.0 #/100 WBC'S???Abs. NRBC - 0.0 k/mm3???Abs. Neut - 4.5 k/mm3???Abs. Lymph - 1.4 k/mm3???Abs. [place] - 0.6 k/mm3???Abs. Eo - 0.2 k/mm3???Abs. Baso - 0.0 k/mm3???Neut % - 67.2 %???Lymph % - 20.8 %???[place] % - 8.7 %???Eos % - 2.3 %???Baso % - 0.5 %???Imm Gran - 0.5 %???Abs. Imm Gran - 0.0 k/mm3 Cocaine Urine Screen (08/24/2022) ???Cocaine Metabolite Screen, Urine - POSITIVE COVID-19 (Novel Coronavirus), Rapid PCR (08/23/2022) ???COVID-19 by RT-PCR - NEGATIVE FENTANYL SCREEN, URINE (08/24/2022) ???Fentanyl Screen, Urine Result - POSITIVE Lactate Level (08/24/2022) ???Lactate - 1.2 mmol/L Opiate Screen Urine (08/24/2022) ???Opiate Screen, Urine - NONE DETECTED SEDIMENTATION RATE,AUTOMATED (08/24/2022) ???Sed Rate - 6 mm/hr TSH with T4 Reflex (Adults Only) (08/23/2022) ???TSH - 3.89 uIU/mL Urinalysis w/hold for Urine Culture (08/24/2022) ???Appear/Color, Urine - COLORLESS???Specific [place], Urine - 1.004???pH, Urine - 6.0???Albumin, Urine - NEGATIVE???Glucose, Urine - NEGATIVE???Ketones, Urine - NEGATIVE???Bilirubin, Urine - NEGATIVE???Hemoglobin, Urine - NEGATIVE???Nitrite, Urine - NEGATIVE???Leukocyte, Urine - NEGATIVE???Urobilin ogen - NORMAL? ?WBC's, Urine - <1 /HPF? ?RBC's, Urine - NONE SEEN? ?Bacteria - SLIGHT? ?SquamousEpith - <1 /HPF? ?Hold Urine Culture - Testing available 48 hours from time of collection. Allergies (NKA means No Known Allergies) penicillin Problems Active Problems??(1) COVID-19?? Education Materials Below is the list of Educational Leaflet Providered with your Discharge Instructions. Discharge Instructions for Cellulitis?? Valuables and Belongings I fully understand and agree that [facility] accepts no responsibility for all my personal [...] to send valuables and belongings home. ?? Safe envelope number: [id number] Review of Valuable and Belonging List: With patient Disposition of Belongings: Valuables Locked Date for Pt to Sign Valuables/Belongings: 08/23/22 22:30:00 ?? Other Discharge Information ?? Wound Assessment?? Wound Assessment?? Wound Location I: Chest, right lateral Wound I, Present on Admission: Yes ? Pulmonary Rehab Status?? Pulmonary Rehab Discharge Status?? Respiratory Rate: 17 br/min ? Common Emergency Awareness Tips IS [...] are strongly encouraged to quit. Please call [facility] [employer] [facility] at [phone] or [phone] ([phone]) or log in to [email or web address] for referrals to smoking cessation programs. ?? 340 Suicide & Crisis Lifeline is available 11/11 if you or someone you know needs to find a reason to keep living. By calling 237 you'll be connected to a skilled, trained counselor at a crisis center in your area. INPATIENT DISCHARGE INSTRUCTIONS SIGNATURE PAULA ARMIN MURRY Location:[facility] Registration Date and Time:08/23/2022 21:17 EDT Primary Care Physician: Not on Staff, PCP ARMIN ECKERT, have received the above patient education materials/instructions and have verbalized understanding. If ambulance or transport services are being used I further acknowledge being given a choice of service. ?? If you need to contact me, please call me at this number: . Patient/Food Sales Clerk Name: Patient/Food Sales Clerk Signature: Relationship to Patient: Witness Name/Signature: Date: * Kim Shin MD: PERFORM, SIGN, VERIFY Event Display: Patient Education Handout Authored Date: [id number] * Kim Shin MD: PERFORM Event Display: Patient Education Leaflets Authored Date: [id number] Discharge Instructions for Cellulitis ?? [address] Discharge Instructions for Cellulitis You have been diagnosed with cellulitis. This is an infection in the deepest layers of the skin. The infection may even spread to the muscle in some cases. Cellulitis is caused by bacteria. The bacteria can??enter the body through broken skin. This can happen with a cut, scratch, animal bite, or aninsect bite that has been scratched. You may have been treated in the hospital with antibiotics andfluids. You will likely be given a prescription for antibiotics to take at home. This sheet will help you take care of yourself at home. Home care When you are home: ??? Take the prescribed antibiotic medicine you are given as directed until it is gone. Take it even if you feel better. It treats the infection and stops it from returning. Not taking all the medicine can make future infections hard to treat. ??? Keep the infected area clean. Follow all wound careinstructions from your healthcare provider. ??? When possible, raise the infected area above the level of your heart. This helps keep swelling down. ??? Armin the boundary of the infected area so you can tell if it is growing. ??? Talk with your healthcare provider if you are in pain. Ask what kind of reht-eyq-ratrchh medicine you can take for pain. ??? Apply clean bandages as advised. Dispose of dirty bandages in a plastic bag that is tied at the top. ??? Wash your hands often to prevent spreading the infection. Always wash your hands before and after cleaning the area. If anyone helps you with your care, have them do the same. ??? Take your temperature once a day for a week. In the future, wash your hands before and after you touch cuts, scratches, or bandages. This will help prevent infection.? When to call your healthcare provider Call your healthcare provider right away if you have any of the following: ??? The infection does not get better within 1 to 2 days after treatment starts ??? Trouble or pain when moving the joints above or below the infected area ??? Discharge or pus draining from the area ??? Fever??of??100.4??F (38??C) or higher, or as directed by your healthcare provider ??? Pain that gets worse in or around the infected? Redness that gets worse in or around the infected area,??particularly if the areaof redness expands to a wider area ??? Shaking chills ??? Swelling of the infected area ??? Vomiting ?? Last Reviewed Date: 2021 ?? 5422-9627 [employer]. All rights reserved. This information is not intended as a substitute for professional medical care. Always follow your healthcare professional's instructions. ?? XR Hand - left GE 3 Views * [facility] , CIS S: TRANSCRIBE Gordy Khoury MD: VERIFY Event Display: Result: Authored Date: [id number] Hand Min 3 Views Left CLINICAL INDICATION: Reason: Trauma; Clinical Question(s): Fracture COMPARISONS: None TECHNIQUE: AP, lateral and oblique views of the left hand were obtained. FINDINGS: Study limited by flexion positioning. The fourth and fifth digits are overlapping. There is no fracture or dislocation. Normal radiocarpal alignment is maintained. Carpal joint spaces and bone contours are normal. MCP and IP joint spaces are maintained. No retained radiodense foreign body. IMPRESSION: Technically limited study due to flexion positioning of the hand. No fracture or dislocation is identified. WSN: [id number] Ordering Physician: Huan Barber Dictated By: Gordy Khoury MD Dictated Date/Time: 08/23/22 6:07 pm Reviewed By: Gordy Khoury MD Signed By: Gordy Khoury MD Signed Date/Time: 08/23/22 6:07 pm Transcribed By: HARPER Transcribed Date/Time: 08/23/22 6:06 pm Portable XR Chest Views * [facility] , CIS S: TRANSCRIBE Maynor Gregorio MD: VERIFY Event Display: Result: Authored Date: Chest Portable Hx of Present Illness: pt presents to ed via ems, pt is homeless has been living in [facility], went to [facility] facility today for help but was told there was no one on staff, COMPARISON: None. FINDINGS: LINES AND TUBES: None. LUNGS AND PLEURA: Diminished lung volumes with bronchovascular crowding and mild bibasilar atelectasis. No pleural effusion. No pneumothorax. HEART, MEDIASTINUM AND LINDA: Heart is normal in size. Normal mediastinal and hilar contour. BONES AND SOFT TISSUES: No acute abnormality. IMPRESSION: Diminished lung volumes with basilar atelectasis, no convincing evidence of an acute process. WSN: [id number] Ordering Physician: Huan Barber Dictated By: Maynor Gregorio MD Dictated Date/Time: 08/23/22 7:44 pm Reviewed By: Maynor Gregorio MD Signed By: Maynor Gregorio MD Signed Date/Time: 08/23/22 7:44 pm Transcribed By: HARPER Transcribed Date/Time: 08/23/22 7:42 pm Patient Care team information Care Team Personnel Name: Nargis Carlos Position: [facility] RN Member Role: Primary Care Nurse Name: Geri Holder RN Position: [facility] RN Member Role: Primary Care Nurse Name: Not on Staff, PCP Position: [facility] Physician (General Medicine) Member Role: PCP Name: Meeta Kaminski RN Position: [facility] RN Member Role: Primary Care Nurse Name: Semaj Cardona MD Position: [facility] ED Medicine MD Member Role: ED Attending Physician Address: Address: [address] [place] [address] Name: Huan Barber DO Position: [facility] Resident Member Role: ED Resident Address: Address: [address] [place] [address] Name: Pratibha Banda Position: [facility] ED TA [facility] Name: Fátima Lozada RN Position: [facility] ED RN W/OE and Tasks Member Role: Patient Care Provider Name: Christiano Chew Position: [facility] ED TA [facility] Member Role: Patient Care Provider Care Team Related Persons Name: JASPAL CONSTANTINO Name: ZOFIA, MATT Address: [place] [address]
--- OUTSIDE RECORDS SUMMARY | 2023-09-14 12:22 | XMS_ITS | Continuity of Care Document ---
Author Organization [facility] ter Address [address] [place] [address]- Care Team Providers Care Architectural Administrative Assistant Name Role Phone Not on Staff, PCP Primary Care Physician Unavail able Encounter [facility] [place] Date(s): 04/17/23 - 04/17/[address] [address]- Encounter Diagnosis Otitis externa(Final) - 04/17/23 Discharge Disposition: A-D/C Home Attending Physician: Milly Alcala MD Admitting Physician: Milly Alcala MD Referring Physician: Not on Staff, Referring MD Allergies, Adverse Reactions, Alerts Substance Reaction Severity Status penicillin Active Immunizations Given and Recorded Vaccine Date Status Refusal Reason [id number] bivalent booster vax 11/15/22 Recorded hepatitis B [...] 01/17/23 15:02:00 EDT, Route to Pharmacy Electronically, [facility], Partial fill upon patient request if theprescription is for a schedule II opioid drug., 165... Start Date: 01/17/23 Stop Date: 03/18/23 Status: Ordered albuterol CFC free 90 mcg/inh inhalation aerosol 2, puffs, Inhalation, 4 times a day, PRN, # 75 Gm, Refills 0, Tot. Refills 0, Maintenance, 06/11/2309:30:00 EST, Aerosol, [id number] 165, cm, 12/25/21 4:34:00 EDT, Height,... Start Date: 06/11/22 Status: Ordered baclofen 10 mg oral tablet 10 mg, 1, tablet, By Mouth, 3 times a day, PRN, # 90 tablet, Refills 0, Tot. Refills 0, Maintenance, Spasm, 06/11/22 10:26:00 EST, Route to Pharmacy Electronically, [facility]-, Partial fill upon patient request if the prescrip... Start Date: 06/11/22 Status: Ordered Cortisporin-TC 0.3%-1%-0.33%-0.05% suspension 4 drops, Ears, Both, 4 times a day, # 10 mL, 0 Refills, Maintenance, 04/17/23 12:27:00 EST, Suspension, [facility], Partial fill upon patient request if the prescription is for a schedule II opioid drug., 4 drops Ears, Both 4 times a day... Start Date: 04/17/23 Stop Date: 04/24/23 Status: Ordered divalproex sodium 500 mg oral enteric coated tablet See Instructions, 1,000 mg By Mouth Daily at bedtime 30 days, # 60 tablet, 0 Refills, Maintenance, 01/17/23 15:00:00 EDT, Tablet, [facility], Partial fill upon patient request [...] opioid drug. Start Date: 08/24/22 Status: Ordered levoFLOXacin 500 mg oral tablet 1 tablet = 500 mg, By Mouth, Every 24 hours, for 6 days, # 6 tablet, 0 Refills, Acute 04/23/23 12:26:00 EST, 04/17/23 12:26:00 EST, Tablet, [facility], Partial fill upon patient requestif the prescription is for a schedule II opioid yossi... Start Date: 04/17/23 Stop Date: 04/23/23 Status: Ordered levothyroxine 0.1 mg oral tablet [...] 01/17/23 15:01:00 EDT, Route to Pharmacy Electronically, [facility], Partial fill upon patient request if [...] 0 Refills, Maintenance, 06/11/22 10:25:00 EST, Tablet, [facility], Partial fill upon patient request if the prescription is for a schedule II opioid drug., 165, cm,... Start Date: 06/11/22 Status: Ordered sertraline 50 mg oral tablet 2 tablet = 100 mg, By Mouth, Daily, # 60 tablet, 0 Refills, Maintenance, 06/11/22 10:25:00 EST, Tablet, [facility], Partial fill upon patient request if the prescription is for a schedule II opioid drug., 165, cm, 12/25/21 4:3... Start Date: 06/11/22 Status: Ordered traZODone 50 mg oral tablet 100 mg, 2, tablet, By Mouth, Daily at bedtime, PRN, # 10 tablet, Refills 0, Tot. Refills 0, Maintenance, Insomnia, 06/11/22 10:25:00 EST, Route to Pharmacy Electronically, [facility], Partial fill upon patient request if the p... Start Date: 06/11/22 Status: Ordered Problem List Condition Confirmation Course Effective Dates Status Health [facility] Informant COVID-19 1 Confirmed 11/28/21 Active 1Problem added by Discern Expert Results Radiology Reports * Exam Date Time Procedure Performing Provider Status 04/17/23 9:32 AM Chest 2 Views Frontal and Lat Kirk , Iqra; Auth (Verified) Notes: (Chest 2 Views Frontal and Lat) Reason For Exam: Shortness of Breath, Fever;Other: RESULT: Chest 2 Views Frontal and Lat Chest 2 Views Frontal and Lat Hx of Present Illness: Pt called EMS for SOB.States he has been having yellow drainage from ears bilaterally for 2 days. Pt c o 10 10 pain to ears with ringing and decreased hearing. Diagnosed +RSV with c o abd pain.; Reason: Shortness of Breath, Fever; Clinical Question(s): Pneumonia COMPARISON: 08/23/2022. FINDINGS: LINES AND TUBES: None. LUNGS AND PLEURA: Mild peribronchial cuffing. Otherwise, lungs are clear without evidence of a consolidative process.Normal pulmonary vascularity. No pleural effusion. No pneumothorax. HEART, MEDIASTINUM AND LINDA: Heart is normal in size. Normal mediastinal and hilar contour. BONES AND SOFT TISSUES: No acute abnormality. Mild kyphosis with degenerative changes. IMPRESSION: 1. Mild peribronchial cuffing, most likely related to acute viral illness in the setting of this patient's known RSV infection. 2. No evidence of a focal consolidative process. I have personally reviewed the images and I agree with this report. WSN: [id number] Ordering Physician: Keshawn Cool Dictated By: Neftali Enamorado MD Dictated Date/Time: 04/17/23 9:42 am Reviewed By: Brian Rincon MD Signed By: Brian Rincon MD Signed Date/Time: 04/17/23 9:47 am Transcribed By: HARPER Transcribed Date/Time: 04/17/23 9:38 am Vital Signs Most recent to oldest [Reference Range]: 1 2 Height 163 cm (04/17/23 9:02 AM) 163 cm (04/17/23:31 AM) Weight 73 kg (04/17/23 9:02 AM) 73 kg (04/17/23:31 AM) Oxygen Saturation [94-100 %] 100 % (04/17/23 9:02 AM) 100 % (04/17/23:31 AM) Pulse Rate [55-90 bpm] 66 bpm (04/17/23 9:02 AM) 72 bpm (04/17/23:31 AM) Body Mass Index [18.5-24.99 kg/m2] 27.48 kg/m2 *H* (04/17/23 9:02 AM) 27.48 kg/m2 *H* (04/17/23:31 AM) Blood Pressure [90-138/55-84 mm Hg] 122/ 68mm Hg (04/17/23 9:02 AM) 116/68mm Hg (04/17/23:31 AM) Respiratory Rate [16-30 br/min] 21 br/mi n (04/17/23 9:02 AM) 16 br/min (04/17/23:31 AM) Temperature [96.8-100.4 DegF] 98.8 DegF (04/17/23 5:31 AM) Mode of Delivery (Oxygen) Room air (04/17/23 9:02 AM) Room air (04/17/23:31 AM) Blood pressure sites Arm, right (04/17/23 9:02 AM) Arm, right (04/17/23 5:31 AM) Temperature Route Oral (04/17/23 5:31 AM) Dry Weight 73 kg (04/17/23 9:02 AM) 73 kg (04/17/23 5:31 AM) Weight Obtained Via Patient/family state d (04/17/23 5:31 AM) Dry Weight Obtained Via Patient/family s tated (04/17/23 5:31 AM) Social History Social History Type Response Tobacco Use: 4 or less cigar ettes(less than 1/4 pack)/day in last 30 days. Sex Male EKG study * Event Display: ECG 12-Lead Authored Date: Please click on pdf link to open report * Event Display: ECG 12-Lead Authored Date: Ventricular Rate: 72 BPM Atrial Rate: 72 BPM P-R Interval: 138 ms QRS Duration: 74 ms Q-T Interval: 380 ms QTC Calculation(Bazett): 416 ms P [place]: 55 degrees R [place]: 52 degrees T [place]: 48 degrees Normal sinus rhythm Normal ECG When compared with ECG of 17-JAN-2023 13:18, No significant change was found Confirmed by FAWN CHAVARRIA ([id number]) on 04/17/2023 10:29:25 AM [place]: FAWN CHAVARRIA * Event Display: EKG Authored Date: Note * Keshawn Whipple: PERFORM Event Display: Patient Education Leaflets Authored Date: [id number] External Ear Infection (Adult) ?? [id number] External Ear Infection (Adult) External otitis (also called swimmer???s ear) is an infection in the ear canal. It's often caused by bacteria or fungus. It can occur a few days after water gets trapped in the ear canal (from swimming or bathing). It can also occur after cleaning too deeply in the ear canal with a cotton swab or other object. Sometimes, hair care products get into the ear canal and cause this problem. Symptoms can include pain, fever, itching, redness, drainage, or swelling of the ear canal. Temporary hearing loss may also occur. Home care ??? Don't try to clean the ear canal. This can push pus and bacteria deeper into the canal. ??? Use prescribed ear drops as directed. These help reduce swelling and fight the infection. If an ear wick was placed in the ear canal, apply drops right onto the end of the wick. The wick will draw the medicine into the ear canal even if it's swollen closed. ??? A clean cotton ball may be loosely placed in the outer ear to absorb any drainage. Replace the cotton ball if it becomes soiled or wet. ??? You may use kmnk-atf-rnjoanj medicines to control pain as directed by the healthcare provider, unless another medicine??was prescribed. Talk with your provider before using these medicines ifyou have chronic liver or kidney disease or have ever had a stomach ulcer or digestive tract bleeding. ??? Don't allow water to get into your ear when bathing. Also don't swim until the infection hascleared. ?? Prevention ??? Keep your ears dry. This helps lower the risk of infection. Dry your ears with a towel or language and literature division chair after getting wet. Also, use ear plugs when swimming. ??? Don't stick any objects in the ear to remove wax. ??? Talk with your provider about using ear drops to prevent swimmer's ear in case you feel water trapped in your ear canal. You can get these drops over the counter at most drugstores. They work by removing water from the ear canal. ?? Follow-up care Follow up with your healthcare provider in 1 week, or as advised. ?? When to seek medical advice Call your healthcare provider or seek medical care right away if any of these occur: ??? Ear pain becomes worse or doesn???t improve after 3 days of treatment ??? Redness or swelling of the outer earoccurs or gets worse ??? Headache ??? Fever of 100.4??F (38??C) or higher, or as directed by your healthcare provider ?? Call 911 Call 911 or get immediate medical care if any of the following occur: ??? Seizure ??? Unusual drowsiness or confusion ??? Unusual painful or stiff neck ?? Last Reviewed Date: 2022 ?? [id number] [employer]. All rights reserved. This information is not intended as a substitute for professional medical care. Always follow your healthcare professional's instructions. ?? Patient Care team information Care Team Personnel Name: Nargis Carlos Position: [facility] RN Member Role: Primary Care Nurse Name: Geri Holder RN Position: [facility] RN Member Role: Primary Care Nurse Name: Not on Staff, PCP Position: [facility] Physician (General Medicine) Member Role: PCP Name: Meeta Kaminski RN Position: [facility] RN Member Role: Primary Care Nurse Name: Keshawn Whipple Position: [facility] Associate Professional Member Role: ED Physician [employer] Address: Address: [address] [place] [address] Name: Jorge A Phoenix RN Position: [facility] ED RN W/OE and Tasks Name: Milly Alcala MD Position: [facility] ED Medicine MD Member Role: Admitting Physician Address: Address: [address] [place] [address]- Care Team Related Persons Name: JASPAL CONSTANTINO Name: CHRIS ARMIJO Address: [place] [address]
--- OUTSIDE RECORDS SUMMARY | 2023-09-14 12:22 | XMS_ITS | Continuity of Care Document ---
Author Organization [facility] ter Address [address] [place] [address]- Care Team Providers Care Mold Machine Operator Name Role Phone Not on Staff, PCP Primary Care Physician Unavail able Encounter [facility] [place] [place] Date(s): 06/09/22 - 06/11/[address] [address]- Encounter Diagnosis Depression(Final) - 06/09/22 Discharge Disposition: A-D/C Home Attending Physician: Zaki Lucia MD Admitting Physician: Zaki Lucia MD Referring Physician: Not on Staff, Referring [...] 06/11/2309:30:00 EST, Aerosol, Route to Pharmacy Electronically, [id number], [facility]-, 165, cm, 12/25/21 4:34:00 EDT, Height,... Start Date: 06/11/22 Status: Ordered baclofen 10 mg oral tablet 10 mg, 1, tablet, By Mouth, 3 times a day, PRN, # 90 tablet, Refills 0, Tot. Refills 0, Maintenance, Spasm, 06/11/22 10:26:00 EST, Route to Pharmacy Electronically, [facility]-, Partial fill upon patient request if the prescrip... Start Date: 06/11/22 Status: Ordered Depakote 250 mg oral enteric coated tablet See Instructions, 250 mg daily in the morning and 1000 mg daily qHS, # 30 tablet, 5 Refills, Maintenance, 06/11/22 10:27:00 EST, [facility], Partial fill upon patient requestif the prescription is for a schedule II opioid yossi... Start Date: 06/11/22 Status: Ordered Depakote 500 mg oral enteric coated tablet 1 tablet = 500 mg, By Mouth, 2 times a day, # 30 tablet, 0 Refills, Maintenance, 03/27/21 20:09:00 EST, EC Tablet, [id number], Partial fill upon patient request if the prescription is for a schedule II opioid drug. Start Date: 03/27/21 Status: Ordered hydrOXYzine pamoate 100 mg oral capsule = 100 mg, By Mouth, Every 6 hours, PRN Anxiety, # 10 each, 0 Refills, Acute 06/18/22 10:26:00 EST, 06/11/22 10:25:00 EST, Capsule, [facility], Partial fill upon patient request if the prescription is for a schedule II opioid d... Start Date: 06/11/22 Stop Date: 06/18/22 Status: Ordered levothyroxine 0.1 mg oral tablet 1 tablet = 0.1 mg, By Mouth, Daily, # 30 tablet, 0 Refills, Maintenance, 06/11/22 10:26:00 EST, Tablet, [facility], Partial fill upon patient request [...] 06/11/22 10:26:00 EST, Route to Pharmacy Electronically, [facility], Partial fill upon patient request [...] 0 Refills, Maintenance, 06/11/22 10:25:00 EST, Tablet, [facility], Partial fill upon patient request [...] 0 Refills, Maintenance, 06/11/22 10:25:00 EST, Tablet, [facility], Partial fill upon patient request if the prescription is for a schedule II opioid drug., 165, cm, 12/25/21 4:3... Start Date: 06/11/22 Status: Ordered traZODone 50 mg oral tablet 100 mg, 2, tablet, By Mouth, Daily at bedtime, PRN, # 10 tablet, Refills 0, Tot. Refills 0, Maintenance, Insomnia, 06/11/22 10:25:00 EST, Route to Pharmacy Electronically, [facility], Partial fill upon patient request [...] capsule, 0 Refills, Maintenance, 11/28/2219:58:00 EDT, Capsule, [facility]-, Partial fill upon patient request if the prescription is for a schedule II opioid drug., 16... Start Date: 11/27/21 Status: Ordered ziprasidone 60 mg oral capsule 1 capsule = 60 mg, By Mouth, 2 times a day, # 60 capsule, 0 Refills, Maintenance, 06/11/22 10:25:00EST, Capsule, [facility]-, Partial fill upon patient request if the prescription is for a schedule II opioid drug., 165, cm, 09... Start Date: 06/11/22 Status: Ordered Problem List Condition Confirmation Course Effective Dates Status Health [facility] Informant COVID-19 1 Confirmed 11/28/21 Active 1Problem added by Discern Expert Vital Signs Most recent to oldest [Reference Range]: 1 2 3 Oxygen Saturation [94-100 %] 100 % (06/11/22 9:04 AM) 100 % (06/11/22 5:26 AM) 100 % (06/10/22 8:29 PM) Pulse Rate [55-90 bpm] 53 bpm *L* (06/11/22 9:04 AM) 51 bpm *L* (06/11/22 5:26 AM) 48 bpm *L* (06/10/22 8:29 PM) Blood Pressure [90-138/55-84 mm Hg] 117/75mm Hg (06/11/22 9:04 AM) 102/51mm Hg (06/11/22 5:26 AM) 100/48mm Hg (06/10/22 8:29 PM) Respiratory Rate [16-30 br/min] 19 br/min (06/11/22 9:04 AM) 16 br/min (06/11/22 5:26 AM) 16 br/min (06/10/22 8:29 PM) Temperature [96.8-100.4 DegF] 97.6 DegF (06/10/22 8:29 PM) 97.5 DegF (06/10/22 12:00 PM) 98.9 DegF (06/09/22 9:20 PM) Mode of Delivery (Oxygen) Room air (06/11/22 9:04 AM) Room air (06/10/22 2:58 AM) Room air (06/09/22 9:20 PM) Blood pressure sites Arm, right (06/11/22 9:04 AM) Arm, right (06/10/22 2:58 AM) Arm, left (06/09/22 9:20 PM) Temperature Route Oral (06/10/22 8:29 PM) Oral (06/10/22 12:00 PM) Oral (06/09/22 9:20 PM) Social History Social History Type Response Tobacco Use: 4 or less cigar ettes(less than 1/4 pack)/day in last 30 days. Sex EKG study * Event Display: EKG Authored Date: [id number] Note * Rea GUAJARDO, Zaki R: PERFORM Event Display: Patient Education Leaflets Authored Date: [id number] Depression ?? [id number] Depression Depression is a very common mental [...] medicines you take. This includes prescription and ywve-dkh-lkugcda medicines. It includes vitamins and herbal supplements. [...] An online chat option is also available. [employer] is free and available 11/11. 988 counselors will work with 911 to help you get the care you need. Call [phone] if you: ??? Have suicidal thoughts, a suicide plan, and a way to carry out the plan ??? Have serious thoughts of hurting someone else ??? Have trouble breathing ??? Are??very confused ??? Feel very drowsy or have??trouble awakening ??? Faint ??? Have new chest pain that becomes more severe, lasts longer, or spreads into your shoulder, arm, neck, jaw, or back [...] help ?? Last Reviewed Date: 2021 ?? [id number] [employer]. All rights reserved. This information is not intended as a substitute for professional medical care. Always follow your healthcare professional's instructions. ?? Patient Care team information Care Team Personnel Name: Not on Staff, PCP Position: [facility] Physician (General Medicine) Member Role: PCP Name: *[facility], ED Attending Position: [facility] ED Attendings Patient Name: Zaki Lucia MD Position: [facility] ED Medicine MD Member Role: Admitting Physician Address: Address: [address] [place] [address] [place] [address]- Name: Elaine Higginbotham Position: [facility] ED TA [facility] Member Role: Manager Machine Name: Terry Mendes RN Position: [facility] ED RN W/OE and Tasks Member Role: Patient Care Provider Care Team Related Persons Name: JASPAL CONSTANTINO Name: MATT ARMIJO Address: [place] [address]
--- OUTSIDE RECORDS SUMMARY | 2023-09-14 12:22 | XMS_ITS | Continuity of Care Document ---
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 Daily in AM Depakote Tablet, 250 mg, By Mouth, Daily in AM Depakote Tablet, 1000 mg, By Mouth, Daily at bedtime diphenhydrAMINE 25 mg oral tablet, 50 mg, By Mouth, Every 6 hours, PRN DiphenhydrAMINE Inj, 50 mg= 1 mL, Intramuscular, Once, PRN Folic Acid Tablet, 1 mg, By Mouth, Daily hydrOXYzine pamoate 25 mg oral capsule, 50 mg, By Mouth, Every 6 hours, PRN Ibuprofen Tablet, 400 mg, By Mouth, Every 8 hours, PRN levothyroxine 0.1 mg oral tablet, 100 mcg, By Mouth, Daily Maalox Plus Liquid, 30 mL, By Mouth, Every 8 hours, PRN Melatonin Tablet, 3 mg, By Mouth, Daily at bedtime, PRN Methadone Tablet, 30 mg, By Mouth, Daily Multivitamin Tablet, 1 tablet, By Mouth, Daily olanzapine 5 mg oral tablet, 5 mg, By Mouth, Every 6 hours, PRN Olanzapine Inj, 5 mg, Intramuscular, Once, PRN prazosin 5 mg oral capsule, 7 mg, By Mouth, Daily at bedtime Pyridoxine Tablet, 50 mg, By Mouth, Daily rOPINIRole 0.25 mg oral tablet, 0.25 mg, By Mouth, Daily at bedtime sertraline 50 mg oral tablet, 100 mg, By Mouth, Daily in AM Thiamine Tablet, 100 mg, By Mouth, 2 times a day traZODone 50 mg oral tablet, 100 mg, By Mouth, Daily at bedtime Allergies penicillin Lab Results Test Name Test Result Date/Time WBC 4.9 k/mm3 02/08/2023 12:07 EDT Hgb 11.7 Gm/dL 02/08/2023 12:07 EDT Platelet Count 196 k/mm3 02/08/2023 12:07 EDT Sodium 139 mmol/L 02/08/2023 12:07 EDT Potassium 4.1 mmol/L 02/08/2023 12:07 EDT Glucose Level 81 mg/dL 02/08/2023 12:07 EDT BUN 19 mg/dL 02/08/2023 12:07 EDT Creatinine-Blood 1.0 mg/dL 02/08/2023 12:07 EDT Estimated GFR Creatinine 103 ML/MIN/1.73 M2 02/08/2023 12:07 EDT Alkaline Phosphatase 69 units/L 02/08/2023 12:07 EDT AST (SGOT) 84 units/L 02/08/2023 12:07 EDT ALT (SGPT) 86 units/L 02/08/2023 12:07 EDT TSH 4.13 uIU/mL 02/08/2023 12:07 EDT Free T4 0.97 ng/dL 02/08/2023 12:07 EDT Ethanol, Serum or Plasma NONE DETECTED 02/08/2023 12:07 EDT Influenza A PCR NEGATIVE 02/08/2023 12:22 EDT Influenza B PCR NEGATIVE 02/08/2023 12:22 EDT RSV PCR NEGATIVE 02/08/2023 12:22 EDT COVID-19 PCR Specimen Source NASAL 02/08/2023 12:22 EDT COVID-19 PCR Result NEGATIVE 02/08/2023 12:22 EDT Patient Care team information Care Team Personnel Name: Nargis Carlos Position: [facility] RN Member Role: Primary Care Nurse Name: Geri Holder RN Position: [facility] RN Member Role: Primary Care Nurse Name: Not on Staff, PCP Position: [facility] Physician (General Medicine) Member Role: PCP Name: Meeta Kaminski RN Position: [facility] RN Member Role: Primary Care Nurse Name: *[facility], ED Attending Position: [facility] ED Attendings Patient Name: Jesi Jama RN Position: [facility] ED RN W/OE and Tasks Member Role: Patient Care Provider Name: Damián Bejarano MD Position: [facility] ED Medicine MD Member Role: Admitting Physician Address: Address: [address] [place] [address] [place] [address]- Care Team Related Persons Name: JASPAL CONSTANTINO Name: MATT ARMIJO Address: [place] [address]
--- OUTSIDE RECORDS SUMMARY | 2023-09-14 12:22 | XMS_ITS | Continuity of Care Document ---
Author Organization [facility] Address [address] [place] [address]- Care Team Providers Care District Representative Name Role Phone Not on Staff, PCP Primary Care Physician Unavail able [place]counter [facility] [place](s): 02/25/22 - 02/26/[address] [address]- Encounter Diagnosis Cellulitis(Final) - 02/25/22 Discharge Disposition: A-D/C AMA Attending Physician: Daniela Ruth MD Admitting Physician: Bipin Rich MD Referring Physician: Not on Staff, Referring [...] Maintenance, 03/27/21 20:09:00 EST, EC Tablet, [id number], Partial fill upon patient request if the prescription is for a schedule II opioid drug. Start Date: 03/27/21 Status: Ordered doxycycline hyclate 100 mg oral tablet 1 capsule, By Mouth, Every 12 hours, for 5 days, # 10 capsule, 0 Refills, Acute 03/03/22 8:35:00 EST, 02/26/22 8:35:00 EST, Capsule, [facility] Partial fill upon patient request if the prescription is for a schedule II opioid... Start Date: 02/26/22 Stop Date: 03/03/22 Status: Ordered levothyroxine 0.1 mg oral tablet [...] capsule, 0 Refills, Maintenance, 11/28/2219:58:00 EDT, Capsule, [facility]-, Partial fill upon patient request if the prescription is for a schedule II opioid drug., 16... Start Date: 11/27/21 Status: Ordered Problem List Condition Confirmation Course Effective Dates Status [facility] Informant COVID-19 1 Confirmed 11/28/21 Active 1Problem added by Discern Expert Results Orders for Microbiology Reports Name Date Blood Culture 02/24/22 Blood Culture #2 02/24/22 Microbiology Reports TEST:Blood Culture STATUS:Unauthenticated BODY SITE: SOURCE:Blood COLLECTED DATE/TIME:02/24/22 11:05 PM Blood Culture SPECIMEN DESCRIPTION : BLOOD NO SITE SPECIAL REQUESTS : NONE CULTURE : NO GROWTH AFTER 24 HOURS REPORT STATUS : PRELIMINARY REPORT TEST:Blood Culture, Second Order STATUS:Unauthenticated BODY SITE: SOURCE:Blood COLLECTED DATE/TIME:02/24/22 11:05 PM Blood Culture, Second Order SPECIMEN DESCRIPTION : BLOOD NO SITE SPECIAL REQUESTS : NONE CULTURE : NO GROWTH AFTER 24 HOURS REPORT STATUS : PRELIMINARY REPORT Radiology Reports * Exam Date Time Procedure Performing Provider Status 02/25/22 12:34 AM Toe 4th Right Foot [facility] (Verified) Notes: (Toe 4th Right Foot) Reason For Exam: with Pain;Trauma RESULT: Toe 4th Right Foot Toe 4th Right Foot INDICATION / CLINICAL QUESTION: Known draining MRSA infections lower extremity. Concern of underlying osteomyelitis. IV drug abuse. TECHNIQUE: AP view of the foot. 2 additional views of the 4th toe. COMPARISON: None. FINDINGS: There is no fracture or focal bony lesion. No bone destruction or periosteal reaction. The joints are normal with no arthritic change. No gas or opaque foreign body in soft tissues. IMPRESSION: 1. No bony abnormality. 2. No joint abnormality. WSN: [id number] Ordering Physician: Ida Crane Dictated By: Leonardo Joseph MD Dictated Date/Time: 02/25/22 8:26 am Reviewed By: Leonardo Joseph MD Signed By: Leonardo Joseph MD Signed Date/Time: 02/25/22 8:26 am Transcribed By: HARPER Transcribed Date/Time: 02/25/22 8:25 am * Exam Date Time Procedure Performing Provider Status 02/25/22 12:34 AM Tibia/Fibula 2 Views Left [facility] (Verified) Notes: (Tibia/Fibula 2 Views Left) Reason For Exam: with Pain;Infection RESULT: Tibia/Fibula 2 Views Left Tibia/Fibula 2 Views Left INDICATION: Oozing wounds left lower extremity. Pain. Concern of osteomyelitis. The patient is an intravenous drug user. TECHNIQUE: AP and lateral views COMPARISON: None. FINDINGS: There is no fracture or focal bony lesion. No bone destruction or periosteal reaction. No gas or opaque foreign body in soft tissues.. IMPRESSION: 1. No bony abnormality seen. 2. No soft tissue abnormality. WSN: [id number] Ordering Physician: Ida Crane Dictated By: Leonardo Joseph MD Dictated Date/Time: 02/25/22 8:25 am Reviewed By: Leonardo Joseph MD Signed By: Leonardo Joseph MD Signed Date/Time: 02/25/22 8:25 am Transcribed By: HARPER Transcribed Date/Time: 02/25/22 8:09 am Vital Signs Most recent to oldest [Reference Range]: 1 2 3 Weight 78.0 kg (02/25/22 11:19 PM) Oxygen Saturation [94-100 %] 100 % (02/26/22 6:23 AM) 100 % (02/25/22 9:19 PM) 100 % (02/25/22 6:16 PM) Pulse Rate [55-90 bpm] 61 bpm (02/26/22 6:23 AM) 72 bpm (02/25/22 9:19 PM) 59 bpm (02/25/22 6:16 PM) Blood Pressure [90-138/55-84 mm Hg] 102/55mm Hg (02/26/22 6:23 AM) 109/66mm Hg (02/25/22 9:19 PM) 119/86mm Hg (02/25/22 6:20 PM) Respiratory Rate [16-30 br/min] 18 br/min (02/26/22 6:23 AM) 16 br/min (02/25/22 9:19 PM) 16 br/min (02/25/22 6:16 PM) Temperature [96.8-100.4 DegF] 98.1 DegF (02/26/22:23 AM) 98.1 DegF (02/25/22 9:19 PM) 98.2 DegF (02/25/22 6:16 PM) Liters per Minute 0 L/min (02/25/22 1:43 PM) 0 L/min (02/25/22 7:40 AM) Mode of Delivery (Oxygen) Room air (02/26/22 6:23 AM) Room air (02/25/22 9:19 PM) Room air (02/25/22 6:16 PM) Blood pressure sites Arm, left (02/26/22:23 AM) Arm, right (02/25/22 9:19 PM) Arm, right (02/25/22 6:20 PM) Temperature Route Oral (02/26/22 6:23 AM) Oral (02/25/22 9:19 PM) Oral (02/25/22 6:16 PM) Weight Obtained Via Bed scale (02/25/22 11:19 PM) Social History Social History Type Response Tobacco Use: 4 or less cigar ettes(less than 1/4 pack)/day in last 30 days. Sex History and physical note * Bipin Rich MD: PERFORM Event Display: History and Physical Hospital Authored Date: [id number] Patient: ??ARMIN TRAN ? Age:??36 Years?Sex:??Male?:??1985?? Chief Complaint/Reason for Consultation Coming from [facility], reporting MRSA infection on , by PCP taking bactrimbut noncompliant. History of Present Illness 36-year-old male??presented to the ER??with complaints of a left lower extremity cellulitis.?? The patient is a very poor historian.?? He was sleeping when I??arrived in the room late at night.?? He was??medicated??earlier in the evening and is now quite drowsy.?? He is arousable??but reluctant to a nswer??questions.?He tells me that he wishes to go back to sleep??and??does not want to go through an entire history again.?? It is unclear if he had an injury to the leg. ??It appears he was on Bactrim since 02/21 for the left lower extremity cellulitis.?? He denies any pain in the leg presently.?? He further denies any shortness of breath??on arrival??he was noted to have a purulent area/abscess in the medial aspect of his left lower extremity??which was drained by the ER physician.?? He was then started on vancomycin for purulent cellulitis.?? The patient reportedly has been using heroin??but denied injection to the ER physician earlier in the evening.?? He tells me that he is taking all of his regular medications at home and is compliant. Objective ? Vital Signs?? Temperature: 98.7 DegF (02/25/22 04:20:00) Temperature Route: Oral (02/25/22 04:20:00) Pulse Rate: 63 bpm (02/25/22 04:20:00) Respiratory Rate:??15 br/min??Low (02/25/22 04:20:00) Systolic Blood Pressure: 108 mm Hg (02/25/22 04:20:00) Diastolic Blood Pressure: 62 mm Hg (02/25/22 04:20:00) Blood pressure sites: Arm, left (02/24/22:44:00) Mean Arterial Pressure: 95 mm Hg (02/24/22 22:44:00) Pulse Pressure: 46 mm Hg (02/25/22 04:20:00) Oxygen Saturation: 96 % (02/25/22 04:20:00) Mode of Delivery (Oxygen): Room air (02/25/22 04:20:00) Early Warning Score: 0 (02/25/22 06:24:50) ? Physical Exam Constitutional: Alert, in no distress. Mental Status: Oriented to person, place and time. Head: Normocephalic. Eyes: Pupils are equal, round and reactive to light. Extraocular muscles intact. Neck: Supple, Full range of motion. Respiratory: Clear to auscultation. No wheezing, rales or rhonchi. Cardiovascular: S1 S2 regular. No murmurs, rubs or gallops. Gastrointestinal: Abdomen soft, non-tender, non-distended. Normal bowel sounds Neurologic: Cranial nerves II-XII grossly intact. No focal neurological deficits. Flexor plantar response. Moves all extremities spontaneously. Sensation intact bilaterally. Skin: Notable abscess with surrounding erythema/cellulitis to medial aspect of??the left lower extremity Musculoskeletal: No cyanosis or clubbing. No gross deformities. Normal range of motion. Psychiatric: Anxious??and sleepy Assessment/Plan ??36-year-old male??admitted with purulent cellulitis of the left lower extremity ?? 1. ??Purulent cellulitis: As noted above??he was noted to have an abscess of the left lower extremity which was drained in the emergency room He reportedly denied any injection use He was reportedly on Bactrim??over the previous 4 days with little improvement We will continue with vancomycin and add doxycycline Infectious disease consult Wound care consult ?? 2.?? Depression/bipolar: Continue Depakote, prazosin, Effexor, Geodon ?? 3.?? Hypothyroid: Continue levothyroxine ?? 4.?? Opioid use disorder: It is unclear how much heroin??he has been using recently Will need to obtain further history when the patient is amenable Consider addiction medicine consult in a.. Social work consult ?? 5.?? DVT prophylaxis: Lovenox subcu ?? 6.?? CODE STATUS: Presumed full code Patient did not wish to discuss??this evening ?? Patient seen 02/25/2022 Histories Allergies Allergies ?(Active and Proposed Allergies Only) penicillin? (Severity: Unknown severity, Onset: Unknown) ? Past Medical History/Problem List Depression Hypothyroid Psoriasis ADHD PTSD Polysubstance abuse Bipolar Right hand surgery ? Social History History of homelessness Unclear smoking history Reportedly??snorting heroin??occasionally ? Family History Mother diabetes ? Medications Home Medications Albuterol (ProAir HFA 90 mcg/inh inhalation aerosol with adapter)?INHALE 2 PUFFS BY MOUTH INTO THE lungs EVERY 6 HOURS Divalproex Sodium (Depakote 500 mg oral enteric coated tablet)?1?tab(s)?500?Milligram?By Mouth?2 times a day Levothyroxine (levothyroxine 0.1 mg oral tablet)?TAKE ONE TABLET BY MOUTH EVERY DAY Prazosin (prazosin 5 mg oral capsule)?TAKE ONE CAPSULE BY MOUTH EVERY NIGHT AT BEDTIME Ropinirole (rOPINIRole 0.25 mg oral tablet)?TAKE ONE TABLET BY MOUTH EVERY NIGHT AT BEDTIME Trazodone (traZODone 50 mg oral tablet)?100?Milligram?2?tablet?By Mouth?3 times aday Venlafaxine (venlafaxine 150 mg oral capsule, extended release)?TAKE ONE CAPSULE BY MOUTH DAILY Ziprasidone (ziprasidone 20 mg oral capsule)?See Instructions?3 capsules By Mouth 2 times a day ? Results Recent Labs BLOOD COUNT & DIFF WBC 9.3 k/mm3 ()?? 02/25/2022 05:09 RBC 4.41 m/mm3 (Low)?? 02/25/2022 05:09 Hgb 12.9 Gm/dL (Low)?? 02/25/2022 05:09 Hct 40.0 % (Low)?? 02/25/2022 05:09 MCV 90.7 femtoliters ()?? 02/25/2022 05:09 MCH 29.3 pg ()?? 02/25/2022 05:09 MCHC 32.3 g/dL (Low)?? 02/25/2022 05:09 Platelet Count 298 k/mm3 ()?? 02/25/2022 05:09 RDW-SD 40.7 femtoliters ()?? 02/25/2022 05:09 MPV 10.6 femtoliters ()?? 02/25/2022 05:09 Nucleated RBC (Automated) 0.0 #/100 WBC'S ()?? 02/25/2022 05:09 Abs. NRBC 0.0 k/mm3 ()?? 02/25/2022 05:09 Abs. Neut 9.4 k/mm3 (High)?? 02/24/2022 23:05 Abs. Lymph 1.4 k/mm3 ()?? 02/24/2022 23:05 Abs. [place] 0.6 k/mm3 ()?? 02/24/2022 23:05 Abs. Eo 0.0 k/mm3 ()?? 02/24/2022 23:05 Abs. Baso 0.0 k/mm3 ()?? 02/24/2022 23:05 Neut % 81.8 % (High)?? 02/24/2022 23:05 Lymph % 12.1 % (Low)?? 02/24/2022 23:05 [place] % 5.2 % ()?? 02/24/2022 23:05 Eos % 0.2 % ()?? 02/24/2022 23:05 Baso % 0.3 % ()?? 02/24/2022 23:05 Imm Gran 0.4 % ()?? 02/24/2022 23:05 Abs. Imm Gran 0.1 k/mm3 ()?? 02/24/2022 23:05 ?? CHEM GENERAL Sodium 139 mmol/L ()?? 02/25/2022 05:09 Potassium HEMOLYZED mmol/L ()?? 02/25/2022 05:09 Chloride 103 mmol/L ()?? 02/25/2022 05:09 Bicarbonate Level 25 mmol/L ()?? 02/25/2022 05:09 Anion Gap 11 ()?? 02/25/2022 05:09 Glucose Level 99 mg/dL ()?? 02/24/2022 23:05 BUN 15 mg/dL ()?? 02/25/2022 05:09 Creatinine-Blood 0.8 mg/dL ()?? 02/25/2022 05:09 Estimated GFR Creatinine 118 ML/MIN/1.73 M2 ()?? 02/25/2022 05:09 Calcium 9.7 mg/dL ()?? 02/24/2022 23:05 Protein, Total 7.1 Gm/dL ()?? 02/24/2022 23:05 Albumin 4.6 Gm/dL ()?? 02/24/2022 23:05 AG Ratio 1.8 ()?? 02/24/2022 23:05 Alkaline Phosphatase 94 units/L ()?? 02/24/2022 23:05 AST (SGOT) 32 units/L ()?? 02/24/2022 23:05 ALT (SGPT) 14 units/L ()?? 02/24/2022 23:05 Bilirubin, Total 0.6 mg/dL ()?? 02/24/2022 23:05 C-Reactive Protein 3.6 mg/dL (High)?? 02/24/2022 23:05 ?? HEME OTHER Sed Rate 32 mm/hr (High)?? 02/24/2022 23:05 ?? VIROLOGY COVID-19 by RT-PCR NEGATIVE ()?? 02/24/2022 23:20 ? Hospital Progress note * Randy Bennett RN: PERFORM, SIGN, VERIFY Event Display: Progress Note Hospital Authored Date: Patient: ARMIN TRAN Age: 36 years Sex: Male : 1985 Associated Diagnoses: None Author: Randy Bennett RN Findings Narrative/Incidental Patient unwilling to cooperate with care, MD made aware that he was refusing all of his morning medication. Patient observed by this RN coming out of his room dressed with a backpack on, he stated Herson getting the fuck out of here . When told that I needed to remove his IV prior to him leaving andhave him sign paperwork he refused to let this RN do so. He proceeded to aggressively rip his IV out of his right forearm, threw it on the floor in the hallway and stormed off the unit. His covering provider was made aware of his departure.. * Nubia Mcnulty RN: PERFORM, SIGN, VERIFY Event Display: Progress Note Hospital Authored Date: Patient: ARMIN TRAN Age: 36 years Sex: Male : 1985 Associated Diagnoses: None Author: Nubia Mcnulty RN Findings Problem Related to Alteration in Integumentary : Alteration in Integumentary/new 02/26/2022 1:00 EST Alteration in Integumentary Related to Cellulitis Goals & Outcomes, Integumentary Nutritional intake is adequate for metabolic needs, Pt will maintain adequate fluid & nutritional balance, Pt will maintain intact skin integrity, Wound will progress towards healing Interventions, Integumentary Cleanse all wounds with Normal Saline, Consult Wound Care as needed for further interventions, Interdisciplinary consults as appropriate, Keep skin clean & dry, Maintain sterile technique with dressing changes, Record extent of impaired skin integrity, Reposition ptoff reddened areas, Teach Pt/caregiver s/s of infection BH Goals/Interventions, Integumentary Yes Integumentary, Problem Start 02/26/2022 1:26 Reviewed plan with, Integumentary Patient Patient Progression, Integumentary Plan Initiation . Narrative/Incidental pt arrived to unit via stretcher, agitated, screaming at staff and demanding to leave AMA. education was provided but refused to listen, refusing to be moved into room and insisting to leave. security and paged and came up to unit, explained to pt importance of staying, still refusing to stay but did not want to sign AMA form. after long discussion between MD and pt, pt decided to stay. moved to room, pt scooted from stretcher to bed; refusing vitals taken, refusing dressing to left leg wound, refusing to wear socks and refusing to sign forms. pt stated , I am just here to receive my abtibiotics and I will move to [facility] in the morning, I just want to be left alone pt witnessed ambulate to bathroom with steady gait. IV vancomycin started and infused via right FA IV. . * Conrado Guillaume DO: PERFORM Event Display: Progress Note Hospital Authored Date: [id number] Patient: ??ARMIN TRAN ? Age:??36 Years?Sex:??Male?:??1985?? Subjective admitted this morning for purulent cellulitis. stable ??on vanc and doxy, not sure what doxy is adding thus will dc it for now. await ID reccs ?? Review of Systems Objective ? Vital Signs?? Temperature: 97.8 DegF (02/25/22 07:40:00) Temperature Route: Oral (02/25/22 07:40:00) Pulse Rate: 59 bpm (02/25/22 07:40:00) Respiratory Rate: 20 br/min (02/25/22 07:40:00) Systolic Blood Pressure: 124 mm Hg (02/25/22 07:40:00) Diastolic Blood Pressure: 75 mm Hg (02/25/22 07:40:00) Blood pressure sites: Arm, left (02/25/22 07:40:00) Mean Arterial Pressure: 91 mm Hg (02/25/22 07:40:00) Pulse Pressure: 49 mm Hg (02/25/22 07:40:00) Oxygen Saturation: 96 % (02/25/22 07:40:00) Liters per Minute: 0 L/min (02/25/22 07:40:00) Mode of Delivery (Oxygen): Room air (02/25/22 07:40:00) Early Warning Score: 2 (02/25/22 07:42:26) ? Physical Exam Results Recent Labs BLOOD COUNT & DIFF WBC 9.3 k/mm3 ()?? 02/25/2022 05:09 RBC 4.41 m/mm3 (Low)?? 02/25/2022 05:09 Hgb 12.9 Gm/dL (Low)?? 02/25/2022 05:09 Hct 40.0 % (Low)?? 02/25/2022 05:09 MCV 90.7 femtoliters ()?? 02/25/2022 05:09 MCH 29.3 pg ()?? 02/25/2022 05:09 MCHC 32.3 g/dL (Low)?? 02/25/2022 05:09 Platelet Count 298 k/mm3 ()?? 02/25/2022 05:09 RDW-SD 40.7 femtoliters ()?? 02/25/2022 05:09 MPV 10.6 femtoliters ()?? 02/25/2022 05:09 Nucleated RBC (Automated) 0.0 #/100 WBC'S ()?? 02/25/2022 05:09 Abs. NRBC 0.0 k/mm3 ()?? 02/25/2022 05:09 Abs. Neut 9.4 k/mm3 (High)?? 02/24/2022 23:05 Abs. Lymph 1.4 k/mm3 ()?? 02/24/2022 23:05 Abs. [place] 0.6 k/mm3 ()?? 02/24/2022 23:05 Abs. Eo 0.0 k/mm3 ()?? 02/24/2022 23:05 Abs. Baso 0.0 k/mm3 ()?? 02/24/2022 23:05 Neut % 81.8 % (High)?? 02/24/2022 23:05 Lymph % 12.1 % (Low)?? 02/24/2022 23:05 [place] % 5.2 % ()?? 02/24/2022 23:05 Eos % 0.2 % ()?? 02/24/2022 23:05 Baso % 0.3 % ()?? 02/24/2022 23:05 Imm Gran 0.4 % ()?? 02/24/2022 23:05 Abs. Imm Gran 0.1 k/mm3 ()?? 02/24/2022 23:05 ?? CHEM GENERAL Sodium 139 mmol/L ()?? 02/25/2022 05:09 Potassium HEMOLYZED mmol/L ()?? 02/25/2022 05:09 Chloride 103 mmol/L ()?? 02/25/2022 05:09 Bicarbonate Level 25 mmol/L ()?? 02/25/2022 05:09 Anion Gap 11 ()?? 02/25/2022 05:09 Glucose Level 99 mg/dL ()?? 02/24/2022 23:05 BUN 15 mg/dL ()?? 02/25/2022 05:09 Creatinine-Blood 0.8 mg/dL ()?? 02/25/2022 05:09 Estimated GFR Creatinine 118 ML/MIN/1.73 M2 ()?? 02/25/2022 05:09 Calcium 9.7 mg/dL ()?? 02/24/2022 23:05 Protein, Total 7.1 Gm/dL ()?? 02/24/2022 23:05 Albumin 4.6 Gm/dL ()?? 02/24/2022 23:05 AG Ratio 1.8 ()?? 02/24/2022 23:05 Alkaline Phosphatase 94 units/L ()?? 02/24/2022 23:05 AST (SGOT) 32 units/L ()?? 02/24/2022 23:05 ALT (SGPT) 14 units/L ()?? 02/24/2022 23:05 Bilirubin, Total 0.6 mg/dL ()?? 02/24/2022 23:05 C-Reactive Protein 3.6 mg/dL (High)?? 02/24/2022 23:05 ?? HEME OTHER Sed Rate 32 mm/hr (High)?? 02/24/2022 23:05 ?? VIROLOGY COVID-19 by RT-PCR NEGATIVE ()?? 02/24/2022 23:20 ? Abnormal Labs ?? BLOOD COUNT & DIFF ??Abs. Imm Gran ??0.1 k/mm3 () ??02/24/2022 23:05 ??Abs. NRBC ??0.0 k/mm3 () ??02/25/2022 05:09 ??Abs. Neut ??9.4 k/mm3 (High) ??02/24/2022 23:05 ??Hct ??40.0 % (Low) ??02/25/2022 05:09 ??Hgb ??12.9 Gm/dL (Low) ??02/25/2022 05:09 ??Imm Gran ??0.4 % () ??02/24/2022 23:05 ??Lymph % ??12.1 % (Low) ??02/24/2022 23:05 ??MCHC ??32.3 g/dL (Low) ??02/25/2022 05:09 ??Neut % ??81.8 % (High) ??02/24/2022 23:05 ??Nucleated RBC (Automated) ??0.0 #/100 WBC'S () ??02/25/2022 05:09 ??RBC ??4.41 m/mm3 (Low) ??02/25/2022 05:09 ??RDW-SD ??40.7 femtoliters () ??02/25/2022 05:09 ? CHEM GENERAL ??AG Ratio ??1.8 () ??02/24/2022 23:05 ??C-Reactive Protein ??3.6 mg/dL (High) ??02/24/2022 23:05 ??Estimated GFR Creatinine ??118 ML/MIN/1.73 M2 () ??02/25/2022 05:09 ??Potassium ??HEMOLYZED mmol/L () ??02/25/2022 05:09 ? HEME OTHER ??Sed Rate ??32 mm/hr (High) ??02/24/2022 23:05 ? VIROLOGY ??COVID-19 by RT-PCR ??NEGATIVE () ??02/24/2022 23:20 ? Note: Critical results are displayed in red. ? CBC, CBC w/Diff?? CBC?? Differential?? WBC: 9.3 k/mm3 (05:09) Abs. Neut:??9.4 k/mm3??High (23:05) RBC:??4.41 m/mm3??Low (05:09) Abs. Lymph: 1.4 k/mm3 (23:05) Hct:??40 %??Low (05:09) Abs. [place]: 0.6 k/mm3 (23:05) RDW-SD: 40.7 femtoliters (05:09) Abs. Eo: 0 k/mm3 (23:05) Nucleated RBC (Automated): 0 #/100 WBC'S (05:09) Abs. Baso: 0 k/mm3 (23:05) Abs. NRBC: 0 k/mm3 (05:09) Neut %:??81.8 %??High (23:05) ?? Lymph %:??12.1 %??Low (23:05) ?? [place] %: 5.2 % (23:05) ?? Eos %: 0.2 % (23:05) ?? Baso %: 0.3 % (23:05) ?? Imm Gran: 0.4 % (23:05) ?? Abs. Imm Gran: 0.1 k/mm3 (23:05) ? BMP, Mg, and Phos Anion Gap: 11 (05:09) Bicarbonate Level: 25 mmol/L (05:09) BUN: 15 mg/dL (05:09) Calcium: 9.7 mg/dL (23:05) Chloride: 103 mmol/L (05:09) Creatinine-Blood: 0.8 mg/dL (05:09) Estimated GFR Creatinine: 118 ML/MIN/1.73 M2 (05:09) Glucose Level: 99 mg/dL (23:05) Potassium: HEMOLYZED (05:09) Sodium: 139 mmol/L (05:09) ?? Coagulation Profile?? No qualifying data available. ?? LFT Albumin: 4.6 Gm/dL (23:05) Alkaline Phosphatase: 94 units/L (23:05) ALT (SGPT): 14 units/L (23:05) AST (SGOT): 32 units/L (23:05) Bilirubin, Total: 0.6 mg/dL (23:05) ?? Urinalysis?? No qualifying data available. ?? Microbiology ?? COVID-19 (Novel Coronavirus), Rapid PCR?? Completed?? Source: Nasal Body Site: Nose Collected Dt/Tm: 02/24/2022 22:57 Last Updated Dt/Tm: 02/25/2022 00:07 ? Note * Chantelle YATES, Donna Muniz: PERFORM Event Display: Discharge/Transfer Note Hospital Authored Date: [id number] Patient: ??CHELSEA, ARMIN ? Age:??36 Years?Sex:??Male?:??1985?? Patient Information Discharge Location: [facility] Primary Care Physician: Not on Staff, PCP Admit Date/Time: 02/25/22 01:25 Discharge date: 02/26/2022 Discharge Disposition Discharge Disposition:??Home no services ?? Discharge Diagnosis Cellulitis (L03.90) Opioid use disorder (F11.90) Purulent abscess (L02.91) Therapeutic drug monitoring (Z51.81) _ Discharge Medications Albuterol (ProAir HFA 90 mcg/inh inhalation aerosol with adapter)?INHALE 2 PUFFS BY MOUTH INTO THE lungs EVERY 6 HOURS Divalproex Sodium (Depakote 500 mg oral enteric coated tablet)?1?tab(s)?500?Milligram?By Mouth?2 times a day Doxycycline (doxycycline hyclate 100 mg oral tablet)?1?capsule?By Mouth?Every 12 hours?for 5?Days Levothyroxine (levothyroxine 0.1 mg oral tablet)?TAKE ONE TABLET BY MOUTH EVERY DAY Prazosin (prazosin 5 mg oral capsule)?TAKE ONE CAPSULE BY MOUTH EVERY NIGHT AT BEDTIME Ropinirole (rOPINIRole 0.25 mg oral tablet)?TAKE ONE TABLET BY MOUTH EVERY NIGHT AT BEDTIME Trazodone (traZODone 50 mg oral tablet)?100?Milligram?2?tablet?By Mouth?3 times aday Venlafaxine (venlafaxine 150 mg oral capsule, extended release)?TAKE ONE CAPSULE BY MOUTH DAILY Ziprasidone (ziprasidone 20 mg oral capsule)?See Instructions?3 capsules By Mouth 2 times a day ?? Medications Started doxycycline BID x 5 days Medications Discontinued none Doses Changed none Allergies Allergies ?(Active and Proposed Allergies Only) penicillin? (Severity: Unknown severity, Onset: Unknown) ? PCP Follow-Up/Heads-Up left before formal dc did send RX Hospital Course Mr. Tran is a 36 yo M with PMHx OUD (but unclear if injection or inhalation) who has purulent cellulitis on the right leg who presented to [facility] with c/o lower leg abscess. ??Underwent bedside I&D??in the emergency room. ??Admitted for observation given that he was failing outpatient antibiotic.?? However, upon further prodding, likely the patient has??significant noncompliance on outpatientbasis and less likely to be taking??antibiotic. ??Infectious disease was consulted and recommended??5 days of p.o. doxycycline from date of I&D. ?? 02/26/2022??patient seen and examined at bedside, discussed??further observation of??cellulitis withcontinuing IV vancomycin versus discharge home with p.o. doxycycline. ??I shared my concerns about his compliance,??he ensured me that he would take the antibiotic.?? We agreed on discharge.?? However, he later told me that??he would not pick up driver his prescription,??proceeded to rip the IV out of his arm??and walk out before any discharge paperwork??could be filed or AMA paperwork could be signed. ?? He was AAOx4??and did have capacity to make his own medical decisions. Objective Assessment and Plan . Physical Exam Temperature?98.1 ?(06:23) Systolic Blood Pressure?102 ?(06:23) Diastolic Blood Pressure?55 ?(06:23) Pulse?61 ?(06:23) SpO2?100 ?(06:23) Respiratory Rate?18 ?(06:23) ?? Constitutional: Alert, NAD. HEENT: Normocephalic. Respiratory: Clear to auscultation. No wheezing, rales or rhonchi. Cardiovascular: RRR. No murmurs, rubs or gallops. Gastrointestinal: Abdomen soft, non-tender, non-distended. Normal bowel sounds. Neurologic: Moves all extremities spontaneously. Skin:Notable abscess with surrounding erythema/cellulitis to medial aspect of??the left lower extremity Extremities: No cyanosis or clubbing. No gross deformities. Normal range of motion. Psychiatric: appropriate mood and affect Consultants ID Pending Results Blood Culture ordered on 02/24/2022 Blood Culture #2 ordered on 02/24/2022 Post Discharge Care Discharge ?Discharge AMA, ??02/26/22 8:51:00 EST Discharge Prescriptions ?ePrescribed, ??02/26/22 8:51:00 EST Home Health Face to Face ^HomeHealthFTF 24 minutes spent on discharge * BHSPowerscribianka , CIS S: SUSU Joseph MD, Leonardo D: VERIFY Event Display: Result: Authored Date: Toe 4th Right Foot INDICATION / CLINICAL QUESTION: Known draining MRSA infections lower extremity. Concern of underlying osteomyelitis. IV drug abuse. TECHNIQUE: AP view of the foot. 2 additional views of the 4th toe. COMPARISON: None. FINDINGS: There is no fracture or focal bony lesion. No bone destruction or periosteal reaction. The joints are normal with no arthritic change. No gas or opaque foreign body in soft tissues. IMPRESSION: 1. No bony abnormality. 2. No joint abnormality. WSN: [id number] Ordering Physician: Ida Crane Dictated By: Leonardo Joseph MD Dictated Date/Time: 02/25/22 8:26 am Reviewed By: Leonardo Joseph MD Signed By: Leonardo Joseph MD Signed Date/Time: 02/25/22 8:26 am Transcribed By: HARPER Transcribed Date/Time: 02/25/22 8:25 am XR Tibia and Fibula - left 2 Views * BHSPowerscribe , CIS S: TRANSCRIBE Leonardo Joseph MD: VERIFY Event Display: Result: Authored Date: [id number] Tibia/Fibula 2 Views Left INDICATION: Oozing wounds left lower extremity. Pain. Concern of osteomyelitis. The patient is an intravenous drug user. TECHNIQUE: AP and lateral views COMPARISON: None. FINDINGS: There is no fracture or focal bony lesion. No bone destruction or periosteal reaction. No gas or opaque foreign body in soft tissues.. IMPRESSION: 1. No bony abnormality seen. 2. No soft tissue abnormality. WSN: [id number] Ordering Physician: Ida Crane Dictated By: Leonardo Joseph MD Dictated Date/Time: 02/25/22 8:25 am Reviewed By: Leonardo Joseph MD Signed By: Leonardo Joseph MD Signed Date/Time: 02/25/22 8:25 am Transcribed By: HARPER Transcribed Date/Time: 02/25/22 8:09 am Patient Care team information Care Team Personnel Name: Not on Staff, PCP Position: [facility] Physician (General Medicine) Member Role: PCP Name: *Ronnie AHN Attending Position: [facility] ED Medicine Name: Pablo Garcia Position: [facility] ED RADHA FREEDMAN Name: Stacy Mcpherson RN Position: [facility] ED RN W/OE and Tasks Member Role: Patient Care Provider Care Team Related Persons Name: JASPAL CONSTANTINO Name: MATT ARMIJO Address: [place] [address]
--- OUTSIDE RECORDS SUMMARY | 2023-09-14 12:22 | XMS_ITS | Continuity of Care Document ---
Author Organization [facility] Address [address] [place] [address]- Care Team Providers Care Car Distributor Name Role Phone Not on Staff, PCP Primary Care Physician Unavail able Encounter [facility] Date(s): 01/05/22 - 01/05/[address] [address]- Discharge Disposition: A-D/C Home Attending Physician: Garfield GUAJARDO, Freddie Squires Admitting Physician: Freddie Merrill MD Referring Physician: Not on Staff, Referring [...] Maintenance, 03/27/21 20:09:00 EST, EC Tablet, [id number], Partial fill upon patient request if the [...] Refills, Maintenance, 11/28/2219:58:00 EDT, Capsule, [facility], Partial fill upon patient request if the prescription is for a schedule II opioid drug., 16... Start Date: 11/27/21 Status: Ordered Problem List Condition Effective Dates Status Health Status Inform ant COVID-19(Confirmed) 1 11/28/21 Active 1Problem added by Discern Expert Vital Signs Most recent to oldest [Reference Range]: 1 Weight 119 kg (01/05/22 1:26 AM) Oxygen Saturation [94-100 %] 99 % (01/05/22 1:26 AM) Pulse Rate [55-90 bpm] 82 bpm (01/05/22 1:26 AM) Blood Pressure [90-138/55-84 mm Hg] 138/ 79mm Hg (01/05/22 1:26 AM) Respiratory Rate [16-30 br/min] 16 br/mi n (01/05/22 1:26 AM) Temperature [96.8-100.4 DegF] 98.2 DegF (01/05/22 1:26 AM) Mode of Delivery (Oxygen) Room air (01/05/22 1:26 AM) Blood pressure sites Arm, right (01/05/22 1:26 AM) Temperature Route Oral (01/05/22 1:26 AM) Social History Social History Type Response Tobacco Use: 4 or less cigar ettes(less than 1/4 pack)/day in last 30 days. Sex Care Team Personnel Name: Not on Staff, PCP
[2023-09-14 12:23] LABS: MANUAL DIFF FLAG NO
[2023-09-14 12:25] LABS: Basophils Percent Auto 0.3 % (0-2); Eosinophils Absolute Auto 0.1 X10*3/uL (0.0-0.4); Eosinophils Percent Auto 0.6 % (0-4); Hematocrit 40.9 % (42.0-52.0); Hemoglobin 13.8 g/dl (14.0-18.0); Imm Gran Abs Auto 0.04 X10*3/uL (0.00-0.03); Imm Gran Pct Auto 0.4 % (0.0-0.4); Lymphocytes Percent Auto 10.5 % (20-40); Mean Corpuscular HGB Conc 33.7 g/dl (31.0-36.0); Mean Corpuscular Hemoglobin 29.9 pg (27.0-33.0); Mean Corpuscular Volume 88.7 fL (80.0-98.0); Mean Platelet Volume 9.9 fL (9.4-12.4); Monocytes Absolute Auto 0.5 X10*3/uL (0.1-1.2); Monocytes Percent Auto 4.9 % (2-11); Neutrophils Absolute Auto 8.1 x10*3/uL (2.0-8.3); Neutrophils Percent Auto 83.3 % (45-73); Platelet Count 240 X10*3/uL (160-400); Red Blood Count 4.61 X10*6/uL (4.60-5.80); Red Cell Distribution Width 12.5 % (11.0-16.0); White Blood Count 9.7 X10*3/uL (4.8-10.8)
[2023-09-14 12:37] LABS: Lactic Acid 0.8 mmol/L (0.5-2.0)
[2023-09-14 12:39] LABS: Anion Gap 14 (12-20); Blood Urea Nitrogen 18 mg/dL (9-16); Calcium 9.6 mg/dL (8.4-10.2); Carbon Dioxide 28 mmol/L (22-29); Chloride 103 mmol/L (96-108); Creatinine Clr Calc Pharmacy 105.7; Estimated Glomerular Filt Rate > 60; Glucose Random 103 mg/dL (60-115); Potassium 4.1 mmol/L (3.3-5.1); Sodium 141 mmol/L (135-145)
[2023-09-14 15:25] VITALS: BP 118/74; PULSE 74; RESP 18; TEMP 36.9; O2SAT 97
[2023-09-14 15:54] VITALS: BP 118/74; PULSE 74; RESP 18; TEMP 36.9; O2SAT 97
[2023-09-16 09:06] LABS: HBS Num1 3.71 mIU/mL (0-7.99); HBc Num1 0.06 S/CO (0.00-0.79); HBsAGNum1 0.43 S/CO (0.00-0.99); HIV Num 1 2.43 S/CO (0.00-0.99); Hepatitis A Antibody IgM 0.16 Index (0-0.79); Hepatitis B Core Antibody Nonreactive (Nonreactive); Hepatitis B Surface Antigen Negative (Negative); ~HepC Num1 14.66 S/CO (0.00-0.79); ~Hepatitis A Antibody IgM Nonreactive (Nonreactive); ~Hepatitis B Surface Antibody NONREACTIVE (Nonreactive); ~Hepatitis C Antibody Reactive (Nonreactive)
[2023-09-16 10:47] LABS: HIV AB/AG Nonreactive (Nonreactive); HIV Num 2 0.06 S/CO; HIV Num 3 0.05 S/CO
== END 2023-09-14 15:55 | disposition home or self-care (01) ==
PROVIDERS: Physician Assistant; Emergency Provider Student in an Organized Health Care Education/Training Program
DX: L03.114 Cellulitis of left upper limb (principal); B19.20 Unspecified viral hepatitis C without hepatic coma
CPT/HCPCS: 36415; 80048; 83605; 85025; 86704; 86706; 86709; 86803; 87040; 87340; 87389; 99282; 99283

== ENCOUNTER 2023-10-24 18:04 | Inpatient (IN) | payer MEDICAID, SELFPAY ==
[2023-10-24] VITALS (7 sets, daily range): BP systolic 118–133; BP diastolic 60–68; PULSE 76–125; RESP 17–26; TEMP 36.9; O2SAT 86–98; BMI 26.6
--- NOTE | 2023-10-24 | ECG_ITS ---
Test Reason : ETOH Blood Pressure : / mmHG Vent. Rate : 091 BPM Atrial Rate : 091 BPM P-R Int : 140 ms QRS Dur : 086 ms QT Int : 310 ms P-R-T Axes : 063 009 031 degrees QTc Int : 381 ms Normal sinus rhythm Nonspecific T wave abnormality Abnormal ECG When compared with ECG of 04-JUL-2023 07:16, Vent. rate has increased BY 43 BPM Referred By: Generic ED Physician Electronically Signed By:VICTORINO FRANK
--- NOTE | ~2023-10-24 | XR_ITS ---
EXAMINATION: XR CHEST CLINICAL INFORMATION: Hypoxia COMPARISON: 12/09/2022 TECHNIQUE: Frontal view of the chest was obtained. FINDINGS: Low lung volumes. There is asymmetric fullness of the right hilum with a possible calcified lymph node. No airspace disease. No pleural effusion or pneumothorax. Cardiac silhouette is within normal limits in size for technique. No acute osseous findings. XR/XR chest 1V IMPRESSION: Low lung volumes. Asymmetric fullness of the right hilum with a possible calcified lymph node, new as compared to prior. Consider correlation with a CT of the chest contrast for further assessment for adenopathy.
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
[2023-10-24 18:45] LABS: Hematocrit 38.7 % (42.0-52.0); Hemoglobin 13.5 g/dl (14.0-18.0); Mean Corpuscular HGB Conc 34.9 g/dl (31.0-36.0); Mean Corpuscular Hemoglobin 29.9 pg (27.0-33.0); Mean Corpuscular Volume 85.6 fL (80.0-98.0); Mean Platelet Volume 9.8 fL (9.4-12.4); Platelet Count 274 X10*3/uL (160-400); Red Blood Count 4.52 X10*6/uL (4.60-5.80); Red Cell Distribution Width 12.8 % (11.0-16.0)
[2023-10-24 18:56] LABS: WBC ABN SCTR FOR CBC 1
--- NOTE | 2023-10-24 19:02 | MHC.EDTECH ---
This tech took over care as PCT at 1900 Due to the patient current condition. Upon arrival patient is unable to stay still. To perform an EKG RN was notified Plan of care ongoing
[2023-10-24 19:03] LABS: Acetaminophen LAB < 3 mcg/mL (<30); Alanine Aminotransferase 76 U/L (0-40); Albumin Level 4.7 g/dL (3.5-5.0); Alkaline Phosphatase 65 U/L (39-117); Anion Gap 22 (12-20); Aspartate Amino Transferase 129 U/L (5-37); Bilirubin Total 1.9 mg/dL (0.0-1.0); Blood Urea Nitrogen 34 mg/dL (9-16); Calcium 9.4 mg/dL (8.4-10.2); Carbon Dioxide 21 mmol/L (22-29); Chloride 100 mmol/L (96-108); Creatinine Clr Calc Pharmacy 59.2; Estimated Glomerular Filt Rate 53; Glucose Random 68 mg/dL (60-115); Salicylate < 5.0 mg/dL (15-30); Sodium 139 mmol/L (135-145); Total Protein 7.2 g/dL (6.5-8.0)
[2023-10-24 19:16] LABS: Basophils Percent Manual 2 % (0-2); Lymphocytes Percent Manual 5 % (20-40); Monocytes Percent Manual 4 % (2-11); Neutrophils Percent Manual 89 % (45-73)
[2023-10-24 19:20] LABS: RBC Morphology NORMAL
[2023-10-24 19:21] LABS: Platelet Estimate NORMAL (NORMAL); Platelet Morphology Comment NORMAL
[2023-10-24 19:22] LABS: Band Neutrophils Percent 0 % (3-5); Basophils Abs Manual 0.5 X10*3/uL (0.0-0.2); Lymphocytes Absolute Manual 1.1 X10*3/uL (1.2-4.9); Monocytes Absolute Manual 0.9 X10*3/uL (0.1-1.2); White Blood Count 22.5 X10*3/uL (4.8-10.8)
--- NOTE | 2023-10-24 20:00 | PC.NURSE ---
This assembly instructions writer assumed care of this Pt at 1900. Pt identifies as a female. Pt very anxious and paranoid, unable to sit still, erratic movements, flailing arms, not following basic commands. Pt denies SI/HI, reports auditory hallucinations thinks someone is out to kill her. 1:1 sitter at bedside. Belonging in ED [facility] room per previous RN.
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
[2023-10-24] MEDS: LORazepam 2 MG/ML VIAL IM (20:20)
[2023-10-24] MEDS: diphenhydrAMINE HCL 50 MG/ML VIAL IM (20:20)
[2023-10-24] MEDS: Haloperidol Lactate 5 MG/ML VIAL IM (20:20)
[2023-10-24 20:35] LABS: Ethanol < 10 mg/dL
[2023-10-24] MEDS: 0.9 % Sodium Chloride 1,000 ML 999 ML IVCONT (20:36)
[2023-10-24] MEDS: 0.9 % Sodium Chloride 1,000 ML 999 ML IV (21:35)
[2023-10-24 23:24] LABS: MANUAL DIFF FLAG NO
[2023-10-24 23:33] LABS: Basophils Percent Auto 0.2 % (0-2); Eosinophils Percent Auto 0.1 % (0-4); Hematocrit 36.8 % (42.0-52.0); Hemoglobin 12.6 g/dl (14.0-18.0); Imm Gran Abs Auto 0.12 X10*3/uL (0.00-0.03); Imm Gran Pct Auto 0.6 % (0.0-0.4); Lymphocytes Percent Auto 4.8 % (20-40); Mean Corpuscular HGB Conc 34.2 g/dl (31.0-36.0); Mean Corpuscular Hemoglobin 29.9 pg (27.0-33.0); Mean Corpuscular Volume 87.4 fL (80.0-98.0); Monocytes Absolute Auto 1.4 X10*3/uL (0.1-1.2); Neutrophils Absolute Auto 17.4 x10*3/uL (2.0-8.3); Neutrophils Percent Auto 87.3 % (45-73); Platelet Count 253 X10*3/uL (160-400); Red Blood Count 4.21 X10*6/uL (4.60-5.80); Red Cell Distribution Width 12.7 % (11.0-16.0); White Blood Count 19.9 X10*3/uL (4.8-10.8)
[2023-10-24 23:46] LABS: Anion Gap 13 (12-20); Blood Urea Nitrogen 31 mg/dL (9-16); Calcium 8.2 mg/dL (8.4-10.2); Carbon Dioxide 22 mmol/L (22-29); Chloride 106 mmol/L (96-108); Creatinine Clr Calc Pharmacy 75.2; Estimated Glomerular Filt Rate > 60; Glucose Random 92 mg/dL (60-115); Potassium 4.4 mmol/L (3.3-5.1); Sodium 137 mmol/L (135-145)
[2023-10-24] MEDS: Naloxone HCl Nasal 4 MG SPRAY NOSTRILALT (23:48)
[2023-10-24 23:49] LABS: Glucose, Whole Blood 100 mg/dL (60-115)
--- NOTE | 2023-10-24 23:56 | PC.NURSE ---
Pt destat to 86% on 2L. Provider Aleida made aware and at bedside, narcan given, Pt becoming arounsable.
[2023-10-25] VITALS (7 sets, daily range): BP systolic 95–116; BP diastolic 46–98; PULSE 57–71; RESP 14–24; TEMP 36.6–37.2; O2SAT 94–97
[2023-10-25 00:58] LABS: Venous Blood Gas Refer to POC result
[2023-10-25 01:03] LABS: Lactic Acid 0.8 mmol/L (0.5-2.0)
[2023-10-25 01:04] LABS: VBG Base Excess -0.1 mmol/L; VBG HCO3 27 mmol/L (22-26); VBG pCO2 53 mmHg; VBG pO2 37 mmHg
[2023-10-25] MEDS: Lactated Ringers 1,000 ML 150 ML IVCONT ×4 (01:10→21:26)
--- NOTE | 2023-10-25 01:36 | PM.IMHP ---
History of Present Illness Date of Service: 10/25/23 Chief Complaint: Altered mentation This is a 38-year-old transgender male to female with history of borderline personality disorder, antisocial personality disorder, PTSD, polysubstance IV drug use disorder, hypothyroidism, gastroesophageal reflux disease, seizure disorder was brought to the emergency department for evaluation of anxiety, paranoia and agitation after using fentanyl on the day of presentation. Patient was very agitated in the emergency department. She was given haloperidol, Ativan and diphenhydramine in the ER. Patient is drowsy and unable to provide history at the time of my evaluation. History obtained with the help of ER provider and chart review. She stated that there were people that were trying to kill her. Patient admitted to snorting wound VAC of fentanyl on the day of presentation. Also admits to injecting IV fentanyl. And multiple episodes of nausea and vomiting with poor p.o. intake. Unable to obtain review of systems. In the emergency department, creatinine and CPK found to be elevated. Review of Systems Review of Systems: Yes Unobtainable due to mental status PMFSH Medical History Antisocial personality disorder Borderline personality disorder PTSD (post-traumatic stress disorder) Aggressive behavior Suicidal ideation Pertinent family history: Unable to obtain Social History Unable to assess alcohol history related to: Refusing to respond Alcohol intake: never Patient Tobacco Use Status: Tobacco use Unknown Use of substances other than those prescribed or required for medical reasons: Yes Substance Use Type: Heroin Substance Use Frequency: Chronic Longstanding Last Used Substance: Just Prior to Admission Any prior treatment program specific to substance use: No Advance Directives: No Advance Directives Information Provided: No Do you have a plan to hurt others: Vague Meds Allergies Allergy/AdvReac Type Severity Reaction Status Date / Time Penicillins AdvReac Severe Shortness Verified 10/24/23 18:17 of Breath Active Medications: Current Medications Acetaminophen (Acetaminophen 325 Mg Tablet) 650 mg PO Q6H PRN PRN Reason: Pain, Mild (Pain Scale 1-3), fever or headache Calcium Carbonate (Calcium Carbonate 750 Mg Tab.Chew) 750 mg PO Q4H PRN PRN Reason: Heartburn Enoxaparin Sodium (Enoxaparin Sodium 40 Mg/0.4 Ml Syringe) 40 mg SUBCUT Q24H [facility] Lactated Ringer's (Lr) 1,000 mls @ 150 mls/hr IVCONT .Q6H40M [facility] Last Infusion: 10/25/23 01:11 Dose: 0 mls/hr Vancomycin HCl 1,000 mg/Vancomycin HCl 750 mg/ Sodium Chloride 535 mls @ 267.5 mls/hr IV ONCE ONE Stop: 10/25/23 03:04 Magnesium Hydroxide (Milk Of Magnesia 30 Ml Oral.Susp) 30 ml PO DAILY PRN PRN Reason: Constipation Melatonin (Melatonin 3 Mg Tablet) 6 mg PO BEDTIME PRN PRN Reason: Insomnia Ondansetron HCl (Ondansetron Hcl 4 Mg/2 Ml Vial) 4 mg IVPUSH Q8H PRN PRN Reason: Nausea and Vomiting Pharmacy Consult (Consult Rx Vancomycin Dosing) 1 each MISCELLANE DAILY PRN PRN Reason: Consult order Sodium Chloride (0.9 % Sodium Chloride Flush 3 Ml Syringe) 3 ml IVFLUSH QSHIFT [facility] Home Medications ?Medication ?Instructions ?Recorded ?Confirmed ?Last Taken ?Type albuterol sulfate 90 mcg/actuation 2 puff inhalation Q6H PRN 05/05/22 07/04/23 Unknown History aerosol inhaler (ProAir HFA) Respiratory Distress levothyroxine 100 mcg tablet 100 mcg PO DAILY 12/18/22 07/04/23 Unknown History nicotine 7 mg/24 hr daily 1 patch transdermal Q24H 12/18/22 07/04/23 Unknown History transdermal patch baclofen 5 mg tablet 5 mg PO TID 07/04/23 07/04/23 Unknown History buspirone 10 mg tablet 10 mg PO TID 07/04/23 07/04/23 Unknown History guanfacine 3 mg tablet,extended 3 mg PO BEDTIME 07/04/23 07/04/23 Unknown History release 24 hr hydroxyzine pamoate 50 mg capsule 50 mg PO Q6H PRN anxiety 07/04/23 07/04/23 Unknown History loratadine 10 mg tablet 10 mg PO DAILY 07/04/23 07/04/23 Unknown History oxcarbazepine 300 mg tablet 300 mg PO BID 07/04/23 07/04/23 Unknown History pantoprazole 40 mg tablet,delayed 40 mg PO BID 07/04/23 07/04/23 Unknown History release quetiapine 50 mg tablet 50 mg PO BEDTIME 07/04/23 07/04/23 Unknown History sennosides 8.6 mg tablet (senna) 8.6 mg PO BEDTIME 07/04/23 07/04/23 Unknown History spironolactone 25 mg tablet 25 mg PO DAILY 07/04/23 07/04/23 Unknown History tacrolimus 0.03 % topical ointment topical BID PRN Dry Skin 07/04/23 07/04/23 Unknown History trazodone 150 mg tablet 150 mg PO BEDTIME 07/04/23 07/04/23 Unknown History estradiol 2 mg tablet 2 mg PO DAILY 07/05/23 07/05/23 Unknown History Physical Exam Vital Signs and Narrative: Vital Signs: Last Vital Signs Temp 98.5 F 10/24/23 22:01 Pulse 71 10/25/23 00:00 Resp 24 H 10/25/23 00:00 BP 116/98 H 10/25/23 00:00 Pulse Ox 96 10/25/23 00:00 O2 Del Method Nasal Cannula 10/25/23 00:00 O2 Flow Rate 2 10/25/23 00:00 BMI result Body Mass Index 26.6 Middle-aged person lying in bed in no distress Neck supple, no JVD Regular rate and rhythm, S1-S2 heard Regular breath sounds bilaterally, no wheezing or crackles appreciated Abdomen soft nontender, no guarding, no rigidity Patient is drowsy and only awakens to verbal stimulus, falls back asleep with conversation, unable to assess orientation, not following commands Psych: Lethargic No pedal edema Results Labs 10/24/23 23:19 10/24/23 23:19 Labs: Laboratory Results - last 24 hr 10/24/23 10/24/23 10/24/23 18:39 23:19 23:45 MCV 85.6 87.4 MCH 29.9 29.9 MCHC 34.9 34.2 RDW 12.8 12.7 Plt Count 274 253 MPV 9.8 10.0 Immature Gran % (Auto) Cancelled 0.6 H Neut % (Auto) Cancelled 87.3 H Lymph % (Auto) Cancelled 4.8 L Barnes % (Auto) Cancelled 7.0 Eos % (Auto) Cancelled 0.1 Baso % (Auto) Cancelled 0.2 Lymph # (Auto) Cancelled 1.0 L Barnes # (Auto) Cancelled 1.4 H Eos # (Auto) Cancelled 0.0 Baso # (Auto) Cancelled 0.0 Abs Immat Gran (auto) Cancelled 0.12 H Absolute Neuts (auto) Cancelled 17.4 H Absolute Nucleated RBC 0.000 0.000 Nucleated RBC % (auto) 0.0 0.0 Neutrophils % (Manual) 89 H Band Neutrophils % 0 L Lymphocytes % (Manual) 5 L Monocytes % (Manual) 4 Basophils % (Manual) 2 Abs Neuts (Manual) 20.0 H Lymphocytes # (Manual) 1.1 L Monocytes # (Manual) 0.9 Basophils # (Manual) 0.5 H Platelet Estimate NORMAL Plt Morphology Comment NORMAL RBC Morphology NORMAL VBG pH VBG pCO2 VBG pO2 VBG HCO3 VBG O2 Saturation VBG Base Excess Anion Gap 22 H 13 Estim Creat Clear Calc 59.2 75.2 Estimated GFR 53 > 60 POC Glucose 100 Random Glucose 68 92 Lactic Acid Calcium 9.4 8.2 L D Total Bilirubin 1.9 H AST 129 H ALT 76 H Alkaline Phosphatase 65 Total Creatine Kinase 1417 H 1421 H Total Protein 7.2 Albumin 4.7 Salicylates < 5.0 L Acetaminophen < 3 Ethyl Alcohol < 10 10/25/23 10/25/23 00:46 00:55 MCV MCH MCHC RDW Plt Count MPV Immature Gran % (Auto) Neut % (Auto) Lymph % (Auto) Barnes % (Auto) Eos % (Auto) Baso % (Auto) Lymph # (Auto) Barnes # (Auto) Eos # (Auto) Baso # (Auto) Abs Immat Gran (auto) Absolute Neuts (auto) Absolute Nucleated RBC Nucleated RBC % (auto) Neutrophils % (Manual) Band Neutrophils % Lymphocytes % (Manual) Monocytes % (Manual) Basophils % (Manual) Abs Neuts (Manual) Lymphocytes # (Manual) Monocytes # (Manual) Basophils # (Manual) Platelet Estimate Plt Morphology Comment RBC Morphology VBG pH 7.30 L VBG pCO2 53 VBG pO2 37 VBG HCO3 27 H VBG O2 Saturation 54.0 VBG Base Excess -0.1 Anion Gap Estim Creat Clear Calc Estimated GFR POC Glucose Random Glucose Lactic Acid 0.8 Calcium Total Bilirubin AST ALT Alkaline Phosphatase Total Creatine Kinase Total Protein Albumin Salicylates Acetaminophen Ethyl Alcohol Assessment and Plan (1) FREDDIE (acute kidney injury): Status: Acute (2) Rhabdomyolysis: Qualifiers: Rhabdomyolysis type: non-traumatic Qualified Code(s): M62.82 - Rhabdomyolysis Status: Acute (3) Acute psychosis: Status: Acute Plan This is a 38-year-old transgender male to female with history of borderline personality disorder, antisocial personality disorder, PTSD, polysubstance IV drug use disorder, hypothyroidism, gastroesophageal reflux disease, seizure disorder was brought to the emergency department for evaluation of anxiety, paranoia and agitation after using fentanyl on the day of presentation. #. Acute toxic encephalopathy in a patient with polysubstance use disorder: Monitor mentation. Consulting Addiction Team to monitor for withdrawal. UDS pending #. Acute kidney injury stage I: Creatinine improving with crystalloid resuscitation. Continue to monitor #. Reactive leukocytosis: Given IV vancomycin in the ER. Hold off further antibiotics #. Mild rhabdomyolysis: Continue IV crystalloid resuscitation #. Borderline personality disorder/antisocial personality disorder/PTSD: Patient with paranoia. Consult psych to optimize #. Hypothyroidism: On Synthroid #. Gastroesophageal reflux disease: On PPI #. Seizure disorder: On Trileptal Med rec pending DVT prophylaxis: Lovenox Full code Admit as inpatient and will require two night minimum hospital stay for monitoring of mentation, monitoring of kidney function (as above), which is not possible in a lesser acute setting. Quality Stroke Does the patient have a stroke diagnosis?: No VTE Prior VTE?: No VTE Risk Level:: Medical - moderate - high VTE Device Contraindication: Treatment Not Indicated VTE Drug Contraindication: N/A - Med Ordered
[2023-10-25] MEDS: vancomycin HCL 1,000 MG, vancomycin HCL 750 MG in 0.9 % Sodium Chloride 500 ML 267.5 MG IV (02:19)
--- NOTE | 2023-10-25 03:17 | PC.NURSE ---
Pt appears to be sleeping, equal, non labored respirations.
[2023-10-25 04:15] LABS: Amphetamine Screen Urine Not Detected (Not Detect); Barbiturates, Urine Not Detected (Not Detect); Benzodiazepines Screen Urine Not Detected (Not Detect); Buprenorphine Scr Not Detected (Not Detect); Cannabinoid Screen Urine POSITIVE (Not Detect); Cocaine Screen Urine POSITIVE (Not Detect); Fentanyl, urine POSITIVE (Not Detect); Methadone Screen, Urine Not Detected (Not Detect); Opiate Screen Urine POSITIVE (Not Detect); Oxycodone Screen Urine Not Detected (Not Detect); Phencyclidine Screen Urine Not Detected (Not Detect)
--- NOTE | 2023-10-25 04:24 | PC.NURSE ---
Pt awake, calm, appropriate, requesting to ambulated to BR. Pt unsteady, one assist to bedside commode. Urine sample collected and sent to lab.
--- NOTE | 2023-10-25 05:00 | MHC.EDTECH ---
This tech was not on shift when Pt arrived to ED and changed over. No belongings list done or note in computer where they are located. Spoke with RN (Radha) states belongings in decon. Unaware of what they consist of. Belongings list done with a note stating all belongings in decon.
--- NOTE | 2023-10-25 05:42 | PC.NURSE ---
Patient arrived to the unit at 0520 in the stretchers, patient drowsy/sleepy. Patient does not provide answers to any questions, occasional mumble I don't know . No complaints of pain, not cooperating for assessment. Unable to assess neurologically. Patient did not allow change of gown or skin assessment. Track freedman and scratches noted on the extremities. 20g IV in right forearm, LR at 150 infusing. Patient sleeping at this time and snoring loudly. Bed alarm on and camera placed in the room.
[2023-10-25 06:51] LABS: Basophils Percent Auto 0.3 % (0-2); Eosinophils Percent Auto 0.2 % (0-4); Hematocrit 34.4 % (42.0-52.0); Hemoglobin 11.6 g/dl (14.0-18.0); Imm Gran Abs Auto 0.18 X10*3/uL (0.00-0.03); Imm Gran Pct Auto 1.2 % (0.0-0.4); Lymphocytes Absolute Auto 2.5 X10*3/uL (1.2-4.9); Lymphocytes Percent Auto 16.4 % (20-40); MANUAL DIFF FLAG SCAN; Mean Corpuscular HGB Conc 33.7 g/dl (31.0-36.0); Mean Corpuscular Hemoglobin 28.9 pg (27.0-33.0); Mean Corpuscular Volume 85.8 fL (80.0-98.0); Mean Platelet Volume 10.4 fL (9.4-12.4); Monocytes Absolute Auto 1.9 X10*3/uL (0.1-1.2); Monocytes Percent Auto 12.6 % (2-11); Neutrophils Absolute Auto 10.7 x10*3/uL (2.0-8.3); Neutrophils Percent Auto 69.3 % (45-73); Platelet Count 230 X10*3/uL (160-400); Red Blood Count 4.01 X10*6/uL (4.60-5.80); Red Cell Distribution Width 12.9 % (11.0-16.0); SCAN SMEAR FLAG 1; White Blood Count 15.4 X10*3/uL (4.8-10.8)
[2023-10-25 06:57] LABS: Anion Gap 13 (12-20); Blood Urea Nitrogen 29 mg/dL (9-16); Calcium 8.1 mg/dL (8.4-10.2); Carbon Dioxide 24 mmol/L (22-29); Chloride 107 mmol/L (96-108); Creatinine Clr Calc Pharmacy 88.8; Estimated Glomerular Filt Rate > 60; Glucose Random 72 mg/dL (60-115); Potassium 3.9 mmol/L (3.3-5.1); Sodium 140 mmol/L (135-145)
[2023-10-25 07:25] LABS: SLIDE REVIEW VERIFIED
--- NOTE | 2023-10-25 07:52 | PHA.MEDREC ---
Pharmacy Consult ? Medication Reconciliation Pharmacy has completed the medication reconciliation. Used claim history to confirm medications. Patient did fill 30 DS of levothyroxine 100mcg daily, pantoprazole 40mg BID, and estradiol 2mg daily 06/04/23 but no recent claims since then.
[2023-10-25] MEDS: 0.9 % Sodium Chloride Flush 3 ML SYRINGE IVFLUSH (08:10)
--- NOTE | 2023-10-25 08:12 | PM.EVENT ---
Event Note Date of Service: 10/25/23 Event Note: This is a 38-year-old transgender male to female with history of borderline personality disorder, antisocial personality disorder, PTSD, polysubstance IV drug use disorder, hypothyroidism, gastroesophageal reflux disease, seizure disorder was brought to the emergency department for evaluation of anxiety, paranoia and agitation after using fentanyl on the day of presentation. Acute toxic encephalopathy in a patient with polysubstance use disorder Monitor mentation. Consulting Addiction Team to monitor for withdrawal. UDS pos for opiates, fentanyl, cocaine and marijuana Acute kidney injury stage I. Resolved with IV fluids Reactive leukocytosis Given IV vancomycin in the ER. Hold off further antibiotics Mild rhabdomyolysis Continue IV crystalloid resuscitation Borderline personality disorder/antisocial personality disorder/PTSD Patient with paranoia. Consult psych to optimize Hypothyroidism Synthroid Gastroesophageal reflux disease PPI Seizure disorder On Trileptal DVT prophylaxis: Lovenox Full code continue hospital stay for monitoring of mentation, monitoring of kidney function (as above), which is not possible in a lesser acute setting. Time Spent With Patient Time: Total time managing care of this patient today ____ minutes.
--- NOTE | 2023-10-25 10:30 | PM.PSYCN ---
History of Present Illness Date of Service: 10/25/2023 Chief Complaint: AMS HPI Narrative: As per ED Note 10/24/23: 38-year-old transgender male to female with history of borderline personality disorder, antisocial personality disorder, PTSD, polysubstance abuse with active IV drug abuse, hepatitis-C, seizure disorder who presents to the ER from home via EMS for evaluation of severe anxiety and paranoia after using drugs this morning. Patient reports they are terrified that there are people after them, trying to kill them. Patient states they flushed drugs down the toilet that were brought into her home. She states that people are coming after her and trying to kill her. She states her trying to crawl through the 3rd story window. She states she lives home alone. She admits using 1 bag of fentanyl today, snorted it but recently started injecting into the neck. She reports multiple episodes of nausea and vomiting that started yesterday. No abdominal pain, chest pain, shortness of breath. Patient reports she ?does not want to help me there coming to kill me.? Patient reports they are on multiple medications including many psych medications and seizure medications but they have not been able to get to the pharmacy to pick them up. She thinks she had a seizure they the day with a recent tongue biting episode but she does not recall. As per Hospitalist H and P 10/25/23: 38-year-old transgender male to female with history of borderline personality disorder, antisocial personality disorder, PTSD, polysubstance IV drug use disorder, hypothyroidism, gastroesophageal reflux disease, seizure disorder was brought to the emergency department for evaluation of anxiety, paranoia and agitation after using fentanyl on the day of presentation. Patient was very agitated in the emergency department. She was given haloperidol, Ativan and diphenhydramine in the ER. Patient is drowsy and unable to provide history at the time of my evaluation. History obtained with the help of ER provider and chart review. She stated that there were people that were trying to kill her. Patient admitted to snorting wound VAC of fentanyl on the day of presentation. Also admits to injecting IV fentanyl. And multiple episodes of nausea and vomiting with poor p.o. intake. Unable to obtain review of systems....In the emergency department, creatinine and CPK found to be elevated. Today: patient reports there were issues at home related to home being rated, him flushing drugs down the toilet and his neighbor being angry about this and threatening. Patient reports getting nervous due to the situation and therefore brought to the emergency department via EMS in the context of anxiety and paranoia. Reports that he does use cocaine approximately once per month and this was probably laced with fentanyl as he had not tested the cocaine he most recently used. Reports feeling safe now in the hospital setting, but also feels unsafe about returning to his living environment and is requesting respite level of care. Aware that he was admitted medically due to creatinine and CPK being elevated and on IV fluids for same. Otherwise feels that his baseline psychiatrically, with the exception of increased anxiety and feeling unsafe in the context of stressors. Agreed no med changes. When medically cleared will have a CARES evaluation for respite ([facility]) level of care and feels positive regarding this. Past Psychiatric History: As per chart: Inpatient: multiple in the past, Reports last inpatient episode was 1 month ago [facility] due to suicidal thoughts and overdosing. Reports they often overdose Or hit their head when not feeling well. OP: [facility] in [place] Past medication trials: Medical Evaluation Reviewed: Yes Personal & Social History: lives alone. Stressors as mentioned above. [facility] Medical History Antisocial personality disorder Borderline personality disorder PTSD (post-traumatic stress disorder) Aggressive behavior Suicidal ideation Family History: deferred Social History: Reports living alone. stressors as mentioned regarding neighbor. Of note, historically has been banned from several local shelters for assaultive behavior; currently temporarily banned from where [facility] for fighting Substance History: Cocaine Trauma History: Severe childhood trauma; likely adulthood Diagnostics Vital Signs (24Hr): Vital Signs - 24 hr 10/24/23 18:12 10/24/23 20:20 10/24/23 20:35 Temperature Pulse Rate 76 125 H 118 H Respiratory Rate 24 H 22 H 26 H Blood Pressure 121/65 Pulse Oximetry 96 98 91 L Oxygen Delivery Method Room Air Room Air Room Air Oxygen Flow Rate 10/24/23 20:50 10/24/23 21:05 10/24/23 22:01 Temperature 98.5 F Pulse Rate 91 94 98 Respiratory Rate 24 H 20 17 Blood Pressure 118/60 133/67 118/68 Pulse Oximetry 97 98 95 Oxygen Delivery Method Nasal Cannula Nasal Cannula Room Air Oxygen Flow Rate 2 2 10/24/23 23:45 10/25/23 00:00 10/25/23 03:12 Temperature 98.6 F Pulse Rate 71 63 Respiratory Rate 24 H 14 Blood Pressure 116/98 H 95/46 L Pulse Oximetry 86 L 96 96 Oxygen Delivery Method Nasal Cannula Nasal Cannula Room Air Oxygen Flow Rate 2 2 10/25/23 04:52 10/25/23 05:37 10/25/23 08:00 Temperature 98.1 F 98.9 F Pulse Rate 69 65 60 Respiratory Rate 16 16 18 Blood Pressure 98/49 L 102/59 L 101/59 L Pulse Oximetry 94 97 95 Oxygen Delivery Method Room Air Room Air Room Air Oxygen Flow Rate BMI result Body Mass Index 26.6 Labs 10/25/23 06:03 10/25/23 06:03 Labs: Laboratory Results - last 48 hr 10/24/23 10/24/23 10/24/23 18:39 23:19 23:45 WBC 22.5 H 19.9 H RBC 4.52 L 4.21 L Hgb 13.5 L 12.6 L Hct 38.7 L 36.8 L MCV 85.6 87.4 MCH 29.9 29.9 MCHC 34.9 34.2 RDW 12.8 12.7 Plt Count 274 253 MPV 9.8 10.0 Immature Gran % (Auto) Cancelled 0.6 H Neut % (Auto) Cancelled 87.3 H Lymph % (Auto) Cancelled 4.8 L Moffat % (Auto) Cancelled 7.0 Eos % (Auto) Cancelled 0.1 Baso % (Auto) Cancelled 0.2 Lymph # (Auto) Cancelled 1.0 L Moffat # (Auto) Cancelled 1.4 H Eos # (Auto) Cancelled 0.0 Baso # (Auto) Cancelled 0.0 Abs Immat Gran (auto) Cancelled 0.12 H Absolute Neuts (auto) Cancelled 17.4 H Absolute Nucleated RBC 0.000 0.000 Nucleated RBC % (auto) 0.0 0.0 Neutrophils % (Manual) 89 H Band Neutrophils % 0 L Lymphocytes % (Manual) 5 L Monocytes % (Manual) 4 Basophils % (Manual) 2 Abs Neuts (Manual) 20.0 H Lymphocytes # (Manual) 1.1 L Monocytes # (Manual) 0.9 Basophils # (Manual) 0.5 H Platelet Estimate NORMAL Plt Morphology Comment NORMAL RBC Morphology NORMAL Smear Tech's Comments VBG pH VBG pCO2 VBG pO2 VBG HCO3 VBG O2 Saturation VBG Base Excess Sodium 139 137 Potassium 4.0 4.4 Chloride 100 106 Carbon Dioxide 21 L 22 Anion Gap 22 H 13 BUN 34 H 31 H Creatinine 1.50 H 1.18 Estim Creat Clear Calc 59.2 75.2 Estimated GFR 53 > 60 POC Glucose 100 Random Glucose 68 92 Lactic Acid Calcium 9.4 8.2 L D Total Bilirubin 1.9 H AST 129 H ALT 76 H Alkaline Phosphatase 65 Total Creatine Kinase 1417 H 1421 H Total Protein 7.2 Albumin 4.7 Salicylates < 5.0 L Urine Opiates Screen Ur Buprenorphine Scrn Ur Oxycodone Screen Urine Methadone Screen Urine Fentanyl Screen Acetaminophen < 3 Ur Barbiturates Screen Ur Phencyclidine Scrn Ur Amphetamines Screen U Benzodiazepines Scrn Urine Cocaine Screen U Marijuana (THC) Screen Ethyl Alcohol < 10 10/25/23 10/25/23 10/25/23 00:46 00:55 03:59 WBC RBC Hgb Hct MCV MCH MCHC RDW Plt Count MPV Immature Gran % (Auto) Neut % (Auto) Lymph % (Auto) Moffat % (Auto) Eos % (Auto) Baso % (Auto) Lymph # (Auto) Moffat # (Auto) Eos # (Auto) Baso # (Auto) Abs Immat Gran (auto) Absolute Neuts (auto) Absolute Nucleated RBC Nucleated RBC % (auto) Neutrophils % (Manual) Band Neutrophils % Lymphocytes % (Manual) Monocytes % (Manual) Basophils % (Manual) Abs Neuts (Manual) Lymphocytes # (Manual) Monocytes # (Manual) Basophils # (Manual) Platelet Estimate Plt Morphology Comment RBC Morphology Smear Tech's Comments VBG pH 7.30 L VBG pCO2 53 VBG pO2 37 VBG HCO3 27 H VBG O2 Saturation 54.0 VBG Base Excess -0.1 Sodium Potassium Chloride Carbon Dioxide Anion Gap BUN Creatinine Estim Creat Clear Calc Estimated GFR POC Glucose Random Glucose Lactic Acid 0.8 Calcium Total Bilirubin AST ALT Alkaline Phosphatase Total Creatine Kinase Total Protein Albumin Salicylates Urine Opiates Screen POSITIVE H Ur Buprenorphine Scrn Not Detected Ur Oxycodone Screen Not Detected Urine Methadone Screen Not Detected Urine Fentanyl Screen POSITIVE H Acetaminophen Ur Barbiturates Screen Not Detected Ur Phencyclidine Scrn Not Detected Ur Amphetamines Screen Not Detected U Benzodiazepines Scrn Not Detected Urine Cocaine Screen POSITIVE H U Marijuana (THC) Screen POSITIVE H Ethyl Alcohol 10/25/23 06:03 WBC 15.4 H RBC 4.01 L Hgb 11.6 L Hct 34.4 L MCV 85.8 MCH 28.9 MCHC 33.7 RDW 12.9 Plt Count 230 MPV 10.4 Immature Gran % (Auto) 1.2 H Neut % (Auto) 69.3 Lymph % (Auto) 16.4 L Moffat % (Auto) 12.6 H Eos % (Auto) 0.2 Baso % (Auto) 0.3 Lymph # (Auto) 2.5 Moffat # (Auto) 1.9 H Eos # (Auto) 0.0 Baso # (Auto) 0.0 Abs Immat Gran (auto) 0.18 H Absolute Neuts (auto) 10.7 H Absolute Nucleated RBC 0.000 Nucleated RBC % (auto) 0.0 Neutrophils % (Manual) Band Neutrophils % Lymphocytes % (Manual) Monocytes % (Manual) Basophils % (Manual) Abs Neuts (Manual) Lymphocytes # (Manual) Monocytes # (Manual) Basophils # (Manual) Platelet Estimate Plt Morphology Comment RBC Morphology Smear Tech's Comments VERIFIED VBG pH VBG pCO2 VBG pO2 VBG HCO3 VBG O2 Saturation VBG Base Excess Sodium 140 Potassium 3.9 Chloride 107 Carbon Dioxide 24 Anion Gap 13 BUN 29 H Creatinine 1.00 Estim Creat Clear Calc 88.8 Estimated GFR > 60 POC Glucose Random Glucose 72 Lactic Acid Calcium 8.1 L Total Bilirubin AST ALT Alkaline Phosphatase Total Creatine Kinase 918 H Total Protein Albumin Salicylates Urine Opiates Screen Ur Buprenorphine Scrn Ur Oxycodone Screen Urine Methadone Screen Urine Fentanyl Screen Acetaminophen Ur Barbiturates Screen Ur Phencyclidine Scrn Ur Amphetamines Screen U Benzodiazepines Scrn Urine Cocaine Screen U Marijuana (THC) Screen Ethyl Alcohol Imaging Radiology Impressions: ITS Impressions Chest X-Ray 10/25/23 01:45 IMPRESSION: Low lung volumes. Asymmetric fullness of the right hilum with a possible calcified lymph node, new as compared to prior. Consider correlation with a CT of the chest contrast for further assessment for adenopathy. Mental Status Exam Mental Status Exam Narrative: pleasant. Hospital clothing. Fairly presented. Organized. Endorses anxiety. Able to engage in interview without agitation. No SI. No HI. No agitation or psychosis. Insight and judgment fair Medications Medications Current Medications Acetaminophen (Acetaminophen 325 Mg Tablet) 650 mg PO Q6H PRN PRN Reason: Pain, Mild (Pain Scale 1-3), fever or headache Calcium Carbonate (Calcium Carbonate 750 Mg Tab.Chew) 750 mg PO Q4H PRN PRN Reason: Heartburn Enoxaparin Sodium (Enoxaparin Sodium 40 Mg/0.4 Ml Syringe) 40 mg SUBCUT Q24H [facility] Lactated Ringer's (Lr) 1,000 mls @ 150 mls/hr IVCONT .Q6H40M [facility] Last Admin: 10/25/23 08:08 Dose: 150 mls/hr Magnesium Hydroxide (Milk Of Magnesia 30 Ml Oral.Susp) 30 ml PO DAILY PRN PRN Reason: Constipation Melatonin (Melatonin 3 Mg Tablet) 6 mg PO BEDTIME PRN PRN Reason: Insomnia Ondansetron HCl (Ondansetron Hcl 4 Mg/2 Ml Vial) 4 mg IVPUSH Q8H PRN PRN Reason: Nausea and Vomiting Sodium Chloride (0.9 % Sodium Chloride Flush 3 Ml Syringe) 3 ml IVFLUSH QSHIFT [facility] Last Admin: 10/25/23 08:10 Dose: 3 ml Allergies Allergies Allergy/AdvReac Type Severity Reaction Status Date / Time Penicillins AdvReac Severe Shortness Verified 10/24/23 18:17 of Breath Assessment & Plan Assessment & Plan (1) PTSD (post-traumatic stress disorder): Status: Acute Code(s): F43.10 - Post-traumatic stress disorder, unspecified (2) Borderline personality disorder: Status: Acute Code(s): F60.3 - Borderline personality disorder Plan Otherwise feels that his baseline psychiatrically, with the exception of increased anxiety and feeling unsafe in the context of stressors. Agreed no med changes. When medically cleared will have a CARES evaluation for respite ([facility] Res[facility]) level of care and feels positive regarding this. Total time managing care of this patient today ____ minutes.
--- NOTE | 2023-10-25 13:43 | MHC.CM.PN ---
CM met with pt., briefly because she was feeling anxious. She said her PCP is: Kaleigh Barnes, she does not have any home health services or DME, she lives alone and said she would use a bus or uber to go home at [place]. CM to follow and assist as needed with [place] plan.
[2023-10-25] MEDS: Baclofen 10 MG TABLET 5 MG PO ×2 (14:51→21:35)
[2023-10-25] MEDS: busPIRone HCl 10 MG TABLET PO ×2 (14:52→21:34)
[2023-10-25] MEDS: traZODone HCL 50 MG TABLET 150 MG PO (21:34)
[2023-10-25] MEDS: QUEtiapine Fumarate 50 MG TABLET PO (21:35)
[2023-10-25] MEDS: OXcarbazepine 150 MG TABLET 450 MG PO (21:35)
[2023-10-25] MEDS: Melatonin 3 MG TABLET PO (21:35)
[2023-10-25] MEDS: clonazePAM 0.5 MG TABLET PO (22:16)
[2023-10-25] MEDS: hydrOXYzine HCL 50 MG TABLET PO (22:16)
[2023-10-25] MEDS: Sennosides 8.6 MG TABLET 17.2 MG PO (22:16)
[2023-10-25] MEDS: guanFACINE HCl ER 1 MG TAB.ER.24H 3 MG PO (22:16)
[2023-10-26 04:00] VITALS: BP 90/52; PULSE 49; RESP 16; TEMP 36.9; O2SAT 97
[2023-10-26] MEDS: Lactated Ringers 1,000 ML 150 ML IVCONT (04:07)
[2023-10-26 07:42] VITALS: BP 113/76; PULSE 63; RESP 20; TEMP 36.8; O2SAT 97
[2023-10-26] MEDS: Multivitamin TABLET 1 TAB PO (09:29)
[2023-10-26] MEDS: Loratadine 10 MG TABLET PO (09:29)
[2023-10-26] MEDS: Baclofen 10 MG TABLET 5 MG PO ×3 (09:29→20:55)
[2023-10-26] MEDS: busPIRone HCl 10 MG TABLET PO ×3 (09:29→20:55)
[2023-10-26] MEDS: Buprenorphine/Naloxone 8/2 mg FILM 2 FILM SUBLINGUAL (09:30)
[2023-10-26] MEDS: OXcarbazepine 150 MG TABLET 450 MG PO ×2 (09:30→20:55)
[2023-10-26] MEDS: 0.9 % Sodium Chloride Flush 3 ML SYRINGE IVFLUSH ×3 (09:30→20:55)
--- NOTE | 2023-10-26 09:46 | HO.PM.IMPN ---
Subjective Subjective Date of Service: 10/26/23 Review of Systems Follow up AMS from substance abuse mental status better seen by psych, plan for respite vs dual admission Physical Exam Vital Signs: Vital Signs: Last Vital Signs Temp 98.3 F 10/26/23 07:42 Pulse 63 10/26/23 07:42 Resp 20 10/26/23 07:42 BP 113/76 10/26/23 07:42 Pulse Ox 97 10/26/23 07:42 O2 Del Method Room Air 10/26/23 07:42 O2 Flow Rate 2 10/25/23 00:00 BMI result Body Mass Index 26.6 Appearing in no acute distress lung sounds are clear to auscultation heart regular rate rhythm, clear S1, S2 positive bowel sounds, abdomen is soft, nontender neuro patient is alert x3, no focal deficits Objective Data Active Medications Acetaminophen (Acetaminophen 325 Mg Tablet) 650 mg PO Q6H PRN PRN Reason: Pain, Mild (Pain Scale 1-3), fever or headache Albuterol Sulfate (Albuterol Sulfate 90 Mcg 8 Gm Inhaler) 2 puff INHALE Q4H PRN PRN Reason: asthma Baclofen (Baclofen 10 Mg Tablet) 5 mg PO TID [facility] Last Admin: 10/26/23 09:29 Dose: 5 mg Documented By: LESLIE Buprenorphine/Naloxone (Buprenorphine/Naloxone 8/2 Mg Film) 2 film SUBLINGUAL DAILY [facility] Last Admin: 10/26/23 09:30 Dose: 2 film Documented By: LESLIE Buspirone HCl (Buspirone Hcl 10 Mg Tablet) 10 mg PO TID [facility] Last Admin: 10/26/23 09:29 Dose: 10 mg Documented By: LESLIE Calcium Carbonate (Calcium Carbonate 750 Mg Tab.Chew) 750 mg PO Q4H PRN PRN Reason: Heartburn Clonazepam (Clonazepam 0.5 Mg Tablet) 0.5 mg PO BID PRN PRN Reason: anxiety Last Admin: 10/25/23 22:16 Dose: 0.5 mg Documented By: RUTH Enoxaparin Sodium (Enoxaparin Sodium 40 Mg/0.4 Ml Syringe) 40 mg SUBCUT Q24H [facility] Last Admin: 10/26/23 09:36 Dose: Not Given Documented By: LESLIE Non-Admin Reason: Patient Refused Comments: provider notified Guanfacine HCl (Guanfacine Hcl Er 1 Mg Tab.Er.24h) 3 mg PO BEDTIME [facility] Last Admin: 10/25/23 22:16 Dose: 3 mg Documented By: RUTH Hydroxyzine HCl (Hydroxyzine Hcl 50 Mg Tablet) 50 mg PO Q6H PRN PRN Reason: anxiety Last Admin: 10/25/23 22:16 Dose: 50 mg Documented By: RUTH Loratadine (Loratadine 10 Mg Tablet) 10 mg PO DAILY [facility] Last Admin: 10/26/23 09:29 Dose: 10 mg Documented By: LESLIE Magnesium Hydroxide (Milk Of Magnesia 30 Ml Oral.Susp) 30 ml PO DAILY PRN PRN Reason: Constipation Melatonin (Melatonin 3 Mg Tablet) 6 mg PO BEDTIME PRN PRN Reason: Insomnia Melatonin (Melatonin 3 Mg Tablet) 3 mg PO BEDTIME [facility] Last Admin: 10/25/23 21:35 Dose: 3 mg Documented By: RUTH Multivitamins/Vitamin C (Multivitamin Tablet) 1 tab PO DAILY [facility] Last Admin: 10/26/23 09:29 Dose: 1 tab Documented By: LESLIE Nicotine (Nicotine 21 Mg Patch.Td24) 21 mg TRANSDERMA DAILY [facility] Last Admin: 10/26/23 09:36 Dose: Not Given Documented By: LESLIE Non-Admin Reason: Patient Refused Comments: provider aware Ondansetron HCl (Ondansetron Hcl 4 Mg/2 Ml Vial) 4 mg IVPUSH Q8H PRN PRN Reason: Nausea and Vomiting Oxcarbazepine (Oxcarbazepine 150 Mg Tablet) 450 mg PO BID [facility] Last Admin: 10/26/23 09:30 Dose: 450 mg Documented By: LESLIE Quetiapine Fumarate (Quetiapine Fumarate 50 Mg Tablet) 50 mg PO BEDTIME [facility] Last Admin: 10/25/23 21:35 Dose: 50 mg Documented By: RUTH Sodium Chloride (0.9 % Sodium Chloride Flush 3 Ml Syringe) 3 ml IVFLUSH QSHIFT [facility] Last Admin: 10/26/23 09:30 Dose: 3 ml Documented By: LESLIE Trazodone HCl (Trazodone Hcl 50 Mg Tablet) 150 mg PO BEDTIME [facility] Last Admin: 10/25/23 21:34 Dose: 150 mg Documented By: RUTH Labs 10/25/23 06:03 10/25/23 06:03 Microbiology Microbiology Results: Microbiology 10/25/23 00:46 Blood Culture - Preliminary Blood - Venous No growth after 24 hours. 10/25/23 00:46 Blood Culture - Preliminary Blood - Venous No growth after 24 hours. Assessment and Plan (1) FREDDIE (acute kidney injury): Status: Acute (2) Rhabdomyolysis: Status: Acute (3) Acute psychosis: Status: Acute Plan This is a 38-year-old transgender male to female with history of borderline personality disorder, antisocial personality disorder, PTSD, polysubstance IV drug use disorder, hypothyroidism, gastroesophageal reflux disease, seizure disorder was brought to the emergency department for evaluation of anxiety, paranoia and agitation after using fentanyl on the day of presentation. Borderline personality disorder/antisocial personality disorder/PTSD Patient with paranoia. Seen by psych and care team>plan for respite vs dual program, bed search in progress Acute toxic encephalopathy in a patient with polysubstance use disorder. Resolved UDS pos for opiates, fentanyl, cocaine and marijuana Acute kidney injury stage I. Resolved with IV fluids Reactive leukocytosis Given IV vancomycin in the ER. Hold off further antibiotics Mild rhabdomyolysis resolved stop IV fluids Hypothyroidism Synthroid Gastroesophageal reflux disease PPI Seizure disorder On Trileptal DVT prophylaxis: Umberto attending Dr. Joy Full code continue hospital stay for bed search for psych care Quality Stroke Does the patient have a stroke diagnosis?: No VTE Prior VTE?: No VTE Risk Level:: Medical - moderate - high VTE Device Contraindication: Treatment Not Indicated VTE Drug Contraindication: N/A - Med Ordered
--- NOTE | 2023-10-26 10:48 | MHC.RECOVRN ---
Met with pt in 483 after consult placed to Addiction Medicine for OUD. Pt had presented to the ED after using fentanyl, very anxious and erratic, not following commands and stating they're coming to kill me. Upon evaluation, pt admitted for FREDDIE, rhabdomyolysis, and acute psychosis. Pt had psych consult yesterday and will be seen by CARE Team when medically clear for ?respite. Pt laying in bed, awake, alert, difficult to engage in conversation. Pt reports heroin/fentanyl use, 10 bags per week, IN, as well as cocaine, unspecified amount, INH. Pt reports currently receiving Suboxone, 16 mg daily through [facility]. Pt reports initiating Suboxone 3-4 weeks ago and this has significantly reduced use. Pt denies withdrawal symptoms. Attempted to engage patient in discussing recovery supports, pt does not engage in conversation. Pt denies questions or concerns for t/w.
[2023-10-26 15:47] VITALS: BP 120/77; PULSE 50; RESP 20; TEMP 37; O2SAT 98
[2023-10-26 20:00] VITALS: BP 107/61; PULSE 49; RESP 18; TEMP 36.3; O2SAT 98
[2023-10-26] MEDS: traZODone HCL 50 MG TABLET 150 MG PO (20:55)
[2023-10-26] MEDS: guanFACINE HCl ER 1 MG TAB.ER.24H 3 MG PO (20:55)
[2023-10-26] MEDS: Melatonin 3 MG TABLET PO (20:55)
[2023-10-26] MEDS: QUEtiapine Fumarate 50 MG TABLET PO (20:55)
--- NOTE | 2023-10-26 23:53 | PC.NURSE ---
Assumed care of patient at 19:00. Pt is A&Ox4. Calm and cooperative. Med compliant. Denies SI/HI. Please see shift assessment for full details. Bed alarm on and safety measures in place. Handoff report given 23:30.
[2023-10-27 00:14] VITALS: BP 108/68; PULSE 63; RESP 18; TEMP 37.1; O2SAT 96
[2023-10-27 04:00] VITALS: BP 106/62; PULSE 50; RESP 18; TEMP 36.9; O2SAT 96
[2023-10-27 08:00] VITALS: BP 118/83; PULSE 47; RESP 16; TEMP 36.6; O2SAT 97
[2023-10-27] MEDS: 0.9 % Sodium Chloride Flush 3 ML SYRINGE IVFLUSH (08:28)
[2023-10-27] MEDS: OXcarbazepine 150 MG TABLET 450 MG PO (08:29)
[2023-10-27] MEDS: Baclofen 10 MG TABLET 5 MG PO ×2 (08:29→14:53)
[2023-10-27] MEDS: Multivitamin TABLET 1 TAB PO (08:29)
[2023-10-27] MEDS: busPIRone HCl 10 MG TABLET PO ×2 (08:29→14:53)
[2023-10-27] MEDS: Loratadine 10 MG TABLET PO (08:30)
[2023-10-27] MEDS: Nicotine 21 MG PATCH.TD24 TRANSDERMA (08:30)
[2023-10-27] MEDS: Enoxaparin Sodium 40 MG/0.4 ML SYRINGE SUBCUT (08:31)
[2023-10-27] MEDS: Buprenorphine/Naloxone 8/2 mg FILM 2 FILM SUBLINGUAL (08:32)
--- NOTE | 2023-10-27 10:35 | P.DS_ITS ---
DS: Providers Provider Date of Service: 10/27/23 Date of admission: 10/25/23 01:45 Primary care physician: Unknown Physician Consults: 10/25/23 01:35 Consult to Psychiatry Routine Consulting Provider: Psych Covering Reason for consultation: psychosis 10/25/23 01:38 Addiction Medicine Routine Consulting Provider: Addiction Covering Reason for consultation: opioid use disorder 10/26/23 07:45 Consult to Care Team Routine Comment: Reason for consultation: respite evaluation DS: Diagnosis Discharge Diagnosis (1) FREDDIE (acute kidney injury): Status: Acute (2) Rhabdomyolysis: Status: Acute (3) Acute psychosis: Status: Acute DS: Summary Hospital Course Hospital Course: History and physical as per admitting provider. This is a 38-year-old transgender male to female with history of borderline personality disorder, antisocial personality disorder, PTSD, polysubstance IV drug use disorder, hypothyroidism, gastroesophageal reflux disease, seizure disorder was brought to the emergency department for evaluation of anxiety, paranoia and agitation after using fentanyl on the day of presentation. Patient was very agitated in the emergency department. She was given haloperidol, Ativan and diphenhydramine in the ER. Patient is drowsy and unable to provide history at the time of my evaluation. History obtained with the help of ER provider and chart review. She stated that there were people that were trying to kill her. Patient admitted to snorting wound VAC of fentanyl on the day of presentation. Also admits to injecting IV fentanyl. And multiple episodes of nausea and vomiting with poor p.o. intake. Unable to obtain review of systems. In the emergency department, creatinine and CPK found to be elevated. 38-year-old man treated for acute toxic metabolic encephalopathy secondary to polysubstance abuse from opiates, fentanyl, cocaine and marijuana. Patient is now at baseline after IV fluids and rest. She has a history of borderline personality disorder, antisocial personality disorder and PTSD along with some paranoia. She was seen by the psychiatric team who recommended respite. Care team saw the patient as well and referred her to a respite program. Plan is to discharge patient there today. She is in agreement with this FREDDIE. Resolved after IV fluids, likely related to dehydration Rhabdomyolysis. Likely from dehydration. Resolved with IV fluids Pustule psoriatic psoriasis. Bilateral temples. Patient reports some pain, no open sores or weeping. Patient has a history of psoriasis. Will send prescription for tacrolimus ointment that can be applied twice daily for 4 weeks. She will also need a dermatological referral for systemic medications for full treatment. Hypothyroidism. Continue Synthroid GERD. Continue PPI Seizure disorder. Continue Trileptal Mental health. Continue all home medications Time Attestation Discharge Coordination Time (in mins): 35 Quality: Safe Use of Opioids Does Pt have an Active Cancer Diagnosis on the Problem List?: No Quality: Stroke Does the patient have a stroke diagnosis?: No Physical Exam 2 Vital Signs: Vital Signs: Last Vital Signs Temp 97.8 F 10/27/23 08:00 Pulse 47 L 10/27/23 08:00 Resp 16 10/27/23 08:00 BP 118/83 10/27/23 08:00 Pulse Ox 97 10/27/23 08:00 O2 Del Method Room Air 10/27/23 08:00 O2 Flow Rate 2 10/25/23 00:00 BMI result Body Mass Index 26.6 Appearing in no acute distress head is normocephalic atraumatic eyes pupils are PERRLA sclera is anicteric mouth throat mucous membranes are intact and moist neck is supple no lymphadenopathy, no JVD noted lung sounds are clear to auscultation heart regular rate rhythm, clear S1, S2 positive bowel sounds, abdomen is soft, nontender neuro patient is alert x3, no focal deficits Psoriatic pustules DS: Data Data Completed and Pending Labs on day of discharge: Preliminary micro results at discharge 10/25/23 00:46 Blood Culture - Preliminary Blood - Venous No growth after 48 hours. 10/25/23 00:46 Blood Culture - Preliminary Blood - Venous No growth after 48 hours. Discharge Plan Discharge Anticipated Discharge Date/Time: 10/27/23 10:09 Patient Disposition: Home, Self-Care Discharge Diagnosis: Borderline personality disorder Acute toxic encephalopathy secondary to polysubstance abuse FREDDIE Mild rhabdomyolysis Reactive leukocytosis Discharge Medications: New tacrolimus 0.1 % ointment 1 appl topical BID 28 Days Qty: 60 0RF Rx Instructions: apply to both temples with visible pustules Continued hydroxyzine pamoate 50 mg capsule 50 mg PO Q6H PRN (Reason: anxiety) trazodone 150 mg tablet 150 mg PO BEDTIME buspirone 10 mg tablet 10 mg PO TID loratadine 10 mg tablet 10 mg PO DAILY quetiapine 50 mg tablet 50 mg PO BEDTIME guanfacine 3 mg tablet extended release 24 hr 3 mg PO BEDTIME baclofen 5 mg tablet 5 mg PO TID multivitamin [One Daily Multivitamin] Tablet 1 tab PO DAILY oxcarbazepine 150 mg tablet 450 mg PO BID nicotine (polacrilex) 2 mg gum 2 mg PO Q2H PRN (Reason: Smoking Cessation) clonazepam 0.5 mg tablet 0.5 mg PO BID PRN (Reason: anxiety) melatonin 3 mg tablet 3 mg PO BEDTIME hydrocortisone 1 % cream 1 appl topical BID PRN (Reason: itch) nicotine 21 mg/24 hr patch 24 hour 1 patch topical DAILY ibuprofen 600 mg tablet 600 mg PO Q8H PRN (Reason: pain) buprenorphine-naloxone [Suboxone] 8-2 mg film 2 film sublingual DAILY albuterol sulfate [Ventolin HFA] 90 mcg/actuation HFA aerosol inhaler 2 puff inhalation Q4H PRN (Reason: asthma) Discharge Orders: Discharge Order (Routine); Ordered 10/27/23 Ordered By: Bhakti Gusman Diet: Advance to usual diet Activity on Discharge: As tolerated Stand Alone Forms: Patient Portal Discharge page Print Language: Bulgarian Care Plan Goals: You were started on a medication called tacrolimus which is an ointment for pustule psoriasis, apply to both temples. For this medical issue you need to be referred to see a home teaching grades 7 and [employer] teacher for systemic medications. Health Concerns: Borderline personality disorder Acute toxic encephalopathy secondary to polysubstance abuse FREDDIE Mild rhabdomyolysis Reactive leukocytosis Plan of Treatment: Follow-up with primary care provider as needed Take all medications as prescribed Assessment: See discharge summary
--- NOTE | 2023-10-27 15:00 | MHC.CM.PN ---
Pt has been medically cleared for discharge to respite care in [place] per CARE team, pts medications were confirmed to be filled via [facility] associated with the respite. Pt will transport there via Ly[employer] at 4pm today. Pt aware and in agreement with discharge plan.
== END 2023-10-27 15:41 | disposition home or self-care (01) | DRG 812 ==
LOC: HO.ED 10-25 01:08 → HO.EDOVER 10-25 01:46 → HO.IMC 10-25 04:16
PROVIDERS: Physician Assistant; Admitting Provider Student in an Organized Health Care Education/Training Program; Emergency Provider Emergency Medicine; PCP Nurse Practitioner Family; Visit Provider Nurse Practitioner Acute Care
DX: T50.991A Poisoning by other drugs, medicaments and biological substances, accidental (unintentional), initial encounter (principal); G92.8 Other toxic encephalopathy; M62.82 Rhabdomyolysis; L40.1 Generalized pustular psoriasis; F11.20 Opioid dependence, uncomplicated; F19.90 Other psychoactive substance use, unspecified, uncomplicated; K21.9 Gastro-esophageal reflux disease without esophagitis; G40.909 Epilepsy, unspecified, not intractable, without status epilepticus; E86.0 Dehydration; F60.2 Antisocial personality disorder; F43.10 Post-traumatic stress disorder, unspecified; F60.3 Borderline personality disorder; F64.0 Transsexualism; Z79.621 Long term (current) use of calcineurin inhibitor; Z88.0 Allergy status to penicillin; Z79.899 Other long term (current) drug therapy
CPT/HCPCS: 36415; 71045; 80048; 80053; 80143; 80179; 80307; 82550; 82803; 82947; 83605; 85007; 85025; 85027; 87040; 93005; 99285; J1200; J1630; J1650; J2060; J3370; J7120; S9485

== ENCOUNTER → 2023-10-24 21:02 | Outpatient (BNV) | payer MEDICAID, SELFPAY | PROVIDERS: Admitting Provider Student in an Organized Health Care Education/Training Program; Emergency Provider Emergency Medicine; Visit Provider Internal Medicine | DX: R94.31 Abnormal electrocardiogram [ECG] [EKG] (principal) | CPT/HCPCS: 93010 ==

== ENCOUNTER → 2023-10-25 01:45 | Outpatient (BNV) | payer OTHER, SELFPAY | PROVIDERS: Admitting Provider Student in an Organized Health Care Education/Training Program; Emergency Provider Emergency Medicine; Visit Provider Psychiatry & Neurology Psychiatry | DX: F60.3 Borderline personality disorder (principal); F43.11 Post-traumatic stress disorder, acute | CPT/HCPCS: 99232 ==

== ENCOUNTER → 2023-10-25 01:45 | Outpatient (BNV) | payer MEDICAID, SELFPAY | PROVIDERS: Admitting Provider Student in an Organized Health Care Education/Training Program; Emergency Provider Emergency Medicine; Visit Provider Student in an Organized Health Care Education/Training Program | DX: N17.9 Acute kidney failure, unspecified (principal); M62.82 Rhabdomyolysis; F23 Brief psychotic disorder | CPT/HCPCS: 99223; 99232; 99239; 99499 ==

== ENCOUNTER 2025-01-07 07:54 | Emergency (ER) | payer MEDICAID, SELFPAY ==
--- NOTE | ~2025-01-07 | XR_ITS ---
EXAMINATION: XR ANKLE, DEMETRIUS 3V CLINICAL INFORMATION: Ankle pain. COMPARISON: None available. TECHNIQUE: AP, lateral, and mortise views of each ankle. FINDINGS: RIGHT ANKLE: There is no fracture, dislocation, or suspicious bone lesion. There is normal alignment. The ankle mortise is intact. The talar dome is normal. The subtalar joints are normal. There are tiny plantar and small dorsal calcaneal spurs. No ankle joint effusion. No soft tissue abnormalities. LEFT ANKLE: There is no fracture, dislocation, or suspicious bone lesion. There is normal alignment. The ankle mortise is intact. The talar dome is normal. The subtalar joints are normal. There are tiny plantar and small dorsal calcaneal spurs. No ankle joint effusion. No soft tissue abnormalities. XR/XR Ankle Demetrius min 3V IMPRESSION: No acute soft tissue or bony abnormalities of either ankle. Electronically signed by: Gabino Garcia MD 01/07/2025 08:29 AM EDT
[2025-01-07 08:07] VITALS: BP 106/57; PULSE 56; RESP 16; TEMP 37; O2SAT 99; BMI 23.6
--- NOTE | 2025-01-07 08:08 | ED.GENADULT ---
HPI - General Adult General Chief complaint: Extremity Problem Stated complaint: Feet Issues Time Seen by Provider: 01/07/25 08:28 Source: patient, RN notes reviewed and old records reviewed Mode of arrival: ambulatory Limitations: no limitations History of Present Illness ED Provider: Grant HPI narrative: Patient is a 39-year-old assigned male of breath who identifies as female presenting to the emergency department with complaint of bilateral foot and ankle pain for the past week to week and a half. Denies any known injury or trauma but states that she did jump out of bed recently which cause the pain to increase. States that it was worse on the right and has since spread to the left. Denies any weakness, numbness, tingling. Has not taken any [id number] medications for the pain. MD complaint: ankle pain Related Data Home Medications ?Medication ?Instructions ?Recorded ?Confirmed hydrocortisone 1 % topical cream 1 appl topical BID PRN itch 10/25/23 10/25/23 ibuprofen 600 mg tablet 600 mg PO Q8H PRN pain 10/25/23 10/25/23 multivitamin (One Daily 1 tab PO DAILY 10/25/23 10/25/23 Multivitamin tablet) Previous Rx's ?Medication ?Instructions ?Recorded albuterol sulfate 90 mcg/actuation 2 puff inhalation Q4H PRN asthma 10/27/23 aerosol inhaler (Ventolin HFA) #6.7 grams baclofen 5 mg tablet 5 mg PO TID #90 tabs 10/27/23 buprenorphine 8 mg-naloxone 2 mg 2 film buccal DAILY #60 ea 10/27/23 sublingual film (Suboxone) buspirone 10 mg tablet 10 mg PO TID #90 tabs 10/27/23 clonazepam 0.5 mg tablet 0.5 mg PO BID PRN anxiety #14 tabs 10/27/23 guanfacine 3 mg tablet,extended 3 mg PO BEDTIME #30 tabs 10/27/23 release 24 hr hydroxyzine pamoate 50 mg capsule 50 mg PO Q6H PRN anxiety #30 caps 10/27/23 loratadine 10 mg tablet 10 mg PO DAILY #30 tabs 10/27/23 melatonin 3 mg tablet 3 mg PO BEDTIME #14 tabs 10/27/23 nicotine (polacrilex) 2 mg gum 2 mg PO Q2H PRN Smoking Cessation 10/27/23 #20 ea nicotine 21 mg/24 hr daily 1 patch topical DAILY #14 ea 10/27/23 transdermal patch oxcarbazepine 150 mg tablet 450 mg (3 x 150 mg) PO BID #180 10/27/23 tabs quetiapine 50 mg tablet 50 mg PO BEDTIME #30 tabs 10/27/23 tacrolimus 0.1 % topical ointment 1 appl topical BID 4 weeks #60 10/27/23 grams trazodone 150 mg tablet 150 mg PO BEDTIME #30 tabs 10/27/23 Allergies Allergy/AdvReac Type Severity Reaction Status Date / Time Penicillins AdvReac Severe Shortness Verified 01/07/25 08:11 of Breath Review of Systems Review of Systems: As per HPI Yes all other systems are reviewed and are negative Constitutional: Constitutional: Reports as per HPI [facility] Past Medical History Medical History Antisocial personality disorder Borderline personality disorder PTSD (post-traumatic stress disorder) Aggressive behavior Suicidal ideation Social History Social History Household Members: Other Do you presently have visiting nurse or other home services: No Unable to assess alcohol history related to: Refusing to respond Alcohol intake: never Patient Tobacco Use Status: Tobacco use Unknown Smoked in Last 30 Days: Yes Use of substances other than those prescribed or required for medical reasons: No Substance Use Type: Heroin Advance Directives: No Advance Directives Information Provided: No Physical Exam ED Vital Signs: Vital Signs - 24 hr 01/07/25 08:07 Temperature 98.6 F Pulse Rate 56 Respiratory Rate 16 Blood Pressure 106/57 L Pulse Oximetry 99 Oxygen Delivery Method Room Air BMI result Body Mass Index 23.6 Vital signs have been reviewed and appear to be correct. Blood pressure normal. Heart rate normal. Respiratory rate normal. Temperature normal. Oxygen saturation normal. Const General: cooperative, healthy appearing and no acute distress Orientation/consciousness: oriented to person, oriented to place, oriented to time and patient oriented x3 Limitations: no limitations HENMT Head: Yes normocephalic and Yes atraumatic Ears: external ears normal General nose exam: Normal external nose present Face and sinus: Yes face symmetric Mouth: oropharynx normal and moist mucous membranes Throat: Yes uvula midline Eyes Pupils: Equal, round and reactive pupils present Neck Neck: Yes normal visual inspection and Yes supple Resp Effort & Inspection: normal respiratory effort and able to speak in complete sentences Auscultation: clear to auscultation bilaterally Cardio Rate: regular rate Rhythm: regular rhythm Heart sounds: S1 normal heart sound present and S2 normal heart sound present GI Palpation (GI): Soft to palpation and nontender Auscultation: normoactive bowel sounds General: Yes no CVA tenderness Back/Spine/Pelvis Back: no CVA tenderness Skin General skin exam: elasticity normal and turgor normal Neuro General: oriented to person, oriented to place, oriented to time, patient oriented x3, moves all extremities, no focal motor deficits and CN's II-XI intact bilaterally Cranial nerves: Yes Equal, round and reactive pupils present Cognition (Neuro): normal cognition Extrem General: Yes full ROM, Yes no pedal edema and Yes no calf tenderness Right lower extremity: ankle Details: normal to inspection, tenderness Location: of the achilles tendon, no edema and normal ROM; achilles tendon exam normal and foot Details: normal capillary refill, normal to inspection, toes with normal ROM, vascular exam Details: dorsalis pedis pulse present, posterior tibial pulse present and normal capillary refill, tendon exam Details: active flexion normal and active extension normal and motor-sensory exam Details: two point discrimination normal and light-touch normal; no tenderness Left lower extremity: ankle Details: normal to inspection, tenderness Location: of the achilles tendon, no edema and normal ROM; achilles tendon exam normal and foot Details: normal capillary refill, normal to inspection, toes with normal ROM, vascular exam Details: dorsalis pedis pulse present, posterior tibial pulse present and normal capillary refill, tendon exam Details: active flexion normal and active extension normal and motor-sensory exam Details: two point discrimination normal and light-touch normal; no tenderness Psych Mental Status: mental status grossly normal Affect: normal affect Thought process: Normal thought process present Course Course Course Narrative: RME, this is a rapid medical exam performed by Edson Bagley please refer to primary provider for complete H&P- 39 year old male identifying as female presents for evaluation of bilateral ankle and achilles pain. Symptoms started 9 days ago initially in the right foot after falling out of bed. She has been left ankle pain. Plan for x-rays Medical Decision Making Medical Decision Making MDM Narrative: Patient is a 39-year-old assigned male of breath who identifies as female presenting to the emergency department with complaint of bilateral foot and ankle pain for the past week to week and a half. On exam patient is awake, A+Ox3, VS WNL, afebrile, normal neurological exam without focal deficits, physical exam findings as above. Given reported symptoms and physical exam findings, initial differential includes but is not limited to bilateral ankle strain, sprain, fracture, Achilles tendonitis. Do not suspect Achilles tendon rupture. X-ray bilat ankles notable for no acute fractures. My interpretation is in agreement with the radiologist's interpretation. Results discussed with patient and all questions answered. Patient provided with Jose bandages for support, advised keeping ankles elevated while at rest, apply ice intermittently. Discussed with patient that she can use Tylenol or ibuprofen. Advised follow up with PCP as she may require physical therapy to improve symptoms. Will also refer to orthopedics for any ongoing symptoms. Return precautions discussed. Patient verbalized understanding of and agreement with plan. Differential Diagnosis Differential Diagnoses: The differential diagnosis associated with the presentation includes As per [facility] Admission/Observation Consideration of admission/observation: Escalation of care including admission/observation considered Patient would have been admitted to the hospital had their clinical presentation warranted hospital admission. Independent Interpretation I performed an independent interpretation of an: Plain X-Ray Interpretation: Acute fracture noted bilateral ankle x-rays Radiology Impression Discussion of test interpretation with radiology: I have reviewed the radiologist's reading. Radiologist Impression: XR/XR Ankle Demetrius min 3V IMPRESSION: No acute soft tissue or bony abnormalities of either ankle. External Record Review External record reviewed: Inpatient record, Office record and Outpatient record Discharge Plan Discharge Clinical Impression: Acute bilateral ankle pain Patient Disposition: Home, Self-Care Instructions: Achilles Tendinitis (ED), How to Use an Elastic Bandage (ED), P.R.I.C.E. Treatment (ED) Additional Instructions: You were evaluated in the emergency department today for foot and ankle pain. Your x-rays did not show evidence of any acute fractures or other acute injury. You were provided with Jose bandages which you can use as needed for support of your feet and ankles. We recommend that you keep your feet elevated while at rest, you can also apply ice for 10-15 minutes at a time several times daily. We recommend that you follow-up with your primary care provider as you may require physical therapy to improve your symptoms. If your symptoms do not improve over the next 1-2 weeks you can follow up with Orthopedics. Return to the emergency department with new or concerning symptoms. Prescriptions: No Action multivitamin [One Daily Multivitamin] Tablet 1 tab PO DAILY hydrocortisone 1 % cream 1 appl topical BID PRN (Reason: itch) ibuprofen 600 mg tablet 600 mg PO Q8H PRN (Reason: pain) tacrolimus 0.1 % ointment 1 appl topical BID 28 Days Qty: 60 0RF Rx Instructions: apply to both temples with visible pustules oxcarbazepine 150 mg tablet 450 mg PO BID Qty: 180 0RF nicotine (polacrilex) 2 mg gum 2 mg PO Q2H PRN (Reason: Smoking Cessation) Qty: 20 0RF clonazepam 0.5 mg tablet 0.5 mg PO BID PRN (Reason: anxiety) Qty: 14 0RF hydroxyzine pamoate 50 mg capsule 50 mg PO Q6H PRN (Reason: anxiety) Qty: 30 0RF melatonin 3 mg tablet 3 mg PO BEDTIME Qty: 14 0RF trazodone 150 mg tablet 150 mg PO BEDTIME Qty: 30 0RF buspirone 10 mg tablet 10 mg PO TID Qty: 90 0RF nicotine 21 mg/24 hr patch 24 hour 1 patch topical DAILY Qty: 14 0RF albuterol sulfate [Ventolin HFA] 90 mcg/actuation HFA aerosol inhaler 2 puff inhalation Q4H PRN (Reason: asthma) Qty: 6.7 0RF loratadine 10 mg tablet 10 mg PO DAILY Qty: 30 0RF quetiapine 50 mg tablet 50 mg PO BEDTIME Qty: 30 0RF guanfacine 3 mg tablet extended release 24 hr 3 mg PO BEDTIME Qty: 30 0RF baclofen 5 mg tablet 5 mg PO TID Qty: 90 0RF buprenorphine-naloxone [Suboxone] 8-2 mg film 2 film buccal DAILY Qty: 60 0RF Rx Instructions: place 1 film on inside of (each) cheek [place] [facility] [place] [facility] [facility] [place] Group] Clinical Impression: Acute bilateral ankle pain Print Language: Persian
--- NOTE | 2025-01-07 08:30 | PC.NURSE ---
Pt roomed and standing by bed. Pt in NAD states bilat ankle pain and stiffness baltazar on wakening in AM. Pt staes due to fall OOB a few days ago. No other complaints-
[2025-01-07 09:13] VITALS: BP 106/57; PULSE 56; RESP 16; TEMP 37; O2SAT 99
== END 2025-01-07 09:14 | disposition home or self-care (01) ==
PROVIDERS: Emergency Provider Emergency Medicine; PCP Nurse Practitioner
DX: M25.571 Pain in right ankle and joints of right foot (principal); M25.572 Pain in left ankle and joints of left foot
CPT/HCPCS: 73610; 99283

== ENCOUNTER → 2025-01-07 08:08 | Outpatient (BNV) | payer MEDICAID, SELFPAY | PROVIDERS: Emergency Provider Emergency Medicine; PCP Nurse Practitioner; Visit Provider Radiology Diagnostic Radiology | DX: M25.572 Pain in left ankle and joints of left foot (principal); M25.571 Pain in right ankle and joints of right foot | CPT/HCPCS: 73610 ==

== ENCOUNTER 2025-01-12 23:07 | Emergency (ER) | payer MEDICAID, SELFPAY ==
--- OUTSIDE RECORDS SUMMARY | 2025-01-01 17:00 | XMS_ITS ---
Author Organization [facility] Address [address] [place] [address] Care Team Providers Care Claims Service Adjustor Name Role Phone Mallorie Dyson Primary Care Provider [phone] Migration, Provider Unavailable Unavailable Allergies Allergen (clinical drug ingredient) Drug/Non Drug Allergy documented on EMR Reaction Allergy Type Onset Date Status Penicillin rash Drug Allergy Active [facility] Encounter Medications Medication SIG (Take, [...] MG 2 tab(s) orally qhs confirmed with [place] Active Montelukast Sodium 10 MG 1 tab(s) [...] review and pick correct strength-formula tion from [employer]15 options. If intended option is not shown, discontinue and re-order from Quick Search* Not-Taking Flovent Diskus 250 MCG/INH 1 PUFF(S) INHALED 2 TIMES A DAY for 30 DAYS *Please review and pick correct strength-formula tion from [employer] LS15 options. If intended option is not shown, [...] tab(s) orally once a day confirmed with [place] Active Calcipotriene 0.005 % 1 jalil applied topically 2 times a day for 30 days apply to sensitive areas: buttocks Active rOPINIRole HCl 0.25 MG 1 tab(s) orally qhs for 30 days Active Encounters Encounter Location Date Provider Diagnosis [address] [address] 01/01/2025 Provider Migration Hypothyroidism, unspecified E03.9 Assessments Encounter Date Diagnosis (ICD Code) Assessment Notes Treatment Notes Treatment Clinical Notes Section Notes 01/01/2025 Hypothyroidism, unspecified (ICD-10 - E03.9) Plan Of Treatment Medication Medication Name Sig Start Date Stop Date Notes Levothyroxine Sodium 100 MCG 1 tab(s) or ally once a day for 90 days Progress Notes * Matt TRANDOB:1985 (39 yo M)Acc No.[id number]:01/01/2025 Patient: Matt REEDER Provider: :1985 A ge:39 Y S ex:Male Date:01/01/2025 Address:[address] [place] [address] ( Verify Address), [address] [place] [address] Pcp:Mallorie Dyson Subjective: * Chief Complaints: * [...] day , Notes to Pharmacist: confirmed with [place], Taking hydrOXYzine HCl 50 MG Tablet 2 [...] qhs , Notes to Pharmacist: confirmed with [place], Taking Montelukast Sodium 10 MG Tablet 1 [...] *Please review and pick correct strength-formulation from [employer] LS15 options. If intended option is not shown, discontinue and re-order from Quick Search*, Not-Taking/PRN Flovent Diskus 250 MCG/INH POWDER 1 PUFF(S) INHALED 2 TIMES A DAY , Notes to Pharmacist: *Please review and pick correct strength-formulation from [employer] options. If intended option is not shown, discontinue and re-order from Quick Search*, Not-Taking/PRN Clotrimazole 1 % Cream 1 jalil applied topically 2 times a day , Not-Taking/PRN ProAir HFA 90 MCG/INH AEROSOL 2 PUFF(S) INHALED EVERY 6 HOURS NEEDED FOR SHORTNESS OF BREATH AND WHEEZING , Notes to Pharmacist: *Please review and pick correct strength-formulation from [employer] LS15 options. If intended option is not shown, [...] Electronic signature of Prov ider Migration on 01/13/2025 at 12:36 AM EDT Sign off status: Pending * Provider: Date: 01/01/2025 Generated for Gordo palma/Miguelina/Surysmitting on: 01/13/2025 12:36 AM EDT
[2025-01-12 23:19] VITALS: BP 130/80; PULSE 110; BMI 23.6
[2025-01-12 23:27] VITALS: BP 101/53; PULSE 66; RESP 14; TEMP 36.8; O2SAT 100
[2025-01-13] VITALS (7 sets, daily range): BP systolic 86–109; BP diastolic 48–71; PULSE 54–59; RESP 16; TEMP 36.4; O2SAT 97
--- NOTE | 2025-01-13 00:06 | ED_ITS ---
HPI - Seizure General Chief Complaint: Seizure Stated Complaint: seizure, post ictal Time Seen by Provider: 01/13/25 00:04 Source: patient and EMS Mode of arrival: EMS Limitations: other History of Present Illness ED Provider: Dr. Adelita Kaminski HPI Narrative: Patient comes to the emergency room by [facility]. Earlier today, patient had a witnessed seizure by staff. Patient had tonic-clonic seizure, no fall was reported. Patient states that he remembers feeling something weird prior to the seizure but unable to recall any other details. On arrival, patient's seems confused, postictal. Patient endorses compliance with medications. The patient's knowledge she is not on any antiepileptic medications. Patient knows that she takes several psych meds. Prior to arrival and having the seizure, patient took all of her psych meds. Patient denies pain anywhere, states that she feels very tired. Patient reports that the last time that she had a seizure was a few months ago. Related Data Home Medications ?Medication ?Instructions ?Recorded ?Confirmed hydrocortisone 1 % topical cream 1 appl topical BID SC N itch 10/25/23 10/25/23 ibuprofen 600 mg tablet 600 mg PO Q8H PRN pain 10/2410/25/23 multivitamin (One Daily 1 tab PO DAILY 10/25/2310/12 Multivitamin tablet) Previous Rx's ?Medication ?Instructions ?Recorded albuterol sulfate 90 mcg/actuation 2 puff inhalation Q 4H PRN asthma 10/27/23 aerosol inhaler (Ventolin HFA) #6.7 grams baclofen 5 mg tablet 5 mg PO TID #90 tabs 4 buprenorphine 8 mg-naloxone 2 mg 2 film buccal DAILY # 60 ea 10/27/23 sublingual film (Suboxone) buspirone 10 mg tablet 10 mg PO TID #90 tabs clonazepam 0.5 mg tablet 0.5 mg PO BID PRN anxiety #1 4 tabs 10/27/23 guanfacine 3 mg tablet,extended 3 mg PO BEDTIME #30 ta bs 10/27/23 release 24 hr hydroxyzine pamoate 50 mg capsule 50 mg PO Q6H PRN anx iety #30 caps 10/27/23 loratadine 10 mg tablet 10 mg PO DAILY #30 tabs 12/12 melatonin 3 mg tablet 3 mg PO BEDTIME #14 tabs 12/12 nicotine (polacrilex) 2 mg gum 2 mg PO Q2H PRN Smoking Cessation 10/27/23 #20 ea nicotine 21 mg/24 hr daily 1 patch topical DAILY #14 e a 10/27/23 transdermal patch oxcarbazepine 150 mg tablet 450 mg (3 x 150 mg) PO BID #180 10/27/23 tabs quetiapine 50 mg tablet 50 mg PO BEDTIME #30 tabs tacrolimus 0.1 % topical ointment 1 appl topical BID 4 weeks #60 10/27/23 grams trazodone 150 mg tablet 150 mg PO BEDTIME #30 tabs 0 10/27/23 levetiracetam 500 mg tablet 500 mg PO BID #60 tabs (Keppra) Allergies Allergy/AdvReac Type Severity Reaction Status Date / Time Penicillins AdvReac Severe Shortness Verified 01/12/25 23:24 of Breath Review of Systems 2 Review of Systems: Constitutional : No Weight loss, No Fever, No Chills, No Night Sweats, No Fatigue, No Malaise ENT/Mouth : No Hearing loss, No Ear Pain, No Nasal Congestion, No Sinus Pain, No Hoarseness, No sore throat, No Rhinorrhea, No Swallowing Difficulty Eyes: No Eye Pain, No Swelling, No Redness, No Foreign Body, No Discharge, No Vision Changes Cardiovascular : No Chest Pain, No SOB, No Dyspnea on Exertion, No Orthopnea, No Edema, No Palpitations Respiratory : No Cough, No Sputum, No Wheezing, No Smoke Exposure, No Dyspnea Gastrointestinal : No Nausea, No Vomiting, No Diarrhea, No Constipation, No abdominal Pain, No Hematochezia, No Melena Genitourinary : no irregular bleeding, No Dysuria, No Urinary Frequency, No Hematuria, No Urinary Incontinence, No Urgency, No Flank Pain, No Urinary Flow Changes, No Hesitancy Musculoskeletal : No joint pain, No Myalgias, No Joint Swelling Skin : No Skin Lesions, No rash Neuro : Patient reports having a seizure and feeling very fatigued/tired No Weakness, No Numbness, No Paresthesias, No Loss of Consciousness, No Dizziness, No Headache Psych : No Anxiety/Panic, No Depression, No SI/HI/AH/VH, No Social Issues, Heme/Lymph: No Bruising, No Bleeding,No Lymphadenopathy Endocrine : No Polyuria, No Polydipsia, No Temperature Intolerance [facility] Past Medical History Medical History Antisocial personality disorder Borderline personality disorder PTSD (post-traumatic stress disorder) Aggressive behavior Suicidal ideation Social History Social History Household Members: Other Do you presently have visiting nurse or other home services: No Alcohol intake: never Patient Tobacco Use Status: Tobacco use Unknown Substance Use Type: Heroin Advance Directives: No Advance Directives Information Provided: Yes Do you have a plan to hurt others: No Plan Physical Exam 2 Exam: Exam: Appearance: Alert. Oriented X3. Somnolent Eyes: Pupils equal, round and reactive to light. ENT: Pharynx normal. Neck: Normal inspection. Neck supple. No lymph nodes noted. No crepitus CVS: Normal heart rate and rhythm. Pulses normal. Normal S1 and S2 Respiratory: No respiratory distress. Breath sounds normal. No Wheezing. No rales Abdomen: Soft and nontender. No rigidity. No distention. Skin: Skin warm and dry. Normal skin color. Normal skin turgor. Extremities: No lower extremity edema. No Lacerations. No Rash Neuro: Oriented X 3. No motor deficit. No sensory deficit. Moving all extremities. No slurred speech. CN 2 through 12 grossly intact Psych: calm, cooperative, somnolent Vital Signs: Vital Signs: Last Vital Signs Temp 98.2 F 01/12/25 23:27 Pulse 57 01/13/25 03:22 Resp 14 01/12/25 23:27 BP 98/71 01/13/25 03:22 Pulse Ox 100 01/12/25 23:27 O2 Del Method Room Air 01/12/25 23:27 BMI result Body Mass Index 23.6 Course Course Course Narrative: Patient has history of seizures, to patient's knowledge not on any anti epileptic medications Patient feeling a bit confused and tired. Patient comes from a penitentiary where his medications are given to him. Compliant with all meds. I was informed by the patient's nurse that the patient's blood pressure is 85 systolic. Likely secondary to medication use. Patient receiving 2 L of IV fluids, patient may need another L Medications Administered Discontinued Medications Generic Name Dose Route Start Last Admin Trade Name Kenji PRN Reason Stop Dose Admin Sodium Chloride 1,000 mls @ 999 mls/hr 01/13/25 00:01 01/13/25 01:28 Ns IV 01/13/25 01:01 Infused .Q1H1M ONE Infusion Sodium Chloride 1,000 mls @ 999 mls/hr 01/13/25 00:14 01/13/25 02:00 Ns IVCONT 01/13/25 01:14 Infused .Q1H1M ONE Infusion Sodium Chloride 1,000 mls @ 999 mls/hr 01/13/25 01:29 01/13/25 03:22 Ns IV 01/13/25 02:29 Infused .Q1H1M ONE Infusion Levetiracetam 1,000 mg 01/13/25 00:05 01/13/25 00:41 Levetiracetam 1,000 Mg Tablet PO 01/13/25 00:06 1,000 mg ONCE ONE Administration Medical Decision Making Medical Decision Making MDM Narrative: Prior to arrival, patient was given BuSpar, Cogentin, Klonopin, lithium, prazosin, Seroquel, trazodone, Zyprexa The combination of all the above-mentioned medications, likely does not hypotension. Polypharmacy may have caused patient's seizure My interpretation of labs: Normal hematology, normal chemistry, normal lactic acid, CPK within normal limits It is possible the patient may had a pseudo-seizure questionable? Lactic acid and CPK are both normal No that patient is more awake, patient states that he had a seizure about a month ago. Patient is not on any medications for seizures. Patient was given here a dose of 1000 mg IV Keppra Since patient is starting to have breakthrough seizures, it would be best to start him on an antiepileptic medication. I will send Keppra to his pharmacy and we will give him a referral to Neurology 03:30, patient is awake, alert, ambulatory. Patient states that feels well and would like to be discharged, patient does not want to be admitted Overall, patient likely had side effects due to polypharmacy. I recommend decreasing the patient's prazosin from 3 mg to 1 mg, likely caused the hypotensive event Differential Diagnosis Differential Diagnoses: The differential diagnosis associated with the presentation includes (Breakthrough seizure, medication side-effect) Admission/Observation Consideration of admission/observation: Escalation of care including admission/observation considered (Given patient's presentation, previous events and current low blood pressure, observation is considered) Lab Data 01/13/25 00:13 01/13/25 00:13 Labs: Lab Results 01/13/25 01/13/25 01/13/25 Range/Units 00:12 00:13 00:24 WBC 7.0 (4.8-10.8) X10*3/uL RBC 3.62 L (4.60-5.80) X10*6/uL Hgb 10.8 L (14.0-18.0) g/dl Hct 31.9 L (42.0-52.0) % MCV 88.1 (80.0-98.0) fL MCH 29.8 (27.0-33.0) pg MCHC 33.9 (31.0-36.0) g/dl RDW 11.6 (11.0-16.0) % Plt Count 222 (160-400) X10*3/uL MPV 10.1 (9.4-12.4) fL Immature Gran % (Auto) 0.3 (0.0-0.4) % Neut % (Auto) 65.3 (45-73) % Lymph % (Auto) 22.9 (20-40) % Clarke % (Auto) 8.0 (2-11) % Eos % (Auto) 2.9 (0-4) % Baso % (Auto) 0.6 (0-2) % Lymph # (Auto) 1.6 (1.2-4.9) X10*3/uL Clarke # (Auto) 0.6 (0.1-1.2) X10*3/uL Eos # (Auto) 0.2 (0.0-0.4) X10*3/uL Baso # (Auto) 0.0 (0.0-0.2) X10*3/uL Abs Immat Gran (auto) 0.02 (0.00-0.03) X10*3/uL Absolute Neuts (auto) 4.6 (2.0-8.3) x10*3/uL Absolute Nucleated RBC 0.000 (0.0-0.012) X10*3/uL Nucleated RBC % (auto) 0.0 (0.0-0.2) /100WBC Sodium 141 (135-145) mmol/L Potassium 4.0 (3.3-5.1) mmol/L Chloride 109 H (96-108) mmol/L Carbon Dioxide 27 (22-29) mmol/L Anion Gap 9 L (12-20) BUN 11 (9-16) mg/dL Creatinine 0.91 (0.5-1.4) mg/dL Estim Creat Clear Calc 100.2 Estimated GFR > 60 Random Glucose 101 (60-115) mg/dL Lactic Acid 1.9 (0.5-2.0) mmol/L Calcium 8.8 D (8.4-10.2) mg/dL Magnesium 1.9 (1.6-2.6) mg/dL Total Bilirubin 0.2 (0.0-1.0) mg/dL Direct Bilirubin < 0.2 (0.0-0.5) mg/dL AST 19 (5-37) U/L ALT 10 (0-40) U/L Alkaline Phosphatase 47 (39-117) U/L Total Creatine Kinase 46 (38-174) U/L Total Protein 5.7 L (6.5-8.0) g/dL Albumin 3.6 (3.5-5.0) g/dL Hold Yellow Top See Note Urine Color Urine Appearance Urine pH (5.0-9.0) Ur Specific [place] (1.005-1.025) Urine Protein (Neg-Trace) mg/dL Urine Glucose (UA) (Negative) mg/dL Urine Ketones (Negative) mg/dL Urine Blood (Negative) Urine Nitrite (Negative) Ur Leukocyte Esterase (Negative) Urine Opiates Screen (Not Detect) Ur Buprenorphine Scrn (Not Detect) ng/mL Ur Oxycodone Screen (Not Detect) ng/mL Urine Methadone Screen (Not Detect) ng/mL Urine Fentanyl Screen (Not Detect) Ur Barbiturates Screen (Not Detect) Ur Phencyclidine Scrn (Not Detect) Ur Amphetamines Screen (Not Detect) U Benzodiazepines Scrn (Not Detect) [place] 1.29 H (0.60-1.20) mmol/L Urine Cocaine Screen (Not Detect) U Marijuana (THC) Screen (Not Detect) Ethyl Alcohol < 10 mg/dL 01/13/25 Range/Units 03:29 WBC (4.8-10.8) X10*3/uL RBC (4.60-5.80) X10*6/uL Hgb (14.0-18.0) g/dl Hct (42.0-52.0) % MCV (80.0-98.0) fL MCH (27.0-33.0) pg MCHC (31.0-36.0) g/dl RDW (11.0-16.0) % Plt Count (160-400) X10*3/uL MPV (9.4-12.4) fL Immature Gran % (Auto) (0.0-0.4) % Neut % (Auto) (45-73) % Lymph % (Auto) (20-40) % Clarke % (Auto) (2-11) % Eos % (Auto) (0-4) % Baso % (Auto) (0-2) % Lymph # (Auto) (1.2-4.9) X10*3/uL [place] # (Auto) (0.1-1.2) X10*3/uL Eos # (Auto) (0.0-0.4) X10*3/uL Baso # (Auto) (0.0-0.2) X10*3/uL Abs Immat Gran (auto) (0.00-0.03) X10*3/uL Absolute Neuts (auto) (2.0-8.3) x10*3/uL Absolute Nucleated RBC (0.0-0.012) X10*3/uL Nucleated RBC % (auto) (0.0-0.2) /100WBC Sodium (135-145) mmol/L Potassium (3.3-5.1) mmol/L Chloride (96-108) mmol/L Carbon Dioxide (22-29) mmol/L Anion Gap (12-20) BUN (9-16) mg/dL Creatinine (0.5-1.4) mg/dL Estim Creat Clear Calc Estimated GFR Random Glucose (60-115) mg/dL Lactic Acid (0.5-2.0) mmol/L Calcium (8.4-10.2) mg/dL Magnesium (1.6-2.6) mg/dL Total Bilirubin (0.0-1.0) mg/dL Direct Bilirubin (0.0-0.5) mg/dL AST (5-37) U/L ALT (0-40) U/L Alkaline Phosphatase (39-117) U/L Total Creatine Kinase (38-174) U/L Total Protein (6.5-8.0) g/dL Albumin (3.5-5.0) g/dL Hold Yellow Top Urine Color Yellow Urine Appearance Clear Urine pH 7.5 (5.0-9.0) Ur Specific [place] 1.010 (1.005-1.025) Urine Protein Negative (Neg-Trace) mg/dL Urine Glucose (UA) Negative (Negative) mg/dL Urine Ketones Negative (Negative) mg/dL Urine Blood Negative (Negative) Urine Nitrite Negative (Negative) Ur Leukocyte Esterase Negative (Negative) Urine Opiates Screen Not Detected (Not Detect) Ur Buprenorphine Scrn Positive H (Not Detect) ng/mL Ur Oxycodone Screen Not Detected (Not Detect) ng/mL Urine Methadone Screen Not Detected (Not Detect) ng/mL Urine Fentanyl Screen Not Detected (Not Detect) Ur Barbiturates Screen Not Detected (Not Detect) Ur Phencyclidine Scrn Not Detected (Not Detect) Ur Amphetamines Screen Not Detected (Not Detect) U Benzodiazepines Scrn Not Detected (Not Detect) [place] (0.60-1.20) mmol/L Urine Cocaine Screen Not Detected (Not Detect) U Marijuana (THC) Screen Not Detected (Not Detect) Ethyl Alcohol mg/dL Critical Care Time Critical Care Time Critical Care Time: Yes Total Critical Care Time: 60 Attestation: I have personally provided critical care time. Time includes review of lab data, radiology results, discussion with consultants, and monitoring for potential decompensation. Intervention performed as documented. Discharge Plan Discharge Clinical Impression: Seizure, Acute hypotension, Drug side effects Patient Disposition: Home, Self-Care Instructions: Hypotension (ED), Adverse Drug Reaction (ED), Recurrent Seizures in Adults (ED) Additional Instructions: Please follow-up with your primary care physician tomorrow. If you have any worsening or new symptoms, please return to the emergency room or call 911 Prescriptions: New levetiracetam [Keppra] 500 mg tablet 500 mg PO BID Qty: 60 1RF No Action multivitamin [One Daily Multivitamin] Tablet 1 tab PO DAILY hydrocortisone 1 % cream 1 appl topical BID PRN (Reason: itch) ibuprofen 600 mg tablet 600 mg PO Q8H PRN (Reason: pain) tacrolimus 0.1 % ointment 1 appl topical BID 28 Days Qty: 60 0RF Rx Instructions: apply to both temples with visible pustules oxcarbazepine 150 mg tablet 450 mg PO BID Qty: 180 0RF nicotine (polacrilex) 2 mg gum 2 mg PO Q2H PRN (Reason: Smoking Cessation) Qty: 20 0RF clonazepam 0.5 mg tablet 0.5 mg PO BID PRN (Reason: anxiety) Qty: 14 0RF hydroxyzine pamoate 50 mg capsule 50 mg PO Q6H PRN (Reason: anxiety) Qty: 30 0RF melatonin 3 mg tablet 3 mg PO BEDTIME Qty: 14 0RF trazodone 150 mg tablet 150 mg PO BEDTIME Qty: 30 0RF buspirone 10 mg tablet 10 mg PO TID Qty: 90 0RF nicotine 21 mg/24 hr patch 24 hour 1 patch topical DAILY Qty: 14 0RF albuterol sulfate [Ventolin HFA] 90 mcg/actuation HFA aerosol inhaler 2 puff inhalation Q4H PRN (Reason: asthma) Qty: 6.7 0RF loratadine 10 mg tablet 10 mg PO DAILY Qty: 30 0RF quetiapine 50 mg tablet 50 mg PO BEDTIME Qty: 30 0RF guanfacine 3 mg tablet extended release 24 hr 3 mg PO BEDTIME Qty: 30 0RF baclofen 5 mg tablet 5 mg PO TID Qty: 90 0RF buprenorphine-naloxone [Suboxone] 8-2 mg film 2 film buccal DAILY Qty: 60 0RF Rx Instructions: place 1 film on inside of (each) cheek Referrals: Tru Fitch MD [Physician, Internal Medicine] Bryant Fitch MD [Physician, Neurology] Print Language: Lithuanian
--- NOTE | 2025-01-13 00:06 | PC.NURSE ---
pt shares they took all bedtime meds prior to episode. with MD in room, states now that last seaizre was a month ago, not oine year ago as previously statere
[2025-01-13 00:17] LABS: MANUAL DIFF FLAG NO
[2025-01-13 00:18] LABS: Hematocrit 31.9 % (42.0-52.0); Hemoglobin 10.8 g/dl (14.0-18.0); Imm Gran Abs Auto 0.02 X10*3/uL (0.00-0.03); Imm Gran Pct Auto 0.3 % (0.0-0.4); Lymphocytes Absolute Auto 1.6 X10*3/uL (1.2-4.9); Mean Corpuscular HGB Conc 33.9 g/dl (31.0-36.0); Mean Corpuscular Hemoglobin 29.8 pg (27.0-33.0); Mean Corpuscular Volume 88.1 fL (80.0-98.0); NRBC Abs Auto 0.000 X10*3/uL (0.0-0.012); NRBC Pct Auto 0.0 /100WBC (0.0-0.2); Platelet Count 222 X10*3/uL (160-400); Red Blood Count 3.62 X10*6/uL (4.60-5.80); White Blood Count 7.0 X10*3/uL (4.8-10.8)
[2025-01-13 00:33] LABS: Alanine Aminotransferase 10 U/L (0-40); Albumin Level 3.6 g/dL (3.5-5.0); Alkaline Phosphatase 47 U/L (39-117); Anion Gap 9 (12-20); Aspartate Amino Transferase 19 U/L (5-37); Blood Urea Nitrogen 11 mg/dL (9-16); Calcium 8.8 mg/dL (8.4-10.2); Carbon Dioxide 27 mmol/L (22-29); Chloride 109 mmol/L (96-108); Creatinine Clr Calc Pharmacy 100.2; Estimated Glomerular Filt Rate > 60; Magnesium 1.9 mg/dL (1.6-2.6); Potassium 4.0 mmol/L (3.3-5.1); Sodium 141 mmol/L (135-145); Total Protein 5.7 g/dL (6.5-8.0)
--- OUTSIDE RECORDS SUMMARY | 2025-01-13 00:36 | XMS_ITS | Patient Health Record ---
Author Organization [facility] Address [address] [place] [address] Care Team Providers Care Senior Net Programmer Name Role Phone Mallorie Dyson Primary Care Provider [facility] Unavailable [phone] Migration, Provider Unavailable Unavailable Allergies Allergen (clinical drug ingredient) Drug/Non Drug Allergy documented on EMR Reaction Allergy Type Onset Date Status Penicillin rash Drug Allergy Active Reason For Referral No Information Medications Medication SIG (Take, Route, Frequency, Duration) Notes Start Date End Date Status Hydrocortisone 2.5 % 1 jalil applied topically bid Not-Taking Fluocinolone Acetonide 0.025 % 1 jalil applied topically bid Not-Taking Suboxone 8-2 MG 2 film(s) sublingually once a day Not-Taking Methadone HCl 10 MG/ML 50 mg orally once a day Not-Taking Clotrimazole 1 % 1 jalil applied topically 2 times a day for 15 day(s) 10/17/2021 Not-Taking ProAir HFA 90 MCG/INH 2 PUFF(S) INHALED EVERY 6 HOURS NEEDED FOR SHORTNESS OF BREATH AND WHEEZING for 30 DAYS *Please review and pick correct strength-formula tion from [employer] options. If intended option is not shown, discontinue and re-order from Quick Search* Not-Taking Triamcinolone Acetonide *Please review and pick correct strength-formula tion from [employer] options. If intended option is not shown, discontinue and re-order from Quick Search* Not-Taking Flovent Diskus 250 MCG/INH 1 PUFF(S) INHALED 2 TIMES A DAY for 30 DAYS *Please review and pick correct strength-formula tion from [employer] options. If intended option is not shown, discontinue and re-order from Quick Search* 07/24/2021 Not-Taking Nicotine 14 MG/24HR 1 PATCH transdermally once a day for 15 days Active Calcipotriene 0.005 % 1 jalil applied topically 2 times a day for 30 days apply to sensitive areas: buttocks Active Betamethasone Dipropionate 0.05 % 1 jalil applied topically 2 times a day for 30 days Apply to arms and legs Active rOPINIRole HCl 0.25 MG 1 tab(s) orally qhs for 30 days Active Flonase Allergy Relief 50 MCG/ACT 1 spray(s) in each nostril once a day for 30 days Not-Taking NICORETTE CINNAMON SURGE 2 MG 1 GUM CHEWED EVERY 2 HOURS for 30 DAYS *Please review for potential replacement for e-prescription and drug interaction check* Active Flonase Allergy Relief 50 MCG/ACT 1 spray(s) in each nostril once a day for 30 days Active Divalproex Sodium 500 MG 2 tab(s) orally qhs confirmed with [place] Active Montelukast Sodium 10 MG 1 tab(s) orally at bedtime for allergy Active Levothyroxine Sodium 100 MCG 1 tab(s) orally once a day for 90 days Active hydrOXYzine HCl 50 MG 2 tab(s) orally every 6 hours PRN Active Prazosin HCl 2 MG 1 cap(s) orally at bedtime, with the 5mg tab total 7 mg Active Senna S 8.6-50 MG 2 tab(s) orally once a day (at bedtime) for 90 days Active Estradiol 1 MG 1 tab(s) orally once a day confirmed with [place] Active Nicotine Polacrilex 4 MG 1 GUM chewed every 2 hours for 30 days Active Bactrim DS 800-160 MG 1 tab(s) orally every 12 hours for 10 day(s) 02/21/2022 Not-Taking Symbicort 160-4.5 MCG/ACT 2 puff(s) inhaled 2 times a day; May use 2 puffs as needed every 4 hours for shortness of breath: Maximum: 12 puffs/24 hours Active Ziprasidone HCl 60 MG 1 cap(s) orally 2 times a day Active Prazosin HCl 5 MG 1 cap(s) orally at bedtime, with 2 mg tab total 7 mg Active Immunizations Vaccine Route Administration Date Status Comme nts Hepatitis B (20 or more) IM Intramuscular 07/24/2021 Administered [facility] [id number] [place] COVID-19 Vaccine IM Intramuscular 10/02/2020 Administered Moderna Covid-19 Booster Administration - Third Dose (Single Dose 50 mcg/0.25 mL IM Intramuscular 09/04/2021 Administered Hepatitis B (20 or more) IM Intramuscular 12/07/2021 Administered Hepatitis B (20 or more) IM Intramuscular 09/18/2022 Administered [facility] [id number] Social History Tobacco Use: Social History Observation Description Date Details (start date - stop date) Former Smoker NA - NA Tobacco Use Assessment MU Question Answer Notes What is your current smoking status? former smok er Problems Problem Type SNOMED Code ICD Code Onset Dates Problem Status W/U Status Risk Notes Problem Hypothyroidism (11564788) Hypothyroidism, unspecified (E03.9) Active confirmed Problem Opioid dependence (22960852) Opioid dependence, uncomplicated (F11.20) Active confirmed Problem Cannabis abuse (66673310) Cannabis abuse, uncomplicated (F12.10) Active confirmed Problem Tobacco user (665418335) Nicotine dependence, cigarettes, uncomplicated (F17.210) Active confirmed Problem Severe major depression, single episode, without psychotic features (01942933) Major depressive disorder, single episode, severe without psychotic features (F32.2) Active confirmed Problem Abnormal sexual function (26192188) 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) Active confirmed Problem Gender identity disorder (88621456) Gender identity disorder, unspecified (F64.9) Active confirmed Problem Mental disorder (42796910) Mental disorder, not otherwise specified (F99) Active confirmed Problem Restless legs syndrome (70064907) Restless legs syndrome (G25.81) Active confirmed Problem Epilepsy (99829309) Epilepsy, unspecified, not intractable, without status epilepticus (G40.909) Active confirmed Problem Allergic rhinitis (97601969) Allergic rhinitis, unspecified (J30.9) Active confirmed Problem Uncomplicated moderate persistent asthma (136998635) Moderate persistent asthma, uncomplicated (J45.40) Active confirmed Problem Atopic dermatitis (30927221) Atopic dermatitis, unspecified (L20.9) Active confirmed Problem Psoriasis vulgaris (336826269) Psoriasis vulgaris (L40.0) Active confirmed Problem Nondependent opioid abuse in remission (673670116) Opioid abuse, in remission (F11.11) Active confirmed Problem Body mass index 25-29 - overweight (345252463) Body mass index [BMI] 26.0-26.9, adult (Z68.26) Active confirmed Problem Body mass index 25-29 - overweight (645627503) Body mass index [BMI] 27.0-27.9, adult (Z68.27) Active confirmed Problem Sheltered homelessness (118175298706814) Sheltered homelessness (Z59.01) Active confirmed Problem Body mass index 20-24 - normal (417128754) Body mass index [BMI] 24.0-24.9, adult (Z68.24) Inactive confirmed Problem BMI 25-29 - overweight (776969235) Body mass index [BMI] 29.0-29.9, adult (Z68.29) Inactive confirmed Encounters Encounter Location Date Provider Diagnosis [address] [address] 01/01/2025 Provider Migration Hypothyroidism, unspecified E03.9 [facility] [address] [place] [address] [id number] 05/28/[address] [address] 11/10/2024 Eddieliza Casionan [address] [address] 11/10/2024 Eddielizion Dyson Assessments Encounter Date Diagnosis (ICD Code) Assessment Notes Treatment Notes Treatment Clinical Notes Section Notes 01/01/2025 Hypothyroidism, unspecified (ICD-10 - E03.9) Plan Of Treatment Pending Test Test Name Order Date CHLAMYDIA DNA URINE 07/05/2021 CHLAMYDIA / GC DNA W RFLX 11/13/2022 GC DNA URINE 07/05/2021 GLYCOHEMOGLOBIN PROFILE 07/24/2021 HIV 1 AND 2 ANTIBODY SCREEN 11/12/2022 LIPID PROFILE 07/24/2021 TSH CASCADE 07/24/2021 MICROALB/CREAT RATIO, RANDOM 11/13/2022 WOUND CULTURE 02/19/2022 MR Brain W WO 07/26/2021 EKG 07/26/2021 Insurance Providers Payer Name Payer Address Payer Phone Subscriber Number Group Number Insured Name Patient Relationship to Insured Coverage Start Date Coverage End Date [place] Medicaid C3 [address] [place], [place] [id number] Matt Murry Self - patient is the insured 2 Medical (General) History Medical History History ICD Code ADHD, PTSD, borderline personality 2008- hx suicidal ideations hypothyroid 2019 asthma psoriasis Cannabis use Tobacco use Hx tramadol abuse Hx boxers' fx R hand 4th, 5th metatarsal s-surrgical repair x 2 Homelessness COVID 19 Surgical History Surgery Date(Month/Year) Surgical repair boxers' fxs R hand-4th and 5th metacarpsals - 2 plates, 10 screws 2008, 2009 Hospitalization History Reason Date(Month/Year) COVID 19 - [facility] 11/2021 [facility] for hand 09/2021 Mike 2008 Fabiana Moody-suicidal ideation//hx many ho spitalizations 02/2021
[2025-01-13 00:51] LABS: Lithium 1.29 mmol/L (0.60-1.20)
--- NOTE | 2025-01-13 03:23 | PC.NURSE ---
3L NS complete. ambulating steadily without assist, more awake and alert. BP updated in chart. concerned about a ride back to correction. aware
[2025-01-13 03:35] LABS: Appearance Urine Clear; Glucose Urine UA Negative (Negative); PH 7.5 (5.0-9.0); Specific Gravity - Urine 1.010 (1.005-1.025)
[2025-01-13 03:48] LABS: Cannabinoid Screen Urine Not Detected (Not Detect)
--- NOTE | 2025-01-13 05:01 | PC.NURSE ---
pt is awake, alert, speaking clearly, oriented, ambulating around room and to bathroom steadily without assistance or symptoms.
== END 2025-01-13 05:35 | disposition home or self-care (01) ==
PROVIDERS: Emergency Provider Emergency Medicine; PCP Family Medicine
DX: R56.9 Unspecified convulsions (principal); I95.9 Hypotension, unspecified; R11.0 Nausea; R41.82 Altered mental status, unspecified; Z79.899 Other long term (current) drug therapy; Z51.81 Encounter for therapeutic drug level monitoring
CPT/HCPCS: 36415; 80048; 80076; 80178; 80307; 81003; 82550; 83605; 83735; 85025; 96360; 96361; 99284

== ENCOUNTER 2025-01-30 10:45 | Emergency (ER) | payer MEDICAID, SELFPAY ==
--- OUTSIDE RECORDS SUMMARY | 2025-01-01 17:00 | XMS_ITS ---
Author Organization [facility] Address [address] [place] [address] Care Team Providers Care Test Car Driver Name Role Phone Mallorie Dyson Primary Care Provider [phone] Migration, Provider Unavailable Unavailable Allergies Allergen (clinical drug ingredient) Drug/Non Drug Allergy documented on EMR Reaction Allergy Type Onset Date Status Penicillin rash Drug Allergy Active [facility] Encounter Medications Medication SIG (Take, [...] MG 2 tab(s) orally qhs confirmed with [place] Active Montelukast Sodium 10 MG 1 tab(s) [...] review and pick correct strength-formula tion from [employer] options. If intended option is not shown, discontinue and re-order from Quick Search* Not-Taking Flovent Diskus 250 MCG/INH 1 PUFF(S) INHALED 2 TIMES A DAY for 30 DAYS *Please review and pick correct strength-formula tion from [employer] options. If intended option is not shown, [...] tab(s) orally once a day confirmed with [place] Active Calcipotriene 0.005 % 1 jalil applied topically 2 times a day for 30 days apply to sensitive areas: buttocks Active rOPINIRole HCl 0.25 MG 1 tab(s) orally qhs for 30 days Active Encounters Encounter Location Date Provider Diagnosis [address] [address] 01/01/2025 Provider Migration Hypothyroidism, unspecified E03.9 Assessments Encounter Date Diagnosis (ICD Code) Assessment Notes Treatment Notes Treatment Clinical Notes Section Notes 01/01/2025 Hypothyroidism, unspecified (ICD-10 - E03.9) Plan Of Treatment Medication Medication Name Sig Start Date Stop Date Notes Levothyroxine Sodium 100 MCG 1 tab(s) or ally once a day for 90 days Progress Notes * Matt TRANDOB:1985 (39 yo M)Acc No.[id number]:01/01/2025 Patient: Matt REEDER Provider: :1985 A ge:39 Y S ex:Male Date:01/01/2025 Address:[address] [place] [address] ( Verify Address), [address] [place] [address] Pcp:Mallorie Dyson Subjective: * Chief Complaints: * [...] day , Notes to Pharmacist: confirmed with [place], Taking hydrOXYzine HCl 50 MG Tablet 2 [...] qhs , Notes to Pharmacist: confirmed with [place], Taking Montelukast Sodium 10 MG Tablet 1 [...] *Please review and pick correct strength-formulation from [employer] options. If intended option is not shown, discontinue and re-order from Quick Search*, Not-Taking/PRN Flovent Diskus 250 MCG/INH POWDER 1 PUFF(S) INHALED 2 TIMES A DAY , Notes to Pharmacist: *Please review and pick correct strength-formulation from [employer] options. If intended option is not shown, discontinue and re-order from Quick Search*, Not-Taking/PRN Clotrimazole 1 % Cream 1 jalil applied topically 2 times a day , Not-Taking/PRN ProAir HFA 90 MCG/INH AEROSOL 2 PUFF(S) INHALED EVERY 6 HOURS NEEDED FOR SHORTNESS OF BREATH AND WHEEZING , Notes to Pharmacist: *Please review and pick correct strength-formulation from [employer] options. If intended option is not shown, [...] Electronic signature of Prov ider Migration on 01/30/2025 at 11:07 AM EDT Sign off status: Pending * Provider: Date: 0 01/01/2025 Generated for Gordo palma/Miguelina/Surysmitting on: 11:07 AM EDT
--- NOTE | ~2025-01-30 | XR_ITS ---
CLINICAL HISTORY: Constipation. SBO? 1 view abdomen Comparison: None provided Findings: No pneumoperitoneum or pneumatosis. Mild colonic fecal retention. No abnormal calcifications. No acute fractures. IMPRESSION: Mild colonic fecal retention with no small bowel obstruction or free air. This document has been electronically signed by: Fritz Abbott MD on 01/30/2025 11:50:24
[2025-01-30 10:50] VITALS: BP 117/64; PULSE 71; RESP 14; TEMP 36.8; O2SAT 98; BMI 21.7
--- OUTSIDE RECORDS SUMMARY | 2025-01-30 11:07 | XMS_ITS | Patient Health Record ---
Author Organization [employer] Address [address] [place] [address] Care Team Providers Care Warehouse Shipping Receiving Clerk Name Role Phone Mallorie Dyson Primary Care Provider [phone] [facility] Unavailable [phone] Migration, Provider Unavailable Unavailable Allergies Allergen (clinical [...] review and pick correct strength-formula tion from [employer] options. If intended option is not shown, discontinue and re-order from Quick Search* Not-Taking Triamcinolone Acetonide *Please review and pick correct strength-formula tion from [employer] options. If intended option is not shown, discontinue and re-order from Quick Search* Not-Taking Flovent Diskus 250 MCG/INH 1 PUFF(S) INHALED 2 TIMES A DAY for 30 DAYS *Please review and pick correct strength-formula tion from [employer] options. If intended option is not shown, [...] MG 2 tab(s) orally qhs confirmed with Miracle Active Montelukast Sodium 10 MG 1 tab(s) [...] tab(s) orally once a day confirmed with Miracle Active Nicotine Polacrilex 4 MG 1 GUM [...] (20 or more) IM Intramuscular 07/24/2021 Administered [facility] [id number] Deon COVID-19 Vaccine IM Intramuscular 10/02/2020 Administered Moderna Covid-19 Booster Administration - Third Dose (Single Dose 50 mcg/0.25 mL IM Intramuscular 09/04/2021 Administered Hepatitis B (20 or more) IM Intramuscular 12/07/2021 Administered Hepatitis B (20 or more) IM Intramuscular 09/18/2022 Administered [facility] [id number] Social History Tobacco Use: Social History Observation Description Date Details (start date - stop date) Former Smoker NA - NA Tobacco Use Assessment MU Question Answer Notes What is your current smoking status? former smok er Problems Problem Type SNOMED Code ICD Code Onset Dates Problem Status W/U Status Risk Notes Problem Hypothyroidism (04286946) Hypothyroidism, unspecified (E03.9) Active confirmed Problem Opioid dependence (17095167) Opioid dependence, uncomplicated (F11.20) Active confirmed Problem Cannabis abuse (86489838) Cannabis abuse, uncomplicated (F12.10) Active confirmed Problem Tobacco user (251662487) Nicotine dependence, cigarettes, uncomplicated (F17.210) Active confirmed Problem Severe major depression, single episode, without psychotic features (82146450) Major depressive disorder, single episode, severe without psychotic features (F32.2) Active confirmed Problem Abnormal sexual function (27137640) 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) Active confirmed Problem Gender identity disorder (36641376) Gender identity disorder, unspecified (F64.9) Active confirmed Problem Mental disorder (81992538) Mental disorder, not otherwise specified (F99) Active confirmed Problem Restless legs syndrome (06923588) Restless legs syndrome (G25.81) Active confirmed Problem Epilepsy (62704434) Epilepsy, unspecified, not intractable, without status epilepticus (G40.909) Active confirmed Problem Allergic rhinitis (50013392) Allergic rhinitis, unspecified (J30.9) Active confirmed Problem Uncomplicated moderate persistent asthma (301452614) Moderate persistent asthma, uncomplicated (J45.40) Active confirmed Problem Atopic dermatitis (41328876) Atopic dermatitis, unspecified (L20.9) Active confirmed Problem Psoriasis vulgaris (620590702) Psoriasis vulgaris (L40.0) Active confirmed Problem Nondependent opioid abuse in remission (259031188) Opioid abuse, in remission (F11.11) Active confirmed Problem Body mass index 25-29 - overweight (338268701) Body mass index [BMI] 26.0-26.9, adult (Z68.26) Active confirmed Problem Body mass index 25-29 - overweight (676394961) Body mass index [BMI] 27.0-27.9, adult (Z68.27) Active confirmed Problem Sheltered homelessness (056408531160082) Sheltered homelessness (Z59.01) Active confirmed Problem Body mass index 20-24 - normal (223925833) Body mass index [BMI] 24.0-24.9, adult (Z68.24) Inactive confirmed Problem BMI 25-29 - overweight (415116069) Body mass index [BMI] 29.0-29.9, adult (Z68.29) Inactive confirmed Encounters Encounter Location Date Provider Diagnosis [address] [address] 01/01/2025 Provider Migration Hypothyroidism, unspecified E03.9 [facility] [address] [place] [phone] 05/28/[address] [address] 11/10/2024 Eddieliza Casionan [address] [address] 11/10/2024 Eddielizion Dyson Assessments Encounter Date Diagnosis [...] End Date [place] Medicaid C3 [address] [place], [place] [id number] Matt Murry Self - patient is the [...] Hospitalization History Reason Date(Month/Year) COVID 19 - [facility] 11/2021 [facility] ER for hand 09/2021 Mike 2008 Fabiana Clyo-suicidal ideation//hx many ho spitalizations 02/2021
--- NOTE | 2025-01-30 11:09 | ED.GENADULT ---
HPI - General Adult General Chief complaint: General Medical Stated complaint: constipation Time Seen by Provider: 01/30/25 11:01 Source: patient Mode of arrival: ambulatory Limitations: no limitations History of Present Illness ED Provider: Anibal Delgado HPI narrative: 39 yold male transitioning to female presents to the ED constipation for the past 7 days. patient denies any genital urianry symptoms. patient states not in distress. Related Data Home Medications ?Medication ?Instructions ?Recorded ?Confirmed hydrocortisone 1 % topical cream 1 appl topical BID PRN itch 10/25/23 10/25/23 ibuprofen 600 mg tablet 600 mg PO Q8H PRN pain 10/25/23 10/25/23 multivitamin (One Daily 1 tab PO DAILY 10/25/23 10/25/23 Multivitamin tablet) Previous Rx's ?Medication ?Instructions ?Recorded albuterol sulfate 90 mcg/actuation 2 puff inhalation Q4H PRN asthma 10/27/23 aerosol inhaler (Ventolin HFA) #6.7 grams baclofen 5 mg tablet 5 mg PO TID #90 tabs 10/27/23 buprenorphine 8 mg-naloxone 2 mg 2 film buccal DAILY #60 ea 10/27/23 sublingual film (Suboxone) buspirone 10 mg tablet 10 mg PO TID #90 tabs 10/27/23 clonazepam 0.5 mg tablet 0.5 mg PO BID PRN anxiety #14 tabs 10/27/23 guanfacine 3 mg tablet,extended 3 mg PO BEDTIME #30 tabs 10/27/23 release 24 hr hydroxyzine pamoate 50 mg capsule 50 mg PO Q6H PRN anxiety #30 caps 10/27/23 loratadine 10 mg tablet 10 mg PO DAILY #30 tabs 10/27/23 melatonin 3 mg tablet 3 mg PO BEDTIME #14 tabs 10/27/23 nicotine (polacrilex) 2 mg gum 2 mg PO Q2H PRN Smoking Cessation 10/27/23 #20 ea nicotine 21 mg/24 hr daily 1 patch topical DAILY #14 ea 10/27/23 transdermal patch oxcarbazepine 150 mg tablet 450 mg (3 x 150 mg) PO BID #180 10/27/23 tabs quetiapine 50 mg tablet 50 mg PO BEDTIME #30 tabs 10/27/23 tacrolimus 0.1 % topical ointment 1 appl topical BID 4 weeks #60 10/27/23 grams trazodone 150 mg tablet 150 mg PO BEDTIME #30 tabs 10/27/23 levetiracetam 500 mg tablet 500 mg PO BID #60 tabs 01/13/25 (Keppra) polyethylene glycol 3350 17 17 g PO DAILY 5 days #85 grams 01/30/25 gram/dose oral powder (Miralax) Allergies Allergy/AdvReac Type Severity Reaction Status Date / Time Penicillins AdvReac Severe Shortness Verified 01/30/25 10:51 of Breath Review of Systems Review of Systems: Constipation Yes all other systems are reviewed and are negative [facility] Past Medical History Medical History Antisocial personality disorder Borderline personality disorder PTSD (post-traumatic stress disorder) Aggressive behavior Suicidal ideation Social History Social History Household Members: Other Do you presently have visiting nurse or other home services: No Alcohol intake: never Patient Tobacco Use Status: Tobacco use Unknown Substance Use Type: Heroin Physical Exam ED Vital Signs: Vital Signs - 24 hr 01/30/25 10:50 Temperature 98.3 F Pulse Rate 71 Respiratory Rate 14 Blood Pressure 117/64 Pulse Oximetry 98 Oxygen Delivery Method Room Air BMI result Body Mass Index 21.7 Const General: cooperative, healthy appearing, comfortable, no acute distress, well developed, alert, awake and Physically active Orientation/consciousness: patient oriented x3 HENMT Head: Yes normal to inspection, Yes No palpable skull fracture present, Yes normocephalic and Yes atraumatic Eyes General: appearance normal, both eyes and all related structures Neck Neck: Yes normal visual inspection, Yes full ROM, Yes no lymphadenopathy, Yes no meningeal signs, Yes trachea midline, Yes supple, No anterior neck swelling and No tender Chest Chest palpation & inspection: normal inspection of the chest and normal palpation of entire chest wall Resp Effort & Inspection: normal respiratory effort and able to speak in complete sentences Auscultation: clear to auscultation bilaterally Cardio Jugular venous distension: no JVD Heart sounds: S1 normal heart sound present and S2 normal heart sound present GI Inspection: Yes normal to inspection Palpation (GI): Soft to palpation, not firm, nontender, no guarding and not rigid General: Yes no CVA tenderness Back/Spine/Pelvis Back: no CVA tenderness and No back tenderness Skin General skin exam: no rashes or lesions noted, elasticity normal and turgor normal Neuro General: patient oriented x3, gait normal, tone normal, moves all extremities, Normal light touch and pain sensation, no meningeal signs, no focal motor deficits, CN's II-XI intact bilaterally and normal sensation to monofilament Extrem General: Yes normal to inspection, Yes full ROM and Yes capillary refill normal Psych Appearance: grossly normal, well kempt and not disheveled Medications Administered Discontinued Medications Generic Name Dose Route Start Last Admin Trade Name Freq PRN Reason Stop Dose Admin Magnesium Citrate 300 ml 01/30/25 11:59 01/30/25 12:34 Magnesium Citrate 300 Ml Solution PO 01/30/25 12:00 300 ml ONCE ONE Administration Sodium Biphosphate/Sodium Phosphate 133 ml 01/30/25 11:59 01/30/25 13:10 Sodium Phosphate,[place]-Dibasic 133 Ml Enema GA 01/30/25 12:00 133 ml ONCE STA Administration Medical Decision Making Medical Decision Making [facility] Narrative: 39-year-old male presents to the ED who will constipation. No relief with imty-jiv-nitucyv medication for the past 7 days. Patient is not in distress. KUB ordered 1:26pm: KUB shows colonic fecal retention. Patient was given magnesium citrate and Fleet enema. Patient had bowel movement feels better. Labs are normal at baseline. Patient explained worrisome signs informed return to the ED immediately. Not suspecting appendcitis, cholecysitis, UTI, Small bowel obstruction, testicular torsion, pancreatis,kdiney stones, [place], CHF, or any other life threatening etiolgoy Differential Diagnosis Differential Diagnoses: The differential diagnosis associated with the presentation includes (Constipation, small-bowel obstruction) Admission/Observation Consideration of admission/observation: Escalation of care including admission/observation considered Lab Data [facility] Lab Attestation statement: I reviewed the patient's lab results. 01/30/25 12:42 01/30/25 12:42 Labs: Lab Results 01/30/25 Range/Units 12:42 WBC 11.2 H (4.8-10.8) X10*3/uL RBC 3.77 L (4.60-5.80) X10*6/uL Hgb 11.1 L (14.0-18.0) g/dl Hct 33.9 L (42.0-52.0) % MCV 89.9 (80.0-98.0) fL MCH 29.4 (27.0-33.0) pg MCHC 32.7 (31.0-36.0) g/dl RDW 11.7 (11.0-16.0) % Plt Count 285 D (160-400) X10*3/uL MPV 9.5 (9.4-12.4) fL Immature Gran % (Auto) 0.4 (0.0-0.4) % Neut % (Auto) 80.6 H (45-73) % Lymph % (Auto) 10.7 L (20-40) % [place] % (Auto) 5.9 (2-11) % Eos % (Auto) 2.0 (0-4) % Baso % (Auto) 0.4 (0-2) % Lymph # (Auto) 1.2 (1.2-4.9) X10*3/uL [place] # (Auto) 0.7 (0.1-1.2) X10*3/uL Eos # (Auto) 0.2 (0.0-0.4) X10*3/uL Baso # (Auto) 0.0 (0.0-0.2) X10*3/uL Abs Immat Gran (auto) 0.04 H (0.00-0.03) X10*3/uL Absolute Neuts (auto) 9.1 H (2.0-8.3) x10*3/uL Absolute Nucleated RBC 0.000 (0.0-0.012) X10*3/uL Nucleated RBC % (auto) 0.0 (0.0-0.2) /100WBC Sodium 138 (135-145) mmol/L Potassium 4.1 (3.3-5.1) mmol/L Chloride 108 (96-108) mmol/L Carbon Dioxide 29 (22-29) mmol/L Anion Gap 5 L (12-20) BUN 10 (9-16) mg/dL Creatinine 0.89 (0.5-1.4) mg/dL Estim Creat Clear Calc 94.9 Estimated GFR > 60 Random Glucose 127 H (60-115) mg/dL Calcium 9.1 (8.4-10.2) mg/dL Total Bilirubin 0.3 (0.0-1.0) mg/dL AST 16 (5-37) U/L ALT 11 (0-40) U/L Alkaline Phosphatase 66 (39-117) U/L Total Protein 6.0 L (6.5-8.0) g/dL Albumin 3.8 (3.5-5.0) g/dL Lipase 25 (8-78) U/L Independent Interpretation I performed an independent interpretation of an: Plain X-Ray Radiology Impression Discussion of test interpretation with radiology: I have reviewed the radiologist's reading. Independent Historian Clinical information obtained from an independent historian. History obtained from or confirmed by: Other (patient) Prescription Management I considered prescription management with: Other (mirialx) Critical Care Time Critical Care Time Critical Care Time: Yes Total Critical Care Time: 60 Attestation: given fleet enema and magnesium citrate for constipation colonic retention. labs normal. Discharge Plan Discharge Clinical Impression: Constipation Patient Disposition: Home, Self-Care Instructions: Constipation (ED) Additional Instructions: Continue using your lozy-fso-jnhqkbt medication for constipation you have at home (miralax). Return to the ED for any abdominal pain, nausea, vomiting, flank pain, fever, chills, or any other concerning symptoms. Recommend follow up with primary care provider Prescriptions: New polyethylene glycol 3350 [Miralax] 17 gram/dose powder 17 g PO DAILY 5 Days Qty: 85 0RF No Action multivitamin [One Daily Multivitamin] Tablet 1 tab PO DAILY hydrocortisone 1 % cream 1 appl topical BID PRN (Reason: itch) ibuprofen 600 mg tablet 600 mg PO Q8H PRN (Reason: pain) tacrolimus 0.1 % ointment 1 appl topical BID 28 Days Qty: 60 0RF Rx Instructions: apply to both temples with visible pustules oxcarbazepine 150 mg tablet 450 mg PO BID Qty: 180 0RF nicotine (polacrilex) 2 mg gum 2 mg PO Q2H PRN (Reason: Smoking Cessation) Qty: 20 0RF clonazepam 0.5 mg tablet 0.5 mg PO BID PRN (Reason: anxiety) Qty: 14 0RF hydroxyzine pamoate 50 mg capsule 50 mg PO Q6H PRN (Reason: anxiety) Qty: 30 0RF melatonin 3 mg tablet 3 mg PO BEDTIME Qty: 14 0RF trazodone 150 mg tablet 150 mg PO BEDTIME Qty: 30 0RF buspirone 10 mg tablet 10 mg PO TID Qty: 90 0RF nicotine 21 mg/24 hr patch 24 hour 1 patch topical DAILY Qty: 14 0RF albuterol sulfate [Ventolin HFA] 90 mcg/actuation HFA aerosol inhaler 2 puff inhalation Q4H PRN (Reason: asthma) Qty: 6.7 0RF loratadine 10 mg tablet 10 mg PO DAILY Qty: 30 0RF quetiapine 50 mg tablet 50 mg PO BEDTIME Qty: 30 0RF guanfacine 3 mg tablet extended release 24 hr 3 mg PO BEDTIME Qty: 30 0RF baclofen 5 mg tablet 5 mg PO TID Qty: 90 0RF buprenorphine-naloxone [Suboxone] 8-2 mg film 2 film buccal DAILY Qty: 60 0RF Rx Instructions: place 1 film on inside of (each) cheek levetiracetam [Keppra] 500 mg tablet 500 mg PO BID Qty: 60 1RF Referrals: Jeannette Barnes [employer]AGED FREIGHT INSPECTOR [Primary Care Provider, Medical] - 2 days Referral Note: Constipation Clinical Impression: Constipation Interventions: ED Discharge Assessment Last Done: 01/30/25 13:55 Discharge Date/Time: 01/30/25 13:56 Print Language: Wallisian
[2025-01-30 12:47] LABS: MANUAL DIFF FLAG NO
[2025-01-30 12:56] LABS: Hematocrit 33.9 % (42.0-52.0); Hemoglobin 11.1 g/dl (14.0-18.0); Imm Gran Abs Auto 0.04 X10*3/uL (0.00-0.03); Imm Gran Pct Auto 0.4 % (0.0-0.4); Lymphocytes Absolute Auto 1.2 X10*3/uL (1.2-4.9); Mean Corpuscular HGB Conc 32.7 g/dl (31.0-36.0); Mean Corpuscular Hemoglobin 29.4 pg (27.0-33.0); Mean Corpuscular Volume 89.9 fL (80.0-98.0); NRBC Abs Auto 0.000 X10*3/uL (0.0-0.012); NRBC Pct Auto 0.0 /100WBC (0.0-0.2); Platelet Count 285 X10*3/uL (160-400); Red Blood Count 3.77 X10*6/uL (4.60-5.80); White Blood Count 11.2 X10*3/uL (4.8-10.8)
[2025-01-30 13:02] LABS: Alanine Aminotransferase 11 U/L (0-40); Albumin Level 3.8 g/dL (3.5-5.0); Alkaline Phosphatase 66 U/L (39-117); Anion Gap 5 (12-20); Aspartate Amino Transferase 16 U/L (5-37); Blood Urea Nitrogen 10 mg/dL (9-16); Calcium 9.1 mg/dL (8.4-10.2); Carbon Dioxide 29 mmol/L (22-29); Chloride 108 mmol/L (96-108); Creatinine Clr Calc Pharmacy 94.9; Estimated Glomerular Filt Rate > 60; Lipase 25 U/L (8-78); Potassium 4.1 mmol/L (3.3-5.1); Sodium 138 mmol/L (135-145); Total Protein 6.0 g/dL (6.5-8.0)
[2025-01-30 13:55] VITALS: BP 117/64; PULSE 71; RESP 14; TEMP 36.8; O2SAT 98
== END 2025-01-30 13:56 | disposition home or self-care (01) ==
PROVIDERS: Physician Assistant; Emergency Provider Emergency Medicine; PCP Nurse Practitioner
DX: K59.00 Constipation, unspecified (principal)
CPT/HCPCS: 36415; 74018; 80053; 83690; 85025; 99284

== ENCOUNTER → 2025-01-30 11:07 | Outpatient (BNV) | payer MEDICAID, SELFPAY | PROVIDERS: Emergency Provider Emergency Medicine; PCP Nurse Practitioner; Visit Provider Radiology Vascular & Interventional Radiology | DX: K59.00 Constipation, unspecified (principal) | CPT/HCPCS: 74018 ==

== ENCOUNTER 2025-02-28 13:05 | Emergency (ER) | payer MEDICAID, SELFPAY ==
[2025-02-28 13:15] VITALS: BP 100/54; PULSE 64; O2SAT 98
[2025-02-28 13:23] VITALS: BP 103/58; PULSE 63; RESP 18; TEMP 36.5; O2SAT 97; BMI 22.8
--- NOTE | 2025-02-28 13:39 | ED_ITS ---
HPI - Seizure General Chief Complaint: Seizure Stated Complaint: PT FEELS LIKE THEY WILL HAVE SEIZURE Time Seen by Provider: 02/28/25 13:06 Source: patient, EMS and old records reviewed Mode of arrival: EMS Limitations: no limitations History of Present Illness ED Provider: OSIEL DURANT Narrative: 39 yo patient with PMH of psychosis, antisocial personality disorder, she notes no prior hx of seizure as a child or in the family. She states her seizures are always triggered by stress. She states she has seizures all the time now in the past few months - the episodes precipitated by emotional stress, she states she feels often confused, staff at program have not witnessed solve them. They did witnessed where she had a generalized tonic-clonic seizure. The staff also no they are unsure if she is using any substances. She is not sure why she is on Keppra if she does not have a neurology visit until February. She states this all started in 2010 after attending her grandfather's . They are not related to any head trauma. She has no tongue biting on exam. She states she had 2 seizures yesterday, but then has told staff that she feels like she sees things at times in his awake having seizures. She has no infectious symptoms. It is unclear if she is postictal. MD complaint: possible seizure Onset (ago): month(s) Description of Episode: loss of consciousness and tonic-clonic movement Witnessed: Yes - by Bystander Trauma: No Seizure History: No Place: [facility] program Possible Precipitating Event: stress Associated symptoms: denies other symptoms Treatments prior to arrival: none Related Data Home Medications ?Medication ?Instructions ?Recorded ?Confirmed hydrocortisone 1 % topical cream 1 appl topical BID SD N itch 10/25/23 10/25/23 ibuprofen 600 mg tablet 600 mg PO Q8H PRN pain 10/2410/25/23 multivitamin (One Daily 1 tab PO DAILY 10/25/23 0710/12 Multivitamin tablet) Previous Rx's ?Medication ?Instructions ?Recorded albuterol sulfate 90 mcg/actuation 2 puff inhalation Q 4H PRN asthma 10/27/23 aerosol inhaler (Ventolin HFA) #6.7 grams baclofen 5 mg tablet 5 mg PO TID #90 tabs 4 buprenorphine 8 mg-naloxone 2 mg 2 film buccal DAILY # 60 ea 10/27/23 sublingual film (Suboxone) buspirone 10 mg tablet 10 mg PO TID #90 tabs clonazepam 0.5 mg tablet 0.5 mg PO BID PRN anxiety #1 4 tabs 10/27/23 guanfacine 3 mg tablet,extended 3 mg PO BEDTIME #30 ta bs 10/27/23 release 24 hr hydroxyzine pamoate 50 mg capsule 50 mg PO Q6H PRN anx iety #30 caps 10/27/23 loratadine 10 mg tablet 10 mg PO DAILY #30 tabs 0712/12 melatonin 3 mg tablet 3 mg PO BEDTIME #14 tabs 12/12 nicotine (polacrilex) 2 mg gum 2 mg PO Q2H PRN Smoking Cessation 10/27/23 #20 ea nicotine 21 mg/24 hr daily 1 patch topical DAILY #14 e a 10/27/23 transdermal patch oxcarbazepine 150 mg tablet 450 mg (3 x 150 mg) PO BID #180 10/27/23 tabs quetiapine 50 mg tablet 50 mg PO BEDTIME #30 tabs tacrolimus 0.1 % topical ointment 1 appl topical BID 4 weeks #60 10/27/23 grams trazodone 150 mg tablet 150 mg PO BEDTIME #30 tabs 0 10/27/23 levetiracetam 500 mg tablet 500 mg PO BID #60 tabs (Keppra) polyethylene glycol 3350 17 17 g PO DAILY 5 days #85 g serina 01/30/25 gram/dose oral powder (Miralax) Allergies Allergy/AdvReac Type Severity Reaction Status Date / Time Penicillins AdvReac Severe Shortness Verified 02/28/25 13:26 of Breath Review of Systems Review of Systems: Constitutional : No Fever, No Chills, No Fatigue ENT/Mouth : No sore throat, No Rhinorrhea Eyes: No Eye Pain, No Swelling, No Redness Cardiovascular : No Chest Pain, No SOB, No Dyspnea on Exertion Respiratory : No Cough, No Sputum Gastrointestinal : No Nausea, No Vomiting, No Diarrhea, No abdominal Pain Genitourinary : No Dysuria, No Urinary Frequency, No Hematuria, Musculoskeletal : No joint pain, No Myalgias, No Joint Swelling Skin : No Skin Lesions, No rash Neuro : No Weakness, No Numbness, No Dizziness, no Headache All other systems reviewed and are negative [facility] Past Medical History Attestation statement: The following information was validated with the patient. Source: old records reviewed Medical History Antisocial personality disorder Borderline personality disorder PTSD (post-traumatic stress disorder) Aggressive behavior Suicidal ideation Social History Social History Household Members: Other Do you presently have visiting nurse or other home services: No Alcohol intake: never Patient Tobacco Use Status: Tobacco use Unknown Substance Use Type: Heroin Physical Exam Vital Signs: Vital Signs: Last Vital Signs Temp 97.7 F 02/28/25 13:23 Pulse 63 02/28/25 13:23 Resp 18 02/28/25 13:23 BP 103/58 L 02/28/25 13:23 Pulse Ox 97 02/28/25 13:23 O2 Del Method Room Air 02/28/25 13:23 BMI result Body Mass Index 22.8 Appearance: Alert. Oriented X3. No acute distress. Eyes: Pupils equal, round and reactive to light. ENT: Pharynx normal. Atraumatic, no lesions on the tongue from biting Neck: Normal inspection. Neck supple. CVS: Normal heart rate and rhythm. Pulses normal. Respiratory: No respiratory distress. Breath sounds normal. Abdomen: Soft and nontender. Skin: Skin warm and dry. Normal skin color. Extremities: No lower extremity edema. Neuro: Oriented X 3. No motor deficit. No sensory deficit. Course Course Course Narrative: spoke to clinician Sola [phone] unclear about these events and they just want the patient to be evaluated by Neurology sooner. I am going to ask our machine adjuster leader case trim to try to get him in quicker. Medical Decision Making Medical Decision Making [facility] Narrative: 39-year-old patient with past medical history of personality disorder, substance abuse who reportedly has had seizures since 2010 after her grandfather's . She states all of her events are triggered by emotional stress. She was just started on Keppra 500 b.i.d. December of 2024. She has not seen a neurologist and has an in March at [facility], we did try to get her a sooner appointment here but they are booking out until May. At this time I would avoid the Keppra given it is possible psychiatric effects and her longstanding depression. Her reports of seizures seem atypical and I suspect that these are more nonepileptic events triggered by seizures I did speak to her custodial. Differential Diagnosis Differential Diagnoses: The differential diagnosis associated with the presentation includes Nonepileptic seizures, stress, behavioral issue Admission/Observation Consideration of admission/observation: Escalation of care including admission/observation considered GCS 15 does not require any further workup these are not new events Independent Historian Clinical information obtained from an independent historian. History obtained from or confirmed by: EMS External Record Review External record reviewed: Outpatient record Discharge Plan Discharge Clinical Impression: Convulsion Patient Disposition: Home, Self-Care Instructions: Nonepileptic Seizures (ED) Additional Instructions: At this time please follow up with all of your outpatient mental health providers in medical providers. I do not believe until he see Neurology that you need to continue the Keppra as it has not changed the event frequency You should not be cooking over an open flame by yourself, swimming alone, operating any heavy machinery such as driving You should stay with a responsible adult Please follow up with Neurology as planned in March, I apologize to be did try to book you at our facility but like every other neurology department they are booked out until May Please return for any worsening symptoms or concerns Prescriptions: No Action multivitamin [One Daily Multivitamin] Tablet 1 tab PO DAILY hydrocortisone 1 % cream 1 appl topical BID PRN (Reason: itch) ibuprofen 600 mg tablet 600 mg PO Q8H PRN (Reason: pain) tacrolimus 0.1 % ointment 1 appl topical BID 28 Days Qty: 60 0RF Rx Instructions: apply to both temples with visible pustules oxcarbazepine 150 mg tablet 450 mg PO BID Qty: 180 0RF nicotine (polacrilex) 2 mg gum 2 mg PO Q2H PRN (Reason: Smoking Cessation) Qty: 20 0RF clonazepam 0.5 mg tablet 0.5 mg PO BID PRN (Reason: anxiety) Qty: 14 0RF hydroxyzine pamoate 50 mg capsule 50 mg PO Q6H PRN (Reason: anxiety) Qty: 30 0RF melatonin 3 mg tablet 3 mg PO BEDTIME Qty: 14 0RF trazodone 150 mg tablet 150 mg PO BEDTIME Qty: 30 0RF buspirone 10 mg tablet 10 mg PO TID Qty: 90 0RF nicotine 21 mg/24 hr patch 24 hour 1 patch topical DAILY Qty: 14 0RF albuterol sulfate [Ventolin HFA] 90 mcg/actuation HFA aerosol inhaler 2 puff inhalation Q4H PRN (Reason: asthma) Qty: 6.7 0RF loratadine 10 mg tablet 10 mg PO DAILY Qty: 30 0RF quetiapine 50 mg tablet 50 mg PO BEDTIME Qty: 30 0RF guanfacine 3 mg tablet extended release 24 hr 3 mg PO BEDTIME Qty: 30 0RF baclofen 5 mg tablet 5 mg PO TID Qty: 90 0RF buprenorphine-naloxone [Suboxone] 8-2 mg film 2 film buccal DAILY Qty: 60 0RF Rx Instructions: place 1 film on inside of (each) cheek levetiracetam [Keppra] 500 mg tablet 500 mg PO BID Qty: 60 1RF polyethylene glycol 3350 [Miralax] 17 gram/dose powder 17 g PO DAILY 5 Days Qty: 85 0RF Print Language: Setswana
--- NOTE | 2025-02-28 14:23 | MHC.CM.ED ---
Patient is currently in ER. Dr Salguero requested appointment with [facility] Neurology be obtained. Patient has a Neurology appoitment in March scheduled in [place]. Per [facility] Neurology sales receptionist, they are currently booking into May. Exploration Geologist will speak to Dr Fitch about possibly double booking appointment. Dr Salguero aware.
[2025-02-28 14:36] VITALS: BP 100/58; PULSE 66; RESP 14; TEMP 36.3; O2SAT 99
== END 2025-02-28 15:01 | disposition home or self-care (01) ==
PROVIDERS: Emergency Provider Emergency Medicine; PCP Internal Medicine
DX: R56.9 Unspecified convulsions (principal); F60.2 Antisocial personality disorder
CPT/HCPCS: 99284

== ENCOUNTER 2025-04-13 14:13 | Outpatient (AMB) | payer MEDICAID, SELFPAY ==
--- OUTSIDE RECORDS SUMMARY | 2025-01-01 16:00 | XMS_ITS ---
Author Organization [facility] Address [address] [place] [address] Care Team Providers Care Plaque Maker Name Role Phone Mallorie Dyson Primary Care Provider Migration, Provider Unavailable Unavailable Allergies Allergen (clinical drug ingredient) Drug/Non Drug Allergy documented on EMR Reaction Allergy Type Onset Date Status Penicillin rash Drug Allergy Active [facility] Encounter Medications Medication SIG (Take, Route, Frequency, Duration) Notes Start Date End Date Status NICORETTE CINNAMON SURGE 2 MG 1 GUM CHEWED EVERY 2 HOURS for 30 DAYS *Please review for potential replacement for e-prescription and drug interaction check* Active Flonase Allergy Relief 50 MCG/ACT 1 spray(s) in each nostril once a day for 30 days Active Divalproex Sodium 500 MG 2 tab(s) orally qhs confirmed with [place] Active Montelukast Sodium 10 MG 1 tab(s) orally at bedtime for allergy Active Levothyroxine Sodium 100 MCG 1 tab(s) orally once a day for 90 days Active Clotrimazole 1 % 1 jalil applied topically 2 times a day for 15 day(s) 10/17/2021 Not-Taking ProAir HFA 90 MCG/INH 2 PUFF(S) INHALED EVERY 6 HOURS NEEDED FOR SHORTNESS OF BREATH AND WHEEZING for 30 DAYS *Please review and pick correct strength-formula tion from [employer] options. If intended option is not shown, discontinue and re-order from Quick Search* Not-Taking Flonase Allergy Relief 50 MCG/ACT 1 spray(s) in each nostril once a day for 30 days Not-Taking Bactrim DS 800-160 MG 1 tab(s) orally every 12 hours for 10 day(s) 02/21/2022 Not-Taking Symbicort 160-4.5 MCG/ACT 2 puff(s) inhaled 2 times a day; May use 2 puffs as needed every 4 hours for shortness of breath: Maximum: 12 puffs/24 hours Active Hydrocortisone 2.5 % 1 jalil applied topically bid Not-Taking Fluocinolone Acetonide 0.025 % 1 jalil applied topically bid Not-Taking Methadone HCl 10 MG/ML 50 mg orally once a day Not-Taking Triamcinolone Acetonide *Please review and pick correct strength-formula tion from [employer] options. If intended option is not shown, discontinue and re-order from Quick Search* Not-Taking Flovent Diskus 250 MCG/INH 1 PUFF(S) INHALED 2 TIMES A DAY for 30 DAYS *Please review and pick correct strength-formula tion from [employer] options. If intended option is not shown, discontinue and re-order from Quick Search* 07/24/2021 Not-Taking Suboxone 8-2 MG 2 film(s) sublingually once a day Not-Taking Nicotine Polacrilex 4 MG 1 GUM chewed every 2 hours for 30 days Active Nicotine 14 MG/24HR 1 PATCH transdermally once a day for 15 days Active Ziprasidone HCl 60 MG 1 cap(s) orally 2 times a day Active Prazosin HCl 5 MG 1 cap(s) orally at bedtime, with 2 mg tab total 7 mg Active Betamethasone Dipropionate 0.05 % 1 jalil applied topically 2 times a day for 30 days Apply to arms and legs Active hydrOXYzine HCl 50 MG 2 tab(s) orally every 6 hours PRN Active Prazosin HCl 2 MG 1 cap(s) orally at bedtime, with the 5mg tab total 7 mg Active Senna S 8.6-50 MG 2 tab(s) orally once a day (at bedtime) for 90 days Active Estradiol 1 MG 1 tab(s) orally once a day confirmed with [place] Active Calcipotriene 0.005 % 1 jalil applied topically 2 times a day for 30 days apply to sensitive areas: buttocks Active rOPINIRole HCl 0.25 MG 1 tab(s) orally qhs for 30 days Active Encounters Encounter Location Date Provider Diagnosis [address] [address] 01/01/2025 Provider Migration Hypothyroidism, unspecified E03.9 Assessments Encounter Date Diagnosis (ICD Code) Assessment Notes Treatment Notes Treatment Clinical Notes Section Notes 01/01/2025 Hypothyroidism, unspecified (ICD-10 - E03.9) Plan Of Treatment Medication Medication Name Sig Start Date Stop Date Notes Levothyroxine Sodium 100 MCG 1 tab(s) or ally once a day for 90 days Progress Notes * Matt TRANDOB:1985 (40 yo M)Acc No.[id number]:01/01/2025 Patient: Matt REEDER Provider: :1985 A ge:39 Y S ex:Male Date:01/01/2025 Address:[address] [place] [address] ( Verify Address), [address] [place] [address] Pcp:Mallorie Dyson Subjective: * Chief Complaints: * 1 . Multum To Med[facility] Conversion Encounter. * Medical History: * Medications: T aking rOPINIRole HCl 0.25 MG Tablet 1 tab(s) orally qhs , Taking Calcipotriene 0.005 % Cream 1 jalil applied topically 2 times a day , Notes to Pharmacist: apply to sensitive areas: buttocks, Taking Betamethasone Dipropionate 0.05 % Cream 1 jalil applied topically 2 times a day , Notes to Pharmacist: Apply to arms and legs, Taking Senna S 8.6-50 MG Tablet 2 tab(s) orally once a day (at bedtime) , Taking Estradiol 1 MG Tablet 1 tab(s) orally once a day , Notes to Pharmacist: confirmed with [place], Taking hydrOXYzine HCl 50 MG Tablet 2 tab(s) orally every 6 hours PRN , Taking Prazosin HCl 2 MG Capsule 1 cap(s) orally at bedtime, with the 5mg tab , Notes to Pharmacist: total 7 mg, Taking Ziprasidone HCl 60 MG Capsule 1 cap(s) orally 2 times a day , Taking Prazosin HCl 5 MG Capsule 1 cap(s) orally at bedtime, with 2 mg tab , Notes to Pharmacist: total 7 mg, Taking Nicotine Polacrilex 4 MG Gum 1 GUM chewed every 2 hours , Taking Nicotine 14 MG/24HR Patch 24 Hour 1 PATCH transdermally once a day , Taking Symbicort 160-4.5 MCG/ACT Aerosol 2 puff(s) inhaled 2 times a day; May use 2 puffs as needed every 4 hours for shortness of breath: Maximum: 12 puffs/24 hours , Taking Divalproex Sodium 500 MG Tablet Delayed Release 2 tab(s) orally qhs , Notes to Pharmacist: confirmed with [place], Taking Montelukast Sodium 10 MG Tablet 1 tab(s) orally at bedtime for allergy , Taking NICORETTE CINNAMON SURGE 2 MG GUM 1 GUM CHEWED EVERY 2 HOURS , Notes to Pharmacist: *Please review for potential replacement for e-prescription and drug interaction check*, Taking Flonase Allergy Relief 50 MCG/ACT Suspension 1 spray(s) in each nostril once a day , Not-Taking/PRN Suboxone 8-2 MG Film 2 film(s) sublingually once a day , Not-Taking/PRN Methadone HCl 10 MG/ML Concentrate 50 mg orally once a day , Not-Taking/PRN Hydrocortisone 2.5 % Cream 1 jalil applied topically bid , Not-Taking/PRN Fluocinolone Acetonide 0.025 % Cream 1 jalil applied topically bid , Not-Taking/PRN Triamcinolone Acetonide , Notes to Pharmacist: *Please review and pick correct strength-formulation from [employer] options. If intended option is not shown, discontinue and re-order from Quick Search*, Not-Taking/PRN Flovent Diskus 250 MCG/INH POWDER 1 PUFF(S) INHALED 2 TIMES A DAY , Notes to Pharmacist: *Please review and pick correct strength-formulation from [employer] options. If intended option is not shown, discontinue and re-order from Quick Search*, Not-Taking/PRN Clotrimazole 1 % Cream 1 jalil applied topically 2 times a day , Not-Taking/PRN ProAir HFA 90 MCG/INH AEROSOL 2 PUFF(S) INHALED EVERY 6 HOURS NEEDED FOR SHORTNESS OF BREATH AND WHEEZING , Notes to Pharmacist: *Please review and pick correct strength-formulation from [employer] options. If intended option is not shown, discontinue and re-order from Quick Search*, Not-Taking/PRN Flonase Allergy Relief 50 MCG/ACT Suspension 1 spray(s) in each nostril once a day , Not-Taking/PRN Bactrim DS 800-160 MG Tablet 1 tab(s) orally every 12 hours * Allergies: P enicillin: rash - Allergy. Objective: * Vitals: Assessment: * Assessment: 1. H ypothyroidism, unspecified - E03.9 Plan: * Treatment: * Images: Billing Information: * Visit Code: * Procedure Codes: * Electronic signature of Prov ider Migration on 04/13/2025 at 02:17 PM EST Sign off status: Pending * Provider: Date: 0 01/01/2025 Generated for Gordo palma/Miguelina/Altheaitting on: 1 06/14/2024 02:17 PM EST
--- OUTSIDE RECORDS SUMMARY | 2025-04-13 14:17 | XMS_ITS | Patient Health Record ---
Author Organization [facility] Address [address] [place] [address] Care Team Providers Care Windows System Admin Name Role Phone Mallorie Dyson Primary Care Provider [facility] Unavailable [phone] Migration, Provider Unavailable Unavailable Allergies Allergen (clinical [...] review and pick correct strength-formula tion from XtremIOan options. If intended option is not shown, discontinue and re-order from Quick Search* Not-Taking Triamcinolone Acetonide *Please review and pick correct strength-formula tion from Direct Vet Marketingspan options. If intended option is not shown, discontinue and re-order from Quick Search* Not-Taking Flovent Diskus 250 MCG/INH 1 PUFF(S) INHALED 2 TIMES A DAY for 30 DAYS *Please review and pick correct strength-formula tion from [employer] options. If intended option is not shown, [...] MG 2 tab(s) orally qhs confirmed with [place] Active Montelukast Sodium 10 MG 1 tab(s) [...] tab(s) orally once a day confirmed with [place] Active Nicotine Polacrilex 4 MG 1 GUM [...] (20 or more) IM Intramuscular 07/24/2021 Administered [facility] [id number] Deon COVID-19 Vaccine IM Intramuscular 10/02/2020 Administered Moderna Covid-19 Booster Administration - Third Dose (Single Dose 50 mcg/0.25 mL IM Intramuscular 09/04/2021 Administered Hepatitis B (20 or more) IM Intramuscular 12/07/2021 Administered Hepatitis B (20 or more) IM Intramuscular 09/18/2022 Administered [facility] [id number] Social History Tobacco Use: Social History Observation Description Date Details (start date - stop date) Former Smoker NA - NA Tobacco Use Assessment MU Question Answer Notes What is your current smoking status? former smok er Problems Problem Type SNOMED Code ICD Code Onset Dates Problem Status W/U Status Risk Notes Problem Hypothyroidism (43229887) Hypothyroidism, unspecified (E03.9) Active confirmed Problem Opioid dependence (15499349) Opioid dependence, uncomplicated (F11.20) Active confirmed Problem Cannabis abuse (32744989) Cannabis abuse, uncomplicated (F12.10) Active confirmed Problem Tobacco user (888750131) Nicotine dependence, cigarettes, uncomplicated (F17.210) Active confirmed Problem Severe major depression, single episode, without psychotic features (79693048) Major depressive disorder, single episode, severe without psychotic features (F32.2) Active confirmed Problem Abnormal sexual function (68643028) 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) Active confirmed Problem Gender identity disorder (00094861) Gender identity disorder, unspecified (F64.9) Active confirmed Problem Mental disorder (52282031) Mental disorder, not otherwise specified (F99) Active confirmed Problem Restless legs syndrome (78234882) Restless legs syndrome (G25.81) Active confirmed Problem Epilepsy (56546008) Epilepsy, unspecified, not intractable, without status epilepticus (G40.909) Active confirmed Problem Allergic rhinitis (54108827) Allergic rhinitis, unspecified (J30.9) Active confirmed Problem Uncomplicated moderate persistent asthma (637190540) Moderate persistent asthma, uncomplicated (J45.40) Active confirmed Problem Atopic dermatitis (36466545) Atopic dermatitis, unspecified (L20.9) Active confirmed Problem Psoriasis vulgaris (402378108) Psoriasis vulgaris (L40.0) Active confirmed Problem Nondependent opioid abuse in remission (213529824) Opioid abuse, in remission (F11.11) Active confirmed Problem Body mass index 25-29 - overweight (937457678) Body mass index [BMI] 26.0-26.9, adult (Z68.26) Active confirmed Problem Body mass index 25-29 - overweight (526492345) Body mass index [BMI] 27.0-27.9, adult (Z68.27) Active confirmed Problem Sheltered homelessness (632882524754414) Sheltered homelessness (Z59.01) Active confirmed Problem Body mass index 20-24 - normal (290385284) Body mass index [BMI] 24.0-24.9, adult (Z68.24) Inactive confirmed Problem BMI 25-29 - overweight (520287867) Body mass index [BMI] 29.0-29.9, adult (Z68.29) Inactive confirmed Encounters Encounter Location Date Provider Diagnosis [address] [address] 01/01/2025 Provider Migration Hypothyroidism, unspecified E03.9 [facility] [address] [place] [address] [id number] 05/28/[address] [address] 11/10/2024 Eddieliza Casionan [address] [address] 11/10/2024 Eddielizion Dyson Assessments Encounter Date Diagnosis [...] End Date [place] Medicaid C3 [address] [place], [place] [id number] Matt Murry Self - patient is the [...] Hospitalization History Reason Date(Month/Year) COVID 19 - [facility] 11/[address] [facility] ER for hand 09/2021 Mike 2008 [place]-suicidal ideation//hx many ho spitalizations 02/2021
--- NOTE | 2025-04-13 14:24 | A.OFFVIS_ITS ---
Intake Visit Reasons: Epilepsy Allergies Penicillins Adverse Reaction (Severe, Verified 02/28/25 13:26) Shortness of Breath HPI Comments Details: The patient is a 40 year old male presenting for evaluation of recurrent seizures. He reports the onset of seizures was at age 23, with the first episode occurring at his grandfather's . The seizures have occurred periodically since the initial onset, with the most recent episode being a month ago. He ladi cribes multiple events, including one where he hit his head on the stairs, and another that occurred in his sleep. Episodes are preceded by a warning aura of confusion, strange thoughts, and blurred vision. During the seizures, he experiences loss of consciousness, shaking, and urinary incontinence. He denies any olfactory or gustatory aura. Following a previous seizure, he was seen in the ER and prescribed Keppra, but this was discontinued by an ER doctor who attributed the seizures to stress. The patient denies feeling stressed. His current medications include Klonopin, lithium, Seroquel, trazodone, and Suboxone. Past medical history is notable for psoriasis. He has a history of surgically placed metal in his hand and right hip. He denies any history of diabetes, kidney disease, or allergies to contrast. He also denies having a pacemaker or other implantable devices. He is not aware of any prior brain scans. [facility] Medical History Antisocial personality disorder Borderline personality disorder PTSD (post-traumatic stress disorder) Aggressive behavior Suicidal ideation Social History Household Members: Other Do you presently have visiting nurse or other home services: No Alcohol intake: never Patient Tobacco Use Status: Tobacco use Unknown Substance Use Type: Heroin Review of Systems Narrative Constitutional:?No fever, chills, fatigue, weight loss, or night sweats. HEENT:? Complain of double vision, blurred vision dryness and wearing glasses. Cardiovascular:?No chest pain, palpitations, orthopnea, PND, or leg swelling. Respiratory:?No cough, shortness of breath, wheezing, or hemoptysis. Gastrointestinal:? Complain of nausea and constipation Genitourinary:? Complain of urinary urgency frequency incontinence and pain during urination. Musculoskeletal:? Complain of joint pain back pain neck pain and leg cramping. Neurological:? Complain of difficulty walking headaches dizziness seizures and weakness. Sleep: Complain of sleep problems. Psychiatric:? Complain of anxiety depression and hallucinations. Endocrine:?No heat/cold intolerance, polydipsia, polyuria, or hair/skin changes. Hematologic/Lymphatic:?No easy bruising, bleeding, or lymphadenopathy. Integumentary (Skin):? Complain of rashes redness and itching. Allergic/Immunologic:?No seasonal allergies, hives, or recurrent infections. Physical Exam Neuro Other: Mental Status: Alert and oriented to person, place, and time. Normal attention. Normal spontaneous speech, fluency, and comprehension. No obvious issues with mood and memory. Affect is appropriate. Cranial Nerves: CN II: Visual shen full to confrontation, visual acuity intact. CN III, IV, : Pupils equal, round, reactive to light and accommodation. Extraocular movements are normal. CN V: Facial sensation is normal. CN VII: Facial movements symmetrical. CN VIII: Hearing intact to bedside conversation is normal. CN IX, X: Palate elevates symmetrically. CN XI: Shoulder shrug and head turn symmetrical. CN XII: Tongue midline without atrophy or fasciculations. Motor: Bulk and tone normal in all extremities. No significant muscle weakness in arms and legs. No drift. Reflexes: Deep tendon reflexes 2+ and symmetric. Plantar response down-going bilaterally. Coordination: [id number]-[id number] and [id number] testing normal. No dysmetria. Gait and Station: No obvious gait abnormality. No ataxia or instability. Sensory: Intact to light touch, pinprick, and vibration. Romberg is negative. Extrapyramidal: Full facial expressions and blinking. No rigidity. Movements are appropriate with no tremor or abnormality. Speech: Normal; no dysarthria or tremor. Assessment & Plan Assessment & Plan (1) Seizure disorder: Code(s): G40.909 - Epilepsy, unspecified, not intractable, without status epilepticus Category: Medical Plan Impression: a: Possible generalized seizure disorder b: Underlying severe behavioral disease with diagnoses of personality disorder and psychosis Rec: a: EEG b: MRI brain WWO I explained to the patient that the main goal is to determine if his recurrent episodes are epileptic seizures. I informed him that this process begins with ordering a routine EEG and an MRI of the brain. I clarified that if the initial EEG does not provide an answer, we may need to perform a longer EEG study. We discussed his history of surgically placed metal in his hand and right hip, and I told him I would notify the MRI department to ensure the scan can be performed safely. The patient confirmed he has no other metal implants, such as a pacemaker. The patient understood the diagnostic plan and agreed to proceed with the recommended testing. Orders: Orders EEG Routine Today G40.909 - Epilepsy, unspecified, not intractable, without status epilepticus MR head/brain wo/w con Today G40.909 - Epilepsy, unspecified, not intractable, without status epilepticus Coding Level of Care Code New Pt Level 4 (57639) Diagnoses Seizure disorder G40.906
== END 2025-04-13 14:43 | disposition home or self-care (01) ==
LOC: HO.HSM 14:14
PROVIDERS: PCP Family Medicine; Visit Provider Psychiatry & Neurology Neurology
DX: G40.909 Epilepsy, unspecified, not intractable, without status epilepticus (principal)
CPT/HCPCS: 99204

== ENCOUNTER → 2025-04-13 14:13 | Outpatient (BNVA) | payer MEDICAID, SELFPAY | PROVIDERS: PCP Family Medicine; Visit Provider Psychiatry & Neurology Neurology | DX: G40.909 Epilepsy, unspecified, not intractable, without status epilepticus (principal); F29 Unspecified psychosis not due to a substance or known physiological condition; F60.9 Personality disorder, unspecified | CPT/HCPCS: 99202 ==